=== PATIENT | male | born 1955 | race Caucasian/White ===

== ENCOUNTER 2017-10-16 11:30 | Inpatient (IN) | payer OTHER ==
[2017-10-16] VITALS (8 sets, daily range): BP systolic 118–137; BP diastolic 74–86; PULSE 94–118; TEMP 36.7–37.5; O2SAT 91–96; Ht 182.9 cm; Wt 108.0 kg
[~2017-10-16] VITALS: Ht 182.9 cm; Wt 108.0 kg
[~2017-10-16 11:30] MED LIST: ACET-1256 PO; IMDSR30 PO; LPR25 PO; LPT40 PO; LSN5 PO; NTRSLP4 SL; OMEP20TA PO; PLV75 PO; PPTBS PO
[2017-10-16] MEDS ORDERED: SODIUM CHLORIDE 0.9% 1000ML 1,000 ML IV STA ×3 (11:45→12:34)
[2017-10-16 12:14] LABS: BASO % 0.1 %; BASO ABS # 0.01 K/uL (0-0.2); HEMATOCRIT 44.8 % (42-52); HEMOGLOBIN 15.6 g/dL (14.0-18.0); IG# 0.07 K/uL (0.00-0.02); LYMPH % 5.8 %; LYMPH ABS # 0.87 K/uL (1.2-3.4); MEAN CELL VOLUME 95.3 fL (80-100); MEAN CORPUSCULAR HEMOGLOBIN 33.2 pg (25-34); MEAN CORPUSCULAR HGB CONC 34.8 g/dl (32-36); MEAN PLATELET VOLUME 10.3 fL (7.4-10.4); MONO % 1.8 %; MONO ABS # 0.27 K/uL (0.11-0.59); NEUT % 91.8 %; NEUT ABS # 13.83 K/uL (1.4-6.5); PLATELET COUNT 187 K/uL (130-400); RED CELL DISTRIBUTION WIDTH CV 14.2 % (11.5-14.5); RED CELL DISTRIBUTION WIDTH SD 49.7 fL (36.4-46.3); WHITE BLOOD COUNT 15.05 K/uL (4.8-10.8)
--- NOTE | 2017-10-16 12:21 | DIAGNOSTIC IMAGING REPORT ---
SINGLE VIEW CHEST CLINICAL HISTORY: Atypical chest pain. Dyspnea. FINDINGS: An AP, portable, upright chest radiograph is compared to chest x-ray and chest CT dated 12/15/2014. The examination is degraded by portable technique and patient rotation. The heart is enlarged and there is atherosclerotic calcification of the thoracic aorta. The pulmonary vasculature is noncongested. Emphysema and chronic interstitial thickening are similar to previous. There is dense airspace consolidation the right midlung with patchy airspace consolidation present at both lung bases, right larger than left. A trace right pleural effusion is suspected. No pneumothorax is seen. The skeletal structures are osteopenic. The bony thorax is grossly intact. IMPRESSION: 1. Cardiomegaly and emphysema. 2. There is multifocal airspace consolidation as above, most confluent in the right midlung. The appearance is typical for pneumonia. Clinical correlation will be required and radiographic follow-up to resolution is recommended. Electronically signed by: uGy Seaman M.D. 10/16/2017 12:20 PM Dictated Date/Time: 10/16/2017 12:19 PM
[2017-10-16] MEDS ORDERED: LEVAQUIN 750MG / 150ML D5W IV STA (12:23)
[2017-10-16] MEDS ORDERED: PIPERACILLIN/TAZOBACTAM 4.5 GM/100ML D5W IV STA (12:23)
[2017-10-16 12:32] LABS: ALBUMIN 2.9 gm/dl (3.4-5.0); ALT/SGPT 19 U/L (12-78); AST/SGOT 13 U/L (15-37); BLOOD UREA NITROGEN 30 mg/dl (7-18); CALCIUM 8.5 mg/dl (8.5-10.1); CARBON DIOXIDE 25 mmol/L (21-32); CREATININE 1.97 mg/dl (0.60-1.40); GLUCOSE 176 mg/dl (70-99); LIPASE 98 U/L (73-393); POTASSIUM 3.8 mmol/L (3.5-5.1); SODIUM 127 mmol/L (136-145)
[2017-10-16 12:37] LABS: ALKALINE PHOSPHATASE 60 U/L (45-117); CKMB 2.8 ng/ml (0.5-3.6); TOTAL PROTEIN 7.7 gm/dl (6.4-8.2)
[2017-10-16] MEDS ORDERED: LPR100 PO (12:39)
[2017-10-16] MEDS ORDERED: ADVIN10050 INH (12:39)
[2017-10-16] MEDS ORDERED: PRVIN5 INH (12:39)
[2017-10-16 12:40] LABS: INFLUENZA B ANTIGEN Neg for Influ B (NEG)
[2017-10-16 12:55] LABS: ISTAT CREATININE 1.9 mg/dl (0.6-1.3); ISTAT IONIZED CALCIUM 0.98 mmol/l (1.12-1.32); ISTAT POTASSIUM 3.8 mEq/L (3.3-5.0)
[2017-10-16] MEDS ORDERED: PIPERACILL/TAZOBAC CONSULT ACTIVE PRN (13:00)
[2017-10-16] MEDS ORDERED: PIPERACILL/TAZOBAC IV 4.5 GM in DEXTROSE 5% 100ML 100 ML IV SCH (13:00)
[2017-10-16] MEDS ORDERED: METHYLPREDNISOLONE 125 MG VIAL ONE (13:15)
[2017-10-16] MEDS ORDERED: DiphenhydrAMINE HCL 50 MG/ML VIAL ONE (13:15)
[2017-10-16] MEDS ORDERED: METHYLPREDNISOLONE 125 MG VIAL IV STA (13:16)
[2017-10-16] MEDS ORDERED: DiphenhydrAMINE HCL 50 MG/ML VIAL IV STA (13:16)
[2017-10-16] MEDS ORDERED: METO100T44 PO (14:43)
[2017-10-16] MEDS ORDERED: ALBUTEROL HFA 8 GM INHALER INH PRN (14:45)
[2017-10-16] MEDS ORDERED: DEXTROSE 50% 50 ML SYR IV PRN (15:15)
[2017-10-16] MEDS ORDERED: GLUCAGON FOR INJ 1 MG VIAL SQ PRN (15:15)
[2017-10-16] MEDS ORDERED: GLUCOSE 10 TABS/TUBE PO PRN (15:15)
[2017-10-16] MEDS ORDERED: GLUCOSE 40% GEL 15 GM TUBE PO PRN (15:15)
[2017-10-16] MEDS: NSS + 20MEQ KCL 1000ML 1,000 ML IV SCH (15:22)
[2017-10-16 15:32] LABS: INR 1.1 (0.9-1.1); PTT PATIENT 32.7 SECONDS (21.0-31.0)
[2017-10-16] MEDS ORDERED: CEFEPIME CONSULT ACTIVE PRN (15:45)
[2017-10-16] MEDS ORDERED: LEVOFLOXACIN CONSULT ACTIVE PRN (15:45)
[2017-10-16] MEDS: ALBUTEROL 0.083% NEBU SOLN 3 ML VIAL INH SCH ×2 (16:00→19:20)
--- NOTE | 2017-10-16 17:03 | EMERGENCY ROOM VISIT NOTE ---
History Report prepared by [place]: Quincy Sandhu Under the Supervision of: Dr. Calin Mojica D.O. First contact with patient: 11:38 Chief Complaint: ILLNESS Stated Complaint: BLOOD IN URINE, COUGHING UP BLOOD, SOB History of Present Illness The patient is a 62 year old male who presents to the Emergency Room with complaints of coughing up blood persistently and hematuria that began two days ago. The patient states that his symptoms started two days ago when he started to develop chills. He then felt like he had to vomit, but was unable to bring anything up. The patient felt a "pop" in his chest while he was trying to make himself vomit. He has felt a constant pain in the right side of the chest since this occurred two days ago. The patient continued to mention that he then started to notice blood in his urine and in what he was coughing up. He is wearing a nasal cannula on exam, but does not commonly wear oxygen. He was 88% on room air upon arrival in triage. The patient is not on any blood thinners. The patient does have a history of a myocardial infarction in 1989. Source of History: patient Onset: 2 days ago Position: chest, other Quality: other (coughing blood, hematuria) Timing: other (persistent) Associated Symptoms: + chills, + nausea, + urinary symptoms, No vomiting Review of Systems See HPI for pertinent positives & negatives. A total of 10 systems reviewed and were otherwise negative. Past Medical & Surgical Medical Problems: (1) [place] (acute kidney injury) (2) Coronary artery disease (3) Hypertension (4) Pneumonia Surgical Problems: (1) H/O cardiac catheterization Family History Omitted secondary to age. Social History Smoking Status: Current Some Day Smoker Marital Status: Housing Status: lives with significant other Occupation Status: unemployed Current/Historical Medications Scheduled Albuterol Sulf (Albuterol Sulfate), 1-2 PUFFS INH UD Fluticasone Prop/Salmeterol (Advair Diskus 100-50 Mcg/Dose), 1-2 PUFFS INH UD Metoprolol Succ (Toprol Xl) (Toprol-Xl ), 100 MG PO DAILY Allergies Coded Allergies: Piperacillin (Unverified Allergy, Intermediate, rash, itching, burning through upper body, 10/16/17) Tazobactam (Unverified Allergy, Intermediate, rash, itching, burning through upper body, 10/16/17) Aspirin (Verified Allergy, Mild, hives, 12/15/14) Morphine (Verified Adverse Reaction, Unknown, NAUSEA/VOMITING, 10/16/17) Physical Exam Vital Signs Date Time Temp Pulse Resp B/P (MAP) Pulse Ox O2 Delivery O2 Flow Rate FiO2 10/16/17 12:56 92 Nasal Cannula 4.0 10/16/17 12:38 118 29 113/72 92 Nasal Cannula 4.0 10/16/17 12:08 92 Nasal Cannula 4.0 10/16/17 11:50 121 10/16/17 11:33 36.6 121 22 116/72 90 Room Air Physical Exam GENERAL: Sitting up in bed, alert, well nourished, ill-appearing, dry cough, non -toxic EYE EXAM: normal conjunctiva. OROPHARYNX: no exudate, no erythema, lips, buccal mucosa, and tongue normal and mucous membranes are moist NECK: supple, no nuchal rigidity, no adenopathy, non-tender LUNGS: Wheezing bilaterally. Normal chest wall mechanics HEART: no murmurs, S1 normal and S2 normal ABDOMEN: abdomen soft, non-tender, normo-active bowel sounds, no masses, no rebound or guarding. BACK: Back is symmetrical on inspection and there is no deformity, no midline tenderness, no CVA tenderness. SKIN: no rashes and no bruising UPPER EXTREMITIES: upper extremities are grossly normal. LOWER EXTREMITIES: No pitting edema. Calves equal bilaterally. NEURO EXAM: Normal sensorium, cranial nerves II-XII grossly intact, normal speech, no gross weakness of arms, no gross weakness of legs. Medical Decision & Procedures ER Provider Diagnostic Interpretation: Radiology results as stated below per my review and the radiologist's interpretation: SINGLE VIEW CHEST CLINICAL HISTORY: Atypical chest pain. Dyspnea. FINDINGS: An AP, portable, upright chest radiograph is compared to chest x-ray and chest CT dated 12/15/2014. The examination is degraded by portable technique and patient rotation. The heart is enlarged and there is atherosclerotic calcification of the thoracic aorta. The pulmonary vasculature is noncongested. Emphysema and chronic interstitial thickening are similar to previous. There is dense airspace consolidation the right midlung with patchy airspace consolidation present at both lung bases, right larger than left. A trace right pleural effusion is suspected. No pneumothorax is seen. The skeletal structures are osteopenic. The bony thorax is grossly intact. IMPRESSION: 1. Cardiomegaly and emphysema. 2. There is multifocal airspace consolidation as above, most confluent in the right midlung. The appearance is typical for pneumonia. Clinical correlation will be required and radiographic follow-up to resolution is recommended. Electronically signed by: Guy Seaman M.D. 10/16/2017 12:20 PM Dictated Date/Time: 10/16/2017 12:19 PM Laboratory Results 10/16/17 12:00 Red Blood Count 4.70, Mean Corpuscular Volume 95.3, Mean Corpuscular Hemoglobin 33.2, Mean Corpuscular Hemoglobin Concent 34.8, Mean Platelet Volume 10.3, Neutrophils (%) (Auto) 91.8, Lymphocytes (%) (Auto) 5.8, Monocytes (%) (Auto) 1.8, Eosinophils (%) (Auto) 0.0, Basophils (%) (Auto) 0.1, Neutrophils # (Auto) 13.83, Lymphocytes # (Auto) 0.87, Monocytes # (Auto) 0.27, Eosinophils # (Auto) 0.00, Basophils # (Auto) 0.01 10/16/17 12:00 Test 10/16/17 12:00 10/16/17 12:09 White Blood Count 15.05 K/uL (4.8-10.8) Red Blood Count 4.70 M/uL (4.7-6.1) Hemoglobin 15.6 g/dL (14.0-18.0) Hematocrit 44.8 % (42-52) Mean Corpuscular Volume 95.3 fL (80-100) Mean Corpuscular Hemoglobin 33.2 pg (25-34) Mean Corpuscular Hemoglobin Concent 34.8 g/dl (32-36) Platelet Count 187 K/uL (130-400) Mean Platelet Volume 10.3 fL (7.4-10.4) Neutrophils (%) (Auto) 91.8 % Lymphocytes (%) (Auto) 5.8 % Monocytes (%) (Auto) 1.8 % Eosinophils (%) (Auto) 0.0 % Basophils (%) (Auto) 0.1 % Neutrophils # (Auto) 13.83 K/uL (1.4-6.5) Lymphocytes # (Auto) 0.87 K/uL (1.2-3.4) Monocytes # (Auto) 0.27 K/uL (0.11-0.59) Eosinophils # (Auto) 0.00 K/uL (0-0.5) Basophils # (Auto) 0.01 K/uL (0-0.2) RDW Standard Deviation 49.7 fL (36.4-46.3) RDW Coefficient of Variation 14.2 % (11.5-14.5) Immature Granulocyte % (Auto) 0.5 % Immature Granulocyte # (Auto) 0.07 K/uL (0.00-0.02) Prothrombin Time 11.5 SECONDS (9.0-12.0) Prothromb Time International Ratio 1.1 (0.9-1.1) Activated Partial Thromboplast Time 32.7 SECONDS (21.0-31.0) Partial Thromboplastin Ratio 1.3 Est Creatinine Clear Calc Drug Dose 47.2 ml/min Estimated GFR () 40.4 Estimated GFR (Non- 34.9 BUN/Creatinine Ratio 15.2 (10-20) Calcium Level 8.5 mg/dl (8.5-10.1) Total Bilirubin 1.0 mg/dl (0.2-1) Direct Bilirubin 0.3 mg/dl (0-0.2) Aspartate Amino Transf (AST/SGOT) 13 U/L (15-37) Alanine Aminotransferase (ALT/SGPT) 19 U/L (12-78) Alkaline Phosphatase 60 U/L (45-117) Total Creatine Kinase 222 U/L (39-308) Creatine Kinase MB 2.8 ng/ml (0.5-3.6) Creatine Kinase MB Ratio 1.3 (0-3.0) Troponin I < 0.015 ng/ml (0-0.045) Total Protein 7.7 gm/dl (6.4-8.2) Albumin 2.9 gm/dl (3.4-5.0) Lipase 98 U/L (73-393) Influenza Type A Antigen Neg for Influ A (NEG) Influenza Type B Antigen Neg for Influ B (NEG) Bedside Hemoglobin 16.3 g/dl (14.0-18.0) Bedside Hematocrit 48 % (42-52) Bedside Sodium 132 mEq/L (135-144) Bedside Potassium 3.8 mEq/L (3.3-5.0) Bedside Chloride 91 mEq/L (101-112) Bedside Total CO2 25 mEq/l (24-31) Anion Gap 21.0 mmol/L (16-25) Bedside Blood Urea Nitrogen 31 mg/dl (7-18) Bedside Creatinine 1.9 mg/dl (0.6-1.3) Bedside Glucose (other) 181 mg/dl (70-99) Bedside Ionized Calcium ([place]) 0.98 mmol/l (1.12-1.32) Laboratory results per my review. Medications Administered Medications (Trade) Dose Ordered Sig/Tony Route Start Time Stop Time Status Last Admin Dose Admin Sodium Chloride 1,000 ml @ 999 mls/hr Q1H1M STAT IV 10/16/17 11:45 10/16/17 12:45 DC 10/16/17 12:11 999 MLS/HR Levofloxacin (Levaquin / D5W) 750 mg NOW STAT IV 10/16/17 12:23 10/16/17 12:25 DC 10/16/17 13:28 750 MG Piperacillin Sod/ Tazobactam Sod (Zosyn Iv) 4.5 gm NOW STAT IV 10/16/17 12:23 10/16/17 12:25 DC 10/16/17 13:12 4.5 GM Sodium Chloride 1,000 ml @ 999 mls/hr Q1H1M STAT IV 10/16/17 12:33 10/16/17 13:33 DC 10/16/17 12:41 999 MLS/HR ECG Per My Interpretation Indication: other (Coughing up blood) Rate (beats per minute): 116 Rhythm: sinus tachycardia Findings: nonspecific-ST abn (Inferior and lateral), Q waves (Inferior), other (early r-wave progression) ED Course ED COURSE: Vital signs were reviewed and showed hypertensive tachycardic vitals. The patients medical record was reviewed The above diagnostic studies were performed and reviewed. ED treatments and interventions as stated above. 1141: The patient was evaluated in room A3. A complete history and physical examination was performed. 1145: Ordered Sodium Chloride 1000 mL @ 999 mL/hr IV. 1223: Ordered Zosyn 4.5 gm IV, Levofloxacin 750 gm IV. 1233: Ordered Sodium Chloride 1000 mL @ 999 mL/hr IV. 1227: I discussed the case with Dr. Luanarosaura Reynosoist. He will evaluate the patient for further treatment. 1234: Ordered Sodium Chloride 1000 mL @ 999 mL/hr IV. 1238: Upon reevaluation, the patient is resting in bed.I discussed my findings with the patient and he understands and agrees with the treatment plan. Based on the patients age, coexisting illnesses, exam and lab findings the decision to treat as an inpatient was made. The patient remained stable while under my care. The patient will be evaluated for further management. Medical Decision Differential diagnoses includes but is not limited to pneumonia, bronchitis, COPD/Asthma exacerbation, pneumothorax, pulmonary embolism, congestive heart failure, acute coronary syndrome. Patient is a 62-year-old male that presents to ER for chills for the past 2 days associated with some nausea and coughing up blood. Upon presentation he is hypoxic at 88%. Heart rate was in the 130s. Labs show a leukocytosis of 15, 000. Mild hyponatremia at 127. Creatinine is elevated at 2. Lactic acid was elevated 3.5. She was given 3 L normal saline. He remained on nasal cannula as he was hypoxic. He was given broad-spectrum antibiotics. With Zosyn he broke out in a redness on his chest and back. He was given IV steroids and Benadryl. Influence was negative. Chest x-ray showed the pneumonia. Patient family were updated at bedside. He was admitted to internal medicine with sepsis secondary to pneumonia and hypoxia. Medication Reconcilliation Current Medication List: was personally reviewed by me Blood Pressure Screening Patient's blood pressure: Elevated blood pressure Consults Time Called: 1221 Consulting Physician: Dr. Luana Clark Returned Call: 1227 I discussed the case with Dr. Luana Clark. He will evaluate the patient for further treatment. Impression Primary Impression: Sepsis Additional Impressions: Hypoxia Pneumonia Critical Care I have personally spent 35 minutes of critical care time in the direct management of this patient. This includes bedside care, interpretation of diagnostic studies, and testing, discussion with consultants, patient, and family members, and other required patient management activities. This 35 minutes is in excess of all separately billable procedures. Scribe Attestation The scribe's documentation has been prepared under my direction and personally reviewed by me in its entirety. I confirm that the note above accurately reflects all work, treatment, procedures, and medical decision making performed by me. Departure Information Dispostion Being Evaluated By Hospitalist Referrals Andressa Benjamin DO (PCP) Patient Instructions My [facility] Problem Qualifiers Primary Impression: Sepsis Sepsis type: sepsis due to unspecified organism Qualified Codes: A41.9 - Sepsis, unspecified organism Additional Impressions: Pneumonia Pneumonia type: due to unspecified organism Laterality: unspecified laterality Lung location: unspecified part of lung Qualified Codes: J18.9 - Pneumonia, unspecified organism
[2017-10-16] MEDS: CEFEPIME IV 2,000 MG in SYRINGE 7.5 ML IV SCH (17:35)
[2017-10-16] MEDS: INSULIN ASPART 100 UNITS/ML 3 ML PEN SC SCH ×2 (17:37→20:36)
[2017-10-16] MEDS ORDERED: ADVIN50/60 INH (19:56)
[2017-10-16] MEDS: FLUTICASONE/SALMETEROL (ADVAIR) 500/50 INH 14 PUFF INH SCH (20:33)
[2017-10-16] MEDS: METHYLPREDNISOLONE IV 40 MG in SYRINGE 0 ML IV SCH (22:09)
[2017-10-16] MEDS: HEPARIN SOD 5000 UNIT/0.5 ML CARP SQ SCH (22:11)
[2017-10-17] VITALS (7 sets, daily range): BP systolic 106–153; BP diastolic 63–83; PULSE 71–75; TEMP 36.6–36.9; O2SAT 95–97
[2017-10-17] MEDS: NSS + 20MEQ KCL 1000ML 1,000 ML IV SCH (01:06)
[2017-10-17] MEDS: CEFEPIME IV 2,000 MG in SYRINGE 7.5 ML IV SCH (04:20)
[2017-10-17] MEDS: HEPARIN SOD 5000 UNIT/0.5 ML CARP SQ SCH ×3 (05:54→21:10)
[2017-10-17] MEDS: METHYLPREDNISOLONE IV 40 MG in SYRINGE 0 ML IV SCH ×3 (05:54→21:05)
[2017-10-17 06:17] LABS: HEMATOCRIT 40.4 % (42-52); HEMOGLOBIN 13.6 g/dL (14.0-18.0); MEAN CELL VOLUME 96.7 fL (80-100); MEAN CORPUSCULAR HEMOGLOBIN 32.5 pg (25-34); MEAN CORPUSCULAR HGB CONC 33.7 g/dl (32-36); MEAN PLATELET VOLUME 10.3 fL (7.4-10.4); PLATELET COUNT 170 K/uL (130-400); RED CELL DISTRIBUTION WIDTH CV 14.8 % (11.5-14.5); RED CELL DISTRIBUTION WIDTH SD 52.7 fL (36.4-46.3); WHITE BLOOD COUNT 12.94 K/uL (4.8-10.8)
[2017-10-17 06:49] LABS: CALCIUM 7.8 mg/dl (8.5-10.1); CREATININE 1.46 mg/dl (0.60-1.40); PHOSPHORUS 2.5 mg/dl (2.5-4.9); POTASSIUM 5.1 mmol/L (3.5-5.1)
[2017-10-17] MEDS ORDERED: VANCOMYCIN CONSULT ACTIVE PRN (07:30)
[2017-10-17] MEDS ORDERED: VANCOMYCIN IV 2,750 MG in SODIUM CHLORIDE 0.9% 500ML 500 ML IV ONE (07:45)
[2017-10-17 07:53] LABS: HEMOGLOBIN A1C 7.6 % (4.5-5.6)
[2017-10-17] MEDS: INSULIN ASPART 100 UNITS/ML 3 ML PEN SC SCH ×4 (08:32→21:09)
[2017-10-17] MEDS: FLUTICASONE/SALMETEROL (ADVAIR) 500/50 INH 14 PUFF INH SCH ×2 (08:36→21:05)
[2017-10-17] MEDS: METOPROLOL SUCC 50MG EXT REL TAB PO SCH (08:37)
[2017-10-17] MEDS ORDERED: METOPROLOL TARTRATE 50 MG TAB PO SCH (09:00)
--- NOTE | 2017-10-17 10:24 | Pharmacy Progress Note ---
Pharmacy Abx Initial Consult Date of Service Oct 17, 2017. Pharmacy Dosing Scope Date of Consult: 10/17/17 Consultation requested by: Dr. Mas Pharmacy is consulted to initiate Vancomycin IV dosing therapy, order appropriate labs and adjust drug dose/frequency. Subjective The patient is a 62 year old male admitted on Oct 16, 2017 at 12:58. Objective Height (Feet): 6 Height (Inches): 0.00 Weight (Kilograms): 105.400 Vital Signs (Past 12Hrs) Vital Signs Past 12 Hours Date Time Temp Pulse Resp B/P (MAP) Pulse Ox O2 Delivery O2 Flow Rate FiO2 10/17/17 09:32 Nasal Cannula 3.0 10/17/17 07:22 36.6 75 18 106/63 (77) 97 10/17/17 04:00 Nasal Cannula 4.0 10/17/17 03:54 36.7 74 20 121/81 (94) 97 Nasal Cannula 4.0 10/17/17 00:00 Nasal Cannula 4.0 10/16/17 23:08 36.7 100 20 128/75 (92) 96 Nasal Cannula 4.0 Lab Results (24Hrs) Laboratory Tests (24 Hours) Test 10/16/17 12:00 10/17/17 06:02 White Blood Count 15.05 K/uL (4.8-10.8) H 12.94 K/uL (4.8-10.8) H Red Blood Count 4.70 M/uL (4.7-6.1) Hemoglobin 15.6 g/dL (14.0-18.0) Hematocrit 44.8 % (42-52) Mean Corpuscular Volume 95.3 fL (80-100) Mean Corpuscular Hemoglobin 33.2 pg (25-34) Mean Corpuscular Hemoglobin Concent 34.8 g/dl (32-36) Platelet Count 187 K/uL (130-400) Mean Platelet Volume 10.3 fL (7.4-10.4) Neutrophils (%) (Auto) 91.8 % Lymphocytes (%) (Auto) 5.8 % Monocytes (%) (Auto) 1.8 % Eosinophils (%) (Auto) 0.0 % Basophils (%) (Auto) 0.1 % Neutrophils # (Auto) 13.83 K/uL (1.4-6.5) H Lymphocytes # (Auto) 0.87 K/uL (1.2-3.4) L Monocytes # (Auto) 0.27 K/uL (0.11-0.59) Eosinophils # (Auto) 0.00 K/uL (0-0.5) Basophils # (Auto) 0.01 K/uL (0-0.2) Total Creatine Kinase 222 U/L (39-308) Lactic Acid Level 1.4 mmol/L (0.4-2.0) Micro Results Date/Time Source Procedure Growth Status 10/16/17 13:06 Blood Blood Culture - Preliminary Gram Positive Cocci Resulted 10/16/17 13:05 Blood Blood Culture - Preliminary Gram Positive Cocci Resulted 10/16/17 23:20 Sputum Expectorated Sputum Gram Stain - Final Resulted 10/16/17 23:20 Sputum Expectorated Sputum Sputum Culture Pending Resulted Assessment & Plan Assessment 62 year old male with Sepsis secondary to Pneumonia. Plan Vancomycin for treatment of Pneumonia + Bacteremia Vancomycin IV * Estimated PK parameters: Ke = 0.057/hr, Vd = 0.7 L/kg, t1/2 = 12.2 hrs * Loading dose: 2750 mg (25 mg/kg) x1 given at 0833 today. * Maintenance dose: Vancomycin 1750 mg IV (16.8 mg/kg) every 18 hours starting tonight at 2000. * Goal trough level for Sepsis/ Pneumonia: 15 to 20 mcg/mL * Trough level ordered for 10/19/17 before dose at 0800. Pharmacy will continue to follow and will adjust dose/frequency as necessary. Thank you.
--- NOTE | 2017-10-17 10:51 | Progress Note ---
Progress Note Date of Service Oct 17, 2017. Progress Note ID Consult Dictated #[id number] A/P: 1. GPC Septicemia 2. CAP 3. Leukocytosis -Continue abx, follow cultures -Repeat blood cultures x 2 -Thank you
[2017-10-17] MEDS: LEVOFLOXACIN / D5W 750 MG in PREMIXED IN D5W 150 ML IV SCH (11:36)
--- NOTE | 2017-10-17 13:22 | INFECT. DISEASE CONSULTATION ---
DATE OF CONSULTATION: 10/17/2017 HISTORY OF PRESENT ILLNESS: This is a 62-year-old gentleman who was brought to the ER after he had episodes of hemoptysis and a productive cough which began 2 days prior to admission. He also did admit to subjective fevers and chills at home. He did have some pleuritic chest pain associated with this. A chest x-ray was done in the Emergency Room and did show right middle lobe infiltration. A flu swab was negative. He has been afebrile since admission. His initial white blood cell count was 15 and has improved today to 12.9. Blood and sputum cultures were obtained in the ER. His blood cultures are growing gram positive cocci in 2/2 sets, and his sputum culture is pending. He was started empirically on Levaquin, vancomycin, and Solu-Medrol and appears to be tolerating these well. He was also hypoxic on arrival to the hospital but now is feeling much better on nasal cannula oxygen, which he does not require at home. He denies any recent travel. His family is at the bedside. There are no recent sick contacts. He does state that he was sick with the flu at the end of July and early August but otherwise has been feeling well. He currently denies any cough. He states this is much improved. He currently denies any pleuritic chest pain. He denies any nausea, vomiting, diarrhea, or abdominal pain. His remaining review of systems is unremarkable. PAST MEDICAL HISTORY: Significant for history of coronary artery disease with NE in the past, hypertension. PAST SURGICAL HISTORY: Significant for cardiac catheterization. FAMILY HISTORY: Noncontributory. SOCIAL HISTORY: Significant for daily tobacco use. He denies any drug or alcohol use. ALLERGIES: INCLUDE PENICILLIN, ASPIRIN, AND MORPHINE. MEDICATIONS: Vancomycin, Levaquin, Toprol-XL, subcu heparin, Solu-Medrol, Advair, insulin, Ventolin. PHYSICAL EXAMINATION: VITAL SIGNS: He is currently afebrile, pulse 75, respiratory rate 18, blood pressure 106/63, oxygen saturation is 97% on 3 L nasal cannula. GENERAL: He is awake, alert, and oriented x3. He is in no acute distress. HEENT: Mucous membranes are moist. Extraocular muscles are intact. CARDIOVASCULAR: Heart is regular. RESPIRATORY: Lungs have rhonchi bilaterally, with decreased breath sounds. GASTROINTESTINAL: Abdomen is soft, nontender, nondistended. EXTREMITIES: There is no lower extremity edema bilaterally. SKIN: Without rash. LABORATORY STUDIES: CBC today reveals a white blood cell count of 12.9, hemoglobin 13.6, platelets 170. Chemistry panel reveals a sodium of 136, potassium of 5.1, chloride 105, bicarbonate 27, BUN 25, creatinine 1.4, glucose 203. LFTs are within normal limits. Lactic acid was initially 3.5, this has improved to 1.4 this morning. Urinalysis is negative. Flu swab is negative. Blood cultures are growing gram positive cocci, which are yet to be identified. Sputum culture is pending. Chest x-ray again shows right middle lobe infiltration. ASSESSMENT: 1. Gram-positive sepsis. 2. Community acquired pneumonia. 3. Leukocytosis. PLAN: At this time, he will remain on broad spectrum antibiotics. Repeat blood cultures will be obtained. An echocardiogram should also be obtained to rule out any valvular abnormality. We will follow along with you.
--- NOTE | 2017-10-17 15:14 | Progress Note ---
Internal Med Progress Note Date of Service: Oct 17, 2017. Provider Documentation: SUBJECTIVE: says feeling better today still has some hemoptysis afebrile sob is better denies chest pain hemodynamically stable OBJECTIVE: Vital Signs-as noted below Exam: General-alert and oriented. Not in distress ENT-normal hearing. Neck-No neck masses Lungs-CTA b/l no wheezing or crackles Heart-S1 and S2 heard regular rhythm no murmurs Abdomen-soft Bowels sounds present no tenderness present no distension Extremities-no edema no erythema Neuro-alert and oriented moves extremities Lab data as noted below. ASSESSMENT & PLAN: Sepsis bacteremia community acquired pneumonia presented with hemoptysis, sob, tachycardia and leukocytosis and lactic acid of 3.5 CXR-multifocal pneumonia blood cx gm positive-await final cx lactic acid normalized currently on iv vancomycin and levaquin ID on board stopping fluids continue to monitor Bacteremia with gm positive cocci await final cx abx as above ID on board will f/u echo Copd ex hx of tobacco abuse from above on abx as above, iv steroids and nebs Hx of CAd on b clarita and aspirin will f/u lipid profile Hx of DM seems currently not on any meds hba1c 7.6 on iss close monitor while on steroids DVT PROPHYLAXIS hep sub q DISPOSITION monitor in tele to be determined Vital Signs: Date Time Temp Pulse Resp B/P (MAP) Pulse Ox O2 Delivery O2 Flow Rate FiO2 10/17/17 12:00 Nasal Cannula 2.0 10/17/17 12:00 36.6 74 20 128/83 (98) 96 Nasal Cannula 2.0 10/17/17 09:32 Nasal Cannula 3.0 10/17/17 07:22 36.6 75 18 106/63 (77) 97 10/17/17 04:00 Nasal Cannula 4.0 10/17/17 03:54 36.7 74 20 121/81 (94) 97 Nasal Cannula 4.0 10/17/17 00:00 Nasal Cannula 4.0 10/16/17 23:08 36.7 100 20 128/75 (92) 96 Nasal Cannula 4.0 10/16/17 20:00 95 Nasal Cannula 4.0 10/16/17 19:23 37.5 94 24 120/80 (93) 95 Nasal Cannula 4.0 10/16/17 19:20 96 18 94 Nasal Cannula 4.0 10/16/17 16:00 91 Nasal Cannula 4.0 10/16/17 15:37 37.2 110 20 118/74 (89) 91 Nasal Cannula 4.0 Lab Results: Results Past 24 Hours Test 10/16/17 16:25 10/16/17 17:04 10/16/17 20:18 10/16/17 21:00 Range/Units Bedside Glucose 284 249 70-99 mg/dl Lactic Acid Level 2.7 0.4-2.0 mmol/L Urine Color YELLOW Urine Appearance CLEAR CLEAR Urine pH 5.5 4.5-7.5 Urine Specific [place] 1.021 1.000-1.030 Urine Protein TRACE NEG Urine Glucose (UA) 3+ NEG Urine Ketones TRACE NEG Urine Occult Blood TRACE NEG Urine Nitrite NEG NEG Urine Bilirubin NEG NEG Urine Urobilinogen NEG NEG Urine Leukocyte Esterase NEG NEG Urine WBC (Auto) 1-5 0-5 /hpf Urine RBC (Auto) 5-10 0-4 /hpf Urine Hyaline Casts (Auto) 0 0-5 /lpf Urine Epithelial Cells (Auto) 10-20 0-5 /lpf Urine Bacteria (Auto) NEG NEG Test 10/17/17 06:02 10/17/17 07:04 Range/Units White Blood Count 12.94 4.8-10.8 K/uL Red Blood Count 4.18 4.7-6.1 M/uL Hemoglobin 13.6 14.0-18.0 g/dL Hematocrit 40.4 42-52 % Mean Corpuscular Volume 96.7 80-100 fL Mean Corpuscular Hemoglobin 32.5 25-34 pg Mean Corpuscular Hemoglobin Concent 33.7 32-36 g/dl RDW Standard Deviation 52.7 36.4-46.3 fL RDW Coefficient of Variation 14.8 11.5-14.5 % Platelet Count 170 130-400 K/uL Mean Platelet Volume 10.3 7.4-10.4 fL Sodium Level 136 136-145 mmol/L Potassium Level 5.1 3.5-5.1 mmol/L Chloride Level 105 98-107 mmol/L Carbon Dioxide Level 27 21-32 mmol/L Anion Gap 4.0 3-11 mmol/L Blood Urea Nitrogen 25 7-18 mg/dl Creatinine 1.46 0.60-1.40 mg/dl Est Creatinine Clear Calc Drug Dose 64.2 ml/min Estimated GFR () 58.1 Estimated GFR (Non- 50.1 BUN/Creatinine Ratio 17.2 10-20 Random Glucose 223 70-99 mg/dl Estimated Average Glucose 171 mg/dl Hemoglobin A1c 7.6 4.5-5.6 % Lactic Acid Level 1.4 0.4-2.0 mmol/L Calcium Level 7.8 8.5-10.1 mg/dl Phosphorus Level 2.5 2.5-4.9 mg/dl Magnesium Level 2.4 1.8-2.4 mg/dl Bedside Glucose 203 70-99 mg/dl Microbiology Results 10/17/17 Blood Culture, Received Pending 10/17/17 Blood Culture, Received Pending 10/17/17 MRSA DNA Surveillance Screen - Final, Complete Specimen Negative for MRSA by DNA Probe 10/16/17 Gram Stain - Final, Resulted 10/16/17 Sputum Culture, Resulted Pending
[2017-10-17] MEDS ORDERED: VANCOMYCIN IV 1,750 MG in SODIUM CHLORIDE 0.9% 500ML 500 ML IV SCH (20:00)
[2017-10-18] VITALS (9 sets, daily range): BP systolic 124–155; BP diastolic 63–95; PULSE 67–86; TEMP 36.3–36.8; O2SAT 93–97
[2017-10-18] MEDS: HEPARIN SOD 5000 UNIT/0.5 ML CARP SQ SCH ×3 (05:55→20:34)
[2017-10-18] MEDS: METHYLPREDNISOLONE IV 40 MG in SYRINGE 0 ML IV SCH (06:10)
[2017-10-18 06:49] LABS: HEMOGLOBIN 12.9 g/dL (14.0-18.0); MEAN CELL VOLUME 96.2 fL (80-100); MEAN CORPUSCULAR HEMOGLOBIN 32.7 pg (25-34); MEAN CORPUSCULAR HGB CONC 33.9 g/dl (32-36); MEAN PLATELET VOLUME 10.2 fL (7.4-10.4); PLATELET COUNT 204 K/uL (130-400); RED CELL DISTRIBUTION WIDTH CV 14.8 % (11.5-14.5); RED CELL DISTRIBUTION WIDTH SD 52.3 fL (36.4-46.3); WHITE BLOOD COUNT 12.68 K/uL (4.8-10.8)
[2017-10-18] MEDS ORDERED: PERFLUTREN LIPID MICROSPHERE (DEFINITY) IV ONE (07:48)
[2017-10-18 07:56] LABS: CALCIUM 8.2 mg/dl (8.5-10.1); CREATININE 1.11 mg/dl (0.60-1.40); POTASSIUM 4.7 mmol/L (3.5-5.1)
[2017-10-18] MEDS: INSULIN ASPART 100 UNITS/ML 3 ML PEN SC SCH ×4 (08:09→20:33)
[2017-10-18] MEDS: FLUTICASONE/SALMETEROL (ADVAIR) 500/50 INH 14 PUFF INH SCH (08:10)
[2017-10-18] MEDS: METOPROLOL SUCC 50MG EXT REL TAB PO SCH (08:52)
[2017-10-18] MEDS ORDERED: LEVALBUTEROL/IPRATROPIUM NEB INH PRN (11:00)
[2017-10-18] MEDS: LEVOFLOXACIN / D5W 750 MG in PREMIXED IN D5W 150 ML IV SCH (11:29)
--- NOTE | 2017-10-18 11:32 | ECHOCARDIOGRAM REPORT ---
*NOTICE TO RECEIVING DEMOCRAT AGENCY This information is strictly Confidential and protected under [place] law. [place] law prohibits you from making any further disclosure of this information unless further disclosure is expressly permitted by the written consent of the person to whom it pertains or is authorized by law. A general authorization for the release of medical or other information is not sufficient for this purpose. Hospital accepts no responsibility if the information is made available to any other person, INCLUDING THE PATIENT. Interpretation Summary * Name: GULSHAN PAYNE Study Date: 10/18/2017 07:19 AM BP: 128/79 mmHg * Patient Location: C.2T\S\S239\S\1 HR: 75 * : 1955 (M/d/yyyy) Gender: Male Height: 72 in * Age: 62 yrs Ethnicity: CA Weight: 232 lb * Ordering Physician: Jesús Mas * Referring Physician: Self, Referred * Performed By: Morgan Llanos RCS * * Reason For Study: GM Positive Bacteremia, Eval for Endocarditis * BSA: 2.3 m2 * The study was technically adequate. * -- Conclusions -- * There is mild concentric left ventricular hypertrophy. * There is a moderate sized apical, inferior, and posterior wall motion abnormality with hypokinesis of the segments. * Left ventricular systolic function is mildly reduced. * Ejection Fraction = 40-45%. * There is mild mitral regurgitation. * Diastolic dysfunction, Grade II (pseudonormalization pattern). * Tricuspid regurgitation is absent, and therefore the pulmonary artery systolic pressure cannot be calculated. * There is no evidence of pulmonary hypertension on 2D images. * There is no evidence of valvular vegetation within the limitations of this imaging modality. If the clinical suspicion for endocarditis remains high, consider HALEIGH. * Compared to the images of the prior study dated 12/16/14, the wall motion abnormalities and LVEF are unchanged. Procedure Details * A complete two-dimensional transthoracic echocardiogram was performed (2D, M-mode, Doppler and color flow Doppler). Left Ventricle * The left ventricle is normal in size. * There is mild concentric left ventricular hypertrophy. * Left ventricular systolic function is mildly reduced. * Ejection Fraction = 40-45%. * There is a moderate sized apical, inferior, and posterior wall motion abnormality with hypokinesis of the segments. Right Ventricle * The right ventricle is normal size. * The right ventricular systolic function is normal as assessed by tricuspid annular plane systolic excursion (TAPSE) (normal >1.5 cm). Atria * The left atrium is mildly dilated. * Right atrial size is normal. * There is no evidence of atrial septal defect, but resolution does not allow assessment for a patent foramen ovale. Mitral Valve * The mitral valve is normal. * There is no mitral valve stenosis. * There is mild mitral regurgitation. Tricuspid Valve * The tricuspid valve is normal. * There is no tricuspid stenosis. * Significant tricuspid regurgitation is absent. * Tricuspid regurgitation is absent, and therefore the pulmonary artery systolic pressure cannot be calculated. There is no evidence of pulmonary hypertension on 2D images. Aortic Valve * The aortic valve is trileaflet. * Aortic stenosis is absent. * There is no significant aortic regurgitation. Pulmonic Valve * The pulmonary valve is not well seen, but the Doppler examination is normal without significant regurgitation or stenosis. Great Vessels * The aortic root and proximal ascending aorta are normal sized. Pericardium/Pleural * There is no pericardial effusion. Great Vessels * Normal inferior vena cava diameter and respiratory variation suggests normal central venous pressure. * Normal inferior vena cava size and collapsability with sniff indicates a normal right atrial pressure of 3 mmHg Left Ventricular Diastolic Function * Diastolic dysfunction, Grade II (pseudonormalization pattern). MMode 2D Measurements and Calculations IVSd 1.2 cm IVSs 1.6 cm LVIDd 5.2 cm LVIDs 3.8 cm LVPWd 1.1 cm LVPWs 1.3 cm IVS/LVPW 1.1 FS 26.4 % EDV(Teich) 128.0 ml ESV(Teich) 62.2 ml EF(Teich) 51.4 % EDV(cubed) 138.5 ml ESV(cubed) 55.2 ml EF(cubed) 60.1 % % IVS thick 27.3 % % LVPW thick 19.8 % LV mass(C)d 239.1 grams LV mass(C)dI 105.4 grams/m\S\2 LV mass(C)s 206.0 grams LV mass(C)sI 90.8 grams/m\S\2 SV(Teich) 65.8 ml SI(Teich) 29.0 ml/m\S\2 SV(cubed) 83.3 ml SI(cubed) 36.7 ml/m\S\2 Ao root diam 4.0 cm Ao root area 12.3 cm\S\2 ACS 1.9 cm LA dimension 4.2 cm asc Aorta Diam 3.7 cm LA/Ao 1.1 EDV(MOD-sp4) 124.0 ml ESV(MOD-sp4) 76.0 ml EF(MOD-sp4) 38.7 % EDV(MOD-sp2) 179.0 ml ESV(MOD-sp2) 110.0 ml EF(MOD-sp2) 38.5 % SV(MOD-sp4) 48.0 ml SI(MOD-sp4) 21.2 ml/m\S\2 SV(MOD-sp2) 69.0 ml SI(MOD-sp2) 30.4 ml/m\S\2 Doppler Measurements and Calculations MV E max katelyn 96.8 cm/sec MV A max katelyn 58.6 cm/sec MV E/A 1.7 MV P1/2t max katelyn 105.7 cm/sec MV P1/2t 102.7 msec MVA(P1/2t) 2.1 cm\S\2 MV dec slope 301.6 cm/sec\S\2 MV dec time 0.25 sec Ao V2 max 125.1 cm/sec Ao max PG 6.3 mmHg Ao max PG (full) 2.0 mmHg LV V1 max PG 4.3 mmHg LV V1 max 103.4 cm/sec PA V2 max 71.9 cm/sec PA max PG 2.1 mmHg
--- NOTE | 2017-10-18 15:54 | Progress Note ---
Internal Med Progress Note Date of Service: Oct 18, 2017. Provider Documentation: SUBJECTIVE: denies sob has occasional hemoptysis no chest pain could not sleep last night appetite ok afebrile OBJECTIVE: Vital Signs-as noted below Exam: General-alert and oriented. Not in distress ENT-normal hearing. Neck-No neck masses Lungs-CTA b/l no wheezing or crackles Heart-S1 and S2 heard regular rhythm no murmurs Abdomen-soft Bowels sounds present no tenderness present no distension Extremities-no edema no erythema Neuro-alert and oriented moves extremities Lab data as noted below. ASSESSMENT & PLAN: Sepsis bacteremia community acquired pneumonia presented with hemoptysis, sob, tachycardia and leukocytosis and lactic acid of 3.5 CXR-multifocal pneumonia blood cx gm positive for strep pneumonia lactic acid normalized was on iv vancomycin and Levaquin ID on board stopped fluids stopped vancomycin continue to monitor Bacteremia strep pneumonia await sensitivities abx as above ID on board echo no new findings Copd ex hx of tobacco abuse from above on abx as above, iv steroids and nebs change steroids to po Hx of CAd on b clarita and aspirin will f/u lipid profile-ldl 84, hdl 12 Hx of chronic systolic and diastolic chf f 40-45% on toprol xl not on diuretics will monitor Hx of DM seems currently not on any meds hba1c 7.6 on iss close monitor while on steroids DVT PROPHYLAXIS hep sub q DISPOSITION transfer to medical floor ambulate in hallways Vital Signs: Date Time Temp Pulse Resp B/P (MAP) Pulse Ox O2 Delivery O2 Flow Rate FiO2 10/19/17 07:29 36.6 65 20 154/99 (117) 94 Room Air 10/19/17 00:00 Room Air 10/18/17 23:22 36.3 78 20 155/95 (115) 93 Room Air 10/18/17 22:49 72 18 95 Room Air 10/18/17 20:00 Room Air 10/18/17 14:48 Nasal Cannula 2.0 10/18/17 13:09 36.4 81 24 145/90 (108) 93 Room Air 10/18/17 12:48 36.8 86 16 95 2.0 10/18/17 12:00 Nasal Cannula 2.0 10/18/17 11:48 36.8 86 16 124/63 (83) 95 10/18/17 08:07 36.8 86 18 131/69 (89) 96 10/18/17 08:00 Nasal Cannula 2.0 Lab Results: Results Past 24 Hours Test 10/18/17 11:20 10/18/17 17:27 10/18/17 20:24 10/19/17 05:19 Range/Units Bedside Glucose 241 202 219 70-99 mg/dl White Blood Count 9.12 4.8-10.8 K/uL Red Blood Count 3.92 4.7-6.1 M/uL Hemoglobin 12.9 14.0-18.0 g/dL Hematocrit 37.6 42-52 % Mean Corpuscular Volume 95.9 80-100 fL Mean Corpuscular Hemoglobin 32.9 25-34 pg Mean Corpuscular Hemoglobin Concent 34.3 32-36 g/dl RDW Standard Deviation 51.4 36.4-46.3 fL RDW Coefficient of Variation 14.7 11.5-14.5 % Platelet Count 215 130-400 K/uL Mean Platelet Volume 10.7 7.4-10.4 fL
[2017-10-18] MEDS: IPRATROPIUM BROMIDE NEB SOLN 0.02% 2.5 ML VIAL INH PRN (22:49)
[2017-10-18] MEDS: LEVALBUTEROL 1.25MG/0.5ML NEB INH PRN (22:49)
[2017-10-19 06:09] LABS: HEMATOCRIT 37.6 % (42-52); HEMOGLOBIN 12.9 g/dL (14.0-18.0); MEAN CELL VOLUME 95.9 fL (80-100); MEAN CORPUSCULAR HEMOGLOBIN 32.9 pg (25-34); MEAN CORPUSCULAR HGB CONC 34.3 g/dl (32-36); MEAN PLATELET VOLUME 10.7 fL (7.4-10.4); PLATELET COUNT 215 K/uL (130-400); RED CELL DISTRIBUTION WIDTH CV 14.7 % (11.5-14.5); RED CELL DISTRIBUTION WIDTH SD 51.4 fL (36.4-46.3); WHITE BLOOD COUNT 9.12 K/uL (4.8-10.8)
[2017-10-19] MEDS: HEPARIN SOD 5000 UNIT/0.5 ML CARP SQ SCH ×3 (06:41→20:52)
[2017-10-19 07:29] VITALS: BP 154/99; PULSE 65; TEMP 36.6; O2SAT 94
[2017-10-19] MEDS ORDERED: VANCOMYCIN TROUGH ONE (07:30)
[2017-10-19] MEDS: METOPROLOL SUCC 50MG EXT REL TAB PO SCH (08:03)
[2017-10-19] MEDS: INSULIN ASPART 100 UNITS/ML 3 ML PEN SC SCH ×4 (08:07→20:51)
[2017-10-19] MEDS: LEVALBUTEROL 1.25MG/0.5ML NEB INH PRN (11:44)
[2017-10-19] MEDS: IPRATROPIUM BROMIDE NEB SOLN 0.02% 2.5 ML VIAL INH PRN (11:44)
[2017-10-19 11:46] VITALS: PULSE 73; O2SAT 92
[2017-10-19] MEDS: LEVOFLOXACIN / D5W 750 MG in PREMIXED IN D5W 150 ML IV SCH (12:29)
--- NOTE | 2017-10-19 14:59 | Progress Note ---
Internal Med Progress Note Date of Service: Oct 19, 2017. Provider Documentation: SUBJECTIVE: still has hemoptysis requiring neb afebrile eating ok' no chest pain no nausea OBJECTIVE: Vital Signs-as noted below Exam: General-alert and oriented. Not in distress ENT-normal hearing. Neck-No neck masses Lungs-CTA b/l no wheezing or crackles Heart-S1 and S2 heard regular rhythm no murmurs Abdomen-soft Bowels sounds present no tenderness present no distension Extremities-no edema no erythema Neuro-alert and oriented moves extremities Lab data as noted below. ASSESSMENT & PLAN: Sepsis bacteremia community acquired pneumonia presented with hemoptysis, sob, tachycardia and leukocytosis and lactic acid of 3.5 CXR-multifocal pneumonia blood cx gm positive for strep pneumonia lactic acid normalized was on iv vancomycin and Levaquin ID on board stopped fluids stopped vancomycin sputum cx strep pneumonia and gm negative bacilli still has hemoptysis continue to monitor Bacteremia strep pneumonia await sensitivities abx as above ID on board echo no new findings Copd ex hx of tobacco abuse from above on abx as above, steroids and nebs will monitor Hx of CAd on b clarita and aspirin will f/u lipid profile-ldl 84, hdl 12 Hx of chronic systolic and diastolic chf f 40-45% on toprol xl not on diuretics will monitor Hx of DM seems currently not on any meds hba1c 7.6 on iss close monitor while on steroids DVT PROPHYLAXIS hep sub q DISPOSITION transfer to medical floor ambulate in hallways possible d/c in am if stable Vital Signs: Date Time Temp Pulse Resp B/P (MAP) Pulse Ox O2 Delivery O2 Flow Rate FiO2 10/19/17 11:46 73 18 92 Room Air 10/19/17 08:10 Room Air 10/19/17 07:29 36.6 65 20 154/99 (117) 94 Room Air 10/19/17 00:00 Room Air 10/18/17 23:22 36.3 78 20 155/95 (115) 93 Room Air 10/18/17 22:49 72 18 95 Room Air 10/18/17 20:00 Room Air Lab Results: Results Past 24 Hours Test 10/18/17 17:27 10/18/17 20:24 10/19/17 05:19 10/19/17 07:34 Range/Units Bedside Glucose 202 219 143 70-99 mg/dl White Blood Count 9.12 4.8-10.8 K/uL Red Blood Count 3.92 4.7-6.1 M/uL Hemoglobin 12.9 14.0-18.0 g/dL Hematocrit 37.6 42-52 % Mean Corpuscular Volume 95.9 80-100 fL Mean Corpuscular Hemoglobin 32.9 25-34 pg Mean Corpuscular Hemoglobin Concent 34.3 32-36 g/dl RDW Standard Deviation 51.4 36.4-46.3 fL RDW Coefficient of Variation 14.7 11.5-14.5 % Platelet Count 215 130-400 K/uL Mean Platelet Volume 10.7 7.4-10.4 fL Test 10/19/17 11:42 Range/Units Bedside Glucose 202 70-99 mg/dl
[2017-10-19 15:09] VITALS: BP 138/89; PULSE 84; TEMP 36.4; O2SAT 93
[2017-10-19] MEDS ORDERED: CEFTRIAXONE SOD INJ 2,000 MG in DEXTROSE 5% 50ML 50 ML IV SCH (18:30)
[2017-10-19] MEDS: IPRATROPIUM BROMIDE NEB SOLN 0.02% 2.5 ML VIAL INH SCH (19:15)
[2017-10-19] MEDS: LEVALBUTEROL 1.25MG/0.5ML NEB INH SCH (19:16)
[2017-10-19 19:18] VITALS: PULSE 80; O2SAT 93
[2017-10-19] MEDS ORDERED: LEVALBUTEROL/IPRATROPIUM NEB INH SCH (20:00)
[2017-10-19 23:27] VITALS: BP 148/92; PULSE 69; TEMP 36.7; O2SAT 93
[2017-10-20 06:40] LABS: CREATININE 1.12 mg/dl (0.60-1.40)
[2017-10-20] MEDS: HEPARIN SOD 5000 UNIT/0.5 ML CARP SQ SCH (06:45)
[2017-10-20 07:11] VITALS: BP 131/92; PULSE 88; TEMP 36.4; O2SAT 92
[2017-10-20] MEDS: IPRATROPIUM BROMIDE NEB SOLN 0.02% 2.5 ML VIAL INH SCH (07:23)
[2017-10-20] MEDS: LEVALBUTEROL 1.25MG/0.5ML NEB INH SCH (07:24)
[2017-10-20] MEDS: METOPROLOL SUCC 50MG EXT REL TAB PO SCH (07:53)
[2017-10-20] MEDS: INSULIN ASPART 100 UNITS/ML 3 ML PEN SC SCH ×2 (07:56→11:46)
--- NOTE | 2017-10-20 10:44 | Progress Note ---
Subjective Date of Service: Oct 20, 2017. Subjective Pt evaluation today including: physical exam, chart review, lab review pt feeling much better, asking to go home. repeat blood cultures negative. sputum and initial blood culture with S. pneumo. sputum also with talisha and gnr (rare). no hemoptysis this am, cough much better. denies f/c. no sob, no wheeze, no cp. had itching with rocephin last night. asking to go home. all remaining ros reviewed and are negative. Problem List Medical Problems: (1) Hypoxia Status: Acute (2) Sepsis Status: Acute Objective Vital Signs Date Time Temp Pulse Resp B/P (MAP) Pulse Ox O2 Delivery O2 Flow Rate FiO2 10/20/17 08:00 Room Air 10/20/17 07:11 36.4 88 16 131/92 (105) 92 10/20/17 00:00 Room Air 10/19/17 23:27 36.7 69 20 148/92 (110) 93 Room Air 10/19/17 20:00 Room Air 10/19/17 19:18 80 16 93 Room Air 10/19/17 16:33 Room Air 10/19/17 15:09 36.4 84 18 138/89 (105) 93 Room Air 10/19/17 11:46 73 18 92 Room Air Physical Exam General Appearance: WD/WN, no apparent distress Eyes: normal inspection, EOMI Neck: supple Respiratory/Chest: lungs clear, normal breath sounds, no respiratory distress Cardiovascular: regular rate, rhythm, no edema Abdomen: soft Extremities: non-tender, no pedal edema Neurologic/Psychiatric: alert, oriented x 3 Skin: normal color Laboratory Results Item Value Date Time Gram Stain - Final Resulted 10/16/17 2320 Sputum Expectorated Sputum Blood Culture - Final Complete 10/16/17 1306 Blood Strep. Pneumo - Penic Suscept Blood Culture - Preliminary Resulted 10/17/17 1123 Blood NO GROWTH TO DATE. Blood Culture - Preliminary Resulted 10/17/17 1124 Blood NO GROWTH TO DATE. Last 24 Hours Test 10/19/17 11:42 10/19/17 16:19 10/19/17 20:12 10/20/17 05:20 Bedside Glucose 202 mg/dl 198 mg/dl 161 mg/dl Creatinine 1.12 mg/dl Est Creatinine Clear Calc Drug Dose 84.6 ml/min Estimated GFR () 80.0 Estimated GFR (Non- 69.0 Test 10/20/17 07:37 Bedside Glucose 127 mg/dl Assessment and Plan (1) Sepsis due to Streptococcus pneumoniae Assessment & Plan: repeat blood cultures negative, can change to po levaquin 500mg po daily to complete 14 day course. ok for d/c from ID standpoint when otherwise stable, discussed with primary (2) Pneumonia Problem Qualifiers (1) Pneumonia: Pneumonia type: due to unspecified organism Laterality: unspecified laterality Lung location: unspecified part of lung Qualified Codes: J18.9 - Pneumonia, unspecified organism
[2017-10-20] MEDS ORDERED: IPRA1AER2 INH (10:46)
[2017-10-20] MEDS ORDERED: PRED10TA PO (10:46)
[2017-10-20] MEDS ORDERED: LEVO750T23 PO (10:46)
[2017-10-20] MEDS ORDERED: LCTX PO (10:46)
--- NOTE | 2017-10-20 10:49 | Discharge Instructions ---
Discharge Instructions Date of Service Oct 20, 2017. Admission Reason for Admission: Neeraj (Acute Kidney Injury) Discharge Discharge Diagnosis / Problem: sepsis, pneumionia, bacteremia, neeraj Discharge Goals Goal(s): Decrease discomfort, Improve function Activity Recommendations Activity Limitations: resume your previous activity . Instructions / Follow-Up Instructions / Follow-Up FOLLOWUP WITH FAMILY DOCTOR Andressa Grover ON October AT 11:05AM FOLLOWUP WITH FAMILY DOCTOR REGARDING DIABETES. HBA1C 7.6 Current Hospital Diet Patient's current hospital diet: Diabetes Type 2 Diet, AHA Diet (Heart Healthy) Discharge Diet Recommended Diet: AHA Diet (Heart Healthy), Diabetes Type 2 Diet Pending Studies Studies pending at discharge: no Laboratory Results Hemoglobin A1c Test 10/17/17 06:02 Range/Units Estimated Average Glucose 171 mg/dl Hemoglobin A1c 7.6 H 4.5-5.6 % Lipid Panel Test 10/18/17 06:25 Range/Units Triglycerides Level 229 H 0-150 mg/dl Cholesterol Level 142 0-200 mg/dl HDL Cholesterol 12 mg/dl Cholesterol/HDL Ratio 11.8 LDL Cholesterol, Calculated 84 mg/dl Medical Emergencies . Who to Call and When: Medical Emergencies: If at any time you feel your situation is an emergency, please call 911 immediately. . Non-Emergent Contact Non-Emergency issues call your: Primary Care Provider . . "Provider Documentation" section prepared by Jesús Mas. .
[2017-10-20 11:24] VITALS: BP 131/92; PULSE 88; TEMP 36.4; O2SAT 92
[2017-10-20] MEDS: LEVOFLOXACIN / D5W 750 MG in PREMIXED IN D5W 150 ML IV SCH (11:45)
[2017-10-20] MEDS ORDERED: IPRATROPIUM BROMIDE/ALBUTEROL respimat INH INH SCH (14:00)
--- NOTE | 2017-10-20 19:25 | Progress Note ---
Internal Med Progress Note Date of Service: Oct 20, 2017. Provider Documentation: SUBJECTIVE: hemoptysis improved but still has some sob improved no chest pain' afebrile want to go home OBJECTIVE: Vital Signs-as noted below Exam: General-alert and oriented. Not in distress ENT-normal hearing. Neck-No neck masses Lungs-CTA b/l no wheezing or crackles Heart-S1 and S2 heard regular rhythm no murmurs Abdomen-soft Bowels sounds present no tenderness present no distension Extremities-no edema no erythema Neuro-alert and oriented moves extremities Lab data as noted below. ASSESSMENT & PLAN: Sepsis bacteremia community acquired pneumonia presented with hemoptysis, sob, tachycardia and leukocytosis and lactic acid of 3.5 CXR-multifocal pneumonia blood cx gm positive for strep pneumonia sensitive to pcn and Levaquin lactic acid normalized was on iv vancomycin and Levaquin ID on board stopped fluids stopped vancomycin sputum cx strep pneumonia and gm negative bacilli stable discharged on po Levaquin Bacteremia strep pneumonia await sensitivities abx as above ID on board echo no new findings Copd ex hx of tobacco abuse from above on abx as above, steroids and nebs d/c on steroid taper, Combivent, Advair and albuterol prn Hx of CAd on b clarita and aspirin will f/u lipid profile-ldl 84, hdl 12 Hx of chronic systolic and diastolic chf f 40-45% on toprol xl not on diuretics will monitor Hx of DM seems currently not on any meds hba1c 7.6 on iss patient says his hba1c always high and doesn't want any meds now on discharge advised to followup with pcp and patient agrees discharged home Vital Signs: Date Time Temp Pulse Resp B/P (MAP) Pulse Ox O2 Delivery O2 Flow Rate FiO2 10/20/17 11:24 36.4 88 16 92 Room Air 10/20/17 08:00 Room Air 10/20/17 07:11 36.4 88 16 131/92 (105) 92 10/20/17 00:00 Room Air 10/19/17 23:27 36.7 69 20 148/92 (110) 93 Room Air 10/19/17 20:00 Room Air Lab Results: Results Past 24 Hours Test 10/19/17 20:12 10/20/17 05:20 10/20/17 07:37 Range/Units Bedside Glucose 161 127 70-99 mg/dl Creatinine 1.12 0.60-1.40 mg/dl Est Creatinine Clear Calc Drug Dose 84.6 ml/min Estimated GFR () 80.0 Estimated GFR (Non- 69.0
--- NOTE | 2017-10-20 19:32 | Discharge Summary ---
Discharge Summary Date of Service Oct 20, 2017. Discharge Summary Admission Date: Oct 16, 2017 at 12:58 Discharge Date: Oct 20, 2017 Discharge Disposition: Home Principal Diagnosis: SEPSIS PNEUMONIA BACTEREMIA Secondary Diagnoses/Problems: COPD,CAD,CHF DM Procedures: CXR: 1. Cardiomegaly and emphysema. 2. There is multifocal airspace consolidation as above, most confluent in the right midlung. The appearance is typical for pneumonia. Clinical correlation will be required and radiographic follow-up to resolution is recommended. ECHO: There is mild concentric left ventricular hypertrophy. * There is a moderate sized apical, inferior, and posterior wall motion abnormality with hypokinesis of the segments. * Left ventricular systolic function is mildly reduced. * Ejection Fraction = 40-45%. * There is mild mitral regurgitation. * Diastolic dysfunction, Grade II (pseudonormalization pattern). * Tricuspid regurgitation is absent, and therefore the pulmonary artery systolic pressure cannot be calculated. * There is no evidence of pulmonary hypertension on 2D images. * There is no evidence of valvular vegetation within the limitations of this imaging modality. If the clinical suspicion for endocarditis remains high, consider HALEIGH. * Compared to the images of the prior study dated 12/16/14, the wall motion abnormalities and LVEF are unchanged. Consultations: ID Medication Reconciliation New Medications: Ipratropium-Albuterol (Combivent Respimat) 1 Aer Aer 1 PUFFS INH QID, #1 INH 1 Refill Lactobacillus Acidophilus (Lactinex) Tab 2 TAB PO BID for 15 Days, TAB Levofloxacin (Levaquin) 750 Mg Tab 1 TAB PO DAILY for 10 Days, #10 TAB Prednisone (Prednisone) 10 Mg Tab 30 MG PO UD, #12 TAB PREDNISONE 30MG PO DAILY X 2 DAYS THEN PREDNISONE 20MG PO DAILY X 2 DAYS THEN PREDNISONE 10MG PO DAILY X 2 DAYS THEN STOP. Continued Medications: Albuterol Sulf (Albuterol Sulfate) Unknown Strength Nebu 1-2 PUFFS INH UD Fluticasone Prop/Salmeterol (Advair Diskus 500/50 60 Dose) 1 Ea Aerp 1 PUFF INH BID Metoprolol Succ (Toprol Xl) (Toprol-Xl ) 100 Mg Tabcr 100 MG PO DAILY, TAB Hospital Course Sepsis bacteremia community acquired pneumonia presented with hemoptysis, sob, tachycardia and leukocytosis and lactic acid of 3.5 CXR-multifocal pneumonia blood cx gm positive for strep pneumonia sensitive to pcn and Levaquin lactic acid normalized was on iv vancomycin and Levaquin ID on board stopped fluids stopped vancomycin sputum cx strep pneumonia and gm negative bacilli stable discharged on po Levaquin Bacteremia strep pneumonia await sensitivities abx as above ID on board echo no new findings Copd ex hx of tobacco abuse from above on abx as above, steroids and nebs d/c on steroid taper, Combivent, Advair and albuterol prn Hx of CAd on b clarita and aspirin will f/u lipid profile-ldl 84, hdl 12 Hx of chronic systolic and diastolic chf f 40-45% on toprol xl not on diuretics will monitor Hx of DM seems currently not on any meds hba1c 7.6 on iss patient says his hba1c always high and doesn't want any meds now on discharge advised to followup with pcp and patient agrees discharged home Total time spent on discharge = 35MINUTES This includes examination of the patient, discharge planning, medication reconciliation, and communication with other providers. Discharge Instructions Discharge Instructions Date of Service Oct 20, 2017. Admission Reason for Admission: Neeraj (Acute Kidney Injury) Discharge Discharge Diagnosis / Problem: sepsis, pneumionia, bacteremia, neeraj Discharge Goals Goal(s): Decrease discomfort, Improve function Activity Recommendations Activity Limitations: resume your previous activity . Instructions / Follow-Up Instructions / Follow-Up FOLLOWUP WITH FAMILY DOCTOR Andressa Grover ON October AT 11:05AM FOLLOWUP WITH FAMILY DOCTOR REGARDING DIABETES. HBA1C 7.6 Current Hospital Diet Patient's current hospital diet: Diabetes Type 2 Diet, AHA Diet (Heart Healthy) Discharge Diet Recommended Diet: AHA Diet (Heart Healthy), Diabetes Type 2 Diet Pending Studies Studies pending at discharge: no Laboratory Results Hemoglobin A1c Test 10/17/17 06:02 Range/Units Estimated Average Glucose 171 mg/dl Hemoglobin A1c 7.6 H 4.5-5.6 % Lipid Panel Test 10/18/17 06:25 Range/Units Triglycerides Level 229 H 0-150 mg/dl Cholesterol Level 142 0-200 mg/dl HDL Cholesterol 12 mg/dl Cholesterol/HDL Ratio 11.8 LDL Cholesterol, Calculated 84 mg/dl Medical Emergencies . Who to Call and When: Medical Emergencies: If at any time you feel your situation is an emergency, please call 911 immediately. . Non-Emergent Contact Non-Emergency issues call your: Primary Care Provider . . "Provider Documentation" section prepared by Jesús Mas. .
[2017-10-20] MEDS ORDERED: FLUTICASONE/SALMETEROL (ADVAIR) 500/50 INH 14 PUFF INH SCH (20:00)
--- NOTE | 2017-10-22 17:41 | History and Physical ---
History & Physical Date & Time of Service: Oct 16, 2017 at 13:44 Chief Complaint: Blood In Urine, Coughing Up Blood, Sob Primary Care Physician: Andressa Benjamin DO History of Present Illness Source: patient, spouse He is 62-year-old male, obese with significant past medical history of severe COPD type 2 diabetes and CAD apparently has been complaining of cold symptoms since Friday last. He was having cold with cough and shakes at times on Friday , on Friday he was feeling lot worse and nauseous but no vomiting. Today the condition got worse with more shortness of breath and chills that he came to the emergency room for further evaluation. He complains to have cough with a productive of whitish yellow phlegm and also he noticed blood on 2 occasions. He did not have any documented fever but he was feeling chills and shakes. He also complained to have blood in the urine seems to be unrelated. In the emergency room he was afebrile but tachycardic with low saturation and a white count of 15,000. The chest x-ray did show multilobar pneumonia. He received IV antibiotics and also IV fluid was advised for admission. Past Medical/Surgical History Medical Problems: (1) Acute coronary syndrome (2) [place] (acute kidney injury) (3) Coronary artery disease (4) Elevated troponin (5) Hypertension (6) Pneumonia Surgical Problems: (1) H/O cardiac catheterization Social History Smoking Status: Current Some Day Smoker Smokeless Tobacco Use: No Alcohol Use: none Drug Use: none Marital Status: Occupational Status: unemployed Immunizations History of Influenza Vaccine: Yes History of Pneumococcal: Yes History of Hepatitis B Vaccine: Yes Allergies Coded Allergies: Piperacillin (Unverified Allergy, Intermediate, rash, itching, burning through upper body, 10/16/17) Tazobactam (Unverified Allergy, Intermediate, rash, itching, burning through upper body, 10/16/17) Aspirin (Verified Allergy, Mild, hives, 12/15/14) Ceftriaxone (Verified Allergy, Unknown, HIVES, 10/20/17) Morphine (Verified Adverse Reaction, Unknown, NAUSEA/VOMITING, 10/16/17) Home Medications Scheduled Albuterol Sulf (Albuterol Sulfate), 1-2 PUFFS INH UD Fluticasone Prop/Salmeterol (Advair Diskus 500/50 60 Dose), 1 PUFF INH BID Ipratropium-Albuterol (Combivent Respimat), 1 PUFFS INH QID Lactobacillus Acidophilus (Lactinex), 2 TAB PO BID Levofloxacin (Levaquin), 1 TAB PO DAILY Metoprolol Succ (Toprol Xl) (Toprol-Xl ), 100 MG PO DAILY Prednisone (Prednisone), 30 MG PO UD Review of Systems Constitutional: + chills Respiratory: + cough, + sputum, + shortness of breath, + hemoptysis Cardiovascular: + chest pain Abdomen: + pain Genitourinary - Male: + hematuria Endocrine: + fatigue Physical Exam Vital Signs Date Time Temp Pulse Resp B/P (MAP) Pulse Ox O2 Delivery O2 Flow Rate FiO2 10/16/17 12:56 92 Nasal Cannula 4.0 10/16/17 12:38 118 29 113/72 92 Nasal Cannula 4.0 10/16/17 12:08 92 Nasal Cannula 4.0 10/16/17 11:50 121 10/16/17 11:33 36.6 121 22 116/72 90 Room Air General Appearance: + moderate distress Head: normocephalic Eyes: normal inspection ENT: normal ENT inspection Neck: supple, no adenopathy, thyroid normal Respiratory/Chest: + respiratory distress, + decreased breath sounds, + accessory muscle use, + crackles, + wheezing Cardiovascular: regular rate, rhythm Abdomen/GI: normal bowel sounds, + distended Genitourinary - Male: normal male genitalia Back: normal inspection Extremities/Musculoskelatal: + pedal edema Neurologic/Psych: no motor/sensory deficits, alert, normal reflexes Skin: normal color Lymphatic: no adenopathy Diagnostics Laboratory Results Results Past 24 Hours Test 10/16/17 12:00 10/16/17 12:09 10/16/17 13:01 Range/Units White Blood Count 15.05 4.8-10.8 K/uL Red Blood Count 4.70 4.7-6.1 M/uL Hemoglobin 15.6 14.0-18.0 g/dL Hematocrit 44.8 42-52 % Mean Corpuscular Volume 95.3 80-100 fL Mean Corpuscular Hemoglobin 33.2 25-34 pg Mean Corpuscular Hemoglobin Concent 34.8 32-36 g/dl Platelet Count 187 130-400 K/uL Mean Platelet Volume 10.3 7.4-10.4 fL Neutrophils (%) (Auto) 91.8 % Lymphocytes (%) (Auto) 5.8 % Monocytes (%) (Auto) 1.8 % Eosinophils (%) (Auto) 0.0 % Basophils (%) (Auto) 0.1 % Neutrophils # (Auto) 13.83 1.4-6.5 K/uL Lymphocytes # (Auto) 0.87 1.2-3.4 K/uL Monocytes # (Auto) 0.27 0.11-0.59 K/uL Eosinophils # (Auto) 0.00 0-0.5 K/uL Basophils # (Auto) 0.01 0-0.2 K/uL RDW Standard Deviation 49.7 36.4-46.3 fL RDW Coefficient of Variation 14.2 11.5-14.5 % Immature Granulocyte % (Auto) 0.5 % Immature Granulocyte # (Auto) 0.07 0.00-0.02 K/uL Sodium Level 127 136-145 mmol/L Potassium Level 3.8 3.5-5.1 mmol/L Chloride Level 94 98-107 mmol/L Carbon Dioxide Level 25 21-32 mmol/L Anion Gap 8.0 21.0 16-25 mmol/L Blood Urea Nitrogen 30 7-18 mg/dl Creatinine 1.97 0.60-1.40 mg/dl Est Creatinine Clear Calc Drug Dose 47.2 ml/min Estimated GFR () 40.4 Estimated GFR (Non- 34.9 BUN/Creatinine Ratio 15.2 10-20 Random Glucose 176 70-99 mg/dl Calcium Level 8.5 8.5-10.1 mg/dl Total Bilirubin 1.0 0.2-1 mg/dl Direct Bilirubin 0.3 0-0.2 mg/dl Aspartate Amino Transf (AST/SGOT) 13 15-37 U/L Alanine Aminotransferase (ALT/SGPT) 19 12-78 U/L Alkaline Phosphatase 60 45-117 U/L Total Creatine Kinase 222 39-308 U/L Creatine Kinase MB 2.8 0.5-3.6 ng/ml Creatine Kinase MB Ratio 1.3 0-3.0 Troponin I < 0.015 0-0.045 ng/ml Total Protein 7.7 6.4-8.2 gm/dl Albumin 2.9 3.4-5.0 gm/dl Lipase 98 73-393 U/L Influenza Type A Antigen Neg for Influ A NEG Influenza Type B Antigen Neg for Influ B NEG Bedside Hemoglobin 16.3 14.0-18.0 g/dl Bedside Hematocrit 48 42-52 % Bedside Sodium 132 135-144 mEq/L Bedside Potassium 3.8 3.3-5.0 mEq/L Bedside Chloride 91 101-112 mEq/L Bedside Total CO2 25 24-31 mEq/l Bedside Blood Urea Nitrogen 31 7-18 mg/dl Bedside Creatinine 1.9 0.6-1.3 mg/dl Bedside Glucose (other) 181 70-99 mg/dl Bedside Ionized Calcium ([place]vina) 0.98 1.12-1.32 mmol/l Lactic Acid Level 3.5 0.4-2.0 mmol/L Microbiology Results 10/16/17 Blood Culture, Received Pending 10/16/17 Blood Culture, Received Pending Diagnostic Radiology CXR;1. Cardiomegaly and emphysema. 2. There is multifocal airspace consolidation as above, most confluent in the right midlung. The appearance is typical for pneumonia. Clinical correlation will be required and radiographic follow-up to resolution is recommended. EKG EKR-SR ,old Inferior PR Impression Assessment and Plan Sepsis secondary to multilobar pneumonia on the right side. Lactic acid is elevated more than 4, he received boluses of IV fluid in the ER and will be continued as advised. Blood and urine culture have been sent. Received intravenous Levaquin and Zosyn in the ER and will continue. Sputum culture and doubt any TB. Patient will be admitted to telemetry unit and lactic acid will be repeated. Acute kidney injury. Likely secondary to dehydration. Received IV fluid as above and will continue as directed Monitor PRP while in the hospital. Hematuria Have been reviewed for the first time without any dysuria We will send UA and urine culture If persist we will have to get urology evaluation. Severe COPD with exacerbation Continue nebulized bronchodilator We will add Solu-Medrol Type 2 diabetes Not on any medication Sliding scale insulin coverage and check hemoglobin A1c tomorrow CAD with history of PR in the past No acute symptoms Continue current medication DVT prophylaxis with subcu heparin CODE STATUS discussed with the patient will be a full code In my clinical assessment the beneficially reschedule as per CMS for 2 midnights in the hospital Advanced Directives Existing Living Will: No Existing Power of Gun Club Manager: No Resuscitation Status VTE Prophylaxis Will order VTE Prophylaxis: Yes
== END 2017-10-20 11:45 | disposition home or self-care (01) | DRG 871 ==
LOC: C.EDB 11:31 → C.2T 12:58 → ENRESERV 13:13 → C.2T 14:41 → ENRESERV 10-18 11:13 → C.4E 10-18 12:55
PROVIDERS: ADMIT Internal Medicine; ATTEND Internal Medicine
DX: A40.3 Sepsis due to Streptococcus pneumoniae (principal); J13 Pneumonia due to Streptococcus pneumoniae; N17.9 Acute kidney failure, unspecified; R04.2 Hemoptysis; J44.1 Chronic obstructive pulmonary disease with (acute) exacerbation; I50.42 Chronic combined systolic (congestive) and diastolic (congestive) heart failure; R31.0 Gross hematuria; E11.9 Type 2 diabetes mellitus without complications; I25.10 Atherosclerotic heart disease of native coronary artery without angina pectoris; F17.200 Nicotine dependence, unspecified, uncomplicated; I25.2 Old myocardial infarction; Z86.39 Personal history of other endocrine, nutritional and metabolic disease; Z79.899 Other long term (current) drug therapy; Z88.0 Allergy status to penicillin; Z88.5 Allergy status to narcotic agent; Z88.6 Allergy status to analgesic agent

== ENCOUNTER 2019-03-04 18:33 | Inpatient (IN) ==
[2019-03-04] MEDS ORDERED: KETOROLAC TROMETHAMINE 60 MG/2 ML VIAL IM STA (18:57)
[2019-03-04] MEDS ORDERED: CYCLOBENZAPRINE HCL 10 MG TAB PO STA (18:57)
--- NOTE | 2019-03-04 19:45 | XRay Report ---
XR lumbar spine 2-3V CLINICAL HISTORY: 63 years-old Male presenting with back pain eval for fx. TECHNIQUE: Frontal, lateral, and coned-down lateral views of the lumbar spine were obtained. COMPARISON: Correlation made to CT of abdomen and pelvis from 12/03/2017. FINDINGS: Aortobiiliac endograft stent in place. No scoliosis. Normal lumbar lordosis. Vertebral bodies maintain normal height and alignment. Interver tebral disc heights preserved. Anterior osteophytosis noted. Facet arthropathy results in multilevel osseous neural foraminal narrowing. No compression deformity or subluxation. Sacroiliac joints and pe lvis grossly normal. IMPRESSION: 1. Multilevel degenerative changes with multilevel osseous neural foraminal narrowing suspected. 2. No radiographic evidence of acute osseous injury. Electronically signed by: Devon English M.D. 03/04/2019 7:43 PM
[2019-03-04] MEDS ORDERED: OXYCODONE HCL IR 5 MG TAB (IMMEDIATE RELEASE) PO STA (19:56)
[2019-03-04] MEDS ORDERED: ONDANSETRON INJ 2 MG/ML 2 ML VIAL IV STA (20:52)
[2019-03-04] MEDS ORDERED: fentaNYL citrate 100 MCG/2 ML VIAL IV STA (20:52)
[2019-03-04] MEDS ORDERED: LIDOCAINE 5% 1 PATCH TD SCH (21:10)
[2019-03-04 21:20] LABS: Basophils # (auto) 0.03 K/uL (0-0.2); Basophils % (auto) 0.3 %; Eosinophils # (auto) 0.06 K/uL (0-0.5); Eosinophils % (auto) 0.6 %; Hematocrit (blood only) 49.2 % (42-52); Hemoglobin 17.4 g/dL (14.0-18.0); Immature Granulocytes # (auto) 0.02 K/uL (0.00-0.02); Immature Granulocytes % (auto) 0.2 %; Lymphocytes # (auto) 2.78 K/uL (1.2-3.4); Lymphocytes % (auto) 26.6 %; Mean Corpuscular Hemoglobin 33.3 pg (25-34); Mean Corpuscular Hgb Conc 35.4 g/dL (32-36); Mean Corpuscular Volume 94.1 fL (80-100); Mean Platelet Volume 10.6 fL (7.4-10.4); Monocytes # (auto) 0.73 K/uL (0.11-0.59); Neutrophils # (auto) 6.82 K/uL (1.4-6.5); Neutrophils % (auto) 65.3 %; Platelet Count 205 K/uL (130-400); RDW Coefficient of Variation 13.9 % (11.5-14.5); RDW Standard Deviation 47.6 fL (36.4-46.3); Red Blood Count 5.23 M/uL (4.7-6.1); White Blood Count 10.44 K/uL (4.8-10.8)
[2019-03-04 21:37] LABS: BUN Creatinine Ratio 15.7 (10-20); Calcium 9.3 mg/dl (8.5-10.1); Creatinine Clr Calc Pharmacy 74.2 ml/min; Est GFR (African American) 64.6; Est GFR (Non-African American) 55.7; Magnesium 2.3 mg/dl (1.8-2.4); Potassium 3.8 mmol/L (3.5-5.1)
--- NOTE | 2019-03-04 21:37 | History & Physical Report ---
Date of Service March 04, 2019 Assessment & Plan (1) Intractable low back pain: History sciatica chronic systolic/diastolic heart failure secondary to ischemic cardiomyopathy (EF 45-50%, TTE 2018), patient euvolemic CAD status post stenting HTN, elevated secondary to discomfort COPD, past tobacco abuse, no acute lung issues at time of exam DM 2 insulin requiring, suboptimal control as of recent outpatient hemoglobin A1c of 8.6 last February 2019 OBS GMF Lidoderm patch trial PT eval Pain management consultation in a.m. if pain still uncontrolled. Basal insulin, ISS BG goal 1 40-1 80, carb count coverage DVT prophylaxis. Lovenox subcu Full code History of Present Illness Primary Care Provider: Andressa Benjamin, History obtained from patient and records. Medical history significant for chronic systolic/diastolic heart failure secondary to ischemic cardiomyopathy (EF 45-50%, TTE 2018), CAD status post stenting, PVD, COPD, past tobacco abuse, DM 2 insulin requiring, chronic back pain Recent confinement last March 2018 for sepsis secondary to pneumonia. This afternoon patient had some worsening of his "sciatica" - chronic low back pain with radiation to the right leg with some radiation to the left. Unrelieved by home Flexeril. No fever, no chills, no incontinence, no leg weakness, no unusual weight loss, no hematuria. Intractable pain at the emergency room. 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 Allergies Allergy/AdvReac Type Severity Reaction Status Date / Time piperacillin Allergy Intermediate rash, Verified 03/04/19 19:20 itching, burning through upper body [id number]-[id number] Reductase Allergy Intermediate rash/ Verified 03/04/19 19:20 Inhibitor heartburn tazobactam Allergy Intermediate rash, Verified 03/04/19 19:20 itching, burning through upper body ceftriaxone Allergy Unknown HIVES Verified 03/04/19 19:20 morphine AdvReac Unknown NAUSEA/VOMI Verified 03/04/19 19:20 TING Home Medications Home Medications Medication Instructions Recorded Confirmed Type metoprolol succinate 100 mg PO QAM 04/01/18 03/04/19 History aspirin [Aspirin Low Dose] 81 mg PO QAM 10/26/18 03/04/19 History [id number]-[id number]-kreimwnh 1 inh INHALATION QAM 10/26/18 03/04/19 History [Trelegy Ellipta] albuterol sulfate 2 puff INHALATION Q4H PRN 03/04/19 03/04/19 History cyclobenzaprine 10 mg PO HS PRN 03/04/19 03/04/19 History insulin NPH and regular human 33 unit SUBCUT BID 03/04/19 03/04/19 History [Novolin 70/30 U-100 Insulin] metformin 1,000 mg PO QAM 03/04/19 03/04/19 History Past Med/Surg History Medical History Hx of hemorrhoids COPD (chronic obstructive pulmonary disease) CAD (coronary artery disease) Sepsis Pneumonia (Acute) Hematuria (Acute) Hypertension (Chronic) Coronary artery disease (Chronic) [place] (acute kidney injury) Acute coronary syndrome (Acute) Elevated troponin (Acute) Pneumonia Sepsis due to Streptococcus pneumoniae No pertinent family history Surgical History No pertinent past surgical history H/O cardiac catheterization (Resolved) Family History Other No pertinent family history Social History Preferred Language: Greenlandic Communication Ability: Effective Visual Impairment: No Limitations Hearing Ability: Normal Entertainment Usher Required: No Beliefs That Will Affect Care: None Current Living Situation: Spouse Other Information That Helps Us Care for You: No Feels Safe at Home: Yes Safety Concerns: Feels Safe At This Time Smoking Status: Former smoker Tobacco Type: cigarettes ; Smoking End Date: 2017 ; Second Hand Exposure: No ; Tobacco Cessation Education Requested by Patient: No Hx Alcohol Use: No Hx Substance Use: No Review of Systems Review of Systems: As per HPI, all 10 systems reviewed, all other ROS negative Physical Exam Physical Exam: GENERAL: Comfortable, pleasant, no respiratory distress, obese, sitting by the edge of the stretcher SKIN: Normal color , warm HEENT: Partial alopecia, pale palpebral conjunctivae, no ptosis, moist buccal mucosa NECK : Short, supple, no tenderness CHEST : Decreased breath sounds, no tenderness HEART : RRR, no obvious murmurs ABDOMEN: Some distention, nontender BACK : Low back tenderness, negative straight leg raise test EXTREMITIES : Minimal LE swelling, no LE tenderness, no other conspicuous deformities noted NEUROLOGIC : Coherent, no facial asymmetry, no other gross focality Results & Data Vital Signs (Past 12 Hours) Vital Signs Temp Pulse Pulse Resp BP BP Pulse Ox 03/04/19 21:36 73 17 169/85 H 91 03/04/19 18:45 36.7 C 91 H 22 162/103 H 94 Laboratory Results Laboratory Results WBC 10.44 K/uL (4.8-10.8) 03/04/19 21:04 RBC 5.23 M/uL (4.7-6.1) 03/04/19 21:04 Hgb 17.4 g/dL (14.0-18.0) 03/04/19 21:04 Hct 49.2 % (42-52) 03/04/19 21:04 MCV 94.1 fL (80-100) 03/04/19 21:04 MCH 33.3 pg (25-34) 03/04/19 21:04 MCHC 35.4 g/dL (32-36) 03/04/19 21:04 RDW Std Deviation 47.6 fL (36.4-46.3) H 03/04/19 21:04 RDW Coeff of Vonda 13.9 % (11.5-14.5) 03/04/19 21:04 Plt Count 205 K/uL (130-400) 03/04/19 21:04 MPV 10.6 fL (7.4-10.4) H 03/04/19 21:04 Immature Gran % (Auto) 0.2 % 03/04/19 21:04 Neut % (Auto) 65.3 % 03/04/19 21:04 Lymph % (Auto) 26.6 % 03/04/19 21:04 [place] % (Auto) 7.0 % 03/04/19 21:04 Eos % (Auto) 0.6 % 03/04/19 21:04 Baso % (Auto) 0.3 % 03/04/19 21:04 Immature Gran # (Auto) 0.02 K/uL (0.00-0.02) 03/04/19 21:04 Neut # (Auto) 6.82 K/uL (1.4-6.5) H 03/04/19 21:04 Lymph # (Auto) 2.78 K/uL (1.2-3.4) 03/04/19 21:04 [place] # (Auto) 0.73 K/uL (0.11-0.59) H 03/04/19 21:04 Eos # (Auto) 0.06 K/uL (0-0.5) 03/04/19 21:04 Baso # (Auto) 0.03 K/uL (0-0.2) 03/04/19 21:04 Diagnostic Findings Lumbar spine x-ray: 1. Multilevel degenerative changes with multilevel osseous neural foraminal narrowing suspected. 2. No radiographic evidence of acute osseous injury.
[2019-03-04 22:01] LABS: Albumin Level 3.9 gm/dl (3.4-5.0); Bilirubin Direct 0.1 mg/dl (0-0.2); Bilirubin,Total 0.9 mg/dl (0.2-1); Total Protein 7.6 gm/dl (6.4-8.2)
--- NOTE | 2019-03-04 22:14 | Emergency Department Note ---
Entered by Tracie Dyer acting as a scribe for History of Present Illness General Chief complaint: Back Injury/Pain Stated complaint: BACK PAIN Source: patient Mode of arrival: wheelchair Limitations: no limitations History of Present Illness Onset (ago): day(s) 3 Location: back Radiation: extremity (left leg) Pain Consistency: + constant Relieved By: + medication Exacerbated By: + movement Associated symptoms: no chest pain and no weakness (-numbness or weakness in the arms or legs) Treatments prior to arrival: other (Advil, prescription pain medication) The patient is a 63 year old male who presents to the ED with complaints of back pain. He states he has had back pain for close to 50 years and it is usually sciatica pain. A few days ago, he woke up with back pain that radiated down his left leg. Movement worsens his discomfort. His PCP gave him a prescription pain medication, but he states it provided no relief. Aleve has also provided no relief. He denies any numbness or weakness in the arms or legs. He has not experienced any saddle anesthesia or loss of control of his bowels or bladder. Chandra broussard denies any unexplained weight loss, abdominal pain, urinary symptoms or chest pain. He states in the past Flexeril helped him. He states he has chronic swelling to his legs and he is on diuretics for this. Home Medications Home Medications Medication Instructions Recorded Confirmed Type metoprolol succinate 100 mg PO QAM 04/01/18 03/04/19 History aspirin [Aspirin Low Dose] 81 mg PO QAM 10/26/18 03/04/19 History ilxyovchati-ajhopgcay-uvqbsjpm 1 inh INHALATION QAM 10/26/18 03/04/19 History [Trelegy Ellipta] albuterol sulfate 2 puff INHALATION Q4H PRN 03/04/19 03/04/19 History cyclobenzaprine 10 mg PO HS PRN 03/04/19 03/04/19 History insulin NPH and regular human 33 unit SUBCUT BID 03/04/19 03/04/19 History [Novolin 70/30 U-100 Insulin] metformin 1,000 mg PO QAM 03/04/19 03/04/19 History Allergies Allergy/AdvReac Type Severity Reaction Status Date / Time piperacillin Allergy Intermediate rash, Verified 03/04/19 19:20 itching, burning through upper body Ehtgquq-Bsj-Dnz Reductase Allergy Intermediate rash/ Verified 03/04/19 19:20 Inhibitor heartburn tazobactam Allergy Intermediate rash, Verified 03/04/19 19:20 itching, burning through upper body ceftriaxone Allergy Unknown HIVES Verified 03/04/19 19:20 morphine AdvReac Unknown NAUSEA/VOMI Verified 03/04/19 19:20 TING Past Med/Surg History Medical History Hx of hemorrhoids COPD (chronic obstructive pulmonary disease) CAD (coronary artery disease) Sepsis Pneumonia (Acute) Hematuria (Acute) Hypertension (Chronic) Coronary artery disease (Chronic) [place] (acute kidney injury) Acute coronary syndrome (Acute) Elevated troponin (Acute) Pneumonia Sepsis due to Streptococcus pneumoniae No pertinent family history Surgical History No pertinent past surgical history H/O cardiac catheterization (Resolved) Family History Other No pertinent family history Social History Preferred Language: Kyrgyz Communication Ability: Effective Visual Impairment: No Limitations Hearing Ability: Normal Sliver Former Required: No Beliefs That Will Affect Care: None Current Living Situation: Spouse Feels Safe at Home: Yes Smoking Status: Former smoker Tobacco Type: cigarettes ; Hx Alcohol Use: No Hx Substance Use: No Review of Systems See HPI for pertinent positives & negatives. and A total of 10 systems reviewed and were otherwise negative Physical Exam Vital Signs Vital Signs - 24 hr 03/04/19 18:45 03/04/19 21:36 Temperature 36.7 C Temperature Source Oral Sepsis Recent Fever Within 48 Hours No Sepsis Action Taken by Nursing No Action Required Pulse Rate 91 H Pulse Rate [Right Finger] 73 Pulse Rhythm Regular Pulse Strength Normal Respiratory Rate 22 17 Respiratory Effort / Characteristics Non-Labored Respiratory Depth Normal Respiratory Pattern Regular Blood Pressure 162/103 H Blood Pressure [Right Arm] 169/85 H Blood Pressure Mean 122 Blood Pressure Mean [Right Arm] 113 Blood Pressure Position Sitting Pulse Oximetry 94 91 Oxygen Delivery Method Room Air Room Air Constitutional: Vital signs reviewed. Eyes: Pupils are equal round reactive to light. Conjunctiva are noninjected. ENT: Pharynx is clear without erythema or exudate. Mucous membranes are moist. Neck supple without meningeal signs. Respiratory: Clear to auscultation bilaterally. Breath sounds are equal bilaterally. Cardiovascular: Regular rate and rhythm. No rubs or gallops. GI: Soft, nondistended and nontender. Bowel sounds are present. Musculoskeletal: Mild bilateral pitting edema, normal distal capillary refill, no excessive warmth or coldness of the feet. No lower extremity tenderness. Integumentary: No cyanosis. Neurological: The patient is awake and alert. No focal deficits. Motor and se nsation intact in lower extremities. Psychiatric: Normal affect. Course 1845: The patient was evaluated in room B11 and a complete history and physical were performed. 1854: I reevaluated the patient. He states Flexanol is what he is prescribed now that does not work. Flexeril is what he was prescribed in the that worked for him. 1949: I reevaluated the patient. He feels better. He made a mistake earlier, and it was Flexeril he was given by his doctor. He is concerned with being able to walk. We will try some stronger pain medicine and see how he does. 2049: I reevaluated the patient. He is unable to walk with a walker. I spoke with case management and the patient will be evaluated by the hospital medicine team for observation. 2054: [facility] The patient will be further evaluated. Consultations Consultation #1: I discussed the [facility] The patient will be further evaluated. Time: 20:55 Administered Medications Lidocaine (Lidoderm 5%) 1 patch TD HS [facility] Stop: 04/03/19 21:09 Last Admin: 03/04/19 21:26 Dose: 1 patch Documented by: [id number] Discontinued Medications Cyclobenzaprine HCl (Flexeril) 10 mg PO NOW STA Stop: 03/04/19 18:58 Last Admin: 03/04/19 19:08 Dose: 10 mg Documented by: [id number] Fentanyl Citrate (Fentanyl Citrate) 50 mcg IV NOW STA Stop: 03/04/19 20:53 Last Admin: 03/04/19 21:26 Dose: 50 mcg Documented by: [id number] Ketorolac Tromethamine (Toradol) 10 mg IM NOW STA Stop: 03/04/19 18:58 Last Admin: 03/04/19 19:08 Dose: 10 mg Documented by: [id number] Ondansetron HCl (Zofran) 4 mg IV NOW STA Stop: 03/04/19 20:53 Last Admin: 03/04/19 21:26 Dose: 4 mg Documented by: [id number] Oxycodone HCl (Roxicodone Immediate Rel) 5 mg PO NOW STA Stop: 03/04/19 19:57 Last Admin: 03/04/19 20:10 Dose: 5 mg Documented by: [id number] Medical Decision Making Differential Diagnosis The differential diagnoses considered include lumbar disc disease, spinal stenosis, compression fracture, strain, lumbar radiculopathy. Medical Records Attestation: I reviewed the patient's medical records. I did perform a limited focused review of portions of the patient's old chart on the electronic medical record. The patient has had no recent pertinent visits to this hospital. Home Medications Current Medication List: was personally reviewed by me Laboratory Data Attestation: I reviewed the patient's lab results. Result diagrams: 03/04/19 21:04 03/04/19 21:04 Lab Results 03/04/19 03/04/19 03/04/19 Range/Units 21:04 21:04 21:04 WBC 10.44 (4.8-10.8) K/uL RBC 5.23 (4.7-6.1) M/uL Hgb 17.4 (14.0-18.0) g/dL Hct 49.2 (42-52) % MCV 94.1 (80-100) fL MCH 33.3 (25-34) pg MCHC 35.4 (32-36) g/dL RDW Std Deviation 47.6 H (36.4-46.3) fL RDW Coeff of Vonda 13.9 (11.5-14.5) % Plt Count 205 (130-400) K/uL MPV 10.6 H (7.4-10.4) fL Immature Gran % (Auto) 0.2 % Neut % (Auto) 65.3 % Lymph % (Auto) 26.6 % [place] % (Auto) 7.0 % Eos % (Auto) 0.6 % Baso % (Auto) 0.3 % Immature Gran # (Auto) 0.02 (0.00-0.02) K/uL Neut # (Auto) 6.82 H (1.4-6.5) K/uL Lymph # (Auto) 2.78 (1.2-3.4) K/uL [place] # (Auto) 0.73 H (0.11-0.59) K/uL Eos # (Auto) 0.06 (0-0.5) K/uL Baso # (Auto) 0.03 (0-0.2) K/uL Sodium 139 (136-145) mmol/L Potassium 3.8 (3.5-5.1) mmol/L Chloride 106 (98-107) mmol/L Carbon Dioxide 26 (21-32) mmol/L Anion Gap 7.0 (3-11) BUN 21 H (7-18) mg/dl Creatinine 1.33 (0.6-1.4) mg/dl Est Cr Clr Drug Dosing 74.2 ml/min Est GFR ( Amer) 64.6 Est GFR (Non-Af Amer) 55.7 BUN/Creatinine Ratio 15.7 (10-20) Glucose 97 (70-99) mg/dl Calcium 9.3 (8.5-10.1) mg/dl Magnesium 2.3 (1.8-2.4) mg/dl Total Bilirubin 0.9 (0.2-1) mg/dl Direct Bilirubin 0.1 (0-0.2) mg/dl AST 19 (15-37) U/L ALT 43 (12-78) U/L Alkaline Phosphatase 60 (45-117) U/L Total Protein 7.6 (6.4-8.2) gm/dl Albumin 3.9 (3.4-5.0) gm/dl Lipase 124 (73-393) U/L Imaging Data Radiologist's Impression: Radiology results as stated below per my review and the radiologist's interpretation: XR lumbar spine 2-3V CLINICAL HISTORY: 63 years-old Male presenting with back pain eval for fx. TECHNIQUE: Frontal, lateral, and coned-down lateral views of the lumbar spine were obtained. COMPARISON: Correlation made to CT of abdomen and pelvis from 12/03/2017. FINDINGS: Aortobiiliac endograft stent in place. No scoliosis. Normal lumbar lordosis. Vertebral bodies maintain normal height and alignment. Intervertebral disc heights preserved. Anterior osteophytosis noted. Facet arthropathy results in multilevel osseous neural foraminal narrowing. No compression deformity or subluxation. Sacroiliac joints and pelvis grossly normal. IMPRESSION: 1. Multilevel degenerative changes with multilevel osseous neural foraminal narrowing suspected. 2. No radiographic evidence of acute osseous injury. Electronically signed by: Devon English M.D. 03/04/2019 7:43 PM Blood Pressure Blood Pressure Findings: Elevated blood pressure Blood Pressure Disposition: further management by hospitalist MDM Narrative I did evaluate the patient as noted above. Patient has a history of back pain and developed some back pain recently. He is neurologically intact and shows no signs of cauda equina syndrome. He did state that Flexeril works for him and so I did treat him with Flexeril 10 mg p.o. and Toradol 10 mg IM. I did order and personally reviewed the images of the patient's lumbar x-ray as described above. He does have degenerative disease with neuroforaminal narrowing. I did discuss the test results with the patient. He stated he felt better but was concerned about try to get up. I did treat him with oxycodone 1 tablet p.o. We waited some time and try to ambulate him. He was unable to ambulate even with a walker. IV access was established. I did treat him with fentanyl and Zofran IV. I did order and review the patient's blood work as noted in the electronic medical record. His labs are unremarkable. I did discuss the case with the therapeutic case manager. He will be hospitalized for further care as he is unable to ambulate. I did discuss case with the hospitalist. Impression & Plan Intractable low back pain, Ambulatory dysfunction Discharge Plan Visit Data Chief Complaint: Back Injury/Pain Stated Complaint: BACK PAIN ED Provider: Omer Thomason Discharge Problem: Intractable low back pain, Ambulatory dysfunction Patient Disposition: Being Evaluated by Hospitalist Forms Stand Alone Forms: My [facility] Prescriptions Prescriptions: No Action metoprolol succinate 100 mg Tablet Extended Release 24 Hr 100 mg PO QAM RF: 0 aspirin [Aspirin Low Dose] 81 mg Tablet,Delayed Release (Dr/Ec) 81 mg PO QAM RF: 0 Trelegy Ellipta 100-62.5-25 mcg Blister With Device 1 inh INHALATION QAM RF: 0 cyclobenzaprine 10 mg tablet 10 mg PO HS PRN (Reason: Muscle Spasm) RF: 0 Novolin 70/30 U-100 Insulin 100 unit/mL (70-30) suspension 33 unit subcut BID RF: 0 albuterol sulfate 90 mcg/actuation HFA aerosol inhaler 2 puff inhalation Q4H PRN (Reason: Wheezing) RF: 0 metformin 500 mg tablet extended release 24 hr 1,000 mg PO QAM RF: 0 Referrals Referrals: Andressa Benjamin, DO [Primary Care Provider] - The scribe's documentation has been prepared under my direction and personally reviewed by me in its entirety. I confirm that the note above accurately reflect s all work, treatment, procedures, and medical decision making performed by me.
[2019-03-04] MEDS ORDERED: GLUCAGON FOR INJ 1 MG VIAL SQ PRN (22:34)
[2019-03-04] MEDS ORDERED: DEXTROSE 50% 50 ML SYRINGE IV PRN (22:34)
[2019-03-04] MEDS ORDERED: CYCLOBENZAPRINE HCL 5 MG TAB PO PRN (22:34)
[2019-03-04] MEDS ORDERED: PROMETHAZINE HCL 12.5 MG in SODIUM CHLORIDE 0.9% 50 ML IV PRN (22:34)
[2019-03-04] MEDS ORDERED: GLUCOSE 40% GEL 15 GM TUBE PO PRN (22:34)
[2019-03-04] MEDS ORDERED: CARBOHYDRATES FOR HYPOGLYCEMIA PO PRN (22:34)
[2019-03-04] MEDS ORDERED: GLUCOSE 10 TABS/TUBE PO PRN (22:34)
[2019-03-04] MEDS ORDERED: METOPROLOL SUCC 50MG EXT REL TAB PO SCH (23:30)
[2019-03-05] MEDS: INSULIN ASPART 100 UNITS/ML 3 ML PEN SC SCH ×5 (00:24→21:11)
[2019-03-05] MEDS: TRAMADOL HCL 50 MG TABLET PO PRN (00:58)
[2019-03-05] MEDS ORDERED: COUGH DROP (SUGAR FREE) LOZ 24 LOZ/1 BOX BUCCAL PRN (03:38)
[2019-03-05] MEDS ORDERED: COUGH DROP (SUGAR FREE) LOZ 24 LOZ/1 BOX BUCCAL ONE (03:51)
[2019-03-05] MEDS: HYDROmorphone INJ 0.5 MG/0.5 ML SYR IV PRN ×2 (05:41→11:47)
[2019-03-05] MEDS: INSULIN HUMAN 70% NPH/30% REGULAR SQ SCH ×2 (08:44→18:00)
[2019-03-05] MEDS: ENOXAPARIN INJ 40 MG/0.4 ML SYR SQ SCH (08:47)
[2019-03-05] MEDS: ASPIRIN 81 MG ECTAB PO SCH (08:47)
[2019-03-05] MEDS ORDERED: METOPROLOL SUCC 50MG EXT REL TAB PO SCH (09:00)
[2019-03-05] MEDS ORDERED: diazePAM 2 MG TABLET PO ONE (13:38)
[2019-03-05] MEDS ORDERED: NAPROXEN 250 MG TAB PO STA (13:38)
--- NOTE | 2019-03-05 13:44 | Hospitalist Progress Note ---
Date of Service March 05, 2019 Assessment & Plan (1) Lower back pain: Acute lower back pain, nontraumatic. Differential includes but not limited to acute somatic dysfunction 2/2 spinal stenosis vs herniated disc vs degenerative disease. Will try to ease the spasms and pain with Naproxen/Valium and heat. If not improved in 24 hours, will consider additional imaging with an MRI. PT/OT (2) CAD (coronary artery disease): chronic, stable. Cont ASA, Toprol, allergic to statins and ACEI (3) T2DM (type 2 diabetes mellitus): Cont insulin, hold metformin. Glucose at goal. cont ISS (4) Chronic systolic heart failure: 2/2 ischemic heart disease, chronic, compensated. Cont home Lasix. Cont medical management (5) Peripheral arterial disease: stable, cont medical management (6) COPD (chronic obstructive pulmonary disease): chronic, stable. Lungs are clear to auscultation on exam without respiratory symptoms. On Trelogy inhaler at home. Albuterol PRN SOB or wheezing. (7) DVT prophylaxis: Lovenox, Full Dispo-cont hospitalization pending improved ability to ambulate. Laury Faust DO [facility] Hospitalist Subjective 63 yo M presents with acute nontraumatic lower back pain. He reports radiculopathy down his legs bilaterally, but SLR test on the L is positive only. Has chronic sensation deficits in some toes and lateral feet, but no new sensation deficits. Denies any chest pain, trouble breathing or other issues. Has been tolerating PO. Overnight tried Dilaudid-made him too drowsy, Lidoderm-not effective, Flexeril- not effective. Denies a history of chronic back pain but periodically has flares/spasms. Currently unable to stand without pain, cannot walk. He states it feels better when he leans forward. Reports some calf tenderness but thinks it is related to walking funny recently to protect his back from the pain. Review of Systems Review of Systems: All systems reviewed & are unremarkable except as noted in HPI & below Physical Exam Physical Exam: CONSTITUTIONAL: WNWD, vitals as above, generally well- appearing EYES: normal conjunctivae, no scleral icterus ENT: MMM RESPIRATORY: clear to auscultation bilaterally, no crackles, rales or wheezes, normal respiratory effort CARDIOVASCULAR: regular rate and rhythm, S1 and 2 heard without murmurs, gallops or rubs, no JVD, no peripheral edema GASTROINTESTINAL: soft, nontender, nondistended MUSCULOSKELETAL: strength 5/5 throughout lower extremities, head is normocephalic and atraumatic. Left paraspinal lumbar somatic dysfunction present with TTP of paraspinal musculature. Point tenderness to PSIS bilaterally SKIN: warm and dry NEUROLOGIC: patellar DTR-could not elicit on the left, 2/4 on the right. CN 2- 12 grossly intact, normal cognition, normal speech PSYCHIATRIC: alert cooperative and oriented to person, place and time. Results & Data Vital Signs (Past 12 Hours) Vital Signs Temp Pulse Resp BP Pulse Ox 03/05/19 07:22 36.6 C 55 L 14 159/84 H 92 Laboratory Results Short CBC 03/04/19 Range/Units 21:04 WBC 10.44 (4.8-10.8) K/uL Hgb 17.4 (14.0-18.0) g/dL Hct 49.2 (42-52) % Plt Count 205 (130-400) K/uL BMP 03/04/19 21:04 Sodium 139 Potassium 3.8 Chloride 106 Carbon Dioxide 26 BUN 21 H Creatinine 1.33 Glucose 97 Calcium 9.3 Liver Function 03/04/19 Range/Units 21:04 Total Bilirubin 0.9 (0.2-1) mg/dl Direct Bilirubin 0.1 (0-0.2) mg/dl AST 19 (15-37) U/L ALT 43 (12-78) U/L Alkaline Phosphatase 60 (45-117) U/L Albumin 3.9 (3.4-5.0) gm/dl Diagnostic Findings XR lumbar spine 2-3V CLINICAL HISTORY: 63 years-old Male presenting with back pain eval for fx. TECHNIQUE: Frontal, lateral, and coned-down lateral views of the lumbar spine were obtained. COMPARISON: Correlation made to CT of abdomen and pelvis from 12/03/2017. FINDINGS: Aortobiiliac endograft stent in place. No scoliosis. Normal lumbar lordosis. Vertebral bodies maintain normal height and alignment. Intervertebral disc heights preserved. Anterior osteophytosis noted. Facet arthropathy results in multilevel osseous neural foraminal narrowing. No compression deformity or subluxation. Sacroiliac joints and pelvis grossly normal. IMPRESSION: 1. Multilevel degenerative changes with multilevel osseous neural foraminal narrowing suspected. 2. No radiographic evidence of acute osseous injury Medications Administered Current Inpatient Medications Aspirin (Ecotrin Ectab) 81 mg PO QAM [facility] Stop: 04/04/19 08:59 Last Admin: 03/05/19 08:47 Dose: 81 mg Documented by: Cyclobenzaprine HCl (Flexeril) 5 mg PO TID PRN PRN Reason: Muscle Spasm Stop: 04/03/19 22:33 Dextrose (Dextrose 50%) 25 - 50 ml IV UD PRN; Protocol PRN Reason: Hypoglycemia Protocol Stop: 04/03/19 22:33 Enoxaparin Sodium (Lovenox) 40 mg SQ QAM [facility] Stop: 04/04/19 08:59 Last Admin: 03/05/19 08:47 Dose: 40 mg Documented by: Glucagon (Glucagen) 1 mg SQ UD PRN; Protocol PRN Reason: Hypoglycemia Protocol Stop: 04/03/19 22:33 Glucose (Glucose 40%) 15 - 30 gm PO UD PRN; Protocol PRN Reason: Hypoglycemia Protocol Stop: 04/03/19 22:33 Glucose (Dex4 Glucose) 4 - 8 tabs PO UD PRN; Protocol PRN Reason: Hypoglycemia Protocol Stop: 04/03/19 22:33 Promethazine HCl 12.5 mg/ (Sodium Chloride) 50.5 mls @ 202 mls/hr IV Q6H PRN PRN Reason: Nausea And Vomiting Stop: 04/03/19 22:33 Insulin Aspart (Novolog Flexpen) 0 units SC ACHS [facility] Stop: 04/03/19 22:33 Last Admin: 03/05/19 12:43 Dose: 1 units Documented by: Insulin Human Isoph/Insulin Regular (Novolin 70/30 Regular) 33 units SQ BIDM [facility] Stop: 04/04/19 07:59 Last Admin: 03/05/19 08:44 Dose: 33 units Documented by: Lidocaine (Lidoderm 5%) 1 patch TD HS [facility] Stop: 04/03/19 21:09 Last Admin: 03/04/19 21:26 Dose: 1 patch Documented by: Menthol (Nice) 1 gelacio BUCCAL PRN PRN PRN Reason: Sore Throat Stop: 04/04/19 03:37 Metoprolol Succinate ([facility]rol Xl) [facility] Stop: 04/03/19 23:29 Last Admin: 03/05/19 00:04 Dose: 100 mg Documented by: Susana (Remove Lidoderm Patch) 1 ea N/A QAM [facility] Stop: 04/04/19 08:59 Last Admin: 03/05/19 08:48 Dose: 1 ea Documented by: Susana (Order Awaiting Action) 1 ea N/A QS [facility] Stop: 04/04/19 00:00 Last Admin: 03/05/19 08:47 Dose: Not Given Documented by: Susana (Carbohydrates For Hypoglycemia) 15 - 30 gm PO UD PRN PRN Reason: Hypoglycemia Treatment Stop: 04/03/19 22:33 Tramadol HCl (Ultram) 25 - 50 mg PO Q4H PRN PRN Reason: Pain Stop: 04/03/19 22:33 Last Admin: 03/05/19 00:58 Dose: 50 mg Documented by:
[2019-03-05] MEDS ORDERED: ALBUTEROL HFA 8 GM INHALER INH PRN (13:49)
[2019-03-05] MEDS ORDERED: MENTHOL-ZINC OXIDE 360 APPLN/120 GM TUBE EXT PRN (18:47)
[2019-03-05] MEDS ORDERED: diazePAM 5 MG TABLET PO ONE (19:00)
[2019-03-05] MEDS ORDERED: NAPROXEN 250 MG TAB PO ONE (21:00)
[2019-03-05] MEDS: TROLAMINE SALICYLATE 10% CRM 255 APPLN/85 GM TUBE EXT PRN (21:43)
[2019-03-06] MEDS: METOPROLOL SUCC 50MG EXT REL TAB PO SCH (01:10)
[2019-03-06] MEDS: TRAMADOL HCL 50 MG TABLET PO PRN (01:45)
[2019-03-06] MEDS: TROLAMINE SALICYLATE 10% CRM 255 APPLN/85 GM TUBE EXT PRN ×2 (03:57→21:13)
[2019-03-06 06:18] LABS: Hematocrit (blood only) 44.6 % (42-52); Hemoglobin 15.2 g/dL (14.0-18.0); Mean Corpuscular Hemoglobin 32.5 pg (25-34); Mean Corpuscular Hgb Conc 34.1 g/dL (32-36); Mean Corpuscular Volume 95.3 fL (80-100); Mean Platelet Volume 10.3 fL (7.4-10.4); Platelet Count 194 K/uL (130-400); Red Blood Count 4.68 M/uL (4.7-6.1); White Blood Count 6.81 K/uL (4.8-10.8)
[2019-03-06 06:44] LABS: BUN Creatinine Ratio 16.4 (10-20); Calcium 8.8 mg/dl (8.5-10.1); Creatinine Clr Calc Pharmacy 80.2 ml/min; Est GFR (Non-African American) 61.2; Potassium 4.1 mmol/L (3.5-5.1)
[2019-03-06] MEDS ORDERED: OXYCODONE/ACETAMINOPHEN 5mg/325mg TAB PO STA (06:45)
[2019-03-06] MEDS ORDERED: OXYCODONE/ACETAMINOPHEN 5mg/325mg TAB PO PRN (06:58)
[2019-03-06] MEDS ORDERED: AMLODIPINE BESYLATE 5 MG TAB PO SCH ×2 (07:00→21:00)
--- NOTE | 2019-03-06 07:21 | Hospitalist Progress Note ---
Date of Service March 06, 2019 Subjective Made aware by RN of uncontrolled blood pressure. SBP 168/110s Cardiac rate 50s. Patient back pain not fully controlled on Tramadol as per RN. AP Uncontrolled BP secondary to uncontrolled back pain Percocet trial Add Norvasc to current beta-clarita Rx given limiting bradycardia for lateral Rx (ARB refused by patient in the past as per outpatient records.) Will relay to AM provider. Results & Data Vital Signs (Past 12 Hours) Vital Signs Temp Pulse Pulse Resp BP Pulse Ox 03/06/19 06:27 36.4 C L 55 L 19 168/111 H 94 03/06/19 06:17 52 L 168/102 H 03/06/19 01:10 70 160/98 H 03/05/19 23:34 37.2 C 68 19 156/100 H 95
[2019-03-06] MEDS: INSULIN ASPART 100 UNITS/ML 3 ML PEN SC SCH ×4 (08:56→20:51)
[2019-03-06] MEDS: ASPIRIN 81 MG ECTAB PO SCH (09:05)
[2019-03-06] MEDS: NAPROXEN 250 MG TAB PO SCH ×2 (09:07→21:10)
[2019-03-06] MEDS: ENOXAPARIN INJ 40 MG/0.4 ML SYR SQ SCH (09:08)
--- NOTE | 2019-03-06 09:59 | Hospitalist Progress Note ---
Date of Service March 06, 2019 Assessment & Plan (1) Lower back pain: Acute lower back pain, nontraumatic. Differential includes but not limited to acute somatic dysfunction 2/2 spinal stenosis vs herniated disc vs degenerative disease. Pain and spasms have improved with Naproxen/Valium and heat. MRI L spine today, PT/OT (2) HTN (hypertension): Elevated blood pressure likely 2/2 uncontrolled pain. Overnight provider started Norvasc. Will follow BP q4hrs and cont good pain control efforts. (3) CAD (coronary artery disease): chronic, stable. Cont ASA, Toprol, allergic to statins and ACEI (4) T2DM (type 2 diabetes mellitus): Cont insulin, hold metformin. Glucose at goal. cont ISS (5) Chronic systolic heart failure: 2/2 ischemic heart disease, chronic, compensated. Cont home Lasix. Cont medical management (6) Peripheral arterial disease: stable, cont medical management (7) COPD (chronic obstructive pulmonary disease): chronic, stable. Lungs are clear to auscultation on exam without respiratory symptoms. On Trelogy inhaler at home. Albuterol PRN SOB or wheezing. (8) DVT prophylaxis: Lovenox Full Dispo-cont hospitalization pending improved ability to ambulate. Laury Faust DO [facility] Hospitalist Subjective pain has improved, still with radiculopathy, unable to walk and pain with movement. Review of Systems Review of Systems: All systems reviewed & are unremarkable except as noted in HPI & below Physical Exam Physical Exam: CONSTITUTIONAL: WNWD, vitals as above, generally well- appearing but in distress with min movement. EYES: normal conjunctivae, no scleral icterus ENT: MMM RESPIRATORY: clear to auscultation bilaterally, no crackles, rales or wheezes, normal respiratory effort CARDIOVASCULAR: regular rate and rhythm, S1 and 2 heard without murmurs, gallops or rubs, no JVD, no peripheral edema GASTROINTESTINAL: soft, nontender, nondistended MUSCULOSKELETAL: strength 5/5 throughout lower extremities, head is normocepha lic and atraumatic. Left paraspinal TTP has improved. SKIN: warm and dry NEUROLOGIC: patellar DTR-could not elicit bilaterally. CN 2-12 grossly intact, normal cognition, normal speech. PSYCHIATRIC: alert cooperative and oriented to person, place and time. Results & Data Vital Signs (Past 12 Hours) Vital Signs Temp Pulse Pulse Resp BP Pulse Ox 03/06/19 06:27 36.4 C L 55 L 19 168/111 H 94 03/06/19 06:17 52 L 168/102 H 03/06/19 01:10 70 160/98 H 03/05/19 23:34 37.2 C 68 19 156/100 H 95 Laboratory Results Short CBC 03/06/19 Range/Units 06:01 WBC 6.81 (4.8-10.8) K/uL Hgb 15.2 (14.0-18.0) g/dL Hct 44.6 (42-52) % Plt Count 194 (130-400) K/uL BMP 03/06/19 06:01 Sodium 139 Potassium 4.1 Chloride 107 Carbon Dioxide 28 BUN 20 H Creatinine 1.23 Glucose 80 Calcium 8.8 Medications Administered Current Inpatient Medications Albuterol (Ventolin Hfa) 2 puffs INH QID PRN PRN Reason: SOB or wheezing Stop: 04/04/19 16:59 Amlodipine Besylate (Norvasc) 2.5 mg PO QAM [facility] Stop: 04/05/19 06:59 Last Admin: 03/06/19 08:17 Dose: 2.5 mg Documented by: Aspirin (Ecotrin Ectab) 81 mg PO QAM [facility] Stop: 04/04/19 08:59 Last Admin: 03/06/19 09:05 Dose: Not Given Documented by: Cyclobenzaprine HCl (Flexeril) 5 mg PO TID PRN PRN Reason: Muscle Spasm Stop: 04/03/19 22:33 Dextrose (Dextrose 50%) 25 - 50 ml IV UD PRN; Protocol PRN Reason: Hypoglycemia Protocol Stop: 04/03/19 22:33 Diazepam (Valium) 5 mg PO BID [facility] Stop: 04/05/19 08:59 Enoxaparin Sodium (Lovenox) 40 mg SQ QAM [facility] Stop: 04/04/19 08:59 Last Admin: 03/06/19 09:08 Dose: 40 mg Documented by: Glucagon (Glucagen) 1 mg SQ UD PRN; Protocol PRN Reason: Hypoglycemia Protocol Stop: 04/03/19 22:33 Glucose (Glucose 40%) 15 - 30 gm PO UD PRN; Protocol PRN Reason: Hypoglycemia Protocol Stop: 04/03/19 22:33 Glucose (Dex4 Glucose) 4 - 8 tabs PO UD PRN; Protocol PRN Reason: Hypoglycemia Protocol Stop: 04/03/19 22:33 Promethazine HCl 12.5 mg/ (Sodium Chloride) 50.5 mls @ 202 mls/hr IV Q6H PRN PRN Reason: Nausea And Vomiting Stop: 04/03/19 22:33 Insulin Aspart (Novolog Flexpen) 0 units SC ACHS [facility] Stop: 04/03/19 22:33 Last Admin: 03/06/19 08:56 Dose: Not Given Documented by: Insulin Human Isoph/Insulin Regular (Novolin 70/30 Regular) 33 units SQ BIDM [facility] Stop: 04/04/19 07:59 Last Admin: 03/05/19 18:00 Dose: 33 units Documented by: Menthol (Nice) 1 gelacio BUCCAL PRN PRN PRN Reason: Sore Throat Stop: 04/04/19 03:37 Metoprolol Succinate ([facility] Xl) [facility] [place] Stop: 04/05/19 00:59 Last Admin: 03/06/19 01:10 Dose: 100 mg Documented by: Miscellaneous (Remove Lidoderm Patch) 1 ea N/A [facility] Stop: 04/04/19 08:59 Last Admin: 03/06/19 09:05 Dose: 1 ea Documented by: Miscellaneous (Carbohydrates For Hypoglycemia) 15 - 30 gm PO UD PRN PRN Reason: Hypoglycemia Treatment Stop: 04/03/19 22:33 Naproxen (Naprosyn) 500 mg PO BID [facility] Stop: 04/05/19 08:59 Last Admin: 03/06/19 09:07 Dose: 500 mg Documented by: Oxycodone/Acetaminophen (Percocet 5mg/325mg) 1 tab PO Q4H PRN PRN Reason: Pain Stop: 03/20/19 06:57 Trolamine Salicylate (Myoflex) 1 appln EXT BID PRN PRN Reason: MUSCLE PAIN Stop: 04/04/19 21:32 Last Admin: 03/06/19 03:57 Dose: 1 appln Documented by:
[2019-03-06] MEDS: diazePAM 5 MG TABLET PO SCH ×2 (10:19→21:09)
[2019-03-06] MEDS: INSULIN HUMAN 70% NPH/30% REGULAR SQ SCH (12:44)
[2019-03-06] MEDS ORDERED: PHARMACY GLYCEMIC MGMT CONSULT PRN (16:18)
[2019-03-06] MEDS: INSULIN HUMAN NPH SC SCH (18:00)
[2019-03-06] MEDS ORDERED: OXYCODONE/APAP 7.5/325MG TAB PO ONE (18:24)
[2019-03-06] MEDS ORDERED: AMLODIPINE BESYLATE 5 MG TAB PO ONE (21:00)
[2019-03-07 05:51] LABS: Hematocrit (blood only) 46.5 % (42-52); Mean Corpuscular Hemoglobin 32.9 pg (25-34); Mean Corpuscular Hgb Conc 34.4 g/dL (32-36); Mean Corpuscular Volume 95.5 fL (80-100); Mean Platelet Volume 10.6 fL (7.4-10.4); Platelet Count 185 K/uL (130-400); RDW Coefficient of Variation 13.8 % (11.5-14.5); RDW Standard Deviation 48.1 fL (36.4-46.3); Red Blood Count 4.87 M/uL (4.7-6.1); White Blood Count 7.19 K/uL (4.8-10.8)
[2019-03-07 06:18] LABS: BUN Creatinine Ratio 15.6 (10-20); Calcium 8.8 mg/dl (8.5-10.1); Creatinine Clr Calc Pharmacy 77.1 ml/min; Est GFR (African American) 67.6; Est GFR (Non-African American) 58.3; Potassium 4.3 mmol/L (3.5-5.1)
[2019-03-07] MEDS ORDERED: AMLODIPINE BESYLATE 5 MG TAB PO SCH (09:00)
[2019-03-07] MEDS: ASPIRIN 81 MG ECTAB PO SCH (09:22)
[2019-03-07] MEDS: ENOXAPARIN INJ 40 MG/0.4 ML SYR SQ SCH (09:23)
[2019-03-07] MEDS: METOPROLOL SUCC 50MG EXT REL TAB PO SCH (09:24)
[2019-03-07] MEDS: NAPROXEN 250 MG TAB PO SCH ×2 (09:35→20:57)
[2019-03-07] MEDS: INSULIN HUMAN NPH SC SCH ×2 (09:46→17:59)
[2019-03-07] MEDS: AMLODIPINE BESYLATE 5 MG TAB PO SCH (09:46)
[2019-03-07] MEDS: INSULIN ASPART 100 UNITS/ML 3 ML PEN SC SCH ×4 (09:47→20:57)
[2019-03-07] MEDS: diazePAM 5 MG TABLET PO SCH ×2 (09:51→21:00)
[2019-03-07] MEDS: OXYCODONE/ACETAMINOPHEN 5mg/325mg TAB PO PRN (12:45)
--- NOTE | 2019-03-07 13:38 | Pharmacy Report ---
Pharmacy Glycemic Short Note 2 - Date of Service March 07, 2019 - Glycemic Short BSG Results (Last 24 hours): 03/06/19 03/06/19 03/07/19 17:15 20:27 05:26 Glucose 131 H POC Glucose 116 H 121 H 03/07/19 03/07/19 08:11 12:12 Glucose POC Glucose 121 H 134 H OUTPATIENT ANTIDIABETIC REGIMEN: * Novolin 70/30 33 units SQ BIDM * Metformin 1000 mg PO daily * A1c 7.8% (04/01/18) ASSESSMENT: * 63 yo T2DM male admitted for lower back pain due to spinal stenosis vs herniated disc vs degenerative disease. * John is managed on a combination of metformin and pre-mixed Novolin 70/30 insulin. A1c has been ordered for 03/08. * Pre-mixed insulin is difficult to titrate since it is already in a fixed distribution of basal:prandial insulin. Continuing pre-mixed insulin for admission typically lead to hypoglycemia d/t changing PO status but rapid acting insulin is unable to be held. * Home regimen will be held for admission per pharmacy consult. NPH will be used for basal needs. This will allow for easy titration back to Novolin 70/30 at time of discharge. Doses are based on use of 66 units per day at home. PLAN FOR INPATIENT GLYCEMIC CONTROL: * Hold outpatient oral diabetes medications * Basal insulin * NPH 17 units SQ BID * Bolus insulin * NovoLog per scale ACHS or Q6hrs while NPO * Goal Range: Low 110 mg/dL - High 140 mg/dL * Correction Factor: 30 mg/dL/unit * Nutritional / Prandial insulin per carb ratio of 1 unit per 10 grams CHO consumed PLAN FOR DISCHARGE: * pending A1c result
--- NOTE | 2019-03-07 13:47 | Hospitalist Progress Note ---
Date of Service March 07, 2019 Assessment & Plan (1) Lower back pain: Acute lower back pain, nontraumatic. Differential includes but not limited to acute somatic dysfunction 2/2 spinal stenosis vs herniated disc vs degenerative disease. Pain and spasms have improved with Naproxen/Valium and heat. MRI L spine today coulndnt be tolerated. Still with some sciatica and difficulty ambulating. Cont PT/OT, Ortho Spine consulted. (2) HTN (hypertension): Improved on Norvasc.. (3) CAD (coronary artery disease): chronic, stable. Cont ASA, Toprol, allergic to statins and ACEI (4) T2DM (type 2 diabetes mellitus): Cont insulin, hold metformin. Glucose at goal. cont ISS (5) Chronic systolic heart failure: 2/2 ischemic heart disease, chronic, compensated. Cont home Lasix. Cont medical management (6) Peripheral arterial disease: stable, cont medical management (7) COPD (chronic obstructive pulmonary disease): chronic, stable. Lungs are clear to auscultation on exam without respiratory symptoms. On Trelogy inhaler at home. Albuterol PRN SOB or wheezing. (8) DVT prophylaxis: Lovenox Full Dispo-cont hospitalization pending improved ability to ambulate. [facility] still present cannot tolerate MRI 2/2 pain leaning forward improves the pain back pain has improved, but legs are worse including calves he feels the current medication is helping but wants something for breakthrough pain Review of Systems Review of Systems: All systems reviewed & are unremarkable except as noted in HPI & below Physical Exam Physical Exam: CONSTITUTIONAL: WNWD, vitals as above, guarded with movements. EYES: normal conjunctivae, no scleral icterus ENT: MMM RESPIRATORY: clear to auscultation bilaterally, no crackles, rales or wheezes, normal respiratory effort CARDIOVASCULAR: regular rate and rhythm, S1 and 2 heard without murmurs, gallops or rubs, no JVD, no peripheral edema GASTROINTESTINAL: soft, nontender, nondistended MUSCULOSKELETAL: strength 5/5 throughout lower extremities, head is normocephalic and atraumatic. Left paraspinal TTP has improved. SKIN: warm and dry NEUROLOGIC: patellar DTR-could not elicit bilaterally. CN 2-12 grossly intact, normal cognition, normal speech. PSYCHIATRIC: alert cooperative and oriented to person, place and time. Results & Data Vital Signs (Past 12 Hours) Vital Signs Temp Pulse Resp BP Pulse Ox 03/07/19 13:38 135/90 03/07/19 07:35 36.4 C L 72 18 154/99 H 96 Laboratory Results Short CBC 03/07/19 Range/Units 05:26 WBC 7.19 (4.8-10.8) K/uL Hgb 16.0 (14.0-18.0) g/dL Hct 46.5 (42-52) % Plt Count 185 (130-400) K/uL BMP 03/07/19 05:26 Sodium 140 Potassium 4.3 Chloride 105 Carbon Dioxide 28 BUN 20 H Creatinine 1.28 Glucose 131 H Calcium 8.8 Medications Administered Current Inpatient Medications Albuterol (Ventolin Hfa) 2 puffs INH QID PRN PRN Reason: SOB or wheezing Stop: 04/04/19 16:59 Amlodipine Besylate (Norvasc) 5 mg PO QAM [facility] Stop: 04/06/19 08:59 Last Admin: 03/07/19 09:46 Dose: 5 mg Documented by: Aspirin (Ecotrin Ectab) 81 mg PO QAM [facility] Stop: 04/04/19 08:59 Last Admin: 03/07/19 09:22 Dose: 81 mg Documented by: Cyclobenzaprine HCl (Flexeril) 5 mg PO TID PRN PRN Reason: Muscle Spasm Stop: 04/03/19 22:33 Dextrose (Dextrose 50%) 25 - 50 ml IV UD PRN; Protocol PRN Reason: Hypoglycemia Protocol Stop: 04/03/19 22:33 Diazepam (Valium) 5 mg PO BID [facility] Stop: 04/05/19 08:59 Last Admin: 03/07/19 09:51 Dose: 5 mg Documented by: Enoxaparin Sodium (Lovenox) 40 mg SQ QAM [facility] Stop: 04/04/19 08:59 Last Admin: 03/07/19 09:23 Dose: 40 mg Documented by: Glucagon (Glucagen) 1 mg SQ UD PRN; Protocol PRN Reason: Hypoglycemia Protocol Stop: 04/03/19 22:33 Glucose (Glucose 40%) 15 - 30 gm PO UD PRN; Protocol PRN Reason: Hypoglycemia Protocol Stop: 04/03/19 22:33 Glucose (Dex4 Glucose) 4 - 8 tabs PO UD PRN; Protocol PRN Reason: Hypoglycemia Protocol Stop: 04/03/19 22:33 Promethazine HCl 12.5 mg/ (Sodium Chloride) 50.5 mls @ 202 mls/hr IV Q6H PRN PRN Reason: Nausea And Vomiting Stop: 04/03/19 22:33 Insulin Aspart (Novolog Flexpen) 0 units SC ACHS [facility] Stop: 04/03/19 22:33 Last Admin: 03/07/19 13:13 Dose: 7 units Documented by: Insulin Human NPH (Novolin N Nph) 17 units SC BIDM [facility] Stop: 04/05/19 16:59 Last Admin: 03/07/19 09:46 Dose: 17 units Documented by: Menthol (Nice) 1 gelacio BUCCAL PRN PRN PRN Reason: Sore Throat Stop: 04/04/19 03:37 Metoprolol Su[facility]inate ([facility]l) [facility] [place] Stop: 04/05/19 00:59 Last Admin: 03/07/19 09:24 Dose: 100 mg Documented by: Miscellaneous (Remove Lidoderm Patch) [facility]a [facility] [place] Stop: 04/04/19 08:59 Last Admin: 03/07/19 09:24 Dose: 1 ea Documented by: Miscellaneous (Carbohydrates For Hypoglycemia) 15 - 30 gm PO UD PRN PRN Reason: Hypoglycemia Treatment Stop: 04/03/19 22:33 Miscellaneous Information (Consult Glycemic Management Pharmacy) 1 ea N/A UD PRN PRN Reason: Consult Stop: 04/05/19 16:17 Naproxen (Naprosyn) 500 mg PO BID [facility] Stop: 04/05/19 08:59 Last Admin: 03/07/19 09:35 Dose: 500 mg Documented by: Oxycodone/Acetaminophen (Percocet 5mg/325mg) 1 tab PO Q4H PRN PRN Reason: Pain Stop: 03/21/19 11:43 Last Admin: 03/07/19 12:45 Dose: 1 tab Documented by: Pantoprazole Sodium (Protonix) 40 mg PO QAM [facility] Stop: 03/12/19 13:59 Prednisone (Prednisone) 40 mg PO DAILY [facility] Stop: 03/12/19 13:59 Trolamine Salicylate (Myoflex) 1 appln EXT BID PRN PRN Reason: MUSCLE PAIN Stop: 04/04/19 21:32 Last Admin: 03/06/19 21:13 Dose: 1 appln Documented by:
[2019-03-07] MEDS: PANTOprazole 40 MG TAB PO SCH (14:02)
[2019-03-07] MEDS: predniSONE 20 MG TAB PO SCH (14:02)
--- NOTE | 2019-03-08 05:55 | Ultrasound Report ---
US venous doppler LE CLINICAL HISTORY: 63 years-old Male presenting with swelling, pain in calves. TECHNIQUE: Real-time grayscale and color and spectral Doppler ultrasound imaging of the veins of the bilateral lower extremities was performed. Compression and augmentation were also utilized. COMPARISON: None. FINDINGS: RIGHT: Common femoral vein: Patent. Greater saphenous vein (superficial): Patent. Deep femoral vein: Patent. Femoral vein: Patent. Popliteal vein: Patent. Calf veins: Patent. LEFT: Common femoral vein: Patent. Greater saphenous vein (superficial): Patent. Deep femoral vein: Patent. Femoral vein: Patent. Popliteal vein: Patent. Calf veins: Patent. Other: None. IMPRESSION: No evidence of deep venous thrombosis. Electronically signed by: Devon English M.D. 03/08/2019 5:54 AM
[2019-03-08 06:14] LABS: Hematocrit (blood only) 46.1 % (42-52); Hemoglobin 15.6 g/dL (14.0-18.0); Mean Corpuscular Hemoglobin 31.9 pg (25-34); Mean Corpuscular Hgb Conc 33.8 g/dL (32-36); Mean Corpuscular Volume 94.3 fL (80-100); Mean Platelet Volume 10.4 fL (7.4-10.4); Platelet Count 201 K/uL (130-400); RDW Coefficient of Variation 13.7 % (11.5-14.5); RDW Standard Deviation 47.2 fL (36.4-46.3); Red Blood Count 4.89 M/uL (4.7-6.1); White Blood Count 8.55 K/uL (4.8-10.8)
[2019-03-08 06:51] LABS: BUN Creatinine Ratio 16.2 (10-20); Creatinine Clr Calc Pharmacy 88.1 ml/min; Est GFR (African American) 79.5; Est GFR (Non-African American) 68.6; Potassium 4.5 mmol/L (3.5-5.1)
[2019-03-08 07:20] LABS: Estimated Average Glucose 189 mg/dl; Hemoglobin A1C 8.2 % (4.5-5.6)
--- NOTE | 2019-03-08 08:51 | Consultation Report ---
DATE OF ADMISSION: 03/05/2019 CHIEF COMPLAINT: Back pain and sciatica. HISTORY OF PRESENT ILLNESS: Axel is delightful, I am meeting him for the first time, he is 63. He had an episode of intractable back pain, sciatica and nerve root irritation that gained admission to the hospital. He has a long history around back in 1980s of chronic back pain, sometimes debilitating for him. He seems to be improving with the medication. He is comfortable here today. Moves all extremities, and I think he is stable to go home. PAST MEDICAL HISTORY: Coronary artery disease, hypertension, COPD, diabetes mellitus. PAST SURGICAL HISTORY: Vascular surgeries. FAMILY HISTORY: Heart disease. SOCIAL HISTORY: ETOH and tobacco. ALLERGIES: Listed. MEDICATIONS: Include aspirin, metoprolol, albuterol, insulin and metformin. REVIEW OF SYSTEMS: He is alert, oriented. Denies any chest pain, shortness of breath. Denies any blurred vision, double vision, tinnitus or vertigo. Denies any abdominal discomfort. No tenderness. Admits to occasional lower extremity difficulties in the past, but seems to have improved. OBJECTIVE: VITAL SIGNS: Stable. Pulse regular. Temperature 36.7, blood pressure 162/103. GENERAL: He is alert, oriented. Mentation normal. No depression. CARDIAC: Normal S1, S2. ABDOMEN: Soft, nontender, no referred pain. EXTREMITIES: Intact x4. Mild edema, some varicosities but adequate motor strength and sensation reflex ability. There is no deficit. X-rays demonstrate some degenerative changes to lumbar spine with no gross instability. IMPRESSION: Degenerative arthritis and spondylosis lumbar spine. He more likely has a component of spinal stenosis. PLAN: He should be medically stabilized and discharged home hopefully sometime today. He needs no MRI CT scan at this point in time. We can do all that as an outpatient and he can be on some outpatient medication and physical therapies oftentimes beneficial in this scenario. OSMIN
[2019-03-08] MEDS: INSULIN HUMAN NPH SC SCH ×2 (09:40→17:55)
[2019-03-08] MEDS: INSULIN ASPART 100 UNITS/ML 3 ML PEN SC SCH ×4 (09:41→20:56)
[2019-03-08] MEDS: ENOXAPARIN INJ 40 MG/0.4 ML SYR SQ SCH (09:41)
[2019-03-08] MEDS: NAPROXEN 250 MG TAB PO SCH ×2 (09:42→20:51)
[2019-03-08] MEDS: ASPIRIN 81 MG ECTAB PO SCH (09:42)
[2019-03-08] MEDS: predniSONE 20 MG TAB PO SCH (09:43)
[2019-03-08] MEDS: PANTOprazole 40 MG TAB PO SCH (09:43)
[2019-03-08] MEDS: METOPROLOL SUCC 50MG EXT REL TAB PO SCH (09:43)
[2019-03-08] MEDS: AMLODIPINE BESYLATE 5 MG TAB PO SCH (09:43)
[2019-03-08] MEDS: diazePAM 5 MG TABLET PO SCH ×2 (09:55→20:51)
--- NOTE | 2019-03-08 15:41 | Hospitalist Progress Note ---
Date of Service March 08, 2019 Assessment & Plan (1) Lower back pain: Acute lower back pain, nontraumatic. Differential includes but not limited to acute somatic dysfunction 2/2 spinal stenosis vs herniated disc vs degenerative disease. Pain and spasms continue to improve with Naproxen/Valium and heat. Steroids started yesterday were notably helpful to the patient. Couldn't tolerate MRI. Per orthopedic spine consultation, MRI can be done as outpatient. Symptoms appear secondary to severe spinal stenosis. Awaiting PT reevaluation and patient to have improved ability to ambulate in order to be safe to go home. (2) HTN (hypertension): Improved on Norvasc.. Continue current pain regimen. Watch for blood pressure increase on recently started steroids. (3) CAD (coronary artery disease): chronic, stable. Cont ASA, Toprol, allergic to statins and ACEI (4) T2DM (type 2 diabetes mellitus): Cont insulin, hold metformin. Glucose at goal. cont ISS (5) Chronic systolic heart failure: 2/2 ischemic heart disease, chronic, compensated. Cont home Lasix. Cont medical management (6) Peripheral arterial disease: stable, cont medical management (7) COPD (chronic obstructive pulmonary disease): chronic, stable. Lungs are clear to auscultation on exam without respiratory symptoms. On Trelogy inhaler at home. Albuterol PRN SOB or wheezing. (8) DVT prophylaxis: Lovenox Full Dispo-cont hospitalization pending improved ability to ambulate and improvement in pain. Needs PT re-evaluation to see if he can meet original goals for safe return home. Limited availability over the holiday weekend. Laury Faust DO [facility] Hospitalist Subjective Persistent back and leg pain with some improvement overnight. Reports bilateral right radiculopathy. Reports persistent calf pain. Ultrasound lower extremity Dopplers was negative for clot. He reports steroids have helped him, which were started yesterday. Review of Systems Review of Systems: All systems reviewed & are unremarkable except as noted in HPI & below Physical Exam Physical Exam: CONSTITUTIONAL: WNWD, vitals as above,NAD EYES: normal conjunctivae, no scleral icterus ENT: MMM RESPIRATORY: clear to auscultation bilaterally, no crackles, rales or wheezes, normal respiratory effort CARDIOVASCULAR: regular rate and rhythm, S1 and 2 heard without murmurs, gallops or rubs, no JVD, no peripheral edema GASTROINTESTINAL: soft, nontender, nondistended MUSCULOSKELETAL: strength 5/5 throughout lower extremities, head is normocephalic and atraumatic. No paraspinal TTP. Limited ROM in general, cannot move from sit to stand position without assistance. SKIN: warm and dry NEUROLOGIC: CN 2-12 grossly intact, normal cognition, normal speech. No gross focal deficits. PSYCHIATRIC: alert cooperative and oriented to person, place and time. Results & Data Vital Signs (Past 12 Hours) Vital Signs Temp Pulse Resp BP Pulse Ox 03/08/19 07:08 36.4 C L 67 18 148/83 H 98 Laboratory Results Short CBC 03/08/19 Range/Units 05:53 WBC 8.55 (4.8-10.8) K/uL Hgb 15.6 (14.0-18.0) g/dL Hct 46.1 (42-52) % Plt Count 201 (130-400) K/uL BMP 03/08/19 05:53 Sodium 138 Potassium 4.5 Chloride 105 Carbon Dioxide 27 BUN 18 Creatinine 1.12 Glucose 153 H Calcium 9.0 Medications Administered Current Inpatient Medications Albuterol (Ventolin Hfa) 2 puffs INH QID PRN PRN Reason: SOB or wheezing Stop: 04/04/19 16:59 Last Admin: 03/07/19 18:44 Dose: 2 puffs Documented by: Amlodipine Besylate (Norvasc) 5 mg PO QAM [facility] Stop: 04/06/19 08:59 Last Admin: 03/08/19 09:43 Dose: 5 mg Documented by: Aspirin (Ecotrin Ectab) 81 mg PO QAM [facility] Stop: 04/04/19 08:59 Last Admin: 03/08/19 09:42 Dose: 81 mg Documented by: Cyclobenzaprine HCl (Flexeril) 5 mg PO TID PRN PRN Reason: Muscle Spasm Stop: 04/03/19 22:33 Dextrose (Dextrose 50%) 25 - 50 ml IV UD PRN; Protocol PRN Reason: Hypoglycemia Protocol Stop: 04/03/19 22:33 Diazepam (Valium) 5 mg PO BID [facility] Stop: 04/05/19 08:59 Last Admin: 03/08/19 09:55 Dose: 5 mg Documented by: Enoxaparin Sodium (Lovenox) 40 mg SQ QAM [facility] Stop: 04/04/19 08:59 Last Admin: 03/08/19 09:41 Dose: 40 mg Documented by: Glucagon (Glucagen) 1 mg SQ UD PRN; Protocol PRN Reason: Hypoglycemia Protocol Stop: 04/03/19 22:33 Glucose (Glucose 40%) 15 - 30 gm PO UD PRN; Protocol PRN Reason: Hypoglycemia Protocol Stop: 04/03/19 22:33 Glucose (Dex4 Glucose) 4 - 8 tabs PO UD PRN; Protocol PRN Reason: Hypoglycemia Protocol Stop: 04/03/19 22:33 Promethazine HCl 12.5 mg/ (Sodium Chloride) 50.5 mls @ 202 mls/hr IV Q6H PRN PRN Reason: Nausea And Vomiting Stop: 04/03/19 22:33 Insulin Aspart (Novolog Flexpen) 0 units SC ACHS [facility] Stop: 04/03/19 22:33 Last Admin: 03/08/19 13:05 Dose: 6 units Documented by: Insulin Human NPH (Novolin N Nph) 17 units SC BIDM [facility] Stop: 04/05/19 16:59 Last Admin: 03/08/19 09:40 Dose: 17 units Documented by: Menthol (Nice) 1 gelacio BUCCAL PRN PRN PRN Reason: Sore Throat Stop: 04/04/19 03:37 Metoprolol Succinate (Toprol Xl) 100 mg PO QAM [facility] Stop: 04/05/19 00:59 Last Admin: 03/08/19 09:43 Dose: 100 mg Documented by: Miscellaneous (Remove Lidoderm Patch) 1 ea N/A QAM [facility] Stop: 04/04/19 08:59 Last Admin: 03/08/19 09:44 Dose: Not Given Documented by: Miscellaneous (Carbohydrates For Hypoglycemia) 15 - 30 gm PO UD PRN PRN Reason: Hypoglycemia Treatment Stop: 04/03/19 22:33 Miscellaneous Information (Consult Glycemic Management Pharmacy) 1 ea N/A UD PRN PRN Reason: Consult Stop: 04/05/19 16:17 Naproxen (Naprosyn) 500 mg PO BID [facility] Stop: 04/05/19 08:59 Last Admin: 03/08/19 09:42 Dose: 500 mg Documented by: Oxycodone/Acetaminophen (Percocet 5mg/325mg) 1 tab PO Q4H PRN PRN Reason: Pain Stop: 03/21/19 11:43 Last Admin: 03/07/19 12:45 Dose: 1 tab Documented by: Pantoprazole Sodium (Protonix) 40 mg PO QAM [facility] Stop: 03/12/19 13:59 Last Admin: 03/08/19 09:43 Dose: 40 mg Documented by: Prednisone (Prednisone) 40 mg PO DAILY [facility] Stop: 03/12/19 13:59 Last Admin: 03/08/19 09:43 Dose: 40 mg Documented by: Trolamine Salicylate (Myoflex) 1 appln EXT BID PRN PRN Reason: MUSCLE PAIN Stop: 04/04/19 21:32 Last Admin: 03/06/19 21:13 Dose: 1 appln Documented by:
[2019-03-08] MEDS: OXYCODONE/ACETAMINOPHEN 5mg/325mg TAB PO PRN (23:13)
[2019-03-09] MEDS: diazePAM 5 MG TABLET PO SCH (08:20)
[2019-03-09] MEDS: NAPROXEN 250 MG TAB PO SCH (08:20)
[2019-03-09] MEDS: predniSONE 20 MG TAB PO SCH (08:21)
[2019-03-09] MEDS: AMLODIPINE BESYLATE 5 MG TAB PO SCH (08:21)
[2019-03-09] MEDS: METOPROLOL SUCC 50MG EXT REL TAB PO SCH (08:21)
[2019-03-09] MEDS: ASPIRIN 81 MG ECTAB PO SCH (08:21)
[2019-03-09] MEDS: PANTOprazole 40 MG TAB PO SCH (08:21)
[2019-03-09] MEDS: ENOXAPARIN INJ 40 MG/0.4 ML SYR SQ SCH (08:22)
[2019-03-09] MEDS: INSULIN HUMAN NPH SC SCH (08:24)
[2019-03-09] MEDS: INSULIN ASPART 100 UNITS/ML 3 ML PEN SC SCH ×2 (08:25→12:51)
--- NOTE | 2019-03-09 12:38 | Pharmacy Report ---
Pharmacy Glycemic Short Note 2 - Date of Service March 09, 2019 - Glycemic Short BSG Results (Last 24 hours): 03/06/19 03/08/19 03/08/19 12:14 12:29 17:00 POC Glucose 103 H 126 H 176 H 03/08/19 03/09/19 03/09/19 20:54 08:14 12:09 POC Glucose 187 H 120 H 140 H OUTPATIENT ANTIDIABETIC REGIMEN: * Novolin 70/30 33 units SQ BIDM * Metformin 1000 mg PO daily * A1c 7.8% (04/01/18) ASSESSMENT: * Pt required 54 units of insulin yesterday, 03/08/19. She is basal heavy. Prednisone 40mg QAM continues. BSGs continue to look reasonable. Will continue with standing insulin orders. PLAN FOR INPATIENT GLYCEMIC CONTROL: * Hold outpatient oral diabetes medications * Basal insulin * NPH 17 units SQ BID * Bolus insulin * NovoLog per scale ACHS or Q6hrs while NPO * Goal Range: Low 110 mg/dL - High 140 mg/dL * Correction Factor: 25 mg/dL/unit * Nutritional / Prandial insulin per carb ratio of 1 unit per 8 grams CHO consumed
[2019-03-09 15:40] VITALS: BP 146/84; PULSE 72; TEMP 97.3; O2SAT 93
--- NOTE | 2019-03-09 15:49 | Discharge Summary ---
Date of Service March 09, 2019 Admission HPI Per Admitting Provider History obtained from patient and records. Medical history significant for chronic systolic/diastolic heart failure secondary to ischemic cardiomyopathy (EF 45-50%, TTE 2018), CAD status post stenting, PVD, COPD, past tobacco abuse, DM 2 insulin requiring, chronic back pain Recent confinement last March 2018 for sepsis secondary to pneumonia. This afternoon patient had some worsening of his "sciatica" - chronic low back pain with radiation to the right leg with some radiation to the left. Unrelieved by home Flexeril. No fever, no chills, no incontinence, no leg weakness, no unusual weight loss, no hematuria. Intractable pain at the emergency room. 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 Admission Exam Per Admitting Provider GENERAL: Comfortable, pleasant, no respiratory distress, obese, sitting by the edge of the stretcher SKIN: Normal color , warm HEENT: Partial alopecia, pale palpebral conjunctivae, no ptosis, moist buccal mucosa NECK : Short, supple, no tenderness CHEST : Decreased breath sounds, no tenderness HEART : RRR, no obvious murmurs ABDOMEN: Some distention, nontender BACK : Low back tenderness, negative straight leg raise test EXTREMITIES : Minimal LE swelling, no LE tenderness, no other conspicuous deformities noted NEUROLOGIC : Coherent, no facial asymmetry, no other gross focality Principal Diagnosis Back pain/leg pain-resolved Discharge Data Allergies Allergy/AdvReac Type Severity Reaction Status Date / Time piperacillin Allergy Intermediate rash, Verified 03/04/19 19:20 itching, burning through upper body Kvoppjr-Gxw-Xdx Reductase Allergy Intermediate rash/ Verified 03/04/19 19:20 Inhibitor heartburn tazobactam Allergy Intermediate rash, Verified 03/04/19 19:20 itching, burning through upper body ceftriaxone Allergy Unknown HIVES Verified 03/04/19 19:20 Iodinated Contrast- Oral and AdvReac Intermediate rash, Verified 03/07/19 12:00 IV Dye itching morphine AdvReac Unknown NAUSEA/VOMI Verified 03/04/19 19:20 TING Consultations 03/04/19 20:52 ED Decision to Admit Stat 03/07/19 11:44 Consult Orthopedic Surgery Routine Ordered Studies 03/07/19 11:55 US venous doppler LE Urgent Hospital Course (1) Lower back pain: (2) HTN (hypertension): (3) CAD (coronary artery disease): (4) T2DM (type 2 diabetes mellitus): (5) Chronic systolic heart failure: (6) Peripheral arterial disease: 63-year-old man presented with acute lower back pain without trauma. He was admitted to the Hospitalist service and placed on scheduled naproxen and Valium in addition to heat. After two days his pain was slightly improved but he still had sciatica and was unable to tolerate an MRI secondary to pain, so orthopedic spine was consulted. The surgeon recommended his pain was from degenerative arthritis and spondylosis of the lumbar spine with a likely component of spinal stenosis. Outpatient physical therapy would be the best option in addition to symptomatic therapy for pain control at this time. His MRI was canceled and prednisone was started for additional support, to be continued for 5 days. He had significant improvement on prednisone and this was continued on discharge. He also found relief with Percocet. He was evaluated by physical therapy for safety to return home and they recommended this was fine as he was motivated and progressing well. At time of discharge a pzrd-up-jzfh examination was performed revealing hemodynamically stable and afebrile patient who was mentating at baseline and tolerating p.o. He was ambulating with a walker, which he has at home. Physical exam was unremarkable with resolution of leg and back discomfort with knee extension bilaterally and resolution of tenderness to palpation in the lumbar spine and PSIS areas. He overall appeared more comfortable moving around in general. Physical exam was otherwise unremarkable including a normal heart and lung exam. Close primary care follow- up was recommended with strong consideration for enrollment in an outpatient physical therapy program. Of note, his blood pressure remains significantly elevated during the entire hospitalization despite aggressive efforts of pain control and starting amlodipine 5 mg daily. Blood pressure ranged from 160-180 systolic on average over 80-110 diastolic. At time of discharge hydrochlorothiazide 12.5 mg p.o. daily was started with recommendations for close follow-up with primary care provider for BP check and BMP in two weeks time. Total Time Total Time Spent Total Time Spent (In Minutes): 60 Total Time Includes: Examination of the Patient, Discharge Planning, Medication Reconciliation, Communication With Other Providers and Other (arranged follow- up) Discharge Plan Discharge Items Patient Disposition: Home - Self-Care Reason For Visit: BACK PAIN Discharge Diagnosis: Back pain/leg pain-resolved Discharge Goals: Decrease discomfort Activity: Resume your previous activity Non-emergency contact: Primary Care Provider Call non-emergency contact if: you have any medication questions, your symptoms worsen, your pain is not controlled, your pain is worsening, your pain is unusual for you, your pain is concerning for you and you have a fever Follow-up/Referrals: Andressa Benjamin, [Primary Care Provider] - Diet: Carb Consistent or DM2 and Heart Healthy Addtl Provider Instructions: Patient is as instructed on discharge list below. You are being placed on a blood pressure medicine called hydrochlorothiazide 12.5 mg p.o. daily. In 2 weeks time he will need nonfasting blood work which will be ordered by your primary care doctor. This medication will cause you to have an increased frequency of urination but this should only last a few days. Please discuss this new medication with your primary care physician at time of follow-up. You are being continued on prednisone therapy for 2 more days for improvement of back pain. While on this medication in conjunction with naproxen, you will need to take pantoprazole to protect your belly against toxicity. You have also been given Percocet to use as needed for severe pain. Please stop Flexeril as that may interact with these medications. It is recommended that you follow-up with your primary care provider within 1 week of discharge. The following appointment has been made for you: 03/15/2019 1:00 PM Andressa Benjamin DO [facility] It was a pleasure taking care of you! Please call if you have any questions or problems. You can reach a [facility] hospitalist on duty at [facility] 24 hours a day by calling [phone]. Take care of yourself. Laury Faust DO [facility] Hospitalist Prescriptions: New hydrochlorothiazide 12.5 mg tablet 12.5 mg PO DAILY Qty: 30 RF: 0 naproxen 250 mg Tablet 500 mg PO BID PRN (Reason: pain) 7 Days Qty: 28 RF: 0 oxycodone-acetaminophen [Percocet] 5-325 mg Tablet 1 tab PO Q4H PRN (Reason: severe pain) Qty: 10 RF: 0 pantoprazole 40 mg Tablet,Delayed Release (Dr/Ec) 40 mg PO QAM 30 Days Qty: 30 RF: 0 prednisone 20 mg Tablet 40 mg PO DAILY 2 Days Qty: 4 RF: 0 Continued metoprolol succinate 100 mg Tablet Extended Release 24 Hr 100 mg PO QAM RF: 0 aspirin [Aspirin Low Dose] 81 mg Tablet,Delayed Release (Dr/Ec) 81 mg PO QAM RF: 0 Trelegy Ellipta 100-62.5-25 mcg Blister With Device 1 inh INHALATION QAM RF: 0 Novolin 70/30 U-100 Insulin 100 unit/mL (70-30) suspension 33 unit subcut BID RF: 0 albuterol sulfate 90 mcg/actuation HFA aerosol inhaler 2 puff inhalation Q4H PRN (Reason: Wheezing) RF: 0 metformin 500 mg tablet extended release 24 hr 1,000 mg PO QAM RF: 0 Discontinued cyclobenzaprine 10 mg tablet 10 mg PO HS PRN (Reason: Muscle Spasm) RF: 0 Stand-Alone Forms: [facility] Discharge Orders: Discharge Order (Routine); Ordered 03/09/19 Ordered By: Laury Faust Admission Data Admit Date/Time: 03/05/19 13:59 Attending Provider: Laury Faust Admit Provider: Jd Potter Primary Care Provider: Andressa Benjamin Other Providers: Jd Potter ; Kit Vaughan Service: Medical Other Pending Studies at Discharge: No
== END 2019-03-09 17:25 | disposition home or self-care (01) | DRG 552 ==
LOC: 3N 18:33 → ED 18:33 → 3N 22:23

== ENCOUNTER 2019-04-08 15:41 | Inpatient (IN) ==
--- NOTE | 2019-04-08 16:21 | Emergency Department Note ---
History of Present Illness General Chief complaint: Respiratory Problems Stated complaint: LOW O2 LEVELS, TROUBLE BREATHING Time Seen by Provider: 04/08/19 16:07 Home Medications Home Medications Medication Instructions Recorded Confirmed Type metoprolol succinate 100 mg PO QAM 04/01/18 03/14/19 History aspirin [Aspirin Low Dose] 81 mg PO QAM 10/26/18 03/14/19 History Novolin 70/30 U-100 Insulin 33 unit SUBCUT BID 03/04/19 03/14/19 History albuterol sulfate 2 puff INHALATION Q4H PRN 03/04/19 03/14/19 History metformin 1,000 mg PO QAM 03/04/19 03/14/19 History hydrochlorothiazide 12.5 mg PO DAILY #30 tab 03/09/19 03/14/19 Rx oxycodone-acetaminophen [Percocet] 1 tab PO Q4H PRN #10 tab 03/09/19 03/14/19 Rx Allergies Allergy/AdvReac Type Severity Reaction Status Date / Time ceftriaxone Allergy Intermediate HIVES Verified 04/08/19 16:18 piperacillin Allergy Intermediate rash, Verified 04/08/19 16:18 itching, burning through upper body Qnsgpui-Cqe-Mqe Reductase Allergy Intermediate rash/ Verified 04/08/19 16:18 Inhibitor heartburn tazobactam Allergy Intermediate rash, Verified 04/08/19 16:18 itching, burning through upper body Iodinated Contrast Media AdvReac Intermediate rash, Verified 04/08/19 16:18 [Iodinated Contrast- Oral itching and IV Dye] morphine AdvReac Intermediate NAUSEA/VOMI Verified 04/08/19 16:18 TING Past Med/Surg History Social History Preferred Language: Vietnamese Communication Ability: Effective Visual Impairment: No Limitations Hearing Ability: Normal Sql Database Developer Required: No Beliefs That Will Affect Care: None Current Living Situation: Spouse Feels Safe at Home: Yes Smoking Status: Never smoker Tobacco Type: cigarettes ; Second Hand Exposure: No ; Hx Alcohol Use: No Hx Substance Use: No Physical Exam Vital Signs Vital Signs - 24 hr 04/08/19 15:52 Temperature 36.6 C Temperature Source Oral Sepsis Recent Fever Within 48 Hours No Sepsis New/Unexplained Change in Mental Status No Sepsis Action Taken by Nursing No Action Required Pulse Rate 86 Respiratory Rate 24 Respiratory Effort / Characteristics Non-Labored Respiratory Depth Normal Blood Pressure 157/89 H Blood Pressure Mean 111 Pulse Oximetry 87 L Oxygen Delivery Method Room Air GENERAL: Well appearing, well nourished, NAD, non-toxic. EYE EXAM: Normal conjunctiva. PERRL, no anisocoria and EOM's grossly intact w/o pain. OROPHARYNX: Moist mucus membranes. Grossly normal dentition. [No exudate, posterior pharynx is clear, no tonsillar/uvular deviation or swelling. No cervical adenopathy, no submental, submandibular, or sublingual swelling.] NECK: Supple, no nuchal rigidity, no adenopathy, non-tender. No signs of meningismus. [FROM of the neck with good chin to chest and neck extension. No stridor.] LUNGS: Clear to auscultation. Normal chest wall mechanics. HEART: NSR, no MRG. ABDOMEN: Abdomen soft, non-tender, normo-active bowel sounds, no masses, no rebound or guarding. BACK: No CVA TTP. SKIN: No rashes and no bruising. UPPER EXTREMITIES: Upper extremities are grossly normal. NEURO EXAM: A&O x3, cranial nerves II-XII grossly intact, normal speech, moves all 4 extremities on command w/o issue. [Good finger to nose, no drift, no sensory deficits.] Peds GENERAL: Awake, alert, well appearing, nontoxic, NAD. HEAD: NCAT, no obvious deformity.[place] flat, neither sunken nor full. EYES: PERRL. Normal conjunctiva. Sclera non-icteric. NOSE: Unremarkable. No rhinorrhea. OROPHARYNX: Moist mucous membranes. Normal dentition. Posterior pharynx clear, no exudate, no tonsillar/uvular deviation or swelling. NECK: Supple. No nuchal rigidity. FROM. No adenopathy. No stridor. RESPIRATORY: CTA bilaterally. No accessory muscle use noted. CARDIAC: NSR. No MRG. ABDOMEN: Soft, non distended. No tenderness to palpation. No hernias. BACK: Unremarkable. No step-offs. : Unremarkable. SKIN: No jaundice noted. No rash. MUSCULOSKELETAL: No edema or ecchymosis. No obvious joint swelling. NEURO: Awake, alert, moves all 4 extremities. Age appropriate. Discharge Plan Visit Data Chief Complaint: Respiratory Problems Stated Complaint: LOW O2 LEVELS, TROUBLE BREATHING ED Provider: Gage Méndez Prescriptions Prescriptions: No Action metoprolol succinate 100 mg Tablet Extended Release 24 Hr 100 mg PO QAM RF: 0 aspirin [Aspirin Low Dose] 81 mg Tablet,Delayed Release (Dr/Ec) 81 mg PO QAM RF: 0 Novolin 70/30 U-100 Insulin 100 unit/mL (70-30) suspension 33 unit subcut BID RF: 0 albuterol sulfate 90 mcg/actuation HFA aerosol inhaler 2 puff inhalation Q4H PRN (Reason: Wheezing) RF: 0 metformin 500 mg tablet extended release 24 hr 1,000 mg PO QAM RF: 0 hydrochlorothiazide 12.5 mg tablet 12.5 mg PO DAILY Qty: 30 RF: 0 oxycodone-acetaminophen [Percocet] 5-325 mg Tablet 1 tab PO Q4H PRN (Reason: severe pain) Qty: 10 RF: 0
[2019-04-08] MEDS ORDERED: FUROSEMIDE 40 MG/4 ML VIAL IV STA (16:27)
[2019-04-08 17:04] LABS: Basophils # (auto) 0.02 K/uL (0-0.2); Basophils % (auto) 0.2 %; Eosinophils # (auto) 0.06 K/uL (0-0.5); Eosinophils % (auto) 0.7 %; Hematocrit (blood only) 43.8 % (42-52); Hemoglobin 14.6 g/dL (14.0-18.0); Immature Granulocytes # (auto) 0.02 K/uL (0.00-0.02); Immature Granulocytes % (auto) 0.2 %; Lymphocytes % (auto) 29.1 %; Mean Corpuscular Hemoglobin 31.7 pg (25-34); Mean Corpuscular Hgb Conc 33.3 g/dL (32-36); Monocytes # (auto) 0.62 K/uL (0.11-0.59); Monocytes % (auto) 7.2 %; Neutrophils # (auto) 5.38 K/uL (1.4-6.5); Neutrophils % (auto) 62.6 %; Platelet Count 212 K/uL (130-400); RDW Coefficient of Variation 13.9 % (11.5-14.5); RDW Standard Deviation 47.7 fL (36.4-46.3); Red Blood Count 4.61 M/uL (4.7-6.1)
--- NOTE | 2019-04-08 17:04 | XRay Report ---
XR chest 1V portable CLINICAL HISTORY: Dyspnea COMPARISON STUDY: 10/26/2018 FINDINGS: The heart is mildly enlarged. There is mild aortic tortuosity. There is no failure. There i s no focal pulmonary consolidation. There are no pleural effusions.[ IMPRESSION: No active disease in the chest. Electronically signed by: Angel Choudhury M.D. 04/08/2019 5:02 PM
[2019-04-08 17:06] LABS: Base Excess VBG 2.9 mEq/L; HCO3 VBG 28 mmol/L; PCO2 VBG 47 mmHg (38-50); PO2 VBG 23 mmHg
[2019-04-08 17:07] LABS: Oxygen Saturation VBG < 60.0 %
[2019-04-08 17:23] LABS: Alanine Aminotransferase 25 U/L (12-78); Albumin Level 3.6 gm/dl (3.4-5.0); Aspartate Aminotransferase 12 U/L (15-37); BUN Creatinine Ratio 10.3 (10-20); Blood Urea Nitrogen 12 mg/dl (7-18); Calcium 9.1 mg/dl (8.5-10.1); Carbon Dioxide 28 mmol/L (21-32); Chloride 104 mmol/L (98-107); Est GFR (African American) 75.4; Glucose 116 mg/dl (70-99); Potassium 3.6 mmol/L (3.5-5.1); Sodium 139 mmol/L (136-145)
[2019-04-08 17:28] LABS: Alkaline Phosphatase 66 U/L (45-117); Bilirubin,Total 0.7 mg/dl (0.2-1); Globulin 3.8 gm/dl (2.5-4.0); NT Pro B Type Natriuretic Pept 1174 pg/ml (0-900); Total Protein 7.4 gm/dl (6.4-8.2); Troponin I 0.036 ng/ml (0-0.045)
--- NOTE | 2019-04-08 19:24 | History & Physical Report ---
Date of Service April 08, 2019 Assessment & Plan (1) SOB (shortness of breath): (2) Acute on chronic heart failure: (3) Hypoxia: Pt is 63 y/o M with PMH of systolic and diastolic CHF, ischemic cardiomyopathy, EF 45 to 50% in 2018, CAD S/P stent, PVD, COPD, insulin requiring DM 2, chronic back pain presented with complaint of SOB with exertion worse over past week. Reports chronic cough however cough past 3 days productive brown sputum. Denies wheezing. Denies any chest pain, fever/chills. 8 pound weight gain over past 2 weeks. Patient with recent diuretic noncompliance secondary to not wanting to get up to urinate. In ER pt afebrile, P: 86, R: 24, BP: 157/89, 87% on RA up to 95% on 3L NC No leukocytosis, Troponin: 0.036, BNP: 1174 CXR: No active disease in the chest. -In ER given Lasix 40mg IV -Monitor I's and O's, low-sodium diet, daily weight, 1.5 L fluid restriction -Supplemental oxygen as needed -Lasix 40 mg IV twice daily -Hold home Bumex for now -Echo -Duo nebs -Cardiology consult -Monitor CBC, BMP (4) COPD (chronic obstructive pulmonary disease): SOB probable multifactorial with fluid overload, COPD Possible COPD exacerbation. No wheezing on exam. No infiltrate on CXR -DuoNebs -Continue Advair -Doxycycline (5) HTN (hypertension): -Continue metoprolol -Hold HCTZ since on Lasix IV (6) T2DM (type 2 diabetes mellitus): Insulin-dependent diabetes A1c: 8.6 on 02/17/2019 -Hold metformin, hold home 70/30 insulin -Basal bolus insulin per protocol (7) Chronic back pain: -Continue oxycodone, Flexeril as needed DVT Prophylaxis -Lovenox SQ Full Code as per discussion with pt Follows with Dr Benjamin for routine care Pt was seen and care coordinated with Dr Linares. See addendum History of Present Illness Chief Complaint: SOB Primary Care Provider: Andressa Benjamin, DO Pt is 63 y/o M with PMH of systolic and diastolic CHF, ischemic cardiomyopathy, EF 45 to 50% in 2018, CAD S/P stent, PVD, COPD, insulin requiring DM 2, chronic back pain presented to ER with complaint of shortness of breath. Patient reports past week with shortness of breath on exertion with walking throughout house. Increased shortness of breath the past couple days with minimal movement. He reports chronic cough however cough past 3 days productive brown sputum. Patient denies any noted wheezing. Denies any chest pain. Denies fever chills has been taking his Ventolin inhaler up to 10 times a day without relief of shortness of breath. Patient reports chronic bilateral lower extremity edema and was unaware of any increased edema. Followed up with PCP office today for shortness of breath and was found to have gained 8 pounds over the past 2 weeks. Patient admits to eating a lot of frozen dinners. He also reports has not been taking his Bumex secondary to not wanting to get up to urinate. Denies fever/chills, diaphoresis, N/V/D/C, [place]AG[place], dizziness, syncope, vision changes, neck pain, orthopnea, palpitations, sore throat, choking, otalgia, rhinorrhea, abdominal pain, paresthesias, weakness, extremity weakness, rashes, urinary symptoms. Allergies Allergy/AdvReac Type Severity Reaction Status Date / Time ceftriaxone Allergy Intermediate HIVES Verified 04/08/19 16:18 piperacillin Allergy Intermediate rash, Verified 04/08/19 16:18 itching, burning through upper body Jjkiebc-Ktj-Wgq Reductase Allergy Intermediate rash/ Verified 04/08/19 16:18 Inhibitor heartburn tazobactam Allergy Intermediate rash, Verified 04/08/19 16:18 itching, burning through upper body Iodinated Contrast Media AdvReac Intermediate rash, Verified 04/08/19 16:18 [Iodinated Contrast- Oral itching and IV Dye] morphine AdvReac Intermediate NAUSEA/VOMI Verified 04/08/19 16:18 TING Home Medications Home Medications Medication Instructions Recorded Confirmed Type metoprolol succinate 100 mg PO QAM 04/01/18 04/08/19 History aspirin [Aspirin Low Dose] 81 mg PO QAM 10/26/18 04/08/19 History Novolin 70/30 U-100 Insulin 33 unit SUBCUT BID 03/04/19 04/08/19 History albuterol sulfate 2 puff INHALATION Q4H PRN 03/04/19 04/08/19 History metformin 1,000 mg PO QAM 03/04/19 04/08/19 History hydrochlorothiazide 12.5 mg PO DAILY #30 tab 03/09/19 04/08/19 Rx oxycodone-acetaminophen [Percocet] 1 tab PO Q4H PRN #10 tab 03/09/19 04/08/19 Rx bumetanide 1 mg PO DAILY 04/08/19 04/08/19 History cyclobenzaprine 10 mg PO HS PRN 04/08/19 04/08/19 History finasteride 5 mg PO DAILY 04/08/19 04/08/19 History fluticasone propion-salmeterol 1 inh INHALATION BID 04/08/19 04/08/19 History pantoprazole 40 mg PO DAILY 04/08/19 04/08/19 History Past Med/Surg History Medical History Diabetes mellitus, type II (Chronic) COPD (chronic obstructive pulmonary disease) (Chronic) CAD (coronary artery disease) (Chronic) Hematuria (Acute) Hypertension (Chronic) Coronary artery disease (Chronic) [place] (acute kidney injury) (Resolved) Acute coronary syndrome (Resolved) Elevated troponin (Resolved) Pneumonia (Resolved) Sepsis due to Streptococcus pneumoniae (Resolved) Surgical History H/O cardiac catheterization (Resolved) Family History Other Lung disease Social History Preferred Language: Sinhala Communication Ability: Effective Visual Impairment: No Limitations Hearing Ability: Normal 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: No Beliefs That Will Affect Care: None Current Living Situation: Spouse Other Information That Helps Us Care for You: No Feels Safe at Home: Yes Safety Concerns: Feels Safe At This Time Smoking Status: Former smoker Tobacco Type: cigarettes ; Do You Dip or Chew Tobacco: No ; Second Hand Exposure: No ; Hx Alcohol Use: No Hx Substance Use: No Review of Systems Review of Systems: All systems reviewed & are unremarkable except as noted in HPI & below Physical Exam Physical Exam: General: no acute distress, WDWN Head: normocephalic, atraumatic Eyes: PERRL, EOM's intact, conjunctiva non-injected, anicteric ENT: normal inspection external ears, nose, mucous membranes moist Neck: supple, trachea midline, non-tender Lungs: no respiratory distress, on 3L oxygen with O2 sat 95%, Diminished breath sounds, slight rales at bases bilaterally CV: RRR, no murmur, 2-3+ pretibial edema Abd: normal BS, soft, non-tender Ext: no cyanosis, no calf tenderness Neuro: A&O x 3, no focal deficits noted, normal affect Skin: warm, dry Results & Data Vital Signs (Past 12 Hours) Vital Signs Temp Pulse Resp BP Pulse Ox 04/08/19 18:00 80 19 95 04/08/19 17:30 81 19 165/101 H 94 04/08/19 17:00 75 18 155/113 H 95 04/08/19 16:53 75 18 154/86 H 95 04/08/19 16:34 96 04/08/19 16:30 75 20 96 04/08/19 16:28 76 18 96 04/08/19 15:52 36.6 C 86 24 157/89 H 87 L Laboratory Results Short CBC 04/08/19 Range/Units 16:50 WBC 8.60 (4.8-10.8) K/uL Hgb 14.6 (14.0-18.0) g/dL Hct 43.8 (42-52) % Plt Count 212 (130-400) K/uL BMP 04/08/19 16:50 Sodium 139 Potassium 3.6 Chloride 104 Carbon Dioxide 28 BUN 12 Creatinine 1.17 Glucose 116 H Calcium 9.1 Cardiac Enzymes 04/08/19 Range/Units 16:50 Troponin I 0.036 (0-0.045) ng/ml Liver Function 04/08/19 Range/Units 16:50 Total Bilirubin 0.7 (0.2-1) mg/dl AST 12 L (15-37) U/L ALT 25 (12-78) U/L Alkaline Phosphatase 66 (45-117) U/L Albumin 3.6 (3.4-5.0) gm/dl Diagnostic Findings CXR: IMPRESSION: No active disease in the chest. ECG Rate (beats per minute): 74 Rhythm: sinus rhythm Findings: + Q waves (Inferior (seen on prior EKG)) Code Status & VTE Plan VTE Prophylaxis Plan VTE Prophylaxis will be ordered: Yes Supervising Physician Co-Signing Physician Notes Patient is a 63-year-old male with history of systolic and diastolic heart failure, coronary disease, peripheral vascular disease, COPD, diabetes and other problems presents with history of worsening shortness of breath, dyspnea on exertion since 1 week duration. He reports associated cough with brownish expectoration. He admits to using his inhaler more frequently since last few days. He admits to not taking his diuretics regularly. Please review HPI for complete details of presentation. On exam patient is moderately built and nourished, no apparent distress, normocephalic atraumatic, lungs--decreased breath sounds, clear to auscultation, S1-S2, no murmur, bilateral lower extremity 2-3+ edema, abdomen soft nontender, distended, alert awake and oriented, grossly no focal neurological deficits. Patient is admitted for management of acute on chronic systolic and diastolic CHF exacerbation. Also could have mild COPD exacerbation. Volume overload likely secondary to CHF due to noncompliance. Agree with IV diuretics. Monitor I's and O's, daily weight, electrolytes, renal function. Cardiology consulted. Update echo. Agree with fluid restriction, low-salt diet. Will check abdominal ultrasound to rule out ascites. I personally reviewed the record. Patient is interviewed and examined at bedside. Patient's care is coordinated with Grisel Acosta PA-C. Please refer to the documentation above for details of patient's presentation and for discussion of other issues.
--- NOTE | 2019-04-08 20:06 | Emergency Department Note ---
Entered by Dilcia Zee acting as a scribe for Gage Méndez MD History of Present Illness General Chief complaint: Respiratory Problems Stated complaint: LOW O2 LEVELS, TROUBLE BREATHING Time Seen by Provider: 04/08/19 16:07 Source: patient History of Present Illness Onset (ago): hour(s) (earlier today) Location: chest Pain Consistency: + constant Quality: + other (low oxygen) Associated symptoms: + denies other symptoms (shortness of breath while lying flat), + cough (with blood), + shortness of breath (while walking) and + other (leg swelling, weight gain); no fever/chills and no nausea/vomiting The patient is a 63 year old male with a past medical history of chronic systolic/diastolic heart failure secondary to ischemic cardiomyopathy (EF 45-50 %, TTE 2018), CAD status post stenting, PVD, COPD, past tobacco abuse, DM 2 insulin requiring, and chronic back pain, who presents to the Emergency Room with complaints of constant low oxygen beginning earlier today while he was at a doctor's appointment. The patient reports leg swelling and a recent gain of weight. He also notes shortness of breath while walking, coughing with blood. He denies shortness of breath while lying flat, fever, nausea, and vomiting. The patient states he his supposed to take a water pill, but has not taken one since yesterday due to the pill causing constant urination. He denies wearing oxygen at home. The patient denies any alcohol use, and states he quit smoking one year ago. Home Medications Home Medications Medication Instructions Recorded Confirmed Type metoprolol succinate 100 mg PO QAM 04/01/18 04/08/19 History aspirin [Aspirin Low Dose] 81 mg PO QAM 10/26/18 04/08/19 History Novolin 70/30 U-100 Insulin 33 unit SUBCUT BID 03/04/19 04/08/19 History albuterol sulfate 2 puff INHALATION Q4H PRN 03/04/19 04/08/19 History metformin 1,000 mg PO QAM 03/04/19 04/08/19 History hydrochlorothiazide 12.5 mg PO DAILY #30 tab 03/09/19 04/08/19 Rx oxycodone-acetaminophen [Percocet] 1 tab PO Q4H PRN #10 tab 03/09/19 04/08/19 Rx bumetanide 1 mg PO DAILY 04/08/19 04/08/19 History cyclobenzaprine 10 mg PO HS PRN 04/08/19 04/08/19 History finasteride 5 mg PO DAILY 04/08/19 04/08/19 History fluticasone propion-salmeterol 1 inh INHALATION BID 04/08/19 04/08/19 History pantoprazole 40 mg PO DAILY 04/08/19 04/08/19 History Allergies Allergy/AdvReac Type Severity Reaction Status Date / Time ceftriaxone Allergy Intermediate HIVES Verified 04/08/19 16:18 piperacillin Allergy Intermediate rash, Verified 04/08/19 16:18 itching, burning through upper body [id number] Reductase Allergy Intermediate rash/ Verified 04/08/19 16:18 Inhibitor heartburn tazobactam Allergy Intermediate rash, Verified 04/08/19 16:18 itching, burning through upper body Iodinated Contrast Media AdvReac Intermediate rash, Verified 04/08/19 16:18 [Iodinated Contrast- Oral itching and IV Dye] morphine AdvReac Intermediate NAUSEA/VOMI Verified 04/08/19 16:18 TING Past Med/Surg History Medical History Diabetes mellitus, type II (Chronic) COPD (chronic obstructive pulmonary disease) (Chronic) CAD (coronary artery disease) (Chronic) Hematuria (Acute) Hypertension (Chronic) Coronary artery disease (Chronic) [place] (acute kidney injury) (Resolved) Acute coronary syndrome (Resolved) Elevated troponin (Resolved) Pneumonia (Resolved) Sepsis due to Streptococcus pneumoniae (Resolved) Surgical History H/O cardiac catheterization (Resolved) Family History Other Lung disease Social History Preferred Language: Palestinian Communication Ability: Effective Visual Impairment: No Limitations Hearing Ability: Normal Cereal Maker Required: No Beliefs That Will Affect Care: None Current Living Situation: Spouse Feels Safe at Home: Yes Smoking Status: Former smoker Tobacco Type: cigarettes ; Second Hand Exposure: No ; Hx Alcohol Use: No Hx Substance Use: No Review of Systems See HPI for pertinent positives & negatives. and A total of 10 systems reviewed and were otherwise negative Physical Exam Vital Signs Vital Signs - 24 hr 04/08/19 15:52 04/08/19 16:00 04/08/19 16:28 Temperature 36.6 C Temperature Source Oral Sepsis Recent Fever Within 48 Hours No Sepsis New/Unexplained Change in Mental Status No Sepsis Action Taken by Nursing No Action Required Pulse Rate 86 76 Pulse Rate [Apical] Pulse Rate from SpO2 Sensor 76 Respiratory Rate 24 18 Respiratory Effort / Characteristics Non-Labored Non-Labored Spontaneous Respiratory Depth Normal Normal Respiratory Pattern Regular Blood Pressure 157/89 H Blood Pressure [Right Arm] Blood Pressure Mean 111 Blood Pressure Mean [Right Arm] Pulse Oximetry 87 L 96 Oxygen Delivery Method Room Air Nasal Cannula Nasal Cannula Oxygen Flow Rate 3 3 04/08/19 16:30 04/08/19 16:34 04/08/19 16:53 Temperature Temperature Source Sepsis Recent Fever Within 48 Hours Sepsis New/Unexplained Change in Mental Status Sepsis Action Taken by Nursing Pulse Rate 75 75 Pulse Rate [Apical] Pulse Rate from SpO2 Sensor 74 75 Respiratory Rate 20 18 Respiratory Effort / Characteristics Respiratory Depth Respiratory Pattern Blood Pressure 154/86 H Blood Pressure [Right Arm] Blood Pressure Mean 108 Blood Pressure Mean [Right Arm] Pulse Oximetry 96 96 95 Oxygen Delivery Method Nasal Cannula Nasal Cannula Nasal Cannula Oxygen Flow Rate 3 3 3 04/08/19 17:00 04/08/19 17:30 04/08/19 18:00 Temperature Temperature Source Sepsis Recent Fever Within 48 Hours Sepsis New/Unexplained Change in Mental Status Sepsis Action Taken by Nursing Pulse Rate 75 81 80 Pulse Rate [Apical] Pulse Rate from SpO2 Sensor 75 82 82 Respiratory Rate 18 19 19 Respiratory Effort / Characteristics Respiratory Depth Respiratory Pattern Blood Pressure 155/113 H 165/101 H Blood Pressure [Right Arm] Blood Pressure Mean 127 122 Blood Pressure Mean [Right Arm] Pulse Oximetry 95 94 95 Oxygen Delivery Method Nasal Cannula Nasal Cannula Nasal Cannula Oxygen Flow Rate 3 3 3 04/08/19 18:30 04/08/19 19:00 04/08/19 19:30 Temperature Temperature Source Sepsis Recent Fever Within 48 Hours Sepsis New/Unexplained Change in Mental Status Sepsis Action Taken by Nursing Pulse Rate 79 86 84 Pulse Rate [Apical] Pulse Rate from SpO2 Sensor 81 82 83 Respiratory Rate 24 14 14 Respiratory Effort / Characteristics Respiratory Depth Respiratory Pattern Blood Pressure 132/99 Blood Pressure [Right Arm] Blood Pressure Mean 110 Blood Pressure Mean [Right Arm] Pulse Oximetry 95 93 95 Oxygen Delivery Method Oxygen Flow Rate 04/08/19 20:00 04/08/19 20:02 Temperature Temperature Source Sepsis Recent Fever Within 48 Hours Sepsis New/Unexplained Change in Mental Status Sepsis Action Taken by Nursing Pulse Rate 89 Pulse Rate [Apical] 81 Pulse Rate from SpO2 Sensor 90 Respiratory Rate 18 24 Respiratory Effort / Characteristics Non-Labored Respiratory Depth Normal Respiratory Pattern Blood Pressure Blood Pressure [Right Arm] 155/100 H Blood Pressure Mean Blood Pressure Mean [Right Arm] 118 Pulse Oximetry 96 95 Oxygen Delivery Method Nasal Cannula Oxygen Flow Rate 3 GENERAL: Well nourished, non-toxic, nasal cannula in place. EYE EXAM: Normal conjunctiva. PERRL, no anisocoria and EOM's grossly intact w/o pain. OROPHARYNX: Moist mucus membranes. Grossly normal dentition. NECK: Supple, no nuchal rigidity, no adenopathy, non-tender. No signs of meningismus. LUNGS: Bibasilar crackles, no wheezes. Normal chest wall mechanics. HEART: NSR, no MRG. ABDOMEN: Abdomen soft, non-tender, normo-active bowel sounds, no masses, no rebound or guarding. BACK: No CVA TTP. SKIN: No rashes and no bruising. UPPER EXTREMITIES: Upper extremities are grossly normal. LOWER EXTREMITIES: 2-3+ symmetric edema. No calf pain. NEURO EXAM: A&O x3, cranial nerves II-XII grossly intact, normal speech, moves all 4 extremities on command w/o issue. Course 1615: Past medical records reviewed. The patient was evaluated in room C08. A complete history and physical exam was performed. 1737: Upon reevaluation, I discussed findings and results with the patient. He verbalized agreement of the treatment plan. I spoke with Kathy Robles. Dr. Linares of the [facility] agrees to admit the patient. The patient will be evaluated for further management and care. Administered Medications Discontinued Medications Furosemide (Lasix) 40 mg IV NOW STA Stop: 04/08/19 16:28 Last Admin: 04/08/19 16:55 Dose: 40 mg Documented by: [id number] Medical Decision Making Differential Diagnosis Differential diagnoses includes but is not limited to pneumonia, bronchitis, COPD/Asthma exacerbation, pneumothorax, pulmonary embolism, congestive heart failure, acute coronary syndrome Medical Records Attestation: I reviewed the patient's medical records. Home Medications Current Medication List: was personally reviewed by me Laboratory Data Attestation: I reviewed the patient's lab results. Result diagrams: 04/08/19 16:50 04/08/19 16:50 Lab Results 04/08/19 04/08/19 04/08/19 Range/Units 16:50 16:50 16:50 WBC 8.60 (4.8-10.8) K/uL RBC 4.61 L (4.7-6.1) M/uL Hgb 14.6 (14.0-18.0) g/dL Hct 43.8 (42-52) % MCV 95.0 (80-100) fL MCH 31.7 (25-34) pg MCHC 33.3 (32-36) g/dL RDW Std Deviation 47.7 H (36.4-46.3) fL RDW Coeff of Vonda 13.9 (11.5-14.5) % Plt Count 212 (130-400) K/uL MPV 10.0 (7.4-10.4) fL Immature Gran % (Auto) 0.2 % Neut % (Auto) 62.6 % Lymph % (Auto) 29.1 % [place] % (Auto) 7.2 % Eos % (Auto) 0.7 % Baso % (Auto) 0.2 % Immature Gran # (Auto) 0.02 (0.00-0.02) K/uL Neut # (Auto) 5.38 (1.4-6.5) K/uL Lymph # (Auto) 2.50 (1.2-3.4) K/uL [place] # (Auto) 0.62 H (0.11-0.59) K/uL Eos # (Auto) 0.06 (0-0.5) K/uL Baso # (Auto) 0.02 (0-0.2) K/uL PT Cancelled INR Cancelled APTT Cancelled PTT Ratio Cancelled VBG pH (7.36-7.41) VBG pCO2 (38-50) mmHg VBG pO2 mmHg VBG HCO3 mmol/L VBG O2 Saturation % VBG Base Excess mEq/L Barometric Pressure mm/Hg Sodium 139 (136-145) mmol/L Potassium 3.6 (3.5-5.1) mmol/L Chloride 104 (98-107) mmol/L Carbon Dioxide 28 (21-32) mmol/L Anion Gap 7.0 (3-11) BUN 12 (7-18) mg/dl Creatinine 1.17 (0.6-1.4) mg/dl Est Cr Clr Drug Dosing Not Reportable Est GFR ( Amer) 75.4 Est GFR (Non-Af Amer) 65.0 BUN/Creatinine Ratio 10.3 (10-20) Glucose 116 H (70-99) mg/dl Calcium 9.1 (8.5-10.1) mg/dl Magnesium 2.0 (1.8-2.4) mg/dl Total Bilirubin 0.7 (0.2-1) mg/dl AST 12 L (15-37) U/L ALT 25 (12-78) U/L Alkaline Phosphatase 66 (45-117) U/L Troponin I 0.036 (0-0.045) ng/ml NT-Pro-B Natriuret Pep 1174 H (0-900) pg/ml Total Protein 7.4 (6.4-8.2) gm/dl Albumin 3.6 (3.4-5.0) gm/dl Globulin 3.8 (2.5-4.0) gm/dl Albumin/Globulin Ratio 1.0 (0.9-2) 04/08/19 Range/Units 16:50 WBC (4.8-10.8) K/uL RBC (4.7-6.1) M/uL Hgb (14.0-18.0) g/dL Hct (42-52) % MCV (80-100) fL MCH (25-34) pg MCHC (32-36) g/dL RDW Std Deviation (36.4-46.3) fL RDW Coeff of Vonda (11.5-14.5) % Plt Count (130-400) K/uL MPV (7.4-10.4) fL Immature Gran % (Auto) % Neut % (Auto) % Lymph % (Auto) % [place] % (Auto) % Eos % (Auto) % Baso % (Auto) % Immature Gran # (Auto) (0.00-0.02) K/uL Neut # (Auto) (1.4-6.5) K/uL Lymph # (Auto) (1.2-3.4) K/uL [place] # (Auto) (0.11-0.59) K/uL Eos # (Auto) (0-0.5) K/uL Baso # (Auto) (0-0.2) K/uL PT INR APTT PTT Ratio VBG pH 7.40 (7.36-7.41) VBG pCO2 47 (38-50) mmHg VBG pO2 23 mmHg VBG HCO3 28 mmol/L VBG O2 Saturation < 60.0 % VBG Base Excess 2.9 mEq/L Barometric Pressure 730.2 mm/Hg Sodium (136-145) mmol/L Potassium (3.5-5.1) mmol/L Chloride (98-107) mmol/L Carbon Dioxide (21-32) mmol/L Anion Gap (3-11) BUN (7-18) mg/dl Creatinine (0.6-1.4) mg/dl Est Cr Clr Drug Dosing Est GFR ( Amer) Est GFR (Non-Af Amer) BUN/Creatinine Ratio (10-20) Glucose (70-99) mg/dl Calcium (8.5-10.1) mg/dl Magnesium (1.8-2.4) mg/dl Total Bilirubin (0.2-1) mg/dl AST (15-37) U/L ALT (12-78) U/L Alkaline Phosphatase (45-117) U/L Troponin I (0-0.045) ng/ml NT-Pro-B Natriuret Pep (0-900) pg/ml Total Protein (6.4-8.2) gm/dl Albumin (3.4-5.0) gm/dl Globulin (2.5-4.0) gm/dl Albumin/Globulin Ratio (0.9-2) Imaging Data Radiologist's Impression: Radiology results as stated below per my review and the radiologist's interpretation: XR chest 1V portable CLINICAL HISTORY: Dyspnea COMPARISON STUDY: 10/26/2018 FINDINGS: The heart is mildly enlarged. There is mild aortic tortuosity. There is no failure. There is no focal pulmonary consolidation. There are no pleural effusions.[ IMPRESSION: No active disease in the chest. Electronically signed by: Angel Choudhury M.D. 04/08/2019 5:02 PM ECG Data Attestation: I personally reviewed and interpreted this ECG as follows: Indication: SOB/dyspnea Rate (beats per minute): 74 Rhythm: sinus rhythm Findings: + other (normal intervals), + Q waves, + T-wave inversion and + left axis deviation Comparison ECG Date: from (10/26/18) Change: no significant change Blood Pressure Blood Pressure Findings: Elevated blood pressure Blood Pressure Disposition: further management by hospitalist MDM Narrative The patient is a 63 year old male with a past medical history of chronic systolic/diastolic heart failure secondary to ischemic cardiomyopathy (EF 45- 50%, TTE 2018), CAD status post stenting, PVD, COPD, past tobacco abuse, DM 2 insulin requiring, and chronic back pain, who presents to the Emergency Room with complaints of constant low oxygen beginning earlier today while he was at a doctor's appointment. Patient was seen and evaluated at the bedside. The patient did present here due to concern for hypoxia. The patient was seen by the primary care clinic and was noted to have a low oxygen saturation. The patient states that he has not been compliant with his diuretic. The patient states that he has had some shortness of breath primarily with movement and exertion. Patient denies chest pain. Patient has complained of a mildly productive cough which appears similar to when he has had issues with smoking. The patient does have some lower extremity edema and is noticed a 7 to 8 pound weight gain over the last several days. Patient did a blood work completed along with BNP EKG, chest x-ray, troponin and was given Lasix. Patient's blood work did show normal white count normal VBG. The patient does have mildly elevated BNP. Chest x-ray was read as clear but given the bibasilar client crackles weight gain and lower extremity swelling I believe CHF and volume overload to be the most likely as well as the patient's medication noncompliance. I did speak the on-call hospitalist agreed to further evaluate treat the patient. Patient was admitted to the medicine service. Impression & Plan Breath, shortness, Acute exacerbation of CHF (congestive heart failure), Hypoxia Discharge Plan Visit Data Chief Complaint: Respiratory Problems Stated Complaint: LOW O2 LEVELS, TROUBLE BREATHING ED Provider: Gage Méndez Discharge Problem: Breath, shortness, Acute exacerbation of CHF (congestive heart failure), Hypoxia Patient Disposition: Being Evaluated by Hospitalist Discharge Instructions Interventions: ED Discharge Assessment Last Done: 04/08/19 20:00 Forms Stand Alone Forms: My [facility] [employer] Prescriptions Prescriptions: No Action metoprolol succinate 100 mg Tablet Extended Release 24 Hr 100 mg PO QAM RF: 0 aspirin [Aspirin Low Dose] 81 mg Tablet,Delayed Release (Dr/Ec) 81 mg PO QAM RF: 0 Novolin 70/30 U-100 Insulin 100 unit/mL (70-30) suspension 33 unit subcut BID RF: 0 albuterol sulfate 90 mcg/actuation HFA aerosol inhaler 2 puff inhalation Q4H PRN (Reason: Wheezing) RF: 0 metformin 500 mg tablet extended release 24 hr 1,000 mg PO QAM RF: 0 hydrochlorothiazide 12.5 mg tablet 12.5 mg PO DAILY Qty: 30 RF: 0 oxycodone-acetaminophen [Percocet] 5-325 mg Tablet 1 tab PO Q4H PRN (Reason: severe pain) Qty: 10 RF: 0 cyclobenzaprine 10 mg tablet 10 mg PO HS PRN (Reason: Muscle Spasm) RF: 0 pantoprazole 40 mg tablet,delayed release (DR/EC) 40 mg PO DAILY RF: 0 fluticasone propion-salmeterol 500-50 mcg/dose blister with device 1 inh inhalation BID RF: 0 bumetanide 1 mg tablet 1 mg PO DAILY RF: 0 finasteride 5 mg tablet 5 mg PO DAILY RF: 0 Referrals Referrals: Andressa Benjamin DO [Primary Care Provider] - Discharge Problem: Acute exacerbation of CHF (congestive heart failure) Qualifiers: Heart failure type: systolic Qualified Code(s): I50.23 - Acute on chronic systolic (congestive) heart failure The scribe's documentation has been prepared under my direction and personally reviewed by me in its entirety. I confirm that the note above accurately reflects all work, treatment, procedures, and medical decision making performed by me.
[2019-04-08] MEDS ORDERED: GLUCOSE 10 TABS/TUBE PO PRN (20:56)
[2019-04-08] MEDS ORDERED: DEXTROSE 50% 50 ML SYRINGE IV PRN (20:56)
[2019-04-08] MEDS ORDERED: GLUCOSE 40% GEL 15 GM TUBE PO PRN (20:56)
[2019-04-08] MEDS ORDERED: ACETAMINOPHEN 325 MG TAB PO PRN (20:56)
[2019-04-08] MEDS ORDERED: POTASSIUM CHLORIDE 20 MEQ TABCR PO ONE (20:56)
[2019-04-08] MEDS ORDERED: CARBOHYDRATES FOR HYPOGLYCEMIA PO PRN (20:56)
[2019-04-08] MEDS ORDERED: GLUCAGON FOR INJ 1 MG VIAL SQ PRN (20:56)
[2019-04-08] MEDS: INSULIN GLARGINE SOLOSTAR 100 UNITS/ML 3 ML PEN SC SCH (22:08)
[2019-04-08] MEDS: FUROSEMIDE 40 MG in SYRINGE 0 ML IV SCH (22:09)
[2019-04-08] MEDS: ENOXAPARIN INJ 40 MG/0.4 ML SYR SQ SCH (22:10)
[2019-04-08] MEDS: INSULIN ASPART 100 UNITS/ML 3 ML PEN SC SCH (22:11)
[2019-04-08] MEDS: DOXYCYCLINE HYCLATE 100 MG CAP PO SCH (22:11)
[2019-04-08] MEDS: ALBUT/IPRATROP 3MG/0.5MG NEB 3 ML VIAL NEB SCH (23:48)
[2019-04-09] MEDS: CYCLOBENZAPRINE HCL 10 MG TAB PO PRN ×3 (00:09→23:31)
[2019-04-09 05:49] LABS: Hematocrit (blood only) 43.6 % (42-52); Hemoglobin 14.8 g/dL (14.0-18.0); Mean Corpuscular Hemoglobin 32.4 pg (25-34); Mean Corpuscular Hgb Conc 33.9 g/dL (32-36); Mean Corpuscular Volume 95.4 fL (80-100); Platelet Count 202 K/uL (130-400); RDW Coefficient of Variation 13.8 % (11.5-14.5); RDW Standard Deviation 47.6 fL (36.4-46.3); Red Blood Count 4.57 M/uL (4.7-6.1); White Blood Count 7.84 K/uL (4.8-10.8)
[2019-04-09 06:18] LABS: BUN Creatinine Ratio 11.8 (10-20); Calcium 8.6 mg/dl (8.5-10.1); Creatinine Clr Calc Pharmacy 81.3 ml/min; Est GFR (African American) 76.2; Est GFR (Non-African American) 65.7; Potassium 3.2 mmol/L (3.5-5.1)
--- NOTE | 2019-04-09 06:45 | Ultrasound Report ---
LIMITED ULTRASOUND TO ASSESS FOR ASCITES CLINICAL HISTORY: R/O Ascites COMPARISON STUDY: CT of the abdomen and pelvis December 03, 2017. TECHNIQUE: Sonography of the abdomen and pelvis was performed to evaluate for ascites. FINDINGS: No ascites was identified within the abdomen or pelvis. Incidental note is made of probable fatty infiltration of the liver. IMPRESSION: No ascites. Electronically signed by: Michael Hughes M.D. 04/09/2019 6:44 AM
[2019-04-09] MEDS: ALBUT/IPRATROP 3MG/0.5MG NEB 3 ML VIAL NEB SCH ×4 (07:13→19:39)
[2019-04-09] MEDS: FLUTICASONE/SALMETEROL (ADVAIR) 500/50 INH 14 PUFF INH SCH ×3 (08:12→20:46)
[2019-04-09] MEDS: INSULIN ASPART 100 UNITS/ML 3 ML PEN SC SCH ×4 (08:16→20:46)
[2019-04-09] MEDS: ASPIRIN 81 MG ECTAB PO SCH (08:16)
[2019-04-09] MEDS ORDERED: POTASSIUM CHLORIDE 20 MEQ TABCR PO STA (08:16)
[2019-04-09] MEDS: FUROSEMIDE 40 MG in SYRINGE 0 ML IV SCH ×2 (08:16→17:00)
[2019-04-09] MEDS: PANTOprazole 40 MG TAB PO SCH (08:18)
[2019-04-09] MEDS: INSULIN GLARGINE SOLOSTAR 100 UNITS/ML 3 ML PEN SC SCH ×2 (08:18→20:47)
[2019-04-09] MEDS: FINASTERIDE 5 MG TAB PO SCH (08:18)
[2019-04-09] MEDS: METOPROLOL SUCC 50MG EXT REL TAB PO SCH (08:19)
[2019-04-09] MEDS: DOXYCYCLINE HYCLATE 100 MG CAP PO SCH (08:19)
--- NOTE | 2019-04-09 08:19 | Hospitalist Progress Note ---
Date of Service April 09, 2019 Assessment & Plan (1) Acute on chronic heart failure: Dyspnea on exertion, pedal edema, poor med adherence Likely due to heart failure exacerbation EF from Echo 10/2017 was 40-45%, Grade 2 diastolic dysfunction Repeat Echo Currently on iv diuretics Was on metoprolol xl at home. Will continue for now and monitor Continue monitoring I/O Follow up cards c/s Counselled patient on need for med and diet adherence (2) COPD (chronic obstructive pulmonary disease): Shortness of breath, Exertional dyspnea could be due to heart failure exacerbation +/- COPD exacerbation. Currently no wheezing, chest tightness Has chronic cough Continue nebs Manage heart failure exacerbation as above Due to significant smoking history, patient will need CT lung cancer screening as outpatient per protocol Continue advair (3) T2DM (type 2 diabetes mellitus): Continue insulin regimen Carb controlled diet A1c from last month was 8.2 Counselled patient on need for med/diet adherence/importance of proper glycemic control (4) CAD (coronary artery disease): Continue aspirin. Allergy reported to statins (5) HTN (hypertension): Currently controlled HCTz on hold Monitor BP (6) Lower back pain: Chronic. Due to degenerative changes from review of previous xray lumbar 02/2019 Pain control (7) DVT prophylaxis: On lovenox subcut Subjective Patient seen and evaluated. Reports he feels better. Still has dyspnea on mild to moderate exertion. He reports dyspnea on exertion over weeks that worsened in the past week associated with increasing leg swelling. Reports chronic cough with episodes of dark/black sputum a few days ago. Denied any fevers, wheezing, chest pain/tightness. Patient sleeps sitting upright due to chronic back pain. Denied PND. Denied sick contacts Reports poor adherence to his bumex and heart failure meds. 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 Review of Systems Review of Systems: All systems reviewed and unremarkable except for mentioned above. Physical Exam Physical Exam: General: Obese, no acute distress and not ill appearing Eyes: PERRL, conjunctivae normal, not pale, anicteric sclerae, EOM intact bilaterally ENMT: External ear and nose normal, oropharynx normal Neck: Normal visual inspection, no tracheal deviation, no swelling noted Respiratory: Normal respiratory effort, no respiratory distress, Nasal cannula insitu, lungs clear to auscultation, no crackles or wheeze noted on auscultation Cardiovascular: Pulse is RRR. Heart Sounds: normal S1 and normal S2; no murmurs. Extremities: 2+ pedal edema Gastrointestinal (Abdomen): Abdomen is distended, soft, non-tender to palpation, no guarding, no palpable hepatosplenomegaly, normal bowel sounds Musculoskeletal: No cyanosis or clubbing, all extremities motor strength 5/5 Skin: No rash noted on gross inspection, No ulcers noted Neurologic: Alert and oriented x 3, No focal weakness, sensation grossly intact Psychiatric: Alert and oriented x 3, euthymic affect, no depressed affect Results & Data Vital Signs (Past 12 Hours) Vital Signs Temp Pulse Pulse Pulse Resp BP BP 04/09/19 07:13 80 20 04/09/19 06:00 36.4 C L 73 20 135/85 04/09/19 04:00 37 C 78 20 125/78 04/09/19 00:36 87 04/08/19 23:48 90 20 04/08/19 23:00 36.7 C 88 18 142/97 H 04/08/19 20:25 37 C 90 28 H 179/84 H Pulse Ox 04/09/19 07:13 94 04/09/19 06:00 96 04/09/19 04:00 96 04/09/19 00:36 04/08/19 23:48 95 04/08/19 23:00 93 04/08/19 20:25 91 Laboratory Results Laboratory Results - last 24 hr 04/08/19 04/08/19 04/08/19 16:50 16:50 16:50 WBC 8.60 RBC 4.61 L Hgb 14.6 Hct 43.8 MCV 95.0 MCH 31.7 MCHC 33.3 RDW Std Deviation 47.7 H RDW Coeff of Vonda 13.9 Plt Count 212 MPV 10.0 Immature Gran % (Auto) 0.2 Neut % (Auto) 62.6 Lymph % (Auto) 29.1 [place] % (Auto) 7.2 Eos % (Auto) 0.7 Baso % (Auto) 0.2 Immature Gran # (Auto) 0.02 Neut # (Auto) 5.38 Lymph # (Auto) 2.50 [place] # (Auto) 0.62 H Eos # (Auto) 0.06 Baso # (Auto) 0.02 PT Cancelled INR Cancelled APTT Cancelled PTT Ratio Cancelled VBG pH VBG pCO2 VBG pO2 VBG HCO3 VBG O2 Saturation VBG Base Excess Barometric Pressure Sodium 139 Potassium 3.6 Chloride 104 Carbon Dioxide 28 Anion Gap 7.0 BUN 12 Creatinine 1.17 Est Cr Clr Drug Dosing Not Reportable Est GFR ( Amer) 75.4 Est GFR (Non-Af Amer) 65.0 BUN/Creatinine Ratio 10.3 Glucose 116 H POC Glucose Calcium 9.1 Magnesium 2.0 Total Bilirubin 0.7 AST 12 L ALT 25 Alkaline Phosphatase 66 Troponin I 0.036 NT-Pro-B Natriuret Pep 1174 H Total Protein 7.4 Albumin 3.6 Globulin 3.8 Albumin/Globulin Ratio 1.0 04/08/19 04/08/19 04/08/19 16:50 20:42 22:43 WBC RBC Hgb Hct MCV MCH MCHC RDW Std Deviation RDW Coeff of Vonda Plt Count MPV Immature Gran % (Auto) Neut % (Auto) Lymph % (Auto) [place] % (Auto) Eos % (Auto) Baso % (Auto) Immature Gran # (Auto) Neut # (Auto) Lymph # (Auto) [place] # (Auto) Eos # (Auto) Baso # (Auto) PT INR APTT PTT Ratio VBG pH 7.40 VBG pCO2 47 VBG pO2 23 VBG HCO3 28 VBG O2 Saturation < 60.0 VBG Base Excess 2.9 Barometric Pressure 730.2 Sodium Potassium Chloride Carbon Dioxide Anion Gap BUN Creatinine Est Cr Clr Drug Dosing Est GFR ( Amer) Est GFR (Non-Af Amer) BUN/Creatinine Ratio Glucose POC Glucose 130 H Calcium Magnesium Total Bilirubin AST ALT Alkaline Phosphatase Troponin I 0.033 NT-Pro-B Natriuret Pep Total Protein Albumin Globulin Albumin/Globulin Ratio 04/09/19 04/09/19 04/09/19 05:30 05:30 05:30 WBC 7.84 RBC 4.57 L Hgb 14.8 Hct 43.6 MCV 95.4 MCH 32.4 MCHC 33.9 RDW Std Deviation 47.6 H RDW Coeff of Vonda 13.8 Plt Count 202 MPV 10.0 Immature Gran % (Auto) Neut % (Auto) Lymph % (Auto) [place] % (Auto) Eos % (Auto) Baso % (Auto) Immature Gran # (Auto) Neut # (Auto) Lymph # (Auto) [place] # (Auto) Eos # (Auto) Baso # (Auto) PT INR APTT PTT Ratio VBG pH VBG pCO2 VBG pO2 VBG HCO3 VBG O2 Saturation VBG Base Excess Barometric Pressure Sodium 140 Potassium 3.2 L Chloride 103 Carbon Dioxide 28 Anion Gap 9.0 BUN 14 Creatinine 1.16 Est Cr Clr Drug Dosing 81.3 Est GFR ( Amer) 76.2 Est GFR (Non-Af Amer) 65.7 BUN/Creatinine Ratio 11.8 Glucose 117 H POC Glucose Calcium 8.6 Magnesium Total Bilirubin AST ALT Alkaline Phosphatase Troponin I 0.024 NT-Pro-B Natriuret Pep Total Protein Albumin Globulin Albumin/Globulin Ratio 04/09/19 07:57 WBC RBC Hgb Hct MCV MCH MCHC RDW Std Deviation RDW Coeff of Vonda Plt Count MPV Immature Gran % (Auto) Neut % (Auto) Lymph % (Auto) [place] % (Auto) Eos % (Auto) Baso % (Auto) Immature Gran # (Auto) Neut # (Auto) Lymph # (Auto) [place] # (Auto) Eos # (Auto) Baso # (Auto) PT INR APTT PTT Ratio VBG pH VBG pCO2 VBG pO2 VBG HCO3 VBG O2 Saturation VBG Base Excess Barometric Pressure Sodium Potassium Chloride Carbon Dioxide Anion Gap BUN Creatinine Est Cr Clr Drug Dosing Est GFR ( Amer) Est GFR (Non-Af Amer) BUN/Creatinine Ratio Glucose POC Glucose 116 H Calcium Magnesium Total Bilirubin AST ALT Alkaline Phosphatase Troponin I NT-Pro-B Natriuret Pep Total Protein Albumin Globulin Albumin/Globulin Ratio Diagnostic Findings CXR- no active disease noted. EKG - Reviewed, Has Q waves in inferior leads (1) Lower back pain Back pain laterality: right Chronicity: chronic Sciatica laterality: sciati ca of right side Sciatica presence: with sciatica Qualified Code(s): M54.41 - Lumbago with sciatica, right side; G89.29 - Other chronic pain
[2019-04-09] MEDS: OXYCODONE/ACETAMINOPHEN 5mg/325mg TAB PO PRN ×2 (08:27→23:31)
--- NOTE | 2019-04-09 11:59 | Cardiology Consultation ---
Date of Consultation April 09, 2019 Assessment & Plan (1) Acute on chronic heart failure: (2) HTN (hypertension): (3) Coronary artery disease: (4) Old SC (myocardial infarction): (5) Hemoptysis: 63-year-old patient admitted with acute decompensated congestive heart failure. History of preserved systolic function per most recent echocardiogram in 2014. Continue IV Lasix, 40 mg twice daily. Add Aldactone 25 mg daily due to hypokalemia and primarily right-sided signs/symptoms of decompensated heart failure at this time. Follow daily weight, fluid balance, electrolytes, and GFR closely. Repeat 2D transthoracic echocardiogram. Consider rechallenge of low- dose hydrophilic statin during hospitalization. History of Present Illness Reason for Consultation: Congestive heart failure Requesting Physician: Dr. Grijalva Attending Physician: Ketty Grijalva MD History of Present Illness 63-year-old patient with history of myocardial infarction 1989 present to the emergency department from his primary care physician's office due to progressive edema and shortness of breath. Patient reports worsening edema involving his lower extremities for several weeks. Unable to wear shoes. Notes occasional orthopnea. Describes dyspnea on exertion which has been progressive. Denies any chest pain or heaviness. No palpitations, lightheaded, dizziness, syncope, or near syncope. Reports history of inferior myocardial infarction 1989. Repeat cardiac catheterization performed in 2014 demonstrating severe chronic right coronary artery disease. The remaining coronary vessels demonstrated mild atherosclerosis. Patient admits to noncompliance with diuretic therapy. He has difficulty ambulate often cannot reach the bathroom in time. Notes weight gain and excessive sodium intake. Offers no other concerns/complaints this time. Patient reports several episodes of hemoptysis last week including coughing up blood clots. Former tobacco abuse noted. Allergies Allergy/AdvReac Type Severity Reaction Status Date / Time ceftriaxone Allergy Intermediate HIVES Verified 04/08/19 16:18 piperacillin Allergy Intermediate rash, Verified 04/08/19 16:18 itching, burning through upper body [id number] Reductase Allergy Intermediate rash/ Verified 04/08/19 16:18 Inhibitor heartburn tazobactam Allergy Intermediate rash, Verified 04/08/19 16:18 itching, burning through upper body Iodinated Contrast Media AdvReac Intermediate rash, Verified 04/08/19 16:18 [Iodinated Contrast- Oral itching and IV Dye] morphine AdvReac Intermediate NAUSEA/VOMI Verified 04/08/19 16:18 TING Home Medications Home Medications Medication Instructions Recorded Confirmed Type metoprolol succinate 100 mg PO QAM 04/01/18 04/08/19 History aspirin [Aspirin Low Dose] 81 mg PO QAM 10/26/18 04/08/19 History Novolin 70/30 U-100 Insulin 33 unit SUBCUT BID 03/04/19 04/08/19 History albuterol sulfate 2 puff INHALATION Q4H PRN 03/04/19 04/08/19 History metformin 1,000 mg PO QAM 03/04/19 04/08/19 History hydrochlorothiazide 12.5 mg PO DAILY #30 tab 03/09/19 04/08/19 Rx oxycodone-acetaminophen [Percocet] 1 tab PO Q4H PRN #10 tab 03/09/19 04/08/19 Rx bumetanide 1 mg PO DAILY 04/08/19 04/08/19 History cyclobenzaprine 10 mg PO HS PRN 04/08/19 04/08/19 History finasteride 5 mg PO DAILY 04/08/19 04/08/19 History fluticasone propion-salmeterol 1 inh INHALATION BID 04/08/19 04/08/19 History pantoprazole 40 mg PO DAILY 04/08/19 04/08/19 History Patient History Medical History Diabetes mellitus, type II (Chronic) COPD (chronic obstructive pulmonary disease) (Chronic) CAD (coronary artery disease) (Chronic) Hematuria (Acute) Hypertension (Chronic) Coronary artery disease (Chronic) [place] (acute kidney injury) (Resolved) Acute coronary syndrome (Resolved) Elevated troponin (Resolved) Pneumonia (Resolved) Sepsis due to Streptococcus pneumoniae (Resolved) Surgical History H/O cardiac catheterization (Resolved) Family History Other Lung disease Social History Preferred Language: Sinhala Communication Ability: Effective Visual Impairment: No Limitations Hearing Ability: Normal Talent Advisor Required: No Beliefs That Will Affect Care: None Current Living Situation: Spouse Other Information That Helps Us Care for You: No Feels Safe at Home: Yes Safety Concerns: Feels Safe At This Time Smoking Status: Former smoker Tobacco Type: cigarettes ; Do You Dip or Chew Tobacco: No ; Second Hand Exposure: No ; Hx Alcohol Use: No Hx Substance Use: No Review of Systems Review of Systems: All systems reviewed & are unremarkable except as noted in HPI & below Physical Exam Physical Exam: General: NAD, AAO x3, well nourished. Chronically ill. HEENT: Normocephalic. Atraumatic. Conjunctiva pink, no scleral icterus. Neck: No carotid bruits, the carotid upstrokes are brisk. No JVD. No HJR Heart: Regular normal S-1 and S-2 no S-3 or S-4 gallop. No murmurs or rub appreciated. PMI is not displaced. No RV heave. Lungs: Diminished breath sounds at the bases, otherwise, clear bilateral without rales , rhonchi, or wheeze. Abdomen: Normal bowel sounds. Soft. Nontender. No masses or organomegaly. No abdominal bruits. Extremities: 2+ bilateral pedal, ankle, and pretibial edema. No clubbing or cyanosis. Pulses: radial=2/4. Neuro: Cranial nerves grossly intact. No focal motor deficit. Results & Data Vital Signs (Past 12 Hours) Vital Signs Temp Pulse Pulse Resp BP BP Pulse Ox 04/09/19 11:21 84 16 95 04/09/19 11:15 36.5 C 81 18 162/100 H 90 04/09/19 07:13 80 20 94 04/09/19 06:00 36.4 C L 73 20 135/85 96 04/09/19 04:00 37 C 78 20 125/78 96 04/09/19 00:36 87 Laboratory Results Laboratory Results - last 24 hr 04/08/19 04/08/19 04/08/19 16:50 16:50 16:50 WBC 8.60 RBC 4.61 L Hgb 14.6 Hct 43.8 MCV 95.0 MCH 31.7 MCHC 33.3 RDW Std Deviation 47.7 H RDW Coeff of Vonda 13.9 Plt Count 212 MPV 10.0 Immature Gran % (Auto) 0.2 Neut % (Auto) 62.6 Lymph % (Auto) 29.1 [place] % (Auto) 7.2 Eos % (Auto) 0.7 Baso % (Auto) 0.2 Immature Gran # (Auto) 0.02 Neut # (Auto) 5.38 Lymph # (Auto) 2.50 [place] # (Auto) 0.62 H Eos # (Auto) 0.06 Baso # (Auto) 0.02 PT Cancelled INR Cancelled APTT Cancelled PTT Ratio Cancelled VBG pH VBG pCO2 VBG pO2 VBG HCO3 VBG O2 Saturation VBG Base Excess Barometric Pressure Sodium 139 Potassium 3.6 Chloride 104 Carbon Dioxide 28 Anion Gap 7.0 BUN 12 Creatinine 1.17 Est Cr Clr Drug Dosing Not Reportable Est GFR ( Amer) 75.4 Est GFR (Non-Af Amer) 65.0 BUN/Creatinine Ratio 10.3 Glucose 116 H POC Glucose Calcium 9.1 Magnesium 2.0 Total Bilirubin 0.7 AST 12 L ALT 25 Alkaline Phosphatase 66 Troponin I 0.036 NT-Pro-B Natriuret Pep 1174 H Total Protein 7.4 Albumin 3.6 Globulin 3.8 Albumin/Globulin Ratio 1.0 04/08/19 04/08/19 04/08/19 16:50 20:42 22:43 WBC RBC Hgb Hct MCV MCH MCHC RDW Std Deviation RDW Coeff of Vonda Plt Count MPV Immature Gran % (Auto) Neut % (Auto) Lymph % (Auto) [place] % (Auto) Eos % (Auto) Baso % (Auto) Immature Gran # (Auto) Neut # (Auto) Lymph # (Auto) [place] # (Auto) Eos # (Auto) Baso # (Auto) PT INR APTT PTT Ratio VBG pH 7.40 VBG pCO2 47 VBG pO2 23 VBG HCO3 28 VBG O2 Saturation < 60.0 VBG Base Excess 2.9 Barometric Pressure 730.2 Sodium Potassium Chloride Carbon Dioxide Anion Gap BUN Creatinine Est Cr Clr Drug Dosing Est GFR ( Amer) Est GFR (Non-Af Amer) BUN/Creatinine Ratio Glucose POC Glucose 130 H Calcium Magnesium Total Bilirubin AST ALT Alkaline Phosphatase Troponin I 0.033 NT-Pro-B Natriuret Pep Total Protein Albumin Globulin Albumin/Globulin Ratio 04/09/19 04/09/19 04/09/19 05:30 05:30 05:30 WBC 7.84 RBC 4.57 L Hgb 14.8 Hct 43.6 MCV 95.4 MCH 32.4 MCHC 33.9 RDW Std Deviation 47.6 H RDW Coeff of Vonda 13.8 Plt Count 202 MPV 10.0 Immature Gran % (Auto) Neut % (Auto) Lymph % (Auto) [place] % (Auto) Eos % (Auto) Baso % (Auto) Immature Gran # (Auto) Neut # (Auto) Lymph # (Auto) [place] # (Auto) Eos # (Auto) Baso # (Auto) PT INR APTT PTT Ratio VBG pH VBG pCO2 VBG pO2 VBG HCO3 VBG O2 Saturation VBG Base Excess Barometric Pressure Sodium 140 Potassium 3.2 L Chloride 103 Carbon Dioxide 28 Anion Gap 9.0 BUN 14 Creatinine 1.16 Est Cr Clr Drug Dosing 81.3 Est GFR ( Amer) 76.2 Est GFR (Non-Af Amer) 65.7 BUN/Creatinine Ratio 11.8 Glucose 117 H POC Glucose Calcium 8.6 Magnesium Total Bilirubin AST ALT Alkaline Phosphatase Troponin I 0.024 NT-Pro-B Natriuret Pep Total Protein Albumin Globulin Albumin/Globulin Ratio 04/09/19 04/09/19 07:57 11:19 WBC RBC Hgb Hct MCV MCH MCHC RDW Std Deviation RDW Coeff of Vonda Plt Count MPV Immature Gran % (Auto) Neut % (Auto) Lymph % (Auto) [place] % (Auto) Eos % (Auto) Baso % (Auto) Immature Gran # (Auto) Neut # (Auto) Lymph # (Auto) [place] # (Auto) Eos # (Auto) Baso # (Auto) PT INR APTT PTT Ratio VBG pH VBG pCO2 VBG pO2 VBG HCO3 VBG O2 Saturation VBG Base Excess Barometric Pressure Sodium Potassium Chloride Carbon Dioxide Anion Gap BUN Creatinine Est Cr Clr Drug Dosing Est GFR ( Amer) Est GFR (Non-Af Amer) BUN/Creatinine Ratio Glucose POC Glucose 116 H 126 H Calcium Magnesium Total Bilirubin AST ALT Alkaline Phosphatase Troponin I NT-Pro-B Natriuret Pep Total Protein Albumin Globulin Albumin/Globulin Ratio
[2019-04-09] MEDS: SPIRONOLACTONE 25 MG TAB PO SCH (13:01)
[2019-04-09] MEDS ORDERED: GUAIFENESIN/DEXTROM SYRUP 200MG/20MG 10ML UDC PO PRN (16:26)
--- NOTE | 2019-04-09 16:26 | Pulmonary Consultation ---
Date of Consultation April 09, 2019 Assessment & Plan (1) Acute respiratory failure with hypoxia: -- Acute Hypoxic respiratory failure Likely sec to systolic CHF exacerbation Continue with diuresis as tolerated Strict in and out Maintain SPO2 between 88 to 92% BiPAP nightly and as needed shortness of breath Patient requiring oxygen right now to maintain saturation of 89% Patient will need a reevaluation for home oxygen once the patient is diuresed adequately If on room air while ambulation the saturation drops below 88% patient will need home O2 --Hemoptysis Likely secondary tracheobronchitis No active hemoptysis, would just give the patient antitussive medication as needed H&H is stable. If it reoccurs we will hold Lovenox --Severe COPD with emphysema For his COPD, does not seem to be an exacerbation Would continue with inhaled therapy, no need for p.o. steroids Patient needs to be on Advair and Spiriva or Anuro inhaler prior to discharge. Patient needs a baseline PFTs. Recommend Pulmonary follow up post discharge. --Pulmonary nodule Patient has a 7 mm right lower lobe pulmonary nodule which has been stable since the last couple of years. Discussion was made regarding keeping a surveillance of pulmonary nodule and what if it increases in size. Patient states that even if it increases in size and there is risk of cancer he is not planning to go for any treatment or therapy for it. At that case serial CAT scan of the chest would not be needed for surveillance here. 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 Needs outpatient sleep study BiPAP nightly and as needed shortness of breath while in the hospital --Second hypercoagulable state On Lovenox Present on Admission?: Yes (2) Acute on chronic heart failure: (3) Diabetes mellitus, type II: (4) Pulmonary nodule: (5) Chronic back pain: (6) HTN (hypertension): History of Present Illness Reason for Consultation: Hemoptysis Attending Physician: Ketty Grijalva MD History of Present Illness Patient is a 63-year-old pleasant male with past medical history of diabetes mellitus type 2, systolic CHF, severe emphysema with COPD, BPH was admitted to the hospital because of worsening shortness of breath gradually since the last for 5 days. Patient was not taking his diuretic as he was not able to go to the bathroom at night. Patient had this cough couple of days ago with clear phlegm with clots of blood. Which lasted for 3 days and went away on its own. At that time patient denied any sore throat. Patient is not on any blood thinners. The only medication he takes is aspirin. Patient has similar episode of hemoptysis in the past when he was diagnosed with pneumonia. Patient denied any fever, no chills, no dysuria, no hematuria, no diarrhea. Patient denies any weight loss, no night sweats. No history of TB. Social history: Greater than [id number] smoking history quit recently, no illicit drug use, social alcohol. 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 No pets at home. Has never been intubated in the past. Patient states even if time comes where he needs intubation in the matter of life and , he does not want to be intubated Allergies Allergy/AdvReac Type Severity Reaction Status Date / Time ceftriaxone Allergy Intermediate HIVES Verified 04/08/19 16:18 piperacillin Allergy Intermediate rash, Verified 04/08/19 16:18 itching, burning through upper body [id number] Reductase Allergy Intermediate rash/ Verified 04/08/19 16:18 Inhibitor heartburn tazobactam Allergy Intermediate rash, Verified 04/08/19 16:18 itching, burning through upper body Iodinated Contrast Media AdvReac Intermediate rash, Verified 04/08/19 16:18 [Iodinated Contrast- Oral itching and IV Dye] morphine AdvReac Intermediate NAUSEA/VOMI Verified 04/08/19 16:18 TING Home Medications Home Medications Medication Instructions Recorded Confirmed Type metoprolol succinate 100 mg PO QAM 04/01/18 04/08/19 History aspirin [Aspirin Low Dose] 81 mg PO QAM 10/26/18 04/08/19 History Novolin 70/30 U-100 Insulin 33 unit SUBCUT BID 03/04/19 04/08/19 History albuterol sulfate 2 puff INHALATION Q4H PRN 03/04/19 04/08/19 History metformin 1,000 mg PO QAM 03/04/19 04/08/19 History hydrochlorothiazide 12.5 mg PO DAILY #30 tab 03/09/19 04/08/19 Rx oxycodone-acetaminophen [Percocet] 1 tab PO Q4H PRN #10 tab 03/09/19 04/08/19 Rx bumetanide 1 mg PO DAILY 04/08/19 04/08/19 History cyclobenzaprine 10 mg PO HS PRN 04/08/19 04/08/19 History finasteride 5 mg PO DAILY 04/08/19 04/08/19 History fluticasone propion-salmeterol 1 inh INHALATION BID 04/08/19 04/08/19 History pantoprazole 40 mg PO DAILY 04/08/19 04/08/19 History Patient History Medical History Diabetes mellitus, type II (Chronic) COPD (chronic obstructive pulmonary disease) (Chronic) CAD (coronary artery disease) (Chronic) Hematuria (Acute) Hypertension (Chronic) Coronary artery disease (Chronic) [place] (acute kidney injury) (Resolved) Acute coronary syndrome (Resolved) Elevated troponin (Resolved) Pneumonia (Resolved) Sepsis due to Streptococcus pneumoniae (Resolved) Surgical History H/O cardiac catheterization (Resolved) Family History Other Lung disease Social History Preferred Language: Senegalese Communication Ability: Effective Visual Impairment: No Limitations Hearing Ability: Normal Artificial Stone Applicator Required: No Beliefs That Will Affect Care: None Current Living Situation: Spouse Other Information That Helps Us Care for You: No Feels Safe at Home: Yes Safety Concerns: Feels Safe At This Time Smoking Status: Former smoker Tobacco Type: cigarettes ; Do You Dip or Chew Tobacco: No ; Second Hand Exposure: No ; Hx Alcohol Use: No Hx Substance Use: No Review of Systems Review of Systems: All systems reviewed & are unremarkable except as noted in HPI & below Physical Exam Physical Exam: Constitutional: No acute distress HEENT: EOMI, PERRLA Respiratory system: Decreased air entry bilaterally, positive bilateral lower lobe crackles, no wheeze, no rhonchi CVS: S1-S2 positive, no murmurs or gallops Abdomen: Soft, nontender, nondistended, positive bowel sounds x4 Extremities: +2 pulses bilaterally radialis/ dorsalis pedis, +3 pitting edema bilateral lower extremity, no cyanosis Neuro: Awake alert oriented x3 Psych: Normal mood and affect G/U: No Amin Lymphatic: no cervical or axillary lymphadenopathy Results & Data Vital Signs (Past 12 Hours) Vital Signs Temp Pulse Resp BP BP Pulse Ox 04/09/19 11:21 84 16 95 04/09/19 11:15 36.5 C 81 18 162/100 H 90 04/09/19 07:13 80 20 94 04/09/19 06:00 36.4 C L 73 20 135/85 96 04/09/19 04:00 37 C 78 20 125/78 96 Laboratory Results 04/09/19 05:30 04/09/19 05:30 Diagnostic Findings Chest x-ray reviewed personally: Costophrenic cardiophrenic angle is clean. Flattened diaphragm. No clear infiltrates appreciated. Mild pulmonary vascular congestion. PG Care Time/CCT Total # of Minutes Spent Total Time Spent with Patient: Total time spent is greater than 50% in coordination of care (as documented) at patient's floor/unit and/or counseling patient:
[2019-04-09] MEDS ORDERED: DICLOFENAC SOD 1% GEL 100 GM TUBE EXT PRN (20:09)
[2019-04-09] MEDS: ENOXAPARIN INJ 40 MG/0.4 ML SYR SQ SCH (20:46)
[2019-04-10] MEDS: ALBUT/IPRATROP 3MG/0.5MG NEB 3 ML VIAL NEB SCH ×4 (06:24→19:17)
[2019-04-10] MEDS: ASPIRIN 81 MG ECTAB PO SCH (08:10)
[2019-04-10] MEDS: METOPROLOL SUCC 50MG EXT REL TAB PO SCH (08:10)
[2019-04-10] MEDS: PANTOprazole 40 MG TAB PO SCH (08:10)
[2019-04-10] MEDS: FINASTERIDE 5 MG TAB PO SCH (08:10)
[2019-04-10] MEDS: SPIRONOLACTONE 25 MG TAB PO SCH (08:11)
[2019-04-10] MEDS: FUROSEMIDE 40 MG in SYRINGE 0 ML IV SCH (08:11)
[2019-04-10] MEDS: FLUTICASONE/SALMETEROL (ADVAIR) 500/50 INH 14 PUFF INH SCH ×2 (08:11→20:28)
[2019-04-10] MEDS: INSULIN GLARGINE SOLOSTAR 100 UNITS/ML 3 ML PEN SC SCH ×2 (08:12→20:29)
[2019-04-10] MEDS: INSULIN ASPART 100 UNITS/ML 3 ML PEN SC SCH ×4 (08:14→20:32)
--- NOTE | 2019-04-10 09:21 | Hospitalist Progress Note ---
Date of Service April 10, 2019 Assessment & Plan (1) Acute on chronic heart failure: Dyspnea on exertion, pedal edema, poor med adherence Likely due to heart failure exacerbation EF from Echo done yesterday was 40-45% unchanged from 10/2017 was 40-45%, Grade 2 diastolic dysfunction Currently on iv diuretics Continue metoprolol xl. Started on lisinopril Continue monitoring I/O 2 step assessment showed patient will require oxygen at home. spO2 was 85% on Room air, improved to 92% on 2L/min; was 87% on ambulation on 2L/min, improved to 90% on 4l/min. (2) COPD (chronic obstructive pulmonary disease): Stable Continue nebs Will plan to discharge on advair and spiriva Will follow up with Pulmonary for PFT Also will need sleep study (3) T2DM (type 2 diabetes mellitus): Continue insulin regimen Carb controlled diet A1c from last month was 8.2 (4) CAD (coronary artery disease): Continue aspirin. Allergy reported to statins (5) HTN (hypertension): Currently controlled HCTz on hold Monitor BP (6) Lower back pain: Chronic. Due to degenerative changes from review of previous xray lumbar 02/2019 Pain control (7) DVT prophylaxis: On lovenox subcut Subjective Patient seen and evaluated. Still has cough, dyspnea on exertion Reports he feels better. Denied any fevers, chills, chest pain or shortness of breath at rest Leg swelling improving. Review of Systems Review of Systems: All systems reviewed and unremarkable except for mentioned above. Physical Exam Physical Exam: General: No acute distress and not ill appearing Eyes: PERRL, conjunctivae normal, not pale, anicteric sclerae, EOM intact bilaterally ENMT: External ear and nose normal, oropharynx normal Neck: Normal visual inspection, no tracheal deviation, no swelling noted Respiratory: Normal respiratory effort, no respiratory distress, lungs clear to auscultation, no crackles and no wheezes Cardiovascular: Pulse is RRR. S1 S2, + pedal edema Gastrointestinal (Abdomen): Abdomen is not distended, soft, non-tender to palpation, no guarding, no palpable hepatosplenomegaly, normal bowel sounds Neurologic: Alert and oriented x 3, No focal weakness, sensation grossly intact Results & Data Vital Signs (Past 12 Hours) Vital Signs Temp Pulse Pulse Resp BP BP Pulse Ox 04/10/19 08:23 36.6 C 94 H 20 144/88 H 90 04/10/19 06:25 81 18 91 04/10/19 03:39 36.8 C 78 20 150/97 H 145/88 H 92 04/10/19 00:26 91 04/09/19 23:35 138/88 153/90 H 04/09/19 23:27 72 04/09/19 22:41 36.5 C 87 20 90 Laboratory Results Laboratory Results - last 24 hr 04/09/19 04/09/19 04/10/19 16:31 20:16 07:49 Sodium Potassium Chloride Carbon Dioxide Anion Gap BUN Creatinine Est Cr Clr Drug Dosing Est GFR ( Amer) Est GFR (Non-Af Amer) BUN/Creatinine Ratio Glucose POC Glucose 150 H 166 H 126 H Calcium 04/10/19 04/10/19 11:55 12:04 Sodium 138 Potassium 3.6 Chloride 102 Carbon Dioxide 29 Anion Gap 7.0 BUN 23 H D Creatinine 1.33 Est Cr Clr Drug Dosing 70.9 Est GFR ( Amer) 64.6 Est GFR (Non-Af Amer) 55.7 BUN/Creatinine Ratio 17.1 Glucose 155 H POC Glucose 177 H Calcium 9.4 (1) Lower back pain Back pain laterality: right Chronicity: chronic Sciatica laterality: sciatica of right side Sciatica presence: with sciatica Qualified Code(s): M54.41 - Lumbago with sciatica, right side; G89.29 - Other chronic pain
[2019-04-10] MEDS: OXYCODONE/ACETAMINOPHEN 5mg/325mg TAB PO PRN ×2 (09:51→20:46)
--- NOTE | 2019-04-10 10:59 | Pulmonology Progress Note ---
Date of Service April 10, 2019 Assessment & Plan (1) Acute respiratory failure with hypoxia: -- Acute Hypoxic respiratory failure Likely sec to systolic CHF exacerbation Continue with diuresis as tolerated Strict in and out Maintain SPO2 between 88 to 92% BiPAP nightly and as needed shortness of breath Patient requiring oxygen right now to maintain saturation of 88% at rest. Patient will need a reevaluation for home oxygen once the patient is diuresed adequately and about to be discharged. If on room air while ambulation the saturation drops below 88% patient will need home O2 No further recommendation from pulmonary perspective. Will sign off. Recall if needed. --Hemoptysis Likely secondary tracheobronchitis No active hemoptysis, would just give the patient antitussive medication as needed H&H is stable. If it reoccurs we will hold Lovenox --Severe COPD with emphysema For his COPD, does not seem to be an exacerbation Would continue with inhaled therapy, no need for p.o. steroids Patient needs to be on Advair and Spiriva or Anuro inhaler prior to discharge. Patient needs a baseline PFTs. Recommend Pulmonary follow up post discharge. --Pulmonary nodule Patient has a 7 mm right lower lobe pulmonary nodule which has been stable since the last couple of years. Discussion was made regarding keeping a surveillance of pulmonary nodule and what if it increases in size. Patient states that even if it increases in size and there is risk of cancer he is not planning to go for any treatment or therapy for it. At that case serial CAT scan of the chest would not be needed for surveillance here. 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 No acute distress, no adverse events overnight. Urinating well. Still gets short of breath on walking. Denies any chest pain, no headache, no nausea, no vomiting. Saturating 88% on 1.5 L nasal cannula at rest Review of Systems Review of Systems: All systems reviewed & are unremarkable except as noted in HPI & below Physical Exam Physical Exam: Constitutional: No acute distress HEENT: EOMI, PERRLA Respiratory system: Decreased air entry bilaterally, positive bilateral lower lobe crackles, no wheeze, no rhonchi CVS: S1-S2 positive, no murmurs or gallops Abdomen: Soft, nontender, nondistended, positive bowel sounds x4 Extremities: +2 pulses bilaterally radialis/ dorsalis pedis, +3 pitting edema bilateral lower extremity, no cyanosis Neuro: Awake alert oriented x3 Psych: Normal mood and affect G/U: No Amin Lymphatic: no cervical or axillary lymphadenopathy Results & Data Vital Signs (Past 12 Hours) Vital Signs Temp Pulse Pulse Pulse Pulse Pulse Pulse 04/10/19 10:53 97 H 04/10/19 09:44 105 H 126 H 122 H 122 H 04/10/19 08:23 36.6 C 94 H 04/10/19 06:25 81 04/10/19 03:39 36.8 C 78 04/10/19 00:26 04/09/19 23:35 04/09/19 23:27 72 Pulse Pulse Resp Resp Resp Resp Resp 04/10/19 10:53 18 04/10/19 09:44 123 H 102 H 18 28 H 28 H 28 H 04/10/19 08:23 20 04/10/19 06:25 18 04/10/19 03:39 20 04/10/19 00:26 04/09/19 23:35 04/09/19 23:27 Resp Resp BP BP Pulse Ox Pulse Ox Pulse Ox 04/10/19 10:53 94 04/10/19 09:44 22 18 92 86 L 04/10/19 08:23 144/88 H 90 04/10/19 06:25 91 04/10/19 03:39 150/97 H 145/88 H 92 04/10/19 00:26 91 04/09/19 23:35 138/88 153/90 H 04/09/19 23:27 Pulse Ox Pulse Ox Pulse Ox Pulse Ox 04/10/19 10:53 04/10/19 09:44 90 87 L 90 85 L 04/10/19 08:23 04/10/19 06:25 04/10/19 03:39 04/10/19 00:26 04/09/19 23:35 04/09/19 23:27 Laboratory Results 04/09/19 05:30 04/09/19 05:30 PG Care Time/CCT Total # of Minutes Spent Total Time Spent with Patient: Total time spent is greater than 50% in coordination of care (as documented) at patient's floor/unit and/or counseling patient:
[2019-04-10 12:50] LABS: BUN Creatinine Ratio 17.1 (10-20); Calcium 9.4 mg/dl (8.5-10.1); Creatinine Clr Calc Pharmacy 70.9 ml/min; Est GFR (African American) 64.6; Est GFR (Non-African American) 55.7; Potassium 3.6 mmol/L (3.5-5.1)
--- NOTE | 2019-04-10 12:58 | Cardiology Progress Note ---
Date of Service April 10, 2019 Assessment & Plan (1) Acute on chronic heart failure: 63-year-old patient admitted with acute decompensated mixed systolic and diastolic congestive heart failure, right greater than left. Mild LV dysfunction noted on echocardiogram consistent with patient's prior ischemic history, chronic right coronary occlusion. Continue IV Lasix, 40 mg twice daily. Continue spironolactone Add low-dose KYUNG inhibitor regimen for optimization of medical therapy Patient gradually improving clinically by exam and history will require continued diuresis (2) HTN (hypertension): (3) Coronary artery disease: (4) Old AL (myocardial infarction): (5) Hemoptysis: Subjective Patient was seen and examined, chart, medications, telemetry reviewed. Patient feels improved since hospitalization and continues to manifest diuresis. Notes less abdominal distention and decreased lower extremity edema. No fevers chills or productive cough. No chest pains or discomfort. No tachypalpitations. No bleeding difficulties, melena, hematochezia Review of Systems Review of Systems: All systems reviewed & are unremarkable except as noted in HPI & below Physical Exam Constitutional: WD/WN, vitals as above Eyes: PERRL, conjunctivae normal, anicteric sclerae ENMT: external ear and nose normal, oropharynx normal Neck: trachea midline, no thyromegaly Respiratory: no respiratory distress Auscultation: + diminished lung sounds; no rales and no wheezes Cardiovascular: Rate/Rhythm: regular rate and regular rhythm Heart Sounds: normal S1 and normal S2; no gallop and no murmur Palpation: normal PMI Vessels: normal carotid upstroke and radial pulses present; no carotid bruit Extremities: + edema (2-3+) Gastrointestinal (Abdomen): Inspection/Auscultation: + abdomen distended (Mildly) Percussion/Palpation: abdomen soft Musculoskeletal: no cyanosis or clubbing, extremities motor strength 5/5 Skin: no rashes, warm and dry Neurologic: PERRL, EOMI, accommodation nl, no face palsy, no dysarthria Psychiatric: A+Ox3, euthymic affect Results & Data Vital Signs (Past 12 Hours) Vital Signs Temp Pulse Pulse Pulse Pulse Pulse Pulse 04/10/19 11:19 36.6 C 90 04/10/19 10:53 97 H 04/10/19 09:44 105 H 126 H 122 H 122 H 123 H 04/10/19 08:23 36.6 C 94 H 04/10/19 06:25 81 04/10/19 03:39 36.8 C 78 Pulse Resp Resp Resp Resp Resp Resp 04/10/19 11:19 20 04/10/19 10:53 18 04/10/19 09:44 102 H 18 28 H 28 H 28 H 22 04/10/19 08:23 20 04/10/19 06:25 18 04/10/19 03:39 20 Resp BP BP Pulse Ox Pulse Ox Pulse Ox Pulse Ox 04/10/19 11:19 129/86 91 04/10/19 10:53 94 04/10/19 09:44 18 92 86 L 90 04/10/19 08:23 144/88 H 90 04/10/19 06:25 91 04/10/19 03:39 150/97 H 145/88 H 92 Pulse Ox Pulse Ox Pulse Ox 04/10/19 11:19 04/10/19 10:53 04/10/19 09:44 87 L 90 85 L 04/10/19 08:23 04/10/19 06:25 04/10/19 03:39
[2019-04-10] MEDS ORDERED: COUGH DROP (SUGAR FREE) LOZ 24 LOZ/1 BOX BUCCAL PRN (16:50)
[2019-04-10] MEDS ORDERED: COUGH DROP (SUGAR FREE) LOZ 24 LOZ/1 BOX BUCCAL ONE (16:53)
[2019-04-10] MEDS: ENOXAPARIN INJ 40 MG/0.4 ML SYR SQ SCH (20:33)
[2019-04-10] MEDS: CYCLOBENZAPRINE HCL 10 MG TAB PO PRN (21:30)
[2019-04-11 06:30] LABS: BUN Creatinine Ratio 19.9 (10-20); Calcium 9.5 mg/dl (8.5-10.1); Creatinine Clr Calc Pharmacy 67.3 ml/min; Est GFR (African American) 60.7; Est GFR (Non-African American) 52.4; Potassium 3.8 mmol/L (3.5-5.1)
[2019-04-11] MEDS: ALBUT/IPRATROP 3MG/0.5MG NEB 3 ML VIAL NEB SCH ×2 (07:03→11:18)
--- NOTE | 2019-04-11 08:34 | Hospitalist Progress Note ---
Date of Service April 11, 2019 Assessment & Plan (1) Acute on chronic heart failure: Improving EF from Echo was 40-45% unchanged from 10/2017 was 40-45%, Grade 2 diastolic dysfunction Held PM of lasix yesterday due to increased Cr. Cr is 1.4 this AM. Will hold diuretics for now Continue metoprolol xl. and lisinopril Has lost 2.9Kg since admission Discussed with Dr Alexander. Will discharge today. Will hold diuretics tomorrow and resume the day after. Will recheck BMP for Cr and potassium in 3 days. 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 Allergy reported to statins (5) HTN (hypertension): Currently controlled Will not continue HCTZ on discharge. Continue lisinopril, metoprolol xl on discharge Monitor BP (6) Lower back pain: Chronic. Due to degenerative changes from review of previous xray lumbar 02/2019 Pain control (7) DVT prophylaxis: On lovenox subcut Subjective Patient has no new complaints today. Reports improved exercise tolerance, reduced leg swelling. Cough has improved. Review of Systems Review of Systems: All systems reviewed and unremarkable except for mentioned above. Physical Exam Physical Exam: General: No acute distress Eyes: PERRL, conjunctivae normal, not pale, anicteric sclerae, EOM intact bilaterally ENMT: External ear and nose normal, oropharynx normal Neck: Normal visual inspection, no tracheal deviation, no swelling noted Respiratory: Normal respiratory effort, no respiratory distress, lungs clear to auscultation, no crackles and no wheezes Cardiovascular: Pulse is RRR. s1 S2, + pedal edema Gastrointestinal (Abdomen): Abdomen is not distended, soft, non-tender to palpation, no guarding, no palpable hepatosplenomegaly, normal bowel sounds Neurologic: Alert and oriented x 3, No focal weakness, sensation grossly intact Results & Data Vital Signs (Past 12 Hours) Vital Signs Temp Pulse Pulse Resp BP BP Pulse Ox 04/11/19 07:58 36.6 C 75 20 115/78 96 04/11/19 06:54 73 14 91 04/11/19 03:46 36.5 C 76 20 124/84 92 04/11/19 00:20 90 04/10/19 22:19 36.4 C L 89 20 133/86 94 Laboratory Results Laboratory Results - last 24 hr 04/10/19 04/10/19 04/10/19 11:55 12:04 16:42 Sodium 138 Potassium 3.6 Chloride 102 Carbon Dioxide 29 Anion Gap 7.0 BUN 23 H D Creatinine 1.33 Est Cr Clr Drug Dosing 70.9 Est GFR ( Amer) 64.6 Est GFR (Non-Af Amer) 55.7 BUN/Creatinine Ratio 17.1 Glucose 155 H POC Glucose 177 H 147 H Calcium 9.4 04/10/19 04/11/19 04/11/19 19:48 05:20 07:32 Sodium 138 Potassium 3.8 Chloride 104 Carbon Dioxide 25 Anion Gap 9.0 BUN 28 H Creatinine 1.40 Est Cr Clr Drug Dosing 67.3 Est GFR ( Amer) 60.7 Est GFR (Non-Af Amer) 52.4 BUN/Creatinine Ratio 19.9 Glucose 144 H POC Glucose 201 H 143 H Calcium 9.5 (1) Lower back pain Back pain laterality: right Chronicity: chronic Sciatica laterality: sciatica of right side Sciatica presence: with sciatica Qualified Code(s): M54.41 - Lumbago with sciatica, right side; G89.29 - Other chronic pain
[2019-04-11] MEDS: FLUTICASONE/SALMETEROL (ADVAIR) 500/50 INH 14 PUFF INH SCH (08:48)
[2019-04-11] MEDS: ASPIRIN 81 MG ECTAB PO SCH (08:49)
[2019-04-11] MEDS: FINASTERIDE 5 MG TAB PO SCH (08:49)
[2019-04-11] MEDS: METOPROLOL SUCC 50MG EXT REL TAB PO SCH (08:49)
[2019-04-11] MEDS: PANTOprazole 40 MG TAB PO SCH (08:50)
[2019-04-11] MEDS: INSULIN GLARGINE SOLOSTAR 100 UNITS/ML 3 ML PEN SC SCH (08:51)
[2019-04-11] MEDS: INSULIN ASPART 100 UNITS/ML 3 ML PEN SC SCH ×2 (08:52→12:46)
[2019-04-11] MEDS: OXYCODONE/ACETAMINOPHEN 5mg/325mg TAB PO PRN (08:55)
[2019-04-11] MEDS ORDERED: FUROSEMIDE 40 MG in SYRINGE 0 ML IV SCH (09:00)
--- NOTE | 2019-04-11 14:50 | Discharge Summary ---
Date of Service April 11, 2019 Admission HPI Per Admitting Provider 63 y/o M with PMH of systolic and diastolic CHF, ischemic cardiomyopathy, EF 45 to 50% in 2018, CAD S/P stent, PVD, COPD, insulin requiring DM 2, chronic back pain presented to ER with complaint of shortness of breath. Patient reports past week with shortness of breath on exertion with walking throughout house. Increased shortness of breath the past couple days with minimal movement. He reports chronic cough however cough past 3 days productive brown sputum. Patient denies any noted wheezing. Denies any chest pain. Denies fever chills has been taking his Ventolin inhaler up to 10 times a day without relief of shortness of breath. Patient reports chronic bilateral lower extremity edema and was unaware of any increased edema. Followed up with PCP office today for shortness of breath and was found to have gained 8 pounds over the past 2 weeks. Patient admits to eating a lot of frozen dinners. He also reports has not been taking his Bumex secondary to not wanting to get up to urinate. Denies fever /chills, diaphoresis, N/V/D/C, WAGNER, dizziness, syncope, vision changes, neck pain, orthopnea, palpitations, sore throat, choking, otalgia, rhinorrhea, abdominal pain, paresthesias, weakness, extremity weakness, rashes, urinary symptoms. Admission Exam Per Admitting Provider General: no acute distress, WDWN Head: normocephalic, atraumatic Eyes: PERRL, EOM's intact, conjunctiva non-injected, anicteric ENT: normal inspection external ears, nose, mucous membranes moist Neck: supple, trachea midline, non-tender Lungs: no respiratory distress, on 3L oxygen with O2 sat 95%, Diminished breath sounds, slight rales at bases bilaterally CV: RRR, no murmur, 2-3+ pretibial edema Abd: normal BS, soft, non-tender Ext: no cyanosis, no calf tenderness Neuro: A&O x 3, no focal deficits noted, normal affect Skin: warm, dry Principal Diagnosis Acute on chronic systolic Heart Failure COPD Acute hypoxic respiratory failure Discharge Exam General: No acute distress Eyes: PERRL, conjunctivae normal, not pale, anicteric sclerae, EOM intact bilaterally ENMT: External ear and nose normal, oropharynx normal Neck: Normal visual inspection, no tracheal deviation, no swelling noted Respiratory: Normal respiratory effort, no respiratory distress, lungs clear to auscultation, no crackles and no wheezes Cardiovascular: Pulse is RRR. s1 S2, + pedal edema Gastrointestinal (Abdomen): Abdomen is not distended, soft, non-tender to palpation, no guarding, no palpable hepatosplenomegaly, normal bowel sounds Neurologic: Alert and oriented x 3, No focal weakness, sensation grossly intact Discharge Data Allergies Allergy/AdvReac Type Severity Reaction Status Date / Time ceftriaxone Allergy Intermediate HIVES Verified 04/08/19 16:18 piperacillin Allergy Intermediate rash, Verified 04/08/19 16:18 itching, burning through upper body Ajbwosl-Xcp-Cne Reductase Allergy Intermediate rash/ Verified 04/08/19 16:18 Inhibitor heartburn tazobactam Allergy Intermediate rash, Verified 04/08/19 16:18 itching, burning through upper body Iodinated Contrast Media AdvReac Intermediate rash, Verified 04/08/19 16:18 [Iodinated Contrast- Oral itching and IV Dye] morphine AdvReac Intermediate NAUSEA/VOMI Verified 04/08/19 16:18 TING Consultations 04/08/19 17:51 ED Decision to Admit Stat 04/08/19 20:56 Consult Cardiology Routine Consult Case Management - Discharge Planning Routine 04/09/19 11:59 Consult Pulmonology Routine Ordered Studies 04/08/19 21:43 US abdomen ltd ascites Routine - No ascites. Chest Xray - The heart is mildly enlarged. There is mild aortic tortuosity. There is no failure. There is no focal pulmonary consolidation. There are no pleural effusions.[ Hospital Course (1) Acute on chronic heart failure: EF from Echo was 40-45% unchanged from 10/2017 was 40-45%, Grade 2 diastolic dysfunction Patient received iv diuretics This resulted in 2.9kg loss from admission to discharge He was evaluated by Cardiology. Spironolactone was added to his regimen as well as low dose lisinopril 2.5mg At time of discharge, patient had a creatinine bump to 1.4. Diuretics were held on day of discharge and patient advised to hold diuretics till 2 days after discharge. He is to get BMP 3 days after discharge to monitor creatinine and electrolytes Needs follow up with Cardiology and PCP for continued managment of heart failure. Provided basic heart failure management education Patient had 2 step test which showed he was hypoxic at rest on room air and worsened on exertion. He was discharged on intranasal oxygen at 2L/min at rest and can increase upto 4L/min with exertion. (2) COPD (chronic obstructive pulmonary disease): Stable Continue nebs Patient was also evaluated by Agriculture Specialist who recommended adding spiriva to his home advair. Patient will also need to follow up with Pulmonology outpatient Needs PFT for further evaluation of his COPD Also will need sleep study (3) T2DM (type 2 diabetes mellitus): Continue metformin and home dose insulin regimen Carb controlled diet A1c from last month was 8.2 (4) CAD (coronary artery disease): Continue aspirin. Allergy reported to statins (5) HTN (hypertension): Currently controlled Discharged on lisinopril 2.5mg in addition to home meds (metoprolol succinate and diuretics mentioned above) Hydrochlorothiazide discontinued (6) Lower back pain: Chronic. Due to degenerative changes from review of previous xray lumbar 02/2019 Pain control with home meds Total Time Total Time Spent Total Time Spent (In Minutes): 35 mins Total Time Includes: Examination of the Patient, Discharge Planning and Medication Reconciliation Discharge Plan Discharge Items Patient Disposition: Home - Self-Care Reason For Visit: SOB,FLUID OVERLOAD Discharge Diagnosis: Acute on chronic systolic Heart Failure COPD Exertional hypoxia Condition on Discharge: Fair Activity: As commented below Activity Comment: Activity as tolerated.Use oxygen at 2L/min at rest&upto 4L/min with exertio Non-emergency contact: Primary Care Provider Call non-emergency contact if: you have any medication questions Follow-up/Referrals: Brent Martinez MD [Physician] - Abdi Alexander MD [Physician] - Andressa Benjamin DO [Primary Care Provider] - (Call for follow up within 1 week) Diet: Carb Consistent or DM2, Heart Healthy and Low Sodium (2gm) Fluids: 1800ml (7 cups) Ambulatory Orders: Basic Metabolic Panel (Routine) Timeframe: 20190414 Location: Determined by Patient Ordered By: Ketty Grijalva Basic Metabolic Panel (Routine) Timeframe: 20190414 Location: Determined by Patient Ordered By: Ketty Grijalva Addtl Attending Provider Instructions: Mr Lopez. You came to the hospital complaining of shortness of breath, leg swelling and chronic cough. On evaluation, you were found to have heart failure exacerbation with fluid overload. You also reported not taking your Bumex as prescribed. You were started on injection diuretics. This improved your heart failure symptoms. You also had an Echocardiogram (ultrasound of your heart) which showed your ejection fraction of 40-45% (similar to what it was in the past). You were evaluated by the road freight conductor and cleaning specialist. You were diuresed with the injection diuretics. A new diuretic called spironolactone was added to your medications. Your Hydrochlorothiazide was discontinued. Please stop taking this at home. Lisinopril 2.5mg was added to your blood pressure and heart failure medications. Spiriva was also added to your inhalers as recommended by the Agriculture Specialist (Lung doctor) for your COPD Continue taking your other medications as prescribed including the metoprolol xl, metformin, insulin. Your creatinine level increased showing much of the fluid in your body has been removed. Resume taking the Bumex and the spironolactone from Friday04/13/2019 and take them as prescribed. You also need to get a blood test called [facility] to monitor your creatinine and potassium levels. Please do this on friday04/14/2019. Further evaluation showed that you require oxygen. Ensure you use oxygen at 2L/min at rest and can increase up to 4L/min with exertion. You will need a sleep study done. Please discuss this with your Primary Doctor and make arrangements. You will need a pulmonary function test to assess the severity of your COPD. Please ensure you follow up with the Agriculture Specialist Ensure you follow up with the Sound Assistant and your Primary Doctor within one week. It was a pleasure taking care of you. Pending Studies at Discharge: No Stand-Alone Forms: My [facility] Medications and DC Order Prescriptions: New lisinopril 2.5 mg Tablet 2.5 mg PO QAM 30 Days Qty: 30 RF: 1 spironolactone 25 mg Tablet 25 mg PO DAILY 30 Days Qty: 30 RF: 0 Spiriva Respimat 2.5 mcg/actuation mist 2 puffs INH DAILY Qty: 4 RF: 1 Continued metoprolol succinate 100 mg Tablet Extended Release 24 Hr 100 mg PO QAM RF: 0 aspirin [Aspirin Low Dose] 81 mg Tablet,Delayed Release (Dr/Ec) 81 mg PO QAM RF: 0 Novolin 70/30 U-100 Insulin 100 unit/mL (70-30) suspension 33 unit subcut BID RF: 0 albuterol sulfate 90 mcg/actuation HFA aerosol inhaler 2 puff inhalation Q4H PRN (Reason: Wheezing) RF: 0 metformin 500 mg tablet extended release 24 hr 1,000 mg PO QAM RF: 0 oxycodone-acetaminophen [Percocet] 5-325 mg Tablet 1 tab PO Q4H PRN (Reason: severe pain) Qty: 10 RF: 0 cyclobenzaprine 10 mg tablet 10 mg PO HS PRN (Reason: Muscle Spasm) RF: 0 pantoprazole 40 mg tablet,delayed release (DR/EC) 40 mg PO DAILY RF: 0 fluticasone propion-salmeterol 500-50 mcg/dose blister with device 1 inh inhalation BID RF: 0 finasteride 5 mg tablet 5 mg PO DAILY RF: 0 bumetanide 1 mg tablet 1 mg PO DAILY 30 Days Qty: 30 RF: 1 Discontinued hydrochlorothiazide 12.5 mg tablet 12.5 mg PO DAILY Qty: 30 RF: 0 Discharge Orders: Discharge Order (Routine); Ordered 04/11/19 Ordered By: Ketty Grijalva Admission Data Admit Date/Time: 04/08/19 19:20 Attending Provider: Ketty Grijalva I. Admit Provider: Josh Linares Primary Care Provider: Andressa Benjamin Other Providers: Josh Linares ; Omer Sood ; Mendoza Lewis Other Interventions: Discharge Summary Assessment (RN) Last Done: 04/11/19 14:02 DC Date/Time DO NOT enter until pt leaves facility: 04/11/19 14:47
== END 2019-04-11 14:47 | disposition home or self-care (01) | DRG 291 ==
LOC: ED 15:41 → 2N 19:20 → SUATTDRO 19:20 → 2N 20:00

== ENCOUNTER 2019-04-13 00:45 | Inpatient (IN) ==
[2019-04-13 01:36] LABS: Albumin Level 3.4 gm/dl (3.4-5.0); BUN Creatinine Ratio 16.5 (10-20); Calcium 8.7 mg/dl (8.5-10.1); Creatinine Clr Calc Pharmacy 71.5 ml/min; Est GFR (African American) 65.2; Est GFR (Non-African American) 56.2; Magnesium 2.2 mg/dl (1.8-2.4); Potassium 4.3 mmol/L (3.5-5.1)
[2019-04-13 01:37] LABS: Basophils # (auto) 0.02 K/uL (0-0.2); Basophils % (auto) 0.1 %; Eosinophils # (auto) 0.01 K/uL (0-0.5); Eosinophils % (auto) 0.1 %; Hematocrit (blood only) 44.2 % (42-52); Hemoglobin 14.8 g/dL (14.0-18.0); Immature Granulocytes # (auto) 0.03 K/uL (0.00-0.02); Immature Granulocytes % (auto) 0.2 %; Lymphocytes # (auto) 2.16 K/uL (1.2-3.4); Lymphocytes % (auto) 15.1 %; Mean Corpuscular Hgb Conc 33.5 g/dL (32-36); Mean Corpuscular Volume 95.5 fL (80-100); Mean Platelet Volume 10.3 fL (7.4-10.4); Monocytes # (auto) 1.35 K/uL (0.11-0.59); Monocytes % (auto) 9.4 %; Neutrophils # (auto) 10.72 K/uL (1.4-6.5); Neutrophils % (auto) 75.1 %; Platelet Count 233 K/uL (130-400); RDW Coefficient of Variation 13.7 % (11.5-14.5); RDW Standard Deviation 47.8 fL (36.4-46.3); Red Blood Count 4.63 M/uL (4.7-6.1); White Blood Count 14.29 K/uL (4.8-10.8)
[2019-04-13 01:41] LABS: Albumin Globulin Ratio 0.8 (0.9-2); Bilirubin,Total 0.8 mg/dl (0.2-1); Globulin 4.3 gm/dl (2.5-4.0); Total Protein 7.7 gm/dl (6.4-8.2); Troponin I 0.026 ng/ml (0-0.045)
[2019-04-13 01:42] LABS: INR 1.1 (0.9-1.1); Prothrombin Time 11.2 Seconds (9.0-12.0)
[2019-04-13] MEDS ORDERED: OXYCODONE/ACETAMINOPHEN 5mg/325mg TAB PO STA (01:48)
[2019-04-13] MEDS ORDERED: ALBUT/IPRATROP 3MG/0.5MG NEB 3 ML VIAL NEB STA (01:48)
[2019-04-13 02:18] LABS: D Dimer 5390 ug/L FEU (0-500)
[2019-04-13] MEDS ORDERED: methylPREDNISolone 125 MG/2 ML VIAL IV STA (02:21)
[2019-04-13] MEDS ORDERED: DiphenhydrAMINE HCL 50 MG/ML VIAL IV STA (02:21)
[2019-04-13] MEDS ORDERED: fentaNYL citrate 100 MCG/2 ML VIAL IV PRN (02:21)
[2019-04-13 02:43] LABS: Appearance Urine Clear (Clear); Bacteria Urine Automated Negative (Negative); Bilirubin Urine Negative (Negative); Blood Urine Negative (Negative); Color Urine Yellow; Glucose Urine UA Trace (Negative); Ketones Urine Trace (Negative); Leukocyte Esterase Urine Trace (Negative); Nitrite Urine Negative (Negative); Protein Urine Trace (Negative); RBC Urine Automated 0-4 /hpf (0-4); Specific Gravity Urine 1.028 (1.000-1.030); Urobilinogen Urine Negative (Negative)
[2019-04-13] MEDS ORDERED: OPTIRAY 320 125ml IV PRN (03:14)
[2019-04-13] MEDS ORDERED: FUROSEMIDE 40 MG/4 ML VIAL IV STA (03:33)
[2019-04-13] MEDS ORDERED: HEPARIN SOD (PORCINE) 1000 UNIT/ML 10 ML VIAL ONE (04:53)
--- NOTE | 2019-04-13 05:01 | Emergency Department Note ---
Entered by Yariel Yin acting as a scribe for Alysha Colorado DO History of Present Illness General Chief complaint: Shortness of Breath/Dyspnea Stated complaint: ABDOMINAL/BACK PAIN, SHORT OF BREATH Time Seen by Provider: 04/13/19 00:50 Source: patient and EMS History of Present Illness Onset (ago): day(s) (a few days ago) Location: chest Pain Consistency: + constant Quality: + other (SOB) Relieved By: + medication (rescue inhaler) Exacerbated By: + other (exertion) Associated symptoms: + other (Positive for a dark brown productive cough, leg selling, back pain, abdominal pain, and voiding urine slowly. ) The patient is a 63 year old male who presents to the emergency department with complaints of constant SOB beginning a few days ago. The patient states that he was recently in the emergency department for SOB. He notes that he was discharged at that time, and he reports that he is currently having similar symptoms. The patient states that he has been coughing for the last few days. He notes that his sputum has been dark brown in color. He notes that his SOB is wor se with exertion but he reports that it improves when he uses his rescue inhaler. He also complains of leg swelling, back pain, and voiding urine slowly. The patient states that his leg swelling is currently better than it usually is. He notes that his back pain worsens when he breathes. He reports that he is also having abdominal pain. The patient states that he has a history of COPD, but he notes that he does not have a history of asthma. He reports that he wears 4L of oxygen at all times. Per EMS, the patient was 97% with an additional 3L. The patient states that he recently had a catheter in place. EMR does reveal recent admission for acute on chronic congestive heart failure. Patient also with known history of COPD. Recent echo without any significant changes. Patient was diuresed 2.9 kg while hospitalized. Home Medications Home Medications Medication Instructions Recorded Confirmed Type metoprolol succinate 100 mg PO QAM 04/01/18 04/13/19 History aspirin [Aspirin Low Dose] 81 mg PO QAM 10/26/18 04/13/19 History Novolin 70/30 U-100 Insulin 33 unit SUBCUT BID 03/04/19 04/13/19 History albuterol sulfate 2 puff INHALATION Q4H PRN 03/04/19 04/13/19 History metformin 1,000 mg PO QAM 03/04/19 04/13/19 History oxycodone-acetaminophen [Percocet] 1 tab PO Q4H PRN #10 tab 03/09/19 04/13/19 Rx cyclobenzaprine 10 mg PO HS PRN 04/08/19 04/13/19 History finasteride 5 mg PO DAILY 04/08/19 04/13/19 History fluticasone propion-salmeterol 1 inh INHALATION BID 04/08/19 04/13/19 History pantoprazole 40 mg PO DAILY 04/08/19 04/13/19 History bumetanide 1 mg PO DAILY 30 Days #30 tab 04/11/19 04/13/19 Rx lisinopril 2.5 mg PO QAM 30 Days #30 tab 04/11/19 04/13/19 Rx spironolactone 25 mg PO DAILY 30 Days #30 tab 04/11/19 04/13/19 Rx tiotropium bromide [Spiriva 2 puffs INH DAILY #4 gm 04/11/19 04/13/19 Rx Respimat] Allergies Allergy/AdvReac Type Severity Reaction Status Date / Time ceftriaxone Allergy Intermediate HIVES Verified 04/13/19 01:42 piperacillin Allergy Intermediate rash, Verified 04/13/19 01:42 itching, burning through upper body [id number] Reductase Allergy Intermediate rash/ Verified 04/13/19 01:42 Inhibitor heartburn tazobactam Allergy Intermediate rash, Verified 04/13/19 01:42 itching, burning through upper body clopidogrel [From Plavix] Allergy Unknown Verified 04/13/19 08:28 losartan Allergy Unknown Verified 04/13/19 08:28 Iodinated Contrast Media AdvReac Intermediate rash, Verified 04/13/19 01:42 [Iodinated Contrast- Oral itching and IV Dye] morphine AdvReac Intermediate NAUSEA/VOMI Verified 04/13/19 01:42 TING Past Med/Surg History Medical History Acute respiratory failure with hypoxia [place] (myocardial infarction) Acute on chronic heart failure Diabetes mellitus, type II (Chronic) HTN (hypertension) DVT prophylaxis COPD (chronic obstructive pulmonary disease) (Acute) T2DM (type 2 diabetes mellitus) COPD (chronic obstructive pulmonary disease) (Chronic) CAD (coronary artery disease) (Chronic) Hematuria (Acute) Hypertension (Chronic) Coronary artery disease (Chronic) [place] (acute kidney injury) (Resolved) Acute coronary syndrome (Resolved) Elevated troponin (Resolved) Pneumonia (Resolved) Sepsis due to Streptococcus pneumoniae (Resolved) Surgical History H/O cardiac catheterization (Resolved) Social History Preferred Language: [place] Citizen Communication Ability: Effective Visual Impairment: No Limitations Hearing Ability: Normal Fashion Stylist Required: No Beliefs That Will Affect Care: None marital status: Current Living Situation: Spouse Other Information That Helps Us Care for You: No Feels Safe at Home: Yes Safety Concerns: Feels Safe At This Time Smoking Status: Former smoker Second Hand Exposure: No ; Hx Alcohol Use: No Hx Substance Use: No Review of Systems See HPI for pertinent positives & negatives. and A total of 10 systems reviewed and were otherwise negative Physical Exam Vital Signs Vital Signs - 24 hr 04/13/19 00:45 04/13/19 01:31 04/13/19 01:52 Temperature 37.2 C Temperature Source Oral Sepsis Recent Fever Within 48 Hours No Sepsis New/Unexplained Change in Mental Status No Sepsis Action Taken by Nursing No Action Required Oxygen Flow Rate - Titration 4 Fraction of Inspired Oxygen - Titration 94 Pulse Rate 117 H 114 H Pulse Rate [Apical] 110 H Pulse Rate from SpO2 Sensor 117 H Respiratory Rate 29 H 23 24 Respiratory Effort / Characteristics Blood Pressure 149/55 H 118/88 Blood Pressure [Right Arm] Blood Pressure Mean 86 98 Blood Pressure Mean [Right Arm] Pulse Oximetry 87 L 90 92 Oxygen Delivery Method Nasal Cannula Nasal Cannula Nasal Cannula Oxygen Flow Rate 3 4 4 04/13/19 01:59 04/13/19 02:32 04/13/19 03:01 Temperature Temperature Source Sepsis Recent Fever Within 48 Hours Sepsis New/Unexplained Change in Mental Status Sepsis Action Taken by Nursing Oxygen Flow Rate - Titration Fraction of Inspired Oxygen - Titration Pulse Rate 116 H Pulse Rate [Apical] 106 H 110 H Pulse Rate from SpO2 Sensor 114 H Respiratory Rate 26 H 21 16 Respiratory Effort / Characteristics Spontaneous SOB on Exertion Splinting (from pain) Blood Pressure Blood Pressure [Right Arm] 127/86 Blood Pressure Mean Blood Pressure Mean [Right Arm] 99 Pulse Oximetry 89 L 91 Oxygen Delivery Method Nasal Cannula Nasal Cannula Oxygen Flow Rate 4 4 04/13/19 04:05 04/13/19 05:15 04/13/19 06:28 Temperature 36.8 C Temperature Source Oral Sepsis Recent Fever Within 48 Hours Sepsis New/Unexplained Change in Mental Status Sepsis Action Taken by Nursing Oxygen Flow Rate - Titration Fraction of Inspired Oxygen - Titration Pulse Rate Pulse Rate [Apical] 102 H 90 83 Pulse Rate from SpO2 Sensor Respiratory Rate 20 16 16 Respiratory Effort / Characteristics Blood Pressure Blood Pressure [Right Arm] 118/67 126/94 128/84 Blood Pressure Mean Blood Pressure Mean [Right Arm] 84 104 98 Pulse Oximetry 92 94 94 Oxygen Delivery Method Nasal Cannula Nasal Cannula Nasal Cannula Oxygen Flow Rate 4 4 4 GENERAL: alert, well appearing, well nourished, no distress, non-toxic EYE EXAM: normal conjunctiva, PERRL and EOM's grossly intact OROPHARYNX: no exudate, no erythema, lips, buccal mucosa, and tongue normal and mucous membranes are dry NECK: supple, no nuchal rigidity, no adenopathy, non-tender LUNGS: Normal chest wall mechanics. Increased work of breathing with persistent talking, on 4L nasal cannula the patient's oxygen saturation is 93%, no retractions, bibasilar rales noted. HEART: no murmurs, S1 normal and S2 normal, tachycardic heart rate at 107 ABDOMEN: abdomen soft, non-tender, normo-active bowel sounds, no masses, no rebound or guarding, dull to percussion. BACK: Back is symmetrical on inspection and there is no deformity, no midline tenderness, no CVA tenderness. SKIN: no rashes and no bruising, no petechiae UPPER EXTREMITIES: upper extremities are grossly normal. FROM, nml pulses b/l. LOWER EXTREMITIES: 2+ lower extremity edema, equal pulses bilaterally. FROM, nml pulses b/l. NEURO EXAM: Normal sensorium, cranial nerves II-XII grossly intact, normal speech, no gross weakness of arms, no gross weakness of legs. Course 0053: The patient was evaluated in room B12. A complete history and physical exam was performed. 0218: I reevaluated and updated the patient. He is still SOB and has no improvement after nebulizer treatment. His heart rate is 107 and his pulse ox is 91% on 4L. 0448: I rechecked the patient. He verbalized understanding of the treatment plan. No recent surgery or GI bleed. No contraindication to anticoagulation at this time. Patient continues to be hemodynamically stable. 0504: Upon reevaluation, the patient is stable. I discussed the findings and the treatment plan with the patient. He expresses agreement and understanding. I spoke with Dr. Mas of the [facility]. The patient will be evaluated for further management. Consultations Consultation #1: I reviewed the patient's case with Dr. Mas - Hospitalist, [facility]. He will evaluate the patient for further management. Time: 05:04 Administered Medications Aspir[facility]ab) [facility] Stop: 05/13/19 08:59 Last Admin: 04/13/19 09:07 Dose: 81 mg Documented by: [id number] Bumetanide (Bumex) 1 mg PO DAILY [facility] Stop: 05/13/19 08:59 Last Admin: 04/13/19 09:08 Dose: 1 mg Documented by: [id number] Finasteride (Proscar) 5 mg PO DAILY [facility] Stop: 05/13/19 08:59 Last Admin: 04/13/19 09:08 Dose: 5 mg Documented by: [id number] Heparin Sodium/Dextrose (Heparin Sodium/Dextrose) 25,000 units in 500 mls @ 33 mls/hr IV .[id number] [facility]; Protocol Stop: 05/13/19 04:44 Last Titration: 04/14/19 03:19 Dose: 1,650 units/hr, 33 mls/hr Documented by: [id number] Cosigned by: [id number] Admin: 04/13/19 19:52 Dose: 1,650 units/hr, 33 mls/hr Documented by: [id number] Cosigned by: [id number] Titration: 04/13/19 19:52 Dose: 1,450 units/hr, 29 mls/hr Documented by: [id number] Cosigned by: [id number] Titration: 04/13/19 19:24 Dose: 1,450 units/hr, 29 mls/hr Documented by: [id number] Cosigned by: [id number] Titration: 04/13/19 15:08 Dose: 1,450 units/hr, 29 mls/hr Documented by: [id number] Cosigned by: [id number] Titration: 04/13/19 12:58 Dose: 1,450 units/hr, 29 mls/hr Documented by: [id number] Cosigned by: [id number] Titration: 04/13/19 12:21 Dose: 0 units/hr, 0 mls/hr Documented by: [id number] Cosigned by: [id number] Titration: 04/13/19 07:00 Dose: 1,650 units/hr, 33 mls/hr Documented by: [id number] Cosigned by: [id number] Admin: 04/13/19 05:13 Dose: 1,650 units/hr, 33 mls/hr Documented by: [id number] Cosigned by: [id number] Insulin Aspart (Novolog Flexpen) 0 units SC ACHS [facility] Stop: 05/13/19 08:59 Last Admin: 04/13/19 20:16 Dose: Not Given Documented by: [id number] Cosigned by: [id number] Admin: 04/13/19 17:27 Dose: 3 units Documented by: [id number] Cosigned by: [id number] Admin: 04/13/19 11:35 Dose: 8 units Documented by: [id number] Cosigned by: [id number] Admin: 04/13/19 10:14 Dose: Not Given Documented by: [id number] Insulin Human Isoph/Insulin Regular (Novolin 70/30 Regular) 33 units SQ BIDM [facility] Stop: 05/13/19 08:59 Last Admin: 04/13/19 17:27 Dose: 33 units Documented by: [id number] Cosigned by: [id number] Admin: 04/13/19 09:15 Dose: 33 units Documented by: [id number] Cosigned by: [id number] Lisinopril (Zestril) 2.5 mg PO [facility] Stop: 05/13/19 08:59 Last Admin: 04/13/19 09:08 Dose: 2.5 mg Documented by: [id number] Metoprolol Succinate (Toprol Xl) 100 mg PO [facility] Stop: 05/13/19 08:59 Last Admin: 04/13/19 09:07 Dose: 100 mg Documented by: [id number] Oxycodone/Acetaminophen (Percocet 5mg/325mg) 1 tab PO Q4H PRN PRN Reason: severe pain Stop: 04/27/19 07:01 Last Admin: 04/14/19 05:23 Dose: 1 tab Documented by: [id number] Admin: 04/14/19 01:29 Dose: 1 tab Documented by: [id number] Admin: 04/13/19 21:27 Dose: 1 tab Documented by: [id number] Admin: 04/13/19 17:25 Dose: 1 tab Documented by: [id number] Admin: 04/13/19 14:00 Dose: 1 tab Documented by: [id number] Admin: 04/13/19 09:01 Dose: 1 tab Documented by: [id number] Pantoprazole Sodium (Protonix) 40 mg PO DAILY [facility] Stop: 05/13/19 08:59 Last Admin: 04/13/19 09:08 Dose: 40 mg Documented by: [id number] Fluticasone/Salmeterol (Advair Diskus 500/50) 1 puffs INH BID [facility] Stop: 05/13/19 08:59 Last Admin: 04/13/19 19:44 Dose: 1 puffs Documented by: [id number] Admin: 04/13/19 09:09 Dose: 1 puffs Documented by: [id number] Spironolactone (Aldactone) 25 mg PO DAILY [facility] Stop: 05/13/19 08:59 Last Admin: 04/13/19 09:09 Dose: 25 mg Documented by: [id number] Tiotropium [place] (Spiriva) 1 puffs INH DAILY [facility] Stop: 05/13/19 08:59 Last Admin: 04/13/19 09:10 Dose: 1 puffs Documented by: [id number] Discontinued Medications Albuterol (Duoneb) 3 ml NEB NOW STA Stop: 04/13/19 01:49 Last Admin: 04/13/19 01:59 Dose: 3 ml Documented by: [id number] Diphenhydramine HCl (Benadryl) 25 mg IV NOW STA Stop: 04/13/19 02:22 Last Admin: 04/13/19 02:34 Dose: 25 mg Documented by: [id number] Fentanyl Citrate (Fentanyl Citrate) 50 mcg IV Q15M PRN PRN Reason: Pain Stop: 04/27/19 02:20 Last Admin: 04/13/19 02:33 Dose: 50 mcg Documented by: [id number] Furosemide (Lasix) 40 mg IV NOW STA Stop: 04/13/19 03:34 Last Admin: 04/13/19 04:06 Dose: 40 mg Documented by: [id number] Heparin Sodium (Porcine) (Heparin Iv Bolus) Confirm Administered Dose 10,000 units .ROUTE .STK-MED ONE Stop: 04/13/19 04:54 Last Admin: 04/13/19 05:14 Dose: Not Given Documented by: [id number] Heparin Sodium (Porcine) (Heparin Iv Bolus) 7,000 units IV ONE ONE Stop: 04/13/19 05:06 Last Admin: 04/13/19 05:13 Dose: 7,000 units Documented by: [id number] Cosigned by: [id number] Hydromorphone HCl (Dilaudid) 0.25 mg IV NOW STA Stop: 04/13/19 18:40 Last Admin: 04/13/19 19:19 Dose: 0.25 mg Documented by: [id number] Hydromorphone HCl (Dilaudid) 0.5 mg IV NOW STA Stop: 04/13/19 23:22 Last Admin: 04/13/19 23:39 Dose: 0.5 mg Documented by: [id number] Heparin Sodium (Porcine) 4,000 (units/ Syringe) 4 mls @ 10 mls/min IV ONE ONE Stop: 04/13/19 19:38 Last Admin: 04/13/19 19:50 Dose: 10 mls/min Documented by: [id number] Cosigned by: [id number] Ioversol (Optiray 320 125ml) 118 ml IV ONCE PRN PRN Reason: Interaction Checking Stop: 04/17/19 03:13 Last Admin: 04/13/19 03:15 Dose: 118 ml Documented by: [id number] Ketorolac Tromethamine (Toradol) 30 mg IV ONE ONE Stop: 04/14/19 05:01 Last Admin: 04/14/19 05:48 Dose: Not Given Documented by: [id number] Ketorolac Tromethamine (Toradol) Confirm Administered Dose 30 mg .ROUTE .STK-MED ONE Stop: 04/14/19 04:47 Last Admin: 04/14/19 04:47 Dose: 30 mg Documented by: [id number] Menthol (Nice) Confirm Administered Dose 24 gelacio [place] .STK-MED ONE Stop: 04/13/19 22:01 Last Admin: 04/13/19 22:55 Dose: 24 gelacio Documented by: [id number] Methylprednisolone (Solumedrol) 60 mg IV NOW STA Stop: 04/13/19 02:22 Last Admin: 04/13/19 02:33 Dose: 65 mg Documented by: [id number] Morphine Sulfate (Morphine Sulfate) 2 mg IV NOW STA Stop: 04/13/19 18:37 Last Admin: 04/13/19 19:20 Dose: Not Given Documented by: [id number] Oxycodone/Acetaminophen (Percocet 5mg/325mg) 1 tab PO NOW STA Stop: 04/13/19 01:49 Last Admin: 04/13/19 01:53 Dose: 1 tab Documented by: [id number] Medical Decision Making Differential Diagnosis Differential diagnosis: Etiologies such as infections, reactive airway disease, COPD, pneumonia, pleural effusion, pulmonary edema, ARDS, pneumothorax, CHF, cardiac ischemia, cardiac tamponade, dysrhythmia, anemia, pulmonary embolism, musculoskeletal, gastrointestinal process, as well as others were entertained. Medical Records Attestation: I reviewed the patient's medical records. Home Medications Current Medication List: was personally reviewed by me Laboratory Data Attestation: I reviewed the patient's lab results. Result diagrams: 04/14/19 01:41 04/14/19 01:41 Lab Results 04/13/19 04/13/19 04/13/19 Range/Units 01:07 01:07 01:07 WBC 14.29 H (4.8-10.8) K/uL RBC 4.63 L (4.7-6.1) M/uL Hgb 14.8 (14.0-18.0) g/dL Hct 44.2 (42-52) % MCV 95.5 (80-100) fL MCH 32.0 (25-34) pg MCHC 33.5 (32-36) g/dL RDW Std Deviation 47.8 H (36.4-46.3) fL RDW Coeff of Vonda 13.7 (11.5-14.5) % Plt Count 233 (130-400) K/uL MPV 10.3 (7.4-10.4) fL Immature Gran % (Auto) 0.2 % Neut % (Auto) 75.1 % Lymph % (Auto) 15.1 % [place] % (Auto) 9.4 % Eos % (Auto) 0.1 % Baso % (Auto) 0.1 % Immature Gran # (Auto) 0.03 H (0.00-0.02) K/uL Neut # (Auto) 10.72 H (1.4-6.5) K/uL Lymph # (Auto) 2.16 (1.2-3.4) K/uL [place] # (Auto) 1.35 H (0.11-0.59) K/uL Eos # (Auto) 0.01 (0-0.5) K/uL Baso # (Auto) 0.02 (0-0.2) K/uL PT 11.2 (9.0-12.0) Seconds INR 1.1 (0.9-1.1) APTT (21.0-31.0) Seconds PTT Ratio D-Dimer (0-500) ug/L FEU Sodium (136-145) mmol/L Potassium (3.5-5.1) mmol/L Chloride (98-107) mmol/L Carbon Dioxide (21-32) mmol/L Anion Gap (3-11) BUN (7-18) mg/dl Creatinine (0.6-1.4) mg/dl Est Cr Clr Drug Dosing ml/min Est GFR ( Amer) Est GFR (Non-Af Amer) BUN/Creatinine Ratio (10-20) Glucose (70-99) mg/dl POC Lactic Acid [place] (0.90-1.70) mmol/L Calcium (8.5-10.1) mg/dl Magnesium (1.8-2.4) mg/dl Total Bilirubin (0.2-1) mg/dl AST (15-37) U/L ALT (12-78) U/L Alkaline Phosphatase (45-117) U/L Troponin I (0-0.045) ng/ml NT-Pro-B Natriuret Pep (0-900) pg/ml Total Protein (6.4-8.2) gm/dl Albumin (3.4-5.0) gm/dl Globulin (2.5-4.0) gm/dl Albumin/Globulin Ratio (0.9-2) Procalcitonin < 0.05 (0-0.5) ng/ml Urine Color Urine Appearance (Clear) Urine pH (4.5-7.5) Ur Specific [place] (1.000-1.030) Urine Protein (Negative) Urine Glucose (UA) (Negative) Urine Ketones (Negative) Urine Blood (Negative) Urine Nitrite (Negative) Urine Bilirubin (Negative) Urine Urobilinogen (Negative) Ur Leukocyte Esterase (Negative) Urine WBC (Auto) (0-5) /hpf Urine RBC (Auto) (0-4) /hpf U Hyaline Cast (Auto) (0-5) /lpf U Epithel Cells (Auto) (0-5) /lpf Urine Bacteria (Auto) (Negative) Influenza Type A Ag (Neg) Influenza Type B Ag (Neg) 04/13/19 04/13/19 04/13/19 Range/Units 01:07 01:07 01:07 WBC (4.8-10.8) K/uL RBC (4.7-6.1) M/uL Hgb (14.0-18.0) g/dL Hct (42-52) % MCV (80-100) fL MCH (25-34) pg MCHC (32-36) g/dL RDW Std Deviation (36.4-46.3) fL RDW Coeff of Vonda (11.5-14.5) % Plt Count (130-400) K/uL MPV (7.4-10.4) fL Immature Gran % (Auto) % Neut % (Auto) % Lymph % (Auto) % [place] % (Auto) % Eos % (Auto) % Baso % (Auto) % Immature Gran # (Auto) (0.00-0.02) K/uL Neut # (Auto) (1.4-6.5) K/uL Lymph # (Auto) (1.2-3.4) K/uL [place] # (Auto) (0.11-0.59) K/uL Eos # (Auto) (0-0.5) K/uL Baso # (Auto) (0-0.2) K/uL PT (9.0-12.0) Seconds INR (0.9-1.1) APTT 29.7 (21.0-31.0) Seconds PTT Ratio 1.1 D-Dimer 5390 H* (0-500) ug/L FEU Sodium 138 (136-145) mmol/L Potassium 4.3 (3.5-5.1) mmol/L Chloride 104 (98-107) mmol/L Carbon Dioxide 24 (21-32) mmol/L Anion Gap 10.0 (3-11) BUN 22 H (7-18) mg/dl Creatinine 1.32 (0.6-1.4) mg/dl Est Cr Clr Drug Dosing 71.5 ml/min Est GFR ( Amer) 65.2 Est GFR (Non-Af Amer) 56.2 BUN/Creatinine Ratio 16.5 (10-20) Glucose 151 H (70-99) mg/dl POC Lactic Acid [place] (0.90-1.70) mmol/L Calcium 8.7 (8.5-10.1) mg/dl Magnesium 2.2 (1.8-2.4) mg/dl Total Bilirubin 0.8 (0.2-1) mg/dl AST 11 L (15-37) U/L ALT 26 (12-78) U/L Alkaline Phosphatase 63 (45-117) U/L Troponin I 0.026 (0-0.045) ng/ml NT-Pro-B Natriuret Pep 395 (0-900) pg/ml Total Protein 7.7 (6.4-8.2) gm/dl Albumin 3.4 (3.4-5.0) gm/dl Globulin 4.3 H (2.5-4.0) gm/dl Albumin/Globulin Ratio 0.8 L (0.9-2) Procalcitonin (0-0.5) ng/ml Urine Color Urine Appearance (Clear) Urine pH (4.5-7.5) Ur Specific [place] (1.000-1.030) Urine Protein (Negative) Urine Glucose (UA) (Negative) Urine Ketones (Negative) Urine Blood (Negative) Urine Nitrite (Negative) Urine Bilirubin (Negative) Urine Urobilinogen (Negative) Ur Leukocyte Esterase (Negative) Urine WBC (Auto) (0-5) /hpf Urine RBC (Auto) (0-4) /hpf U Hyaline Cast (Auto) (0-5) /lpf U Epithel Cells (Auto) (0-5) /lpf Urine Bacteria (Auto) (Negative) Influenza Type A Ag (Neg) Influenza Type B Ag (Neg) 04/13/19 04/13/19 04/13/19 Range/Units 01:17 02:35 02:35 WBC (4.8-10.8) K/uL RBC (4.7-6.1) M/uL Hgb (14.0-18.0) g/dL Hct (42-52) % MCV (80-100) fL MCH (25-34) pg MCHC (32-36) g/dL RDW Std Deviation (36.4-46.3) fL RDW Coeff of Vonda (11.5-14.5) % Plt Count (130-400) K/uL MPV (7.4-10.4) fL Immature Gran % (Auto) % Neut % (Auto) % Lymph % (Auto) % [place] % (Auto) % Eos % (Auto) % Baso % (Auto) % Immature Gran # (Auto) (0.00-0.02) K/uL Neut # (Auto) (1.4-6.5) K/uL Lymph # (Auto) (1.2-3.4) K/uL [place] # (Auto) (0.11-0.59) K/uL Eos # (Auto) (0-0.5) K/uL Baso # (Auto) (0-0.2) K/uL PT (9.0-12.0) Seconds INR (0.9-1.1) APTT (21.0-31.0) Seconds PTT Ratio D-Dimer (0-500) ug/L FEU Sodium (136-145) mmol/L Potassium (3.5-5.1) mmol/L Chloride (98-107) mmol/L Carbon Dioxide (21-32) mmol/L Anion Gap (3-11) BUN (7-18) mg/dl Creatinine (0.6-1.4) mg/dl Est Cr Clr Drug Dosing ml/min Est GFR ( Amer) Est GFR (Non-Af Amer) BUN/Creatinine Ratio (10-20) Glucose (70-99) mg/dl POC Lactic Acid [place] 1.43 (0.90-1.70) mmol/L Calcium (8.5-10.1) mg/dl Magnesium (1.8-2.4) mg/dl Total Bilirubin (0.2-1) mg/dl AST (15-37) U/L ALT (12-78) U/L Alkaline Phosphatase (45-117) U/L Troponin I (0-0.045) ng/ml NT-Pro-B Natriuret Pep (0-900) pg/ml Total Protein (6.4-8.2) gm/dl Albumin (3.4-5.0) gm/dl Globulin (2.5-4.0) gm/dl Albumin/Globulin Ratio (0.9-2) Procalcitonin (0-0.5) ng/ml Urine Color Yellow Urine Appearance Clear (Clear) Urine pH 5.0 (4.5-7.5) Ur Specific [place] 1.028 (1.000-1.030) Urine Protein Trace H (Negative) Urine Glucose (UA) Trace H (Negative) Urine Ketones Trace H (Negative) Urine Blood Negative (Negative) Urine Nitrite Negative (Negative) Urine Bilirubin Negative (Negative) Urine Urobilinogen Negative (Negative) Ur Leukocyte Esterase Trace H (Negative) Urine WBC (Auto) 5-10 H (0-5) /hpf Urine RBC (Auto) 0-4 (0-4) /hpf U Hyaline Cast (Auto) 1-5 (0-5) /lpf U Epithel Cells (Auto) 10-20 H (0-5) /lpf Urine Bacteria (Auto) Negative (Negative) Influenza Type A Ag Neg for Influ A (Neg) Influenza Type B Ag Neg for Influ B (Neg) Imaging Data Attestation: I personally reviewed and interpreted this imaging study as follows: My Impression: SINGLE VIEW CHEST X-RAY: No cardiomegaly. No effusions. No wide mediastinum. No focal consolidation. No acute pulmonary edema. Radiologist's Impression: Radiology results as stated below per my review and the radiologist's interpretation: CTA CHEST: Comparison: CTA chest 04/02/2018. Impression: Relatively large burden of acute central segmental/subsegmental emboli bilaterally. Mildly enlarged main pulmonary artery (2.8cm) without flattening of the interventricular septum to clearly suggest CT evidence of right heart strain. Small right lower lobe and possible lingular infarcts. No pleural effusion or pneumothorax. INCIDENTAL FINDINGS: Emphysema, bronchial wall thickening, and 6.3mm right lower lobe subpleural pulmonary nodule which is mildly increased in size when compared to prior Ct: 04/02/18 (4.9mm). Followup recommended for exclusion of neoplasm. 6mm angulated left upper lobe pulmonary nodule is new or increased in size compared to prior and may represent scarring. Neoplasm not excluded. Followup recommended. Mild cardiomegaly. Stable low-density left hepatic lobe lesion: Radiologist: Jamie Huizar MD. ECG Data Attestation: I personally reviewed and interpreted this ECG as follows: Indication: SOB/dyspnea Rate (beats per minute): 107 Rhythm: sinus tachycardia Findings: + Q waves (in 2, 3, and AVF); no acute ischemic change Additional Comments: Normal axis, normal intervals. Blood Pressure Blood Pressure Findings: Normal blood pressure Blood Pressure Disposition: did not require urgent referral MDM Narrative Pt here with persistent SOB despite recent admission for acute on chronic heart failure and diuresis. Pt was discharged earlier today and felt worse throughout the evening. Patient states his lower extremity edema was improved, however his breathing got worse despite increasing his home oxygen from 3 to 4 L/min. No improvement with patient's home nebulizer treatments. Patient stated that he noticed on his home oximeter that with any exertion his oxygen saturations were dropping to the 70s. EMS noted in route that his oxygen was in the mid 80s on 4 L/min, and appeared worse with talking. Patient's chest x-ray did not reveal acute pulmonary edema, pleural effusion, or focal infiltrate. No improvement with nebulizer treatment here. Patient's BNP and troponin were reassuring, no acute EKG changes were noted. After other work-up proved unremarkable, discussed with patient pursuing CT angiography of the chest due to elevated d- dimer. CT scan revealed PE, no evidence of right heart strain. Patient had no other clinical evidence of right heart strain remained hemodynamically stable. Patient's heart rate improved with nebulizer treatment and Lasix. Patient was made aware of all results and was in agreement with plan. No contraindications based on my bedside discussion with him to IV heparin. Impression & Plan Pulmonary embolism, COPD (chronic obstructive pulmonary disease), Lower back pain, Hypoxia, Dyspnea, Chronic respiratory failure with hypoxia, on home oxygen therapy Critical Care Time Critical Care Time: Yes Total Critical Care Time: 40 I have personally spent 40 minutes of critical care time in the direct management of this patient. This includes bedside care, interpretation of diagnostic studies, and testing, discussion with consultants, patient, and family members, and other required patient management activities. This 40 minutes is in excess of all separately billable procedures. Discharge Plan Visit Data *Final* Discharge Date/Time: 04/13/19 06:32 Chief Complaint: Shortness of Breath/Dyspnea Stated Complaint: ABDOMINAL/BACK PAIN, SHORT OF BREATH ED Provider: Alysha [place] Discharge Problem: Pulmonary embolism, COPD (chronic obstructive pulmonary disease), Lower back pain, Hypoxia, Dyspnea, Chronic respiratory failure with hypoxia, on home oxygen therapy Patient Disposition: Admitted As Inpatient Condition: Fair Discharge Instructions Interventions: ED Discharge Assessment Last Done: 04/13/19 06:32 Discharge Problem: Pulmonary embolism Qualifiers: Pulmonary embolism type: unspecified Chronicity: acute Acute cor pulmonale presence: without acute cor pulmonale Qualified Code(s): I26.99 - Other pulm onary embolism without acute cor pulmonale COPD (chronic obstructive pulmonary disease) Qualifiers: COPD type: unspecified COPD Qualified Code(s): J44.9 - Chronic obstructive pulmonary disease, unspecified Lower back pain Qualifiers: Chronicity: chronic Back pain laterality: right Sciatica presence: without sciatica Qualified Code(s): M54.5 - Low back pain Dyspnea Qualifiers: Dyspnea type: shortness of breath Qualified Code(s): R06.02 - Shortness of breath The scribe's documentation has been prepared under my direction and personally reviewed by me in its entirety. I confirm that the note above accurately reflects all work, treatment, procedures, and medical decision making performed by me.
[2019-04-13] MEDS ORDERED: Heparin BOLUS **ED Use Only IV ONE (05:05)
[2019-04-13] MEDS: HEPARIN SODIUM/DEXTROSE 25,000 UNITS/500 ML BAG IV SCH ×2 (05:13→19:52)
[2019-04-13 05:28] LABS: Partial Thromboplastin Ratio 1.1; Partial Thromboplastin Time 29.7 Seconds (21.0-31.0)
--- NOTE | 2019-04-13 06:51 | XRay Report ---
XR chest 1V portable CLINICAL HISTORY: Shortness of breath COMPARISON STUDY: 04/08/2019 FINDINGS: The heart is the upper limits of normal in size. The chest is emphysematous configuration. There is no acute parenchymal consolidation. There is no failure. There are no significant pleural ef fusions. There is minor basilar atelectasis.[ IMPRESSION: No active disease in the chest. Electronically signed by: Angel Choudhury M.D. 04/13/2019 6:49 AM
[2019-04-13] MEDS ORDERED: NITROGLYCERIN SL 0.4 MG/TAB TAB SL PRN (07:02)
[2019-04-13] MEDS ORDERED: ACETAMINOPHEN 325 MG TAB PO PRN (07:02)
[2019-04-13] MEDS ORDERED: ONDANSETRON INJ 2 MG/ML 2 ML VIAL IV PRN (07:02)
--- NOTE | 2019-04-13 07:17 | CT Scan Report ---
CHEST CTA for PULMONARY ARTERIES CT DOSE: 657.73 mGy.cm HISTORY: Shortness of breath. Pulmonary embolus. TECHNIQUE: Multiaxial CT images of the chest were performed following the intravenous administration of contrast to evaluate the pulmonary arteries. Maximal intensity projection images were also obtaine d. A dose lowering technique was utilized adhering to the principles of ALARA. COMPARISON STUDY: Chest CTA 04/02/2018. FINDINGS: Normal caliber thoracic aorta with no evidence for dissection. The heart is normal in size. No evidence for right-sided heart strain. No pleural or pericardial effusion. Multiple bilateral pul monary emboli seen throughout the majority of the left upper lobe, bilateral lower lobes, right middl e lobe, and right upper lobe. This involves the lobar and segmental arteries. A 1.5 cm hypodense lesi on within the liver favors a cyst. No mediastinal or hilar lymphadenopathy. Normal esophagus. No frac tures within the visualized osseous structures. Moderate emphysema. No pneumothorax. There is a new 6 mm nodule within the left lung apex on image 269. Wedge-shaped peripheral opacities within the right lower lobe and lingula likely represent pulmonary infarcts. Slight increase in size in a 6.7 mm righ t lower lobe pulmonary nodule on image 111. This previously measured 5.2 mm. IMPRESSION: 1. Extensive bilateral pulmonary emboli involving the majority of the lobar and segmental pulmonary a rteries. No evidence for right-sided heart strain. 2. Emphysema. 3. There are 2 subcentimeter indeterminate pulmonary nodules as described above with the largest bernice uring 6.7 mm. Please refer to the chart below for recommended follow-up. 4. Emphysema. 5. Wedge-shaped peripheral opacities within the right lower lobe and lingula likely represent pulmona ry infarcts. Please refer to below summary of Fleischner criteria recommendations for follow-up of incidental CT n odules (Chandra Billy, Guidelines for management of small pulmonary nodules detected on CT scans: A sta tement from the Fleischner Society, Radiology 237: [phone].) SOLID NODULES Solitary nodule size: <6 mm * Low risk patients: no follow-up needed * high risk patients: optional CT at 12 months Solitary nodule size: 6-8 mm * Low risk patients: follow-up at 6-12 months, then consider further follow-up at 18-24 months * high risk patients: initial follow-up CT at 6-12 months and then at 18-24 months if no change Solitary nodule size: >8 mm * either low or high risk patients - consider follow-up CT at 3 months, and/or CT-PET, and/or biopsy Multiple nodules size: <6 mm * Low risk patients: no routine follow-up * high risk patients: optional CT at 12 months Multiple nodules size: 6-8 mm * Low risk patients: follow-up at 3-6 months, then consider further follow-up at 18-24 months * high risk patients: follow-up at 3-6 months, then at 18-24 months if no change Multiple nodules size: >8 mm * Low risk patients: follow-up at 3-6 months, then consider further follow-up at 18-24 months * high risk patients: follow-up at 3-6 months, then at 18-24 months if no change Note: newly detected indeterminate nodule in persons 35 years of age or older. * Low risk patients: minimal or absent history of smoking and/or other known risk factors * high risk patients: history of smoking or of other known risk factors (e.g. first degree relative with lung cancer, or exposure to asbestos, radon, uranium) * if a nodule up to 8 mm is partly solid or is ground glass further follow-up is required after 24 m onths to exclude possible slow growing adenocarcinoma (CHADD) SUBSOLID NODULES Solitary pure ground-glass nodule * nodule size <6 mm - no CT follow-up required * nodule size >=6 mm - follow-up CT at 6-12 months, then every 2 years until 5 years Solitary part-solid nodule * nodule size <6 mm - no CT follow-up required * nodule size >=6 mm - follow-up CT at 3-6 months. If unchanged, and solid component remains <6 mm, then annual follow-up for 5 years Multiple subsolid nodules * nodule size <6 mm - follow-up CT at 3-6 months, consider further follow-up at 2 and 4 years if sta ble * nodule size >=6 mm - follow-up CT at 3-6 months, subsequent management based on the most suspiciou s nodule(s) Electronically signed by: Ronnie Kam M.D. 04/13/2019 7:16 AM
[2019-04-13] MEDS ORDERED: GLUCAGON FOR INJ 1 MG VIAL IM PRN (09:00)
[2019-04-13] MEDS ORDERED: DEXTROSE 50% 50 ML SYRINGE IV PRN (09:00)
[2019-04-13] MEDS ORDERED: TIOTROPIUM BROMIDE 5 PUFF/90 MCG INH INH SCH (09:00)
[2019-04-13] MEDS ORDERED: GLUCOSE 10 TABS/TUBE PO PRN (09:00)
[2019-04-13] MEDS ORDERED: GLUCOSE 40% GEL 15 GM TUBE PO PRN (09:00)
[2019-04-13] MEDS ORDERED: CARBOHYDRATES FOR HYPOGLYCEMIA PO PRN (09:00)
[2019-04-13] MEDS: OXYCODONE/ACETAMINOPHEN 5mg/325mg TAB PO PRN ×4 (09:01→21:27)
[2019-04-13] MEDS: METOPROLOL SUCC 50MG EXT REL TAB PO SCH (09:07)
[2019-04-13] MEDS: ASPIRIN 81 MG ECTAB PO SCH (09:07)
[2019-04-13] MEDS: BUMETANIDE 1 MG TAB PO SCH (09:08)
[2019-04-13] MEDS: FINASTERIDE 5 MG TAB PO SCH (09:08)
[2019-04-13] MEDS: PANTOprazole 40 MG TAB PO SCH (09:08)
[2019-04-13] MEDS: FLUTICASONE/SALMETEROL (ADVAIR) 500/50 INH 14 PUFF INH SCH ×2 (09:09→19:44)
[2019-04-13] MEDS: SPIRONOLACTONE 25 MG TAB PO SCH (09:09)
[2019-04-13] MEDS: TIOTROPIUM BROMIDE 5 PUFF/90 MCG INH INH SCH (09:10)
[2019-04-13] MEDS: INSULIN HUMAN 70% NPH/30% REGULAR SQ SCH ×2 (09:15→17:27)
[2019-04-13] MEDS: INSULIN ASPART 100 UNITS/ML 3 ML PEN SC SCH ×4 (10:14→20:16)
--- NOTE | 2019-04-13 10:47 | History and Physical Report ---
DATE OF ADMISSION: 04/13/2019 CHIEF COMPLAINT: Shortness of breath, hypoxia. HISTORY OF PRESENT ILLNESS: This is a 63-year-old male with past medical history significant for chronic systolic and diastolic CHF, EF of 40-45%, COPD, CAD status post stent, chronic respiratory failure requiring 2 liters oxygen at rest and 4 liters at activities, history of peripheral vascular disease, history of type 2 diabetes, chronic back pain, presents with shortness of breath. The patient was recently in the hospital for CHF, treated with IV diuretics, Aldactone wad added.Also seen by pulmonary. Pulmonary added Juan Antonio, , supposed to follow up with pulmonary for PFTs and also sleep study,.Discharged on 04/11/2019, to home. At home the patient is getting short of breath on exertion, even walking a few steps making short of breath, even at 4 liters of oxygen, his oxygen saturation was only 70%, so he came back to the ER. In the ER, his chest x-ray was okay, but CT chest showed pulmonary embolism. We will wait for the official report, but there seemed to be no heart strain on the CAT scan. Troponin is negative. Currently, he also given IV Lasix in ER. He is micturating okay now. Says at home his urine out put was slowing down. He has had some chest discomfort at left lower rib cage radiating to right flank region. But the pain is improved now. Has chronic back pain. Has cough with brownish phlegm, but was also had during last admission. Denies any headache, no dizziness, no blurred vision, no earache, no runny nose. Appetite is okay. Has edema in lower extremities. ALLERGIES: CEFTRIAXONE, ZOSYN, STATINS, IODINATED CONTRAST AGENT MEDIA, MORPHINE. PAST MEDICAL HISTORY: As above. PAST SURGICAL HISTORY: History of cardiac catheterization. FAMILY HISTORY: Significant for lung disease. SOCIAL HISTORY: Lives with his . Former smoker. No alcohol use, no drug use. MEDICATIONS: The patient was discharged on lisinopril 2.5 mg p.o. daily, spironolactone 25 mg p.o. daily, Spiriva Respimat 2 puffs inhalation daily, Topamax 100 mg p.o. a.m., aspirin 81 mg p.o. a.m., NovoLog 70/30, 33 units b.i.d., albuterol 2 puffs inhalation q.4 hours p.r.n., metformin 1000 mg p.o. a.m., Percocet 5/325 mg one tablet p.o. q.4 hours p.r.n., cyclobenzaprine 10 mg p.o. at bedtime p.r.n., Protonix 40 mg p.o. daily, fluticasone salmeterol 500/50 mcg one inhalation daily, finasteride 5 mg p.o. daily, Bumex 1 mg p.o. daily. REVIEW OF SYMPTOMS: As per HPI. Rest of review of systems negative. PHYSICAL EXAMINATION: GENERAL: The patient is alert and oriented, not in acute distress. VITAL SIGNS: Temperature 37.2, pulse 90, respiratory rate 16, blood pressure 126/94, oxygen 94% on 4 liters. Oxygen 87% when he came in. HEENT: No pallor, no icterus. Pupils equal, round, reactive to light. NECK: No JVD, no neck masses, no carotid bruits. CARDIOVASCULAR: S1, S2 heard, regular rate and rhythm, no murmur, no gallop. RESPIRATORY SYSTEM: Normal AP diameter. No accessory muscle use. Bibasilar diminished breath sounds. No wheezing, no crackles. ABDOMEN: Soft, bowel sounds present, nontender. No distention. CENTRAL NERVOUS SYSTEM: Cranial nerves II-XII grossly nonfocal. EXTREMITIES: Bilateral lower extremity edema present. No erythema seen. LABORATORIES DATA: WBC 14.2, hemoglobin 14.8, hematocrit 44.2, platelets 233. PT 11.2, INR 1.1, APTT 29.70. D-dimer 5390. Sodium 138, potassium 4.3, chloride 105, bicarbonate 24, BUN 22, creatinine 1.3, serum glucose 151. Point of lactic acid 1.4, calcium 8.7, magnesium 2.2, total bilirubin 0.8, AST 11, ALT 26, alkaline phosphatase 60, troponin I 0.026. BNP 395. Procalcitonin less than 0.005. Urinalysis, trace leukocyte esterase. Influenza A and B negative. Chest x-ray, no acute findings. EKG: Sinus tachycardia, rate of 107, no significant change from previous EKG. IMAGING: CT of the chest, PE, official read pending. ASSESSMENT AND PLAN: This is a 63-year-old male who presents with shortness of breath, hypoxia at home. 1. Shortness of breath and hypoxia, saturating only 70% on ambulation at home even on oxygen supplementation. 2. Acute on chronic respiratory failure, acute pulmonary embolism. We will follow the official report. We will continue IV heparin, may need to follow the hemo/onco on discharge for duration of anticoagulation If any concerns for right heart strain will do echocardiogram, Hasd it few days back during last admission. 3. Chronic systolic congestive heart failure, ejection fraction of 40-45%. Received a dose of IV Lasix in the ER. Will continue home Bumex and spironolactone. Follow I's and O's, daily weights. 4. History of chronic obstructive pulmonary disease. Continue home inhalers. Follow up with pulmonology. 5. Obesity, needs sleep study as outpatient. 6. Hypertension. Continue lisinopril 2.5 mg, Toprol-XL and diuretics. We will monitor the blood pressure. 7. CAD .On aspirin and B clarita. Allergic statins . Will monitor 7. Diabetes. Hold metformin. Continue his home NovoLog 70/30. ISS. will Monitor 8. Chronic low back pain. Continuous home pain medications. 9. Deep venous thrombosis prophylaxis, started on IV heparin. DISPOSITION: Admit to tele floor. Expect to discharge home and follow with family doctor. PT and OT prior to discharge. Social Service to help with discharge planning. Level 1 full code. MTDD
[2019-04-13] MEDS ORDERED: Nursing to Pharmacy Communication ONE (11:33)
[2019-04-13 12:17] LABS: Partial Thromboplastin Ratio 3.1
[2019-04-13 12:20] LABS: Partial Thromboplastin Time 83.6 Seconds (21.0-31.0)
--- NOTE | 2019-04-13 14:59 | Hospitalist Progress Note ---
Date of Service April 13, 2019 Assessment & Plan (1) Pulmonary embolism: Bilateral PE Hemodynamically stable No evidence of right heart strain on CT PE Troponin is 0.02 BNP is 395 from 1174 five days ago Currently on heparin drip (2) Thrombosis of left popliteal vein: Doppler of LE done showed acute Left popliteal thrombus Already on heparin drip for PE (3) Chronic systolic heart failure: Continue home diuretics Continue metoprolol xl, lisinopril and spironolactone (4) HTN (hypertension): Hemodynamically stable Monitor BP on antihypertensives (5) COPD (chronic obstructive pulmonary disease): Continue oxygen at 4l/min Continue nebs (6) T2DM (type 2 diabetes mellitus): Optimize glycemic control Continue insulin regimen and carb controlled diet (7) CAD (coronary artery disease): Cont aspirin Reported allergy to statin Subjective Had worsening shortness of breath after being discharged home 2 days ago even on 4L/min, He also reports brownish sputum. Denied any fevers, chills, nausea or vomiting Reports mild pleuritic chest pain Denied any leg pains or worsening of chronic leg swelling. Reports adherence to meds since discharge Review of Systems Review of Systems: All systems reviewed and unremarkable except for mentioned above. Physical Exam Constitutional: + well hydrated and + obese; no acute distress Eyes: PERRL, conjunctivae normal, anicteric sclerae ENMT: external ear and nose normal, oropharynx normal Respiratory: normal respiratory effort, lungs clear to auscultation normal respiratory effort; no respiratory distress Auscultation: no crackles Reduced breath sounds inferior lung zone posteriorly Cardiovascular: Rate/Rhythm: regular rate and regular rhythm Extremities: + pedal edema S1 and S2 Gastrointestinal (Abdomen): normal bowel sounds, soft, nontender, no hepatosplenomegaly Neurologic: PERRL, EOMI, accommodation nl, no face palsy, no dysarthria Psychiatric: A+Ox3, euthymic affect Results & Data Vital Signs (Past 12 Hours) Vital Signs Temp Pulse Pulse Resp BP Pulse Ox 04/13/19 11:59 36.7 C 91 H 18 126/76 94 04/13/19 08:00 92 H 04/13/19 06:43 36.7 C 99 H 24 143/88 H 90 04/13/19 06:28 36.8 C 83 16 128/84 94 04/13/19 05:15 90 16 126/94 94 04/13/19 04:05 102 H 20 118/67 92 04/13/19 03:01 116 H 16 Laboratory Results Laboratory Results - last 24 hr 04/13/19 04/13/19 04/13/19 01:07 01:07 01:07 WBC 14.29 H RBC 4.63 L Hgb 14.8 Hct 44.2 MCV 95.5 MCH 32.0 MCHC 33.5 RDW Std Deviation 47.8 H RDW Coeff of Vonda 13.7 Plt Count 233 MPV 10.3 Immature Gran % (Auto) 0.2 Neut % (Auto) 75.1 Lymph % (Auto) 15.1 [place] % (Auto) 9.4 Eos % (Auto) 0.1 Baso % (Auto) 0.1 Immature Gran # (Auto) 0.03 H Neut # (Auto) 10.72 H Lymph # (Auto) 2.16 [place] # (Auto) 1.35 H Eos # (Auto) 0.01 Baso # (Auto) 0.02 PT 11.2 INR 1.1 APTT PTT Ratio D-Dimer Sodium Potassium Chloride Carbon Dioxide Anion Gap BUN Creatinine Est Cr Clr Drug Dosing Est GFR ( Amer) Est GFR (Non-Af Amer) BUN/Creatinine Ratio Glucose POC Glucose POC Lactic Acid [place] Calcium Magnesium Total Bilirubin AST ALT Alkaline Phosphatase Troponin I NT-Pro-B Natriuret Pep Total Protein Albumin Globulin Albumin/Globulin Ratio Procalcitonin < 0.05 Urine Color Urine Appearance Urine pH Ur Specific Steele Urine Protein Urine Glucose (UA) Urine Ketones Urine Blood Urine Nitrite Urine Bilirubin Urine Urobilinogen Ur Leukocyte Esterase Urine WBC (Auto) Urine RBC (Auto) U Hyaline Cast (Auto) U Epithel Cells (Auto) Urine Bacteria (Auto) Influenza Type A Ag Influenza Type B Ag 04/13/19 04/13/19 04/13/19 01:07 01:07 01:07 WBC RBC Hgb Hct MCV MCH MCHC RDW Std Deviation RDW Coeff of Vonda Plt Count MPV Immature Gran % (Auto) Neut % (Auto) Lymph % (Auto) [place] % (Auto) Eos % (Auto) Baso % (Auto) Immature Gran # (Auto) Neut # (Auto) Lymph # (Auto) [place] # (Auto) Eos # (Auto) Baso # (Auto) PT INR APTT 29.7 PTT Ratio 1.1 D-Dimer 5390 H* Sodium 138 Potassium 4.3 Chloride 104 Carbon Dioxide 24 Anion Gap 10.0 BUN 22 H Creatinine 1.32 Est Cr Clr Drug Dosing 71.5 Est GFR ( Amer) 65.2 Est GFR (Non-Af Amer) 56.2 BUN/Creatinine Ratio 16.5 Glucose 151 H POC Glucose POC Lactic Acid [place] Calcium 8.7 Magnesium 2.2 Total Bilirubin 0.8 AST 11 L ALT 26 Alkaline Phosphatase 63 Troponin I 0.026 NT-Pro-B Natriuret Pep 395 Total Protein 7.7 Albumin 3.4 Globulin 4.3 H Albumin/Globulin Ratio 0.8 L Procalcitonin Urine Color Urine Appearance Urine pH Ur Specific [place] Urine Protein Urine Glucose (UA) Urine Ketones Urine Blood Urine Nitrite Urine Bilirubin Urine Urobilinogen Ur Leukocyte Esterase Urine WBC (Auto) Urine RBC (Auto) U Hyaline Cast (Auto) U Epithel Cells (Auto) Urine Bacteria (Auto) Influenza Type A Ag Influenza Type B Ag 04/13/19 04/13/19 04/13/19 01:17 02:35 02:35 WBC RBC Hgb Hct MCV MCH MCHC RDW Std Deviation RDW Coeff of Vonda Plt Count MPV Immature Gran % (Auto) Neut % (Auto) Lymph % (Auto) [place] % (Auto) Eos % (Auto) Baso % (Auto) Immature Gran # (Auto) Neut # (Auto) Lymph # (Auto) [place] # (Auto) Eos # (Auto) Baso # (Auto) PT INR APTT PTT Ratio D-Dimer Sodium Potassium Chloride Carbon Dioxide Anion Gap BUN Creatinine Est Cr Clr Drug Dosing Est GFR ( Amer) Est GFR (Non-Af Amer) BUN/Creatinine Ratio Glucose POC Glucose POC Lactic Acid [place] 1.43 Calcium Magnesium Total Bilirubin AST ALT Alkaline Phosphatase Troponin I NT-Pro-B Natriuret Pep Total Protein Albumin Globulin Albumin/Globulin Ratio Procalcitonin Urine Color Yellow Urine Appearance Clear Urine pH 5.0 Ur Specific [place] 1.028 Urine Protein Trace H Urine Glucose (UA) Trace H Urine Ketones Trace H Urine Blood Negative Urine Nitrite Negative Urine Bilirubin Negative Urine Urobilinogen Negative Ur Leukocyte Esterase Trace H Urine WBC (Auto) 5-10 H Urine RBC (Auto) 0-4 U Hyaline Cast (Auto) 1-5 U Epithel Cells (Auto) 10-20 H Urine Bacteria (Auto) Negative Influenza Type A Ag Neg for Influ A Influenza Type B Ag Neg for Influ B 04/13/19 04/13/19 04/13/19 08:08 11:11 11:28 WBC RBC Hgb Hct MCV MCH MCHC RDW Std Deviation RDW Coeff of Vonda Plt Count MPV Immature Gran % (Auto) Neut % (Auto) Lymph % (Auto) [place] % (Auto) Eos % (Auto) Baso % (Auto) Immature Gran # (Auto) Neut # (Auto) Lymph # (Auto) [place] # (Auto) Eos # (Auto) Baso # (Auto) PT INR APTT 83.6 H* PTT Ratio 3.1 D-Dimer Sodium Potassium Chloride Carbon Dioxide Anion Gap BUN Creatinine Est Cr Clr Drug Dosing Est GFR ( Amer) Est GFR (Non-Af Amer) BUN/Creatinine Ratio Glucose POC Glucose 243 H 305 H* POC Lactic Acid [place] Calcium Magnesium Total Bilirubin AST ALT Alkaline Phosphatase Troponin I NT-Pro-B Natriuret Pep Total Protein Albumin Globulin Albumin/Globulin Ratio Procalcitonin Urine Color Urine Appearance Urine pH Ur Specific [place] Urine Protein Urine Glucose (UA) Urine Ketones Urine Blood Urine Nitrite Urine Bilirubin Urine Urobilinogen Ur Leukocyte Esterase Urine WBC (Auto) Urine RBC (Auto) U Hyaline Cast (Auto) U Epithel Cells (Auto) Urine Bacteria (Auto) Influenza Type A Ag Influenza Type B Ag 04/13/19 04/13/19 12:27 13:44 WBC RBC Hgb Hct MCV MCH MCHC RDW Std Deviation RDW Coeff of Vonda Plt Count MPV Immature Gran % (Auto) Neut % (Auto) Lymph % (Auto) [place] % (Auto) Eos % (Auto) Baso % (Auto) Immature Gran # (Auto) Neut # (Auto) Lymph # (Auto) [place] # (Auto) Eos # (Auto) Baso # (Auto) PT INR APTT PTT Ratio D-Dimer Sodium Potassium Chloride Carbon Dioxide Anion Gap BUN Creatinine Est Cr Clr Drug Dosing Est GFR ( Amer) Est GFR (Non-Af Amer) BUN/Creatinine Ratio Glucose POC Glucose 318 H* 288 H POC Lactic Acid [place] Calcium Magnesium Total Bilirubin AST ALT Alkaline Phosphatase Troponin I NT-Pro-B Natriuret Pep Total Protein Albumin Globulin Albumin/Globulin Ratio Procalcitonin Urine Color Urine Appearance Urine pH Ur Specific [place] Urine Protein Urine Glucose (UA) Urine Ketones Urine Blood Urine Nitrite Urine Bilirubin Urine Urobilinogen Ur Leukocyte Esterase Urine WBC (Auto) Urine RBC (Auto) U Hyaline Cast (Auto) U Epithel Cells (Auto) Urine Bacteria (Auto) Influenza Type A Ag Influenza Type B Ag Diagnostic Findings CT PE 1. Extensive bilateral pulmonary emboli involving the majority of the lobar and segmental pulmonary arteries. No evidence for right-sided heart strain. 2. Emphysema. 3. There are 2 subcentimeter indeterminate pulmonary nodules as described above with the largest measuring 6.7 mm. Please refer to the chart below for recommended follow-up. 4. Emphysema. 5. Wedge-shaped peripheral opacities within the right lower lobe and lingula likely represent pulmonary infarcts. Doppler b/l LE 1. Small focal partially occlusive thrombus of the left popliteal vein is age- indeterminate however appears to be new from 03/08/2019. 2. No sonographic evidence of right-sided deep venous thrombosis. (1) Pulmonary embolism Acute cor pulmonale presence: without acute cor pulmonale Chronicity: acute Pulmonary embolism type: unspecified Qualified Code(s): I26.99 - Other pulmonary embolism without acute cor pulmonale (2) COPD (chronic obstructive pulmonary disease) COPD type: unspecified COPD Qualified Code(s): J44.9 - Chronic obstructive pulmonary disease, unspecified
--- NOTE | 2019-04-13 15:05 | Ultrasound Report ---
BILATERAL LOWER EXTREMITY VENOUS DOPPLER HISTORY: Acute pulmonary emboli. Screening study for possible source. Acute PE COMPARISON STUDY: CTA of the chest of same day, duplex venous Doppler study 03/08/2019. FINDINGS: There is slow flow noted within the lower extremity. Peroneal veins are suboptimal the visu alized on the right. No evidence of right-sided deep venous thrombosis. Partially occlusive focal sma ll thrombus involves the left popliteal vein. No additional deep venous thrombi identified about the left lower extremity. IMPRESSION: 1. Small focal partially occlusive thrombus of the left popliteal vein is age-indeterminate however a ppears to be new from 03/08/2019. 2. No sonographic evidence of right-sided deep venous thrombosis. Electronically signed by: Anderson Miguel M.D. 04/13/2019 3:04 PM
[2019-04-13] MEDS ORDERED: MoRPHine SULFATE 2 MG/ML CARP IV STA (18:36)
[2019-04-13] MEDS ORDERED: HYDROmorphone INJ 0.5 MG/0.5 ML SYR IV STA ×2 (18:39→23:21)
[2019-04-13 19:31] LABS: Partial Thromboplastin Ratio 1.6; Partial Thromboplastin Time 44.4 Seconds (21.0-31.0)
[2019-04-13] MEDS ORDERED: HEPARIN IV BOLUS 4,000 UNITS in SYRINGE 0 ML IV ONE (19:37)
[2019-04-13] MEDS ORDERED: COUGH DROP (SUGAR FREE) LOZ 24 LOZ/1 BOX BUCCAL ONE (22:00)
[2019-04-14] MEDS: OXYCODONE/ACETAMINOPHEN 5mg/325mg TAB PO PRN ×6 (01:29→21:27)
[2019-04-14 01:55] LABS: Basophils # (auto) 0.02 K/uL (0-0.2); Basophils % (auto) 0.1 %; Hematocrit (blood only) 43.6 % (42-52); Hemoglobin 15.1 g/dL (14.0-18.0); Immature Granulocytes # (auto) 0.07 K/uL (0.00-0.02); Immature Granulocytes % (auto) 0.4 %; Lymphocytes # (auto) 3.44 K/uL (1.2-3.4); Mean Corpuscular Hemoglobin 33.3 pg (25-34); Mean Corpuscular Hgb Conc 34.6 g/dL (32-36); Mean Platelet Volume 9.6 fL (7.4-10.4); Monocytes # (auto) 1.92 K/uL (0.11-0.59); Monocytes % (auto) 10.1 %; Neutrophils # (auto) 13.64 K/uL (1.4-6.5); Neutrophils % (auto) 71.4 %; Platelet Count 233 K/uL (130-400); RDW Coefficient of Variation 13.8 % (11.5-14.5); RDW Standard Deviation 48.4 fL (36.4-46.3); Red Blood Count 4.54 M/uL (4.7-6.1); White Blood Count 19.09 K/uL (4.8-10.8)
[2019-04-14 02:17] LABS: BUN Creatinine Ratio 16.5 (10-20); Calcium 8.8 mg/dl (8.5-10.1); Creatinine Clr Calc Pharmacy 52.9 ml/min; Est GFR (African American) 45.4; Est GFR (Non-African American) 39.2; Magnesium 2.3 mg/dl (1.8-2.4)
[2019-04-14 02:18] LABS: Partial Thromboplastin Ratio 2.1
[2019-04-14 02:23] LABS: Partial Thromboplastin Time 57.5 Seconds (21.0-31.0)
[2019-04-14] MEDS ORDERED: KETOROLAC 30 MG/ML VIAL ONE (04:46)
[2019-04-14] MEDS ORDERED: KETOROLAC 30 MG/ML VIAL IV ONE (05:00)
[2019-04-14] MEDS: INSULIN HUMAN 70% NPH/30% REGULAR SQ SCH ×2 (07:43→17:18)
[2019-04-14] MEDS: INSULIN ASPART 100 UNITS/ML 3 ML PEN SC SCH ×4 (07:43→22:04)
[2019-04-14] MEDS: FLUTICASONE/SALMETEROL (ADVAIR) 500/50 INH 14 PUFF INH SCH ×2 (07:44→21:20)
[2019-04-14] MEDS: FINASTERIDE 5 MG TAB PO SCH (07:44)
[2019-04-14] MEDS: SPIRONOLACTONE 25 MG TAB PO SCH (07:44)
[2019-04-14] MEDS: PANTOprazole 40 MG TAB PO SCH (07:44)
[2019-04-14] MEDS: ASPIRIN 81 MG ECTAB PO SCH (07:44)
[2019-04-14] MEDS: METOPROLOL SUCC 50MG EXT REL TAB PO SCH (07:44)
[2019-04-14] MEDS: BUMETANIDE 1 MG TAB PO SCH (07:44)
[2019-04-14] MEDS: TIOTROPIUM BROMIDE 5 PUFF/90 MCG INH INH SCH (07:45)
--- NOTE | 2019-04-14 10:17 | Ultrasound Report ---
ULTRASOUND KIDNEYS AND BLADDER CLINICAL HISTORY: Acute renal insufficiency. COMPARISON STUDY: No priors. TECHNIQUE: Real-time, grayscale, and color flow sonography of the kidneys and bladder is performed. I mages are reviewed in the transverse and longitudinal planes. FINDINGS: Kidneys: The kidneys are normal in size and echotexture. The right kidney measures 11.0 x 4.6 x 4.8 c m and the left kidney measures 12.2 x 5.4 x 4.4 cm. There is no hydronephrosis. No shadowing renal c alculi are identified. A 1.7 cm cyst is noted in the left upper pole. There is no sonographic evidenc e of contour deforming renal mass lesion. No perinephric fluid is identified. Bladder: The bladder is normal in appearance. Bilateral ureteral jets were seen. Upper abdomen: Survey images of the liver show evidence of steatosis. IMPRESSION: 1. The kidneys are normal in size and without hydronephrosis. 2. The bladder is normal as imaged. 3. Hepatic steatosis. Electronically signed by: Guy Seaman M.D. 04/14/2019 10:15 AM
[2019-04-14] MEDS: HEPARIN SODIUM/DEXTROSE 25,000 UNITS/500 ML BAG IV SCH ×2 (11:15→23:55)
[2019-04-14] MEDS: DOXYCYCLINE HYCLATE 100 MG CAP PO SCH ×2 (11:38→21:20)
[2019-04-14] MEDS: ALBUTEROL HFA 8 GM INHALER INH PRN ×3 (13:44→20:59)
--- NOTE | 2019-04-14 15:58 | Hospitalist Progress Note ---
Date of Service April 14, 2019 Assessment & Plan (1) Pulmonary embolism: Bilateral PE Acute on Chronic respiratory failure Acute Left LE DVT Possible Pulmonary Infarcts --CTA:Extensive bilateral pulmonary emboli involving the majority of the lobar and segmental pulmonary arteries. No evidence for right-sided heart strain. Emphysema. There are 2 subcentimeter indeterminate pulmonary nodules as described above with the largest measuring 6.7 mm. Please refer to the chart below for recommended follow-up. Emphysema. Wedge-shaped peripheral opacities within the right lower lobe and lingula likely represent pulmonary infarcts. --Continue IV Heparin --Started on Coumadin today --Monitor INR --Check ECHO as recommended by Pulmnology as respiratory failure worsening --Continue Supplemental oxygen as needed Possible Bronchitis Ongoing cough with expectoration since 2 weeks No consolidation in imaging studies Started on Doxycycline (2) Thrombosis of left popliteal vein: on Heparin and coumadin (3) Chronic systolic heart failure: Home diuretics held due to CL[place] Continue metoprolol Hold lisinopril due to [place] H/O intolerance to lisinopril Monitor volume status (4) HTN (hypertension): BP stable Continue current meds Monitor (5) COPD (chronic obstructive pulmonary disease): Continue supplemental oxygen--4 liters at baseline Continue home inhalers Nebs PRN (6) T2DM (type 2 diabetes mellitus): Continue ISS Monitor BGs (7) CAD (coronary artery disease): Continue aspirin, metoprolol Reported allergy to statin DVT Px: On IV Heparin, coumadin Code Status Full Code Subjective Patient is seen and examined at bedside Complains of cough with yellowish expectoration since 2 weeks duration States pleuritic chest pain has improved Still has SOB On IV Heparin ggt Denies any bleeding issues Review of Systems Review of Systems: All systems reviewed & are unremarkable except as noted in HPI & below Physical Exam Physical Exam: Physical Exam: Vitals signs as noted above General Appearance:Moderately built and nourished, no apparent distress Head: normocephalic, Atraumatic Eyes: normal inspection, EOMI Neck: supple, Trachea midline Respiratory/Chest: Decreased breath sounds, CTA Cardiovascular: S1, S2, No murmur Abdomen/GI:Soft, Non tender, Bowel sounds present Extremities/Musculoskelatal:normal inspection, B/L LE edema Neurologic/Psych:AAOX3, grossly no focal neurological deficits Skin: normal color, warm Results & Data Vital Signs (Past 12 Hours) Vital Signs Temp Pulse Pulse Resp BP Pulse Ox 04/14/19 15:53 84 L 04/14/19 15:37 36.8 C 93 H 18 114/76 93 04/14/19 12:12 36.8 C 91 H 27 H 124/80 93 04/14/19 07:35 36.6 C 80 20 117/79 93 04/14/19 04:20 36.9 C 105 H 22 124/74 91 Laboratory Results Short CBC 04/14/19 Range/Units 01:41 WBC 19.09 H (4.8-10.8) K/uL Hgb 15.1 (14.0-18.0) g/dL Hct 43.6 (42-52) % Plt Count 233 (130-400) K/uL BMP 04/14/19 01:41 Sodium 136 Potassium 4.0 Chloride 99 Carbon Dioxide 28 BUN 29 H Creatinine 1.78 H D Glucose 110 H Calcium 8.8 (1) COPD (chronic obstructive pulmonary disease) COPD type: unspecified COPD Qualified Code(s): J44.9 - Chronic obstructive pulmonary disease, unspecified (2) Pulmonary embolism Acute cor pulmonale presence: without acute cor pulmonale Chronicity: acute Pulmonary embolism type: unspecified Qualified Code(s): I26.99 - Other pulmon johana embolism without acute cor pulmonale
[2019-04-14] MEDS: ALBUT/IPRATROP 3MG/0.5MG NEB 3 ML VIAL NEB PRN (16:36)
--- NOTE | 2019-04-14 17:01 | XRay Report ---
XR chest 1V portable CLINICAL HISTORY: 63 years-old Male presenting with SOB. TECHNIQUE: Portable upright AP view of the chest was obtained. COMPARISON: 04/13/2019. FINDINGS: Atherosclerosis of the aortic arch. Cardiac silhouette enlarged. Minimal opacity in the lingula. The presence of peripheral opacities in the right lower lobe not well demonstrated on this study. No larg e effusion or pneumothorax. Osseous structures normal. External leads project over the right lower veronica ng. IMPRESSION: 1. Minimal lingular opacity likely course correlates with the infiltrate on CT suspected to be a pul monary infarct. Right lower lobe infarcts not as well demonstrated. 2. Cardiomegaly. Electronically signed by: Devon English M.D. 04/14/2019 5:00 PM
[2019-04-14] MEDS: WARFARIN SOD 7.5 MG TAB PO SCH (17:16)
[2019-04-14] MEDS ORDERED: LORazepam 0.5 MG/1 ML VIAL IV STA (20:18)
[2019-04-14] MEDS ORDERED: XOPENEX/ATROVENT 1.25mg/0.5MG NEB COMBO NEB STA (20:46)
[2019-04-14] MEDS ORDERED: IPRATROPIUM BROMIDE NEB SOLN 0.02% 2.5 ML VIAL INH STA (20:49)
[2019-04-14] MEDS ORDERED: LEVALBUTEROL 1.25MG/0.5ML NEB INH STA (20:50)
[2019-04-14] MEDS ORDERED: methylPREDNISolone 40 MG in SYRINGE 0 ML IV ONE (21:00)
--- NOTE | 2019-04-14 21:03 | XRay Report ---
XR chest 1V portable HISTORY: Short is of breath. COMPARISON: Chest 04/14/2019. FINDINGS: No pneumothorax. Bibasilar densities persist. No pleural effusions. The heart remains mildl y enlarged. No evidence for pulmonary edema. Linear scarlike density within the right upper lobe is a lso unchanged. IMPRESSION: 1. Bibasilar densities remain unchanged and likely represent the patient's pulmonary infarcts which a re better appreciated on the recent chest CT. 2. No new focal lung consolidations. Electronically signed by: Ronnie Kam M.D. 04/14/2019 9:02 PM
[2019-04-14] MEDS ORDERED: DOXYCYCLINE HYCLATE 100 MG in DEXTROSE 5% 100 ML IV STA (21:12)
--- NOTE | 2019-04-14 21:13 | Hospitalist Progress Note ---
Date of Service April 14, 2019 Subjective Made aware and of worsening respiratory distress. Cough productive of junky sputum. Denies aspiration. Pleuritic/stabbing chest discomfort. Chest x-ray: Bibasilar densities remain unchanged and likely represent the patient's pulmonary infarcts which are better appreciated on the recent chest CT. 2. No new focal lung consolidations. AP Acute on chronic hypoxemic respiratory failure secondary to COPD exacerbation History pulmonary embolism ongoing anticoagulation Supplemental O2 Baseline ABG Steroid course, [id number] inhaler (patient refusing nebs) Continue doxycycline Will relay to AM provider. Results & Data Vital Signs (Past 12 Hours) Vital Signs Temp Pulse Pulse Resp BP Pulse Ox 04/14/19 20:41 36.6 C 103 H 24 117/75 96 04/14/19 18:56 36.7 C 100 H 22 120/76 95 04/14/19 16:36 103 H 20 94 04/14/19 16:00 90 04/14/19 15:56 89 24 129/85 91 04/14/19 15:53 84 L 04/14/19 15:37 36.8 C 93 H 18 114/76 93 04/14/19 12:12 36.8 C 91 H 27 H 124/80 93
[2019-04-14] MEDS ORDERED: TRAMADOL HCL 50 MG TABLET PO PRN (21:22)
[2019-04-14 21:26] LABS: Basophils # (auto) 0.03 K/uL (0-0.2); Basophils % (auto) 0.2 %; Hematocrit (blood only) 41.3 % (42-52); Immature Granulocytes # (auto) 0.02 K/uL (0.00-0.02); Immature Granulocytes % (auto) 0.1 %; Lymphocytes # (auto) 2.11 K/uL (1.2-3.4); Lymphocytes % (auto) 15.7 %; Mean Corpuscular Hemoglobin 32.2 pg (25-34); Mean Corpuscular Hgb Conc 33.9 g/dL (32-36); Mean Corpuscular Volume 94.9 fL (80-100); Monocytes # (auto) 1.33 K/uL (0.11-0.59); Monocytes % (auto) 9.9 %; Neutrophils # (auto) 9.94 K/uL (1.4-6.5); Neutrophils % (auto) 74.1 %; Platelet Count 227 K/uL (130-400); RDW Coefficient of Variation 13.7 % (11.5-14.5); RDW Standard Deviation 47.5 fL (36.4-46.3); Red Blood Count 4.35 M/uL (4.7-6.1); White Blood Count 13.43 K/uL (4.8-10.8)
[2019-04-14 21:29] LABS: Base Excess ABG 1.6 mEq/L (-9-1.8); HCO3 ABG 26 mmol/L (19-24); Oxygen Saturation ABG 95.7 % (90-95); PCO2 ABG 39 mmHg (35-46); PO2 ABG 75 mm/Hg (80-95); pH ABG 7.44 (7.35-7.45)
[2019-04-14 21:30] LABS: Allen Test POS (Pos)
[2019-04-14 21:42] LABS: Alanine Aminotransferase 22 U/L (12-78); Albumin Level 3.1 gm/dl (3.4-5.0); Aspartate Aminotransferase 8 U/L (15-37); BUN Creatinine Ratio 21.9 (10-20); Bilirubin Direct 0.3 mg/dl (0-0.2); Blood Urea Nitrogen 32 mg/dl (7-18); Calcium 8.7 mg/dl (8.5-10.1); Carbon Dioxide 25 mmol/L (21-32); Chloride 101 mmol/L (98-107); Creatinine Clr Calc Pharmacy 64.4 ml/min; Est GFR (African American) 57.7; Est GFR (Non-African American) 49.8; Glucose 91 mg/dl (70-99); Lipase 81 U/L (73-393); Magnesium 2.2 mg/dl (1.8-2.4); Potassium 3.7 mmol/L (3.5-5.1); Sodium 134 mmol/L (136-145)
[2019-04-14 21:45] LABS: Alkaline Phosphatase 58 U/L (45-117); Bilirubin,Total 1.1 mg/dl (0.2-1); Total Protein 7.6 gm/dl (6.4-8.2)
[2019-04-14 22:10] LABS: Partial Thromboplastin Ratio 1.5; Partial Thromboplastin Time 40.2 Seconds (21.0-31.0)
[2019-04-14 22:17] LABS: Troponin I < 0.015 ng/ml (0-0.045)
[2019-04-14] MEDS ORDERED: HEPARIN SOD (PORCINE) 1000 UNIT/ML 10 ML VIAL IV ONE (22:50)
[2019-04-14] MEDS ORDERED: SODIUM CHLORIDE 0.9% 500 ML IV ONE (23:08)
[2019-04-14] MEDS ORDERED: POTASSIUM CHLORIDE 20 MEQ TABCR PO STA (23:08)
[2019-04-14] MEDS ORDERED: HEPARIN IV BOLUS 7,000 UNITS in SYRINGE 0 ML IV ONE (23:15)
[2019-04-14] MEDS ORDERED: LORazepam 0.25 MG/0.5 ML VIAL IV PRN (23:32)
[2019-04-15] MEDS: HYDROmorphone INJ 0.5 MG/0.5 ML SYR IV PRN (00:23)
[2019-04-15] MEDS: LEVALBUTEROL TARTRATE 15 GM HFA.AER.AD INH SCH ×4 (04:52→20:52)
[2019-04-15] MEDS: IPRATROPIUM BROMIDE HFA INHALER INH SCH ×4 (04:52→17:25)
[2019-04-15 05:59] LABS: Basophils # (auto) 0.01 K/uL (0-0.2); Basophils % (auto) 0.1 %; Hematocrit (blood only) 40.2 % (42-52); Hemoglobin 13.3 g/dL (14.0-18.0); Immature Granulocytes # (auto) 0.04 K/uL (0.00-0.02); Immature Granulocytes % (auto) 0.4 %; Lymphocytes # (auto) 1.11 K/uL (1.2-3.4); Lymphocytes % (auto) 9.8 %; Mean Corpuscular Hemoglobin 31.9 pg (25-34); Mean Corpuscular Hgb Conc 33.1 g/dL (32-36); Mean Corpuscular Volume 96.4 fL (80-100); Mean Platelet Volume 9.9 fL (7.4-10.4); Monocytes # (auto) 0.58 K/uL (0.11-0.59); Monocytes % (auto) 5.1 %; Neutrophils # (auto) 9.61 K/uL (1.4-6.5); Neutrophils % (auto) 84.6 %; Platelet Count 209 K/uL (130-400); RDW Coefficient of Variation 13.7 % (11.5-14.5); RDW Standard Deviation 48.6 fL (36.4-46.3); Red Blood Count 4.17 M/uL (4.7-6.1); White Blood Count 11.35 K/uL (4.8-10.8)
[2019-04-15 06:30] LABS: INR 1.2 (0.9-1.1); Partial Thromboplastin Ratio 4.2; Prothrombin Time 11.9 Seconds (9.0-12.0)
[2019-04-15 06:32] LABS: Partial Thromboplastin Time 113.3 Seconds (21.0-31.0)
[2019-04-15 06:43] LABS: BUN Creatinine Ratio 19.6 (10-20); Calcium 8.2 mg/dl (8.5-10.1); Creatinine Clr Calc Pharmacy 65.8 ml/min; Est GFR (African American) 58.6; Est GFR (Non-African American) 50.6; Potassium 4.9 mmol/L (3.5-5.1)
[2019-04-15] MEDS: FLUTICASONE/SALMETEROL (ADVAIR) 500/50 INH 14 PUFF INH SCH ×2 (08:25→20:52)
[2019-04-15] MEDS: INSULIN ASPART 100 UNITS/ML 3 ML PEN SC SCH ×4 (08:27→20:53)
[2019-04-15] MEDS: DOXYCYCLINE HYCLATE 100 MG CAP PO SCH ×2 (08:28→20:52)
[2019-04-15] MEDS: ASPIRIN 81 MG ECTAB PO SCH (08:28)
[2019-04-15] MEDS: predniSONE 20 MG TAB PO SCH (08:28)
[2019-04-15] MEDS: INSULIN HUMAN 70% NPH/30% REGULAR SQ SCH ×2 (08:28→17:21)
[2019-04-15] MEDS: FINASTERIDE 5 MG TAB PO SCH (08:28)
[2019-04-15] MEDS: METOPROLOL SUCC 50MG EXT REL TAB PO SCH (08:29)
[2019-04-15] MEDS: PANTOprazole 40 MG TAB PO SCH (08:29)
[2019-04-15] MEDS ORDERED: DOXYCYCLINE HYCLATE 100 MG CAP PO SCH (09:00)
--- NOTE | 2019-04-15 09:21 | Pulmonary Consultation ---
Date of Consultation April 15, 2019 Assessment & Plan (1) Pulmonary embolism: Patient's pulmonary embolism is likely provoked from his frequent hospitalizations and immobility related to his severe chronic dyspnea on exertion. Recently, he does have a history of a PET avid nodule in his left upper lobe that seems to have gotten significantly smaller or resolved on his latest CTA. This would raise the suspicion of a possible underlying malignancy, but as previously mentioned the nodule seems to have resolved and perhaps the PET avid nodule at that time was simply an inflammatory/infectious finding. Regardless, I would suggest switching him to a DOAC at this time for ease of anticoagulation. He does have small bilateral infarcts which are likely a consequence of his pulmonary embolism. His hemoptysis seems to be resolving. The infarcts are an expected finding and will resolve with time. No intervention required at this time. It appears that he received an echocardiogram on 04/09/2019. I would recommend obtaining another echo of his heart given that he just had a pulmonary embolism. He will likely need home oxygen when he is ready for discharge. Home oxygen via medical necessity for him. He has severe underlying emphysema and I would not be supervised if he had severe airflow obstruction as well. Again we need formal PFTs completed. He will need continued follow-up with pulmonary as an outpatient. He will need pulmonary function tests as well. He will likely benefit from a sleep study. He did mention to me that he would not wear a mask however. He will likely need to be on anticoagulation for at least 6 months. Acute cor pulmonale presence: without acute cor pulmonale Chronicity: acute Pulmonary embolism type: unspecified Qualified Code(s): I26.99 - Other pulmonary embolism without acute cor pulmonale (2) Thrombosis of left popliteal vein: (3) Dyspnea: Dyspnea type: shortness of breath Qualified Code(s): R06.02 - Shortness of breath; R06.00 - Dyspnea, unspecified; R06.01 - Orthopnea (4) Acute respiratory failure with hypoxia: (5) Hemoptysis: (6) Acute exacerbation of CHF (congestive heart failure): Heart failure type: systolic Qualified Code(s): I50.23 - Acute on chronic systolic (congestive) heart failure History of Present Illness Attending Physician: Josh Linares MD History of Present Illness This is a 63-year-old male with past medical history of obesity, emphysema, systolic heart failure, coronary artery disease who presented to the hospital with hemoptysis and shortness of breath. He was recently discharged from the hospital due to increasing shortness of breath and also hemoptysis at that time and was seen by pulmonary medicine. He was discharged with oxygen and underwent diuresis during that admission. Patient states he was home for about 1 day and felt profoundly short of breath when going to the bathroom. He subsequently went to the emergency department and was admitted again this admission. He was found to have bilateral pulmonary emboli with no significant right heart strain. Troponin and BMP have been unremarkable. Patient notes that he has never been on oxygen prior to his last admission. He is now on 5 L of oxygen. He did have some mild hemoptysis on admission but says this is mostly resolved. He does have some brown-colored sputum occasionally. He has not had any fevers or chills. He denies any weight loss, night sweats or chills. In terestingly, he had a PET/CT performed last year which demonstrated a 9 mm slightly PET avid nodule.. On this most recent CTA of his chest I am not able to visualize that 9 mm nodule. He does have small wedge-shaped infarcts in the right side and in the lingula which are likely related to his pulmonary embolism. He denies any B symptoms. He does have roughly [id number] smoking history and quit last year. Allergies Allergy/AdvReac Type Severity Reaction Status Date / Time ceftriaxone Allergy Intermediate HIVES Verified 04/13/19 01:42 piperacillin Allergy Intermediate rash, Verified 04/13/19 01:42 itching, burning through upper body [id number]-[id number] Reductase Allergy Intermediate rash/ Verified 04/13/19 01:42 Inhibitor heartburn tazobactam Allergy Intermediate rash, Verified 04/13/19 01:42 itching, burning through upper body clopidogrel [From Plavix] Allergy Unknown Verified 04/13/19 08:28 losartan Allergy Unknown Verified 04/13/19 08:28 Iodinated Contrast Media AdvReac Intermediate rash, Verified 04/13/19 01:42 [Iodinated Contrast- Oral itching and IV Dye] morphine AdvReac Intermediate NAUSEA/VOMI Verified 04/13/19 01:42 TING Home Medications Home Medications Medication Instructions Recorded Confirmed Type metoprolol succinate 100 mg PO QAM 04/01/18 04/13/19 History aspirin [Aspirin Low Dose] 81 mg PO QAM 10/26/18 04/13/19 History Novolin 70/30 U-100 Insulin 33 unit SUBCUT BID 03/04/19 04/13/19 History albuterol sulfate 2 puff INHALATION Q4H PRN 03/04/19 04/13/19 History metformin 1,000 mg PO QAM 03/04/19 04/13/19 History oxycodone-acetaminophen [Percocet] 1 tab PO Q4H PRN #10 tab 03/09/19 04/13/19 Rx cyclobenzaprine 10 mg PO HS PRN 04/08/19 04/13/19 History finasteride 5 mg PO DAILY 04/08/19 04/13/19 History fluticasone propion-salmeterol 1 inh INHALATION BID 04/08/19 04/13/19 History pantoprazole 40 mg PO DAILY 04/08/19 04/13/19 History bumetanide 1 mg PO DAILY 30 Days #30 tab 04/11/19 04/13/19 Rx lisinopril 2.5 mg PO QAM 30 Days #30 tab 04/11/19 04/13/19 Rx spironolactone 25 mg PO DAILY 30 Days #30 tab 04/11/19 04/13/19 Rx tiotropium bromide [Spiriva 2 puffs INH DAILY #4 gm 04/11/19 04/13/19 Rx Respimat] Patient History Medical History Acute respiratory failure with hypoxia [place] (myocardial infarction) Acute on chronic heart failure Diabetes mellitus, type II (Chronic) HTN (hypertension) DVT prophylaxis COPD (chronic obstructive pulmonary disease) (Acute) T2DM (type 2 diabetes mellitus) COPD (chronic obstructive pulmonary disease) (Chronic) CAD (coronary artery disease) (Chronic) Hematuria (Acute) Hypertension (Chronic) Coronary artery disease (Chronic) CLINT[place] (acute kidney injury) (Resolved) Acute coronary syndrome (Resolved) Elevated troponin (Resolved) Pneumonia (Resolved) Sepsis due to Streptococcus pneumoniae (Resolved) Surgical History H/O cardiac catheterization (Resolved) Family History Other Lung disease Social History Preferred Language: Barbadian Communication Ability: Effective Visual Impairment: No Limitations Hearing Ability: Normal Cigar Tobacco Processing Supervisor Required: No Beliefs That Will Affect Care: None marital status: Current Living Situation: Spouse Other Information That Helps Us Care for You: No Feels Safe at Home: Yes Safety Concerns: Feels Safe At This Time Smoking Status: Former smoker Second Hand Exposure: No ; Hx Alcohol Use: No Hx Substance Use: No Review of Systems Review of Systems: All systems reviewed & are unremarkable except as noted in HPI & below Physical Exam Constitutional: WD/WN, vitals as above Eyes: PERRL, conjunctivae normal, anicteric sclerae ENMT: external ear and nose normal, oropharynx normal Respiratory: Diminished breath sounds bilaterally. No wheezing. Mild crackles in the bases. Cardiovascular: Rate/Rhythm: regular rhythm Heart Sounds: normal S1 and normal S2 2+ pitting edema lower extremities. Gastrointestinal (Abdomen): normal bowel sounds, soft, nontender, no hepatosplenomegaly Neurologic: CN's II-XI intact bilaterally Psychiatric: A+Ox3, euthymic affect Lymphatic: no cervical or axillary lymphadenopathy Results & Data Vital Signs (Past 12 Hours) Vital Signs Temp Pulse Resp BP Pulse Ox 04/15/19 07:20 98.4 F 75 18 136/76 91 04/15/19 03:00 98.1 F 104 H 20 138/78 94 04/15/19 00:00 98.1 F 98 H 20 109/69 95 I personally reviewed patient's CBC, BMP and CT chest. PG Care Time/CCT Total # of Minutes Spent Total Time Spent with Patient: Total time spent is greater than 50% in coordination of care (as documented) at patient's floor/unit and/or counseling patient:
[2019-04-15] MEDS: BENZONATATE 100 MG CAPSULE PO SCH ×3 (09:48→20:53)
[2019-04-15] MEDS: OXYCODONE/ACETAMINOPHEN 5mg/325mg TAB PO PRN ×2 (13:02→21:00)
[2019-04-15] MEDS ORDERED: PERFLUTREN LIPID MICROSPHERE (DEFINITY) IV ONE (13:49)
[2019-04-15 14:02] LABS: Partial Thromboplastin Time 54.3 Seconds (21.0-31.0)
[2019-04-15] MEDS: WARFARIN SOD 7.5 MG TAB PO SCH (15:23)
[2019-04-15] MEDS: HEPARIN SODIUM/DEXTROSE 25,000 UNITS/500 ML BAG IV SCH (15:48)
--- NOTE | 2019-04-15 17:49 | Hospitalist Progress Note ---
Date of Service April 15, 2019 Assessment & Plan (1) Pulmonary embolism: Bilateral PE Acute on Chronic respiratory failure Acute Left LE DVT Possible Pulmonary Infarcts --CTA:Extensive bilateral pulmonary emboli involving the majority of the lobar and segmental pulmonary arteries. No evidence for right-sided heart strain. Emphysema. There are 2 subcentimeter indeterminate pulmonary nodules as described above with the largest measuring 6.7 mm. Please refer to the chart below for recommended follow-up. Emphysema. Wedge-shaped peripheral opacities within the right lower lobe and lingula likely represent pulmonary infarcts. --Continue IV Heparin --Continue Coumadin --Patient's preference --Monitor INR:1.2 today --ECHO: unchanged --Continue Supplemental oxygen as needed --Pulm status slowly improving Possible Bronchitis Ongoing cough with expectoration since 2 weeks No consolidation in imaging studies Continue Doxycycline Day #2 Antitussives PRN (2) Thrombosis of left popliteal vein: on Heparin and coumadin Acute Kidney Injury: Cr slowly improving Diuretics held Monitor renal function (3) Chronic systolic heart failure: Home diuretics held due to [place] Continue metoprolol Hold lisinopril due to [place] H/O intolerance to losartan Monitor volume status (4) HTN (hypertension): BP stable Continue current meds Monitor (5) COPD (chronic obstructive pulmonary disease): Continue supplemental oxygen--4 liters at baseline Continue home inhalers Patient prefers inhalers over Nebs (6) T2DM (type 2 diabetes mellitus): Continue ISS Monitor BGs (7) CAD (coronary artery disease): Continue aspirin, metoprolol Reported allergy to statin DVT Px: On IV Heparin, coumadin Code Status Full Code Disposition: Plan to discharge home with Home Health when stable Subjective Patient is seen and examined at bedside Feels better today No new complaints Less cough, Pleuritic chest pain SOB is better ECHO--unchanged from prior On IV Heparin ggt Denies any bleeding issues Review of Systems Review of Systems: All systems reviewed & are unremarkable except as noted in HPI & below Physical Exam Physical Exam: Physical Exam: Vitals signs as noted above General Appearance:Moderately built and nourished, no apparent distress Head: normocephalic, Atraumatic Eyes: normal inspection, EOMI Neck: supple, Trachea midline Respiratory/Chest: Decreased breath sounds, CTA Cardiovascular: S1, S2, No murmur Abdomen/GI:Soft, Non tender, Bowel sounds present Extremities/Musculoskelatal:normal inspection, B/L LE edema Neurologic/Psych:AAOX3, grossly no focal neurological deficits Skin: normal color, warm Results & Data Vital Signs (Past 12 Hours) Vital Signs Temp Pulse Pulse Resp BP Pulse Ox 04/15/19 16:23 81 04/15/19 15:38 36.7 C 85 17 123/76 93 04/15/19 11:40 36.6 C 84 16 147/84 H 94 04/15/19 07:20 36.9 C 75 18 136/76 91 Laboratory Results Short CBC 04/14/19 04/15/19 Range/Units 21:16 05:42 WBC 13.43 H 11.35 H (4.8-10.8) K/uL Hgb 14.0 13.3 L (14.0-18.0) g/dL Hct 41.3 L 40.2 L (42-52) % Plt Count 227 209 (130-400) K/uL BMP 04/14/19 04/15/19 21:16 05:42 Sodium 134 L 132 L Potassium 3.7 4.9 D Chloride 101 99 Carbon Dioxide 25 27 BUN 32 H 28 H Creatinine 1.46 H D 1.44 H Glucose 91 183 H Calcium 8.7 8.2 L Cardiac Enzymes 04/14/19 04/14/19 Range/Units 21:16 21:16 Troponin I < 0.015 Cancelled (0-0.045) ng/ml Liver Function 04/14/19 Range/Units 21:16 Total Bilirubin 1.1 H (0.2-1) mg/dl Direct Bilirubin 0.3 H (0-0.2) mg/dl AST 8 L (15-37) U/L ALT 22 (12-78) U/L Alkaline Phosphatase 58 (45-117) U/L Albumin 3.1 L (3.4-5.0) gm/dl (1) Pulmonary embolism Acute cor pulmonale presence: without acute cor pulmonale Chronicity: acute Pulmonary embolism type: unspecified Qualified Code(s): I26.99 - Other pulmonary embolism without acute cor pulmonale (2) COPD (chronic obstructive pulmonary disease) COPD type: unspecified COPD Qualified Code(s): J44.9 - Chronic obstructive pulmonary disease, unspecified
[2019-04-15] MEDS: CYCLOBENZAPRINE HCL 10 MG TAB PO PRN (21:00)
[2019-04-16] MEDS: IPRATROPIUM BROMIDE HFA INHALER INH SCH ×4 (00:01→17:00)
[2019-04-16] MEDS: LEVALBUTEROL TARTRATE 15 GM HFA.AER.AD INH SCH ×4 (02:11→20:13)
[2019-04-16 05:37] LABS: Hematocrit (blood only) 39.1 % (42-52); Hemoglobin 13.3 g/dL (14.0-18.0); Mean Corpuscular Hemoglobin 32.1 pg (25-34); Mean Corpuscular Volume 94.4 fL (80-100); Platelet Count 229 K/uL (130-400); RDW Coefficient of Variation 13.6 % (11.5-14.5); Red Blood Count 4.14 M/uL (4.7-6.1); White Blood Count 10.65 K/uL (4.8-10.8)
[2019-04-16 06:07] LABS: INR 3.4 (0.9-1.1); Partial Thromboplastin Ratio 3.2; Prothrombin Time 31.6 Seconds (9.0-12.0)
[2019-04-16 06:12] LABS: BUN Creatinine Ratio 20.4 (10-20); Calcium 8.4 mg/dl (8.5-10.1); Creatinine Clr Calc Pharmacy 83.1 ml/min; Est GFR (African American) 77.8; Est GFR (Non-African American) 67.1; Partial Thromboplastin Time 86.6 Seconds (21.0-31.0); Potassium 4.1 mmol/L (3.5-5.1)
[2019-04-16] MEDS: HEPARIN SODIUM/DEXTROSE 25,000 UNITS/500 ML BAG IV SCH (06:17)
[2019-04-16] MEDS: INSULIN ASPART 100 UNITS/ML 3 ML PEN SC SCH ×4 (07:48→21:01)
[2019-04-16] MEDS: INSULIN HUMAN 70% NPH/30% REGULAR SQ SCH ×2 (07:49→17:00)
[2019-04-16] MEDS: FLUTICASONE/SALMETEROL (ADVAIR) 500/50 INH 14 PUFF INH SCH ×2 (07:49→20:14)
[2019-04-16] MEDS: OXYCODONE/ACETAMINOPHEN 5mg/325mg TAB PO PRN ×4 (07:55→21:04)
[2019-04-16] MEDS: predniSONE 20 MG TAB PO SCH (07:56)
[2019-04-16] MEDS: METOPROLOL SUCC 50MG EXT REL TAB PO SCH (07:56)
[2019-04-16] MEDS: FINASTERIDE 5 MG TAB PO SCH (07:56)
[2019-04-16] MEDS: DOXYCYCLINE HYCLATE 100 MG CAP PO SCH ×2 (07:56→20:14)
[2019-04-16] MEDS: PANTOprazole 40 MG TAB PO SCH (07:56)
[2019-04-16] MEDS: ASPIRIN 81 MG ECTAB PO SCH (07:57)
[2019-04-16] MEDS: BENZONATATE 100 MG CAPSULE PO SCH ×3 (07:57→20:14)
[2019-04-16] MEDS: HYDROmorphone INJ 0.5 MG/0.5 ML SYR IV PRN (08:31)
--- NOTE | 2019-04-16 11:23 | Pulmonology Progress Note ---
Date of Service April 16, 2019 Assessment & Plan (1) Pulmonary embolism: INR therapeutic today. Can discontinue the heparin drip. Patient will need home O2. Recommend titrating O2 down to keep sats around 92%. He was started on prednisone by the hospitalist. Would only recommend a 5 day course total for COPD exacerbation that may have been triggered by his acute PE. 5 days of doxycycline is reasonable as well. The pulmonary infarcts are likely the cause of his pleuritic pain. These will take weeks to months to resolve. He will need continued follow-up with pulmonary as an outpatient. He will need pulmonary function tests as well. He will likely benefit from a sleep study. He did mention to me that he would not wear a mask however. He will likely need to be on anticoagulation for at least [address] chest in 3 months to follow up on pulm nodules. Pulmonary will sign off. Please call with questions. Acute cor pulmonale presence: without acute cor pulmonale Chronicity: acute Pulmonary embolism type: unspecified Qualified Code(s): I26.99 - Other pulmonary embolism without acute cor pulmonale (2) Thrombosis of left popliteal vein: (3) Dyspnea: Dyspnea type: shortness of breath Qualified Code(s): R06.02 - Shortness of breath; R06.00 - Dyspnea, unspecified; R06.01 - Orthopnea (4) Acute respiratory failure with hypoxia: (5) Hemoptysis: (6) Acute exacerbation of CHF (congestive heart failure): Heart failure type: systolic Qualified Code(s): I50.23 - Acute on chronic systolic (congestive) heart failure (7) COPD exacerbation: (8) Multiple pulmonary nodules determined by computed tomography of lung: Subjective Patient having pleuritic chest pain on right side. Shortness of breath with exer tion. No hemoptysis. No fevers or chills. Physical Exam Constitutional: WD/WN, vitals as above Eyes: PERRL, conjunctivae normal, anicteric sclerae ENMT: external ear and nose normal, oropharynx normal Cardiovascular: Rate/Rhythm: regular rhythm Heart Sounds: normal S1 and normal S2 2+ pitting edema b/l Gastrointestinal (Abdomen): normal bowel sounds, soft, nontender, no hepatosplenomegaly Neurologic: CN's II-XI intact bilaterally Psychiatric: A+Ox3, euthymic affect Lymphatic: no cervical or axillary lymphadenopathy Results & Data Vital Signs (Past 12 Hours) Vital Signs Temp Pulse Resp BP Pulse Ox 04/16/19 07:20 97.7 F 78 16 138/85 95 04/16/19 04:59 98.1 F 74 20 127/74 95 04/15/19 23:37 97.7 F 79 22 126/78 94 PG Care Time/CCT Total # of Minutes Spent Total Time Spent with Patient: Total time spent is greater than 50% in jewelry sales coordinator rdination of care (as documented) at patient's floor/unit and/or counseling patient:
[2019-04-16 13:32] LABS: Partial Thromboplastin Time 55.4 Seconds (21.0-31.0)
[2019-04-16] MEDS ORDERED: WARFARIN SOD 1 MG TAB PO STA (18:12)
--- NOTE | 2019-04-16 18:23 | Hospitalist Progress Note ---
Date of Service April 16, 2019 Assessment & Plan (1) Pulmonary embolism: Bilateral PE Acute on Chronic respiratory failure Acute Left LE DVT Possible Pulmonary Infarcts --CTA:Extensive bilateral pulmonary emboli involving the majority of the lobar and segmental pulmonary arteries. No evidence for right-sided heart strain. Emphysema. There are 2 subcentimeter indeterminate pulmonary nodules as described above with the largest measuring 6.7 mm. Please refer to the chart below for recommended follow-up. Emphysema. Wedge-shaped peripheral opacities within the right lower lobe and lingula likely represent pulmonary infarcts. --Discontinue IV Heparin drip --Continue Coumadin --Patient's preference. Will consider NOACs if patient's insurance covers --Monitor INR:3.4 today --ECHO: unchanged --Continue Supplemental oxygen as needed --Pulm status slowly improving --Appreciate pulmonology input Possible Bronchitis Mild COPD Exacerbation Ongoing cough with expectoration since 2 weeks No consolidation in imaging studies Continue Doxycycline Day #3/5 Antitussives PRN Continue Prednisone to complete 5 day course (2) Thrombosis of left popliteal vein: IV heparin drip discontinued Monitor INR Continue Coumadin Acute Kidney Injury: Cr back to baseline Resume spironolactone today Continue to hold torsemide, lisinopril Diuretics held (3) Chronic systolic heart failure: Plan to resume Bumex as able Continue metoprolol Hold lisinopril--May not resume due to H/O intolerance to losartan Monitor volume status (4) HTN (hypertension): BP stable Continue current meds Monitor (5) COPD (chronic obstructive pulmonary disease): Continue supplemental oxygen--4 liters at baseline Continue home inhalers Patient prefers inhalers over Nebs Wean oxygen to maintain saturation above 90 (6) T2DM (type 2 diabetes mellitus): Continue ISS Monitor BGs (7) CAD (coronary artery disease): Continue aspirin, metoprolol Reported allergy to statin DVT Px: On coumadin Code Status Full Code Disposition: Plan to discharge home with Home Health when stable Subjective Patient is seen and examined at bedside Complains of pleuritic chest pain this morning Also reports some shortness of breath on exertion Less cough today Denies any bleeding issues INR supratherapeutic Review of Systems Review of Systems: All systems reviewed & are unremarkable except as noted in HPI & below Physical Exam Physical Exam: Physical Exam: Vitals signs as noted above General Appearance:Moderately built and nourished, no apparent distress Head: normocephalic, Atraumatic Eyes: normal inspection, EOMI Neck: supple, Trachea midline Respiratory/Chest: Decreased breath sounds, CTA Cardiovascular: S1, S2, No murmur Abdomen/GI:Soft, Non tender, Bowel sounds present Extremities/Musculoskelatal:normal inspection, B/L LE edema Neurologic/Psych:AAOX3, grossly no focal neurological deficits Skin: normal color, warm Results & Data Vital Signs (Past 12 Hours) Vital Signs Temp Pulse Resp BP Pulse Ox 04/16/19 15:23 36.4 C L 78 20 123/73 97 04/16/19 11:45 36.9 C 86 18 130/86 92 04/16/19 07:20 36.5 C 78 16 138/85 95 Laboratory Results Short CBC 04/16/19 Range/Units 05:21 WBC 10.65 (4.8-10.8) K/uL Hgb 13.3 L (14.0-18.0) g/dL Hct 39.1 L (42-52) % Plt Count 229 (130-400) K/uL BMP 04/16/19 05:21 Sodium 136 Potassium 4.1 D Chloride 104 Carbon Dioxide 26 BUN 23 H Creatinine 1.14 D Glucose 192 H Calcium 8.4 L (1) Pulmonary embolism Acute cor pulmonale presence: without acute cor pulmonale Chronicity: acute Pulmonary embolism type: unspecified Qualified Code(s): I26.99 - Other pulmonary embolism without acute cor pulmonale (2) COPD (chronic obstructive pulmonary disease) COPD type: unspecified COPD Qualified Code(s): J44.9 - Chronic obstructive pulmonary disease, unspecified
[2019-04-17] MEDS: IPRATROPIUM BROMIDE HFA INHALER INH SCH ×4 (00:52→17:35)
[2019-04-17] MEDS: LEVALBUTEROL TARTRATE 15 GM HFA.AER.AD INH SCH ×4 (02:22→19:46)
[2019-04-17] MEDS: OXYCODONE/ACETAMINOPHEN 5mg/325mg TAB PO PRN ×2 (02:22→08:00)
[2019-04-17 05:57] LABS: Hematocrit (blood only) 39.6 % (42-52); Hemoglobin 13.1 g/dL (14.0-18.0); Mean Corpuscular Hgb Conc 33.1 g/dL (32-36); Mean Corpuscular Volume 96.8 fL (80-100); Platelet Count 253 K/uL (130-400); RDW Coefficient of Variation 13.8 % (11.5-14.5); RDW Standard Deviation 49.1 fL (36.4-46.3); Red Blood Count 4.09 M/uL (4.7-6.1); White Blood Count 10.15 K/uL (4.8-10.8)
[2019-04-17] MEDS: HYDROmorphone INJ 0.5 MG/0.5 ML SYR IV PRN (06:04)
[2019-04-17 06:17] LABS: BUN Creatinine Ratio 19.7 (10-20); Calcium 8.7 mg/dl (8.5-10.1); Creatinine Clr Calc Pharmacy 80.3 ml/min; Est GFR (African American) 74.6; Est GFR (Non-African American) 64.4
[2019-04-17 06:27] LABS: Partial Thromboplastin Ratio 1.3; Partial Thromboplastin Time 36.5 Seconds (21.0-31.0); Prothrombin Time 42.4 Seconds (9.0-12.0)
[2019-04-17 06:28] LABS: INR 4.6 (0.9-1.1)
[2019-04-17] MEDS: INSULIN HUMAN 70% NPH/30% REGULAR SQ SCH ×2 (07:41→17:30)
[2019-04-17] MEDS: FLUTICASONE/SALMETEROL (ADVAIR) 500/50 INH 14 PUFF INH SCH ×2 (07:45→20:39)
[2019-04-17] MEDS: INSULIN ASPART 100 UNITS/ML 3 ML PEN SC SCH ×4 (07:46→20:43)
[2019-04-17] MEDS: METOPROLOL SUCC 50MG EXT REL TAB PO SCH (07:46)
[2019-04-17] MEDS: PANTOprazole 40 MG TAB PO SCH (07:47)
[2019-04-17] MEDS: predniSONE 20 MG TAB PO SCH (07:47)
[2019-04-17] MEDS: ASPIRIN 81 MG ECTAB PO SCH (07:48)
[2019-04-17] MEDS: FINASTERIDE 5 MG TAB PO SCH (07:48)
[2019-04-17] MEDS: DOXYCYCLINE HYCLATE 100 MG CAP PO SCH ×2 (07:49→20:40)
[2019-04-17] MEDS: BENZONATATE 100 MG CAPSULE PO SCH ×3 (07:49→20:40)
[2019-04-17] MEDS: SPIRONOLACTONE 25 MG TAB PO SCH (09:12)
[2019-04-17] MEDS: OXYCODONE HCL 10 MG TABCR (OXYCONTIN) PO SCH ×2 (14:25→20:40)
--- NOTE | 2019-04-17 15:09 | Hospitalist Progress Note ---
Date of Service April 17, 2019 Assessment & Plan (1) Pulmonary embolism: Bilateral PE Acute on Chronic respiratory failure Acute Left LE DVT Possible Pulmonary Infarcts --CTA:Extensive bilateral pulmonary emboli involving the majority of the lobar and segmental pulmonary arteries. No evidence for right-sided heart strain. Emphysema. There are 2 subcentimeter indeterminate pulmonary nodules as described above with the largest measuring 6.7 mm. Please refer to the chart below for recommended follow-up. Emphysema. Wedge-shaped peripheral opacities within the right lower lobe and lingula likely represent pulmonary infarcts. --IV Heparin drip discontinued --Continue Coumadin --Patient's preference. Will consider NOACs if patient's insurance covers --Monitor INR:4.6 today --ECHO: unchanged --Continue Supplemental oxygen as needed --Pulm status slowly improving --Appreciate pulmonology input --Continue to hold coumadin --Pain control Possible Bronchitis Mild COPD Exacerbation Ongoing cough with expectoration since 2 weeks No consolidation in imaging studies Continue Doxycycline Day #4/5 Antitussives PRN Continue Prednisone to complete 5 day course (2) Thrombosis of left popliteal vein: IV heparin drip discontinued Monitor INR Supratherapeutic INR currently Resume Coumadin as able Acute Kidney Injury: Resolved Cr back to baseline Resumed spironolactone yesterday Plan to resume bumex tomorrow Continue to lisinopril for now (3) Chronic systolic heart failure: Plan to resume Bumex tomorrow Continue metoprolol Hold lisinopril--May not resume due to H/O intolerance to losartan Monitor volume status (4) HTN (hypertension): BP stable Continue current meds Monitor (5) COPD (chronic obstructive pulmonary disease): Continue supplemental oxygen--4 liters at baseline Continue home inhalers Patient prefers inhalers over Nebs Wean oxygen to maintain saturation above 90 (6) T2DM (type 2 diabetes mellitus): Continue ISS Monitor BGs (7) CAD (coronary artery disease): Continue aspirin, metoprolol Reported allergy to statin DVT Px: Held coumadin Re: Supratherapeutic INR Code Status Full Code Disposition: Plan to discharge home with Home Health when stable Subjective Patient is seen and examined at bedside Persistent pleuritic chest pain Shortness of breath about the same as yesterday Reports cough with brownish expectoration Saturating well on 4 L of oxygen Offers no other complaints Denies any bleeding issues INR supratherapeutic Review of Systems Review of Systems: All systems reviewed & are unremarkable except as noted in HPI & below Physical Exam Physical Exam: Physical Exam: Vitals signs as noted above General Appearance:Moderately built and nourished, no apparent distress Head: normocephalic, Atraumatic Eyes: normal inspection, EOMI Neck: supple, Trachea midline Respiratory/Chest: Decreased breath sounds, CTA Cardiovascular: S1, S2, No murmur Abdomen/GI:Soft, Non tender, Bowel sounds present Extremities/Musculoskelatal:normal inspection, B/L LE edema Neurologic/Psych:AAOX3, grossly no focal neurological deficits Skin: normal color, warm Results & Data Vital Signs (Past 12 Hours) Vital Signs Temp Pulse Resp BP Pulse Ox 04/17/19 11:23 36.6 C 71 18 127/90 94 04/17/19 07:37 94 04/17/19 07:28 36.6 C 83 18 148/84 H 95 04/17/19 04:09 36.4 C L 73 20 143/82 H 96 Laboratory Results Short CBC 04/17/19 Range/Units 05:49 WBC 10.15 (4.8-10.8) K/uL Hgb 13.1 L (14.0-18.0) g/dL Hct 39.6 L (42-52) % Plt Count 253 (130-400) K/uL BMP 04/17/19 04/17/19 05:49 07:33 Sodium 138 Potassium 4.0 Chloride 105 Carbon Dioxide 29 BUN 23 H Creatinine 1.18 Glucose 117 H Calcium 8.7 (1) Pulmonary embolism Acute cor pulmonale presence: without acute cor pulmonale Chronicity: acute Pulmonary embolism type: unspecified Qualified Code(s): I26.99 - Other pulmonary embolism without acute cor pulmonale (2) COPD (chronic obstructive pulmonary disease) COPD type: unspecified COPD Qualified Code(s): J44.9 - Chronic obstructive pulmonary disease, unspecified
[2019-04-18] MEDS: OXYCODONE/ACETAMINOPHEN 5mg/325mg TAB PO PRN (00:49)
[2019-04-18] MEDS: IPRATROPIUM BROMIDE HFA INHALER INH SCH ×4 (01:17→17:24)
[2019-04-18] MEDS: LEVALBUTEROL TARTRATE 15 GM HFA.AER.AD INH SCH ×4 (01:19→23:21)
[2019-04-18 06:50] LABS: INR 2.8 (0.9-1.1); Prothrombin Time 26.3 Seconds (9.0-12.0)
[2019-04-18] MEDS: OXYCODONE HCL 10 MG TABCR (OXYCONTIN) PO SCH ×2 (07:41→20:32)
[2019-04-18] MEDS: ASPIRIN 81 MG ECTAB PO SCH (07:41)
[2019-04-18] MEDS: SPIRONOLACTONE 25 MG TAB PO SCH (07:41)
[2019-04-18] MEDS: FINASTERIDE 5 MG TAB PO SCH (07:42)
[2019-04-18] MEDS: predniSONE 20 MG TAB PO SCH (07:42)
[2019-04-18] MEDS: BENZONATATE 100 MG CAPSULE PO SCH ×3 (07:42→20:33)
[2019-04-18] MEDS: PANTOprazole 40 MG TAB PO SCH (07:42)
[2019-04-18] MEDS: BUMETANIDE 1 MG TAB PO SCH (07:43)
[2019-04-18] MEDS: DOXYCYCLINE HYCLATE 100 MG CAP PO SCH ×2 (07:44→20:33)
[2019-04-18] MEDS: METOPROLOL SUCC 50MG EXT REL TAB PO SCH (07:45)
[2019-04-18] MEDS: FLUTICASONE/SALMETEROL (ADVAIR) 500/50 INH 14 PUFF INH SCH ×2 (07:46→20:32)
[2019-04-18] MEDS: INSULIN ASPART 100 UNITS/ML 3 ML PEN SC SCH ×4 (07:48→20:34)
[2019-04-18] MEDS: INSULIN HUMAN 70% NPH/30% REGULAR SQ SCH ×2 (07:50→17:23)
[2019-04-18] MEDS: ALBUT/IPRATROP 3MG/0.5MG NEB 3 ML VIAL NEB PRN (13:00)
--- NOTE | 2019-04-18 14:04 | Hospitalist Progress Note ---
Date of Service April 18, 2019 Assessment & Plan (1) Pulmonary embolism: Bilateral PE Acute on Chronic respiratory failure Acute Left LE DVT Possible Pulmonary Infarcts --CTA:Extensive bilateral pulmonary emboli involving the majority of the lobar and segmental pulmonary arteries. No evidence for right-sided heart strain. Emphysema. There are 2 subcentimeter indeterminate pulmonary nodules as described above with the largest measuring 6.7 mm. Please refer to the chart below for recommended follow-up. Emphysema. Wedge-shaped peripheral opacities within the right lower lobe and lingula likely represent pulmonary infarcts. --IV Heparin drip discontinued --Continue Coumadin --Patient's preference. Will consider NOACs if patient's insurance covers --Monitor INR:2.8 today --ECHO: unchanged --Continue Supplemental oxygen as needed --Appreciate pulmonology input --Resume coumadin 1 mg today --Pain control. Avoid IV pain meds as able --Incentive Spirometry --Repeat CXR in AM Possible Bronchitis Mild COPD Exacerbation Ongoing cough with expectoration since 2 weeks No consolidation in imaging studies Continue Doxycycline Antitussives PRN Continue Prednisone to complete 5 day course (2) Thrombosis of left popliteal vein: IV heparin drip discontinued Monitor INR Therapeutic INR currently Resume Coumadin today Acute Kidney Injury: Resolved Cr back to baseline Resumed spironolactone, bumex Continue to lisinopril for now (3) Chronic systolic heart failure: Continue Diuretics, metoprolol Hold lisinopril--May not resume due to H/O intolerance to losartan Monitor volume status (4) HTN (hypertension): BP stable Continue current meds Monitor (5) COPD (chronic obstructive pulmonary disease): Continue supplemental oxygen--4 liters at baseline Continue home inhalers Patient prefers inhalers over Nebs Titrate oxygen to maintain saturation above 90 (6) T2DM (type 2 diabetes mellitus): Continue ISS Monitor BGs (7) CAD (coronary artery disease): Continue aspirin, metoprolol Reported allergy to statin DVT Px: coumadin Code Status Full Code Disposition: Plan to discharge home with Home Health when stable Subjective Patient is seen and examined at bedside Subjectively feels no significant change from yesterday Persistent pleuritic chest pain Reports cough, SOB Saturating well on 2 L of oxygen Offers no other complaints Denies any bleeding issues INR in therapeutic range Review of Systems Review of Systems: All systems reviewed & are unremarkable except as noted in HPI & below Physical Exam Physical Exam: Physical Exam: Vitals signs as noted above General Appearance:Moderately built and nourished, no apparent distress Head: normocephalic, Atraumatic Eyes: normal inspection, EOMI Neck: supple, Trachea midline Respiratory/Chest: Decreased breath sounds, CTA Cardiovascular: S1, S2, No murmur Abdomen/GI:Soft, Non tender, Bowel sounds present Extremities/Musculoskelatal:normal inspection, B/L LE edema Neurologic/Psych:AAOX3, grossly no focal neurological deficits Skin: normal color, warm Results & Data Vital Signs (Past 12 Hours) Vital Signs Temp Pulse Resp BP BP Pulse Ox 04/18/19 13:00 77 20 96 04/18/19 11:40 36.7 C 84 18 145/83 H 93 04/18/19 08:00 36.7 C 90 20 146/88 H 92 04/18/19 06:46 37 C 80 22 132/79 93 04/18/19 03:14 37.1 C 87 20 137/82 94 (1) Pulmonary embolism Acute cor pulmonale presence: without acute cor pulmonale Chronicity: acute Pulmonary embolism type: unspecified Qualified Code(s): I26.99 - Other pulmonary embolism without acute cor pulmonale (2) COPD (chronic obstructive pulmonary disease) COPD type: unspecified COPD Qualified Code(s): J44.9 - Chronic obstructive pulmonary disease, unspecified
[2019-04-18] MEDS ORDERED: WARFARIN SOD 1 MG TAB PO SCH (16:00)
[2019-04-19] MEDS: IPRATROPIUM BROMIDE HFA INHALER INH SCH ×4 (01:07→17:07)
[2019-04-19] MEDS: OXYCODONE/ACETAMINOPHEN 5mg/325mg TAB PO PRN ×2 (01:11→15:40)
[2019-04-19] MEDS: LEVALBUTEROL TARTRATE 15 GM HFA.AER.AD INH SCH ×4 (01:13→21:05)
--- NOTE | 2019-04-19 07:26 | XRay Report ---
XR chest 1V portable CLINICAL HISTORY: SOB dyspnea COMPARISON STUDY: 04/14/2019 FINDINGS: Slight increase in pleural reactive change versus atelectasis in the lung bases. Lungs othe rwise appear clear. No significant cardiac enlargement. IMPRESSION: Slight increase in bibasilar atelectatic and/or pleural reactive change. The above report was generated using voice recognition software. It may contain grammatical, syntax or spelling errors. Electronically signed by: Gabriel Wooten M.D. 04/19/2019 7:25 AM
[2019-04-19 07:39] LABS: INR 2.4 (0.9-1.1); Prothrombin Time 22.8 Seconds (9.0-12.0)
[2019-04-19 08:04] LABS: BUN Creatinine Ratio 20.4 (10-20); Calcium 9.3 mg/dl (8.5-10.1); Creatinine Clr Calc Pharmacy 77.7 ml/min; Est GFR (African American) 73.1; Est GFR (Non-African American) 63.1; Potassium 4.1 mmol/L (3.5-5.1)
[2019-04-19] MEDS: ASPIRIN 81 MG ECTAB PO SCH (08:14)
[2019-04-19] MEDS: BUMETANIDE 1 MG TAB PO SCH (08:14)
[2019-04-19] MEDS: PANTOprazole 40 MG TAB PO SCH (08:14)
[2019-04-19] MEDS: METOPROLOL SUCC 50MG EXT REL TAB PO SCH (08:14)
[2019-04-19] MEDS: FINASTERIDE 5 MG TAB PO SCH (08:14)
[2019-04-19] MEDS: DOXYCYCLINE HYCLATE 100 MG CAP PO SCH ×2 (08:14→21:06)
[2019-04-19] MEDS: SPIRONOLACTONE 25 MG TAB PO SCH (08:15)
[2019-04-19] MEDS: BENZONATATE 100 MG CAPSULE PO SCH ×3 (08:15→21:07)
[2019-04-19] MEDS: INSULIN HUMAN 70% NPH/30% REGULAR SQ SCH ×2 (08:16→17:07)
[2019-04-19] MEDS: FLUTICASONE/SALMETEROL (ADVAIR) 500/50 INH 14 PUFF INH SCH ×2 (08:16→21:06)
[2019-04-19] MEDS: INSULIN ASPART 100 UNITS/ML 3 ML PEN SC SCH ×4 (08:17→21:02)
[2019-04-19] MEDS: OXYCODONE HCL 10 MG TABCR (OXYCONTIN) PO SCH ×2 (08:26→21:05)
[2019-04-19] MEDS: SODIUM CHLORIDE 0.65% NA SOLN 45 ML (OCEAN) SCH ×2 (12:15→21:06)
[2019-04-19] MEDS ORDERED: COUGH DROP (SUGAR FREE) LOZ 24 LOZ/1 BOX BUCCAL PRN (15:31)
[2019-04-19] MEDS ORDERED: WARFARIN SOD 2 MG TAB PO SCH (16:00)
--- NOTE | 2019-04-19 19:33 | Hospitalist Progress Note ---
Date of Service April 19, 2019 Assessment & Plan (1) Pulmonary embolism: Bilateral PE Acute on Chronic respiratory failure Acute Left LE DVT Possible Pulmonary Infarcts --CTA:Extensive bilateral pulmonary emboli involving the majority of the lobar and segmental pulmonary arteries. No evidence for right-sided heart strain. Emphysema. There are 2 subcentimeter indeterminate pulmonary nodules as described above with the largest measuring 6.7 mm. Please refer to the chart below for recommended follow-up. Emphysema. Wedge-shaped peripheral opacities within the right lower lobe and lingula likely represent pulmonary infarcts. --IV Heparin drip discontinued --Continue Coumadin --Patient's preference. Will consider NOACs if patient's insurance covers --Monitor INR:2.4 today --ECHO: unchanged --Continue Supplemental oxygen as needed --Appreciate pulmonology input --Continue coumadin 2 mg today --Pain control. Avoid IV pain meds as able --Incentive Spirometry --Continue current management Possible Bronchitis Mild COPD Exacerbation Ongoing cough with expectoration since 2 weeks No consolidation in imaging studies Continue Doxycycline Antitussives PRN Completed Prednisone course (2) Thrombosis of left popliteal vein: IV heparin drip discontinued Monitor INR Therapeutic INR currently Continue Coumadin Acute Kidney Injury: Resolved Cr back to baseline Resumed spironolactone, bumex lisinopril discontinued Monitor renal function (3) Chronic systolic heart failure: Continue Diuretics, metoprolol Hold lisinopril--May not resume due to H/O intolerance to losartan Monitor volume status (4) HTN (hypertension): BP stable Continue current meds Monitor (5) COPD (chronic obstructive pulmonary disease): Continue supplemental oxygen--2-4 liters at baseline Continue home inhalers Patient prefers inhalers over Nebs Titrate oxygen to maintain saturation above 90 (6) T2DM (type 2 diabetes mellitus): Continue ISS Monitor BGs (7) CAD (coronary artery disease): Continue aspirin, metoprolol Reported allergy to statin DVT Px: coumadin Code Status Full Code Disposition: Plan to discharge home with Home Health when stable Subjective Patient is seen and examined at bedside Complains of minimal epistaxis, nasal dryness today Subjectively feels slightly better today Less cough and shortness of breath Intermittent pleuritic chest pain Offers no other complaints Review of Systems Review of Systems: All systems reviewed & are unremarkable except as noted in HPI & below Physical Exam Physical Exam: Physical Exam: Vitals signs as noted above General Appearance:Moderately built and nourished, no apparent distress Head: normocephalic, Atraumatic Eyes: normal inspection, EOMI Neck: supple, Trachea midline Respiratory/Chest: Decreased breath sounds, CTA Cardiovascular: S1, S2, No murmur Abdomen/GI:Soft, Non tender, Bowel sounds present Extremities/Musculoskelatal:normal inspection, B/L LE edema Neurologic/Psych:AAOX3, grossly no focal neurological deficits Skin: normal color, warm Results & Data Vital Signs (Past 12 Hours) Vital Signs Temp Pulse Resp BP BP Pulse Ox 04/19/19 19:17 36.9 C 85 20 124/76 92 04/19/19 16:06 36.8 C 78 22 107/73 93 04/19/19 10:47 36.9 C 78 19 121/76 95 04/19/19 07:50 36.6 C 80 20 129/83 95 Laboratory Results BMP 04/19/19 06:54 Sodium 135 L Potassium 4.1 Chloride 102 Carbon Dioxide 27 BUN 25 H Creatinine 1.20 Glucose 96 Calcium 9.3 (1) Pulmonary embolism Acute cor pulmonale presence: without acute cor pulmonale Chronicity: acute Pulmonary embolism type: unspecified Qualified Code(s): I26.99 - Other pulmonary embolism without acute cor pulmonale (2) COPD (chronic obstructive pulmonary disease) COPD type: unspecified COPD Qualified Code(s): J44.9 - Chronic obstructive pulmonary disease, unspecified
[2019-04-19] MEDS: CYCLOBENZAPRINE HCL 10 MG TAB PO PRN (21:33)
[2019-04-20] MEDS: IPRATROPIUM BROMIDE HFA INHALER INH SCH ×4 (02:03→17:11)
[2019-04-20] MEDS: LEVALBUTEROL TARTRATE 15 GM HFA.AER.AD INH SCH ×4 (04:33→20:57)
[2019-04-20] MEDS: OXYCODONE/ACETAMINOPHEN 5mg/325mg TAB PO PRN ×2 (05:55→11:15)
[2019-04-20 07:32] LABS: Hematocrit (blood only) 45.9 % (42-52); Hemoglobin 15.5 g/dL (14.0-18.0)
[2019-04-20 07:42] LABS: INR 1.8 (0.9-1.1); Prothrombin Time 17.3 Seconds (9.0-12.0)
[2019-04-20 08:07] LABS: BUN Creatinine Ratio 23.5 (10-20); Calcium 9.2 mg/dl (8.5-10.1); Creatinine Clr Calc Pharmacy 76.8 ml/min; Est GFR (African American) 72.4; Est GFR (Non-African American) 62.4; Potassium 4.2 mmol/L (3.5-5.1)
[2019-04-20] MEDS: INSULIN ASPART 100 UNITS/ML 3 ML PEN SC SCH ×4 (08:35→21:55)
[2019-04-20] MEDS: PANTOprazole 40 MG TAB PO SCH (08:35)
[2019-04-20] MEDS: METOPROLOL SUCC 50MG EXT REL TAB PO SCH (08:35)
[2019-04-20] MEDS: SPIRONOLACTONE 25 MG TAB PO SCH (08:35)
[2019-04-20] MEDS: ASPIRIN 81 MG ECTAB PO SCH (08:36)
[2019-04-20] MEDS: FLUTICASONE/SALMETEROL (ADVAIR) 500/50 INH 14 PUFF INH SCH ×2 (08:36→20:58)
[2019-04-20] MEDS: DOXYCYCLINE HYCLATE 100 MG CAP PO SCH ×2 (08:36→21:01)
[2019-04-20] MEDS: BUMETANIDE 1 MG TAB PO SCH (08:36)
[2019-04-20] MEDS: FINASTERIDE 5 MG TAB PO SCH (08:36)
[2019-04-20] MEDS: BENZONATATE 100 MG CAPSULE PO SCH ×3 (08:36→21:00)
[2019-04-20] MEDS: INSULIN HUMAN 70% NPH/30% REGULAR SQ SCH ×2 (08:37→17:09)
[2019-04-20] MEDS: SODIUM CHLORIDE 0.65% NA SOLN 45 ML (OCEAN) SCH ×2 (08:37→21:01)
[2019-04-20] MEDS: OXYCODONE HCL 10 MG TABCR (OXYCONTIN) PO SCH ×2 (08:43→20:57)
[2019-04-20] MEDS: LIDOCAINE 5% 1 PATCH TD SCH (11:14)
--- NOTE | 2019-04-20 11:18 | CT Scan Report ---
CT chest wo con CT DOSE: 787.65 mGycm HISTORY: Chest pain Persistent R side pleuritic pain TECHNIQUE: Multiaxial CT images of the chest were performed without contrast. A dose lowering techni que was utilized adhering to the principles of ALARA. COMPARISON: 04/13/2019 FINDINGS: Emphysematous change with multiple blebs are noted throughout both hemithoraces. This compo nent of the study is unchanged. Parenchymal densities and/or nodules within the left hemithorax appear similar with an unchanged 1.4 mm nodule immediately anterior to the major fissure image 42. Small focus of atelectasis versus addit ional developing nodule medial aspect left lower lobe image 39 measuring 9 mm. Small additional nodul e immediately anterior to the major fissure image 33 left upper lobe measuring 6 mm. This represents a new finding. Upper aspects of the right hemithorax appear clear. Patient has developed atelectatic change of signi ficant components of the right lower lobe. There is a moderate right pleural effusion. There is a pos sible focus of necrosis involving the right lower lobe image 42 measuring 2.1 cm. A small focal absce ss is not excluded. There may be narrowing of the proximal right lower lobe bronchus image 33. Appear s to be mild increase in prominence of the pulmonary vasculature which may indicate a component of pu lmonary arterial hypertension. IMPRESSION: 1. Slightly progressive nodularity of the left hemithorax as described. Close follow-up is indicated. 2. Baseline emphysematous changes bilaterally are stable. 3. Interval development of right lower lobe atelectatic change with potential narrowing of the proxim al right lower lobe bronchus. 4. Interval development of a moderate right pleural effusion. 5. 2.1 cm air-containing focus posterior aspect of the consolidated right lower lobe suggesting eithe r abscess versus focal area of necrosis. 6. Potential developing pulmonary arterial hypertension. 7. Given the multiplicity of findings described, bronchoscopy may be considered as follow-up in this patient. The above report was generated using voice recognition software. It may contain grammatical, syntax or spelling errors. Electronically signed by: Gabriel Wooten M.D. 04/20/2019 11:17 AM
--- NOTE | 2019-04-20 14:00 | Hospitalist Progress Note ---
Date of Service April 20, 2019 Assessment & Plan (1) Pulmonary embolism: Bilateral PE Acute on Chronic respiratory failure Acute Left LE DVT Possible Pulmonary Infarcts --CTA:Extensive bilateral pulmonary emboli involving the majority of the lobar and segmental pulmonary arteries. No evidence for right-sided heart strain. Emphysema. There are 2 subcentimeter indeterminate pulmonary nodules as described above with the largest measuring 6.7 mm. Please refer to the chart below for recommended follow-up. Emphysema. Wedge-shaped peripheral opacities within the right lower lobe and lingula likely represent pulmonary infarcts. --IV Heparin drip discontinued --Continue Coumadin --Patient's preference. Will consider NOACs if patient's insurance covers --Monitor INR:1.8 today --ECHO: unchanged --Continue Supplemental oxygen as needed --Appreciate pulmonology input --Increase Coumadin to 3 mg today --Pain control. We will try Toradol for 3 doses to minimize inflammation --Incentive Spirometry --Repeat CT chest today:CT chest suggestive of slightly progressive nodularity, moderate right pleural effusion, findings suggestive of possible right lower lobe atelectasis versus focal area of necrosis --Requested pulmonary to reevaluate today Possible Bronchitis Mild COPD Exacerbation Ongoing cough with expectoration since 2 weeks No consolidation in imaging studies Continue Doxycycline Antitussives PRN Completed Prednisone course (2) Thrombosis of left popliteal vein: IV heparin drip discontinued Monitor INR Continue Coumadin Acute Kidney Injury: Resolved Cr back to baseline Resumed spironolactone, Bumex lisinopril discontinued Monitor renal function (3) Chronic systolic heart failure: Continue Diuretics, metoprolol Hold lisinopril--May not resume due to H/O intolerance to losartan Monitor volume status (4) HTN (hypertension): BP stable Continue current meds Monitor (5) COPD (chronic obstructive pulmonary disease): Continue supplemental oxygen--2-4 liters at baseline Continue home inhalers Patient prefers inhalers over Nebs Titrate oxygen to maintain saturation above 90 (6) T2DM (type 2 diabetes mellitus): Continue ISS Monitor BGs (7) CAD (coronary artery disease): Continue aspirin, metoprolol Reported allergy to statin DVT Px: coumadin Code Status Full Code Disposition: Plan to discharge home with Home Health when stable Subjective Patient is seen and examined at bedside Reports persistent pleuritic right-sided chest pain, significantly worsening with movement cough and SOB better CT chest suggestive of slightly progressive nodularity, moderate right pleural effusion, findings suggestive of possible right lower lobe atelectasis versus focal area of necrosis Discussed with pulmonology today Offers no other complaints Review of Systems Review of Systems: All systems reviewed & are unremarkable except as noted in HPI & below Physical Exam Physical Exam: Physical Exam: Vitals signs as noted above General Appearance:Moderately built and nourished, no apparent distress Head: normocephalic, Atraumatic Eyes: normal inspection, EOMI Neck: supple, Trachea midline Respiratory/Chest: Decreased breath sounds R>L, CTA Cardiovascular: S1, S2, No murmur Abdomen/GI:Soft, Non tender, Bowel sounds present Extremities/Musculoskelatal:normal inspection, B/L LE edema Neurologic/Psych:AAOX3, grossly no focal neurological deficits Skin: normal color, warm Results & Data Vital Signs (Past 12 Hours) Vital Signs Temp Pulse Resp BP BP Pulse Ox 04/20/19 11:23 36.5 C 83 18 122/81 93 04/20/19 07:54 36.6 C 96 H 18 129/87 94 04/20/19 04:08 37.0 C 95 H 20 127/81 90 Laboratory Results Short CBC 04/20/19 Range/Units 07:01 Hgb 15.5 (14.0-18.0) g/dL Hct 45.9 (42-52) % BMP 04/20/19 07:01 Sodium 132 L Potassium 4.2 Chloride 99 Carbon Dioxide 23 BUN 28 H Creatinine 1.21 Glucose 140 H Calcium 9.2 (1) Pulmonary embolism Acute cor pulmonale presence: without acute cor pulmonale Chronicity: acute Pulmonary embolism type: unspecified Qualified Code(s): I26.99 - Other pulmonary embolism without acute cor pulmonale (2) COPD (chronic obstructive pulmonary disease) COPD type: unspecified COPD Qualified Code(s): J44.9 - Chronic obstructive pulmonary disease, unspecified
[2019-04-20] MEDS: KETOROLAC TROMETHAMINE 15 MG/ML VIAL IV SCH ×2 (15:38→22:11)
[2019-04-20] MEDS: WARFARIN SOD 3 MG TAB PO SCH (15:39)
--- NOTE | 2019-04-20 15:43 | Pulmonology Progress Note ---
Date of Service April 20, 2019 Assessment & Plan (1) Pulmonary embolism: Impression: 63-year-old male with obstructive lung disease and new diagnosis of pulmonary embolism. His prior CT scan showed early pulmonary infarct. He had continued chest pain and is now demonstrated a pleural effusion on the right with some consolidation. This may be expansion of the pulmonary infarcts and the sympathetic pleural effusion. My suspicion for lung abscess is quite low. Recommendations: 1. Pleural effusion: This may be causing the patient's chest discomfort. Could consider thoracentesis but the patient is anticoagulated and thoracentesis would require holding his anticoagulation to an INR of less than 1.5. Given the potential need for procedures, consideration for transitioning the patient from Coumadin to a novel oral anticoagulant may be appropriate. Will defer to the patient's primary service. For now we will plan on repeating his chest x-ray in the morning. If he continues to demonstrate significant effusion and the patient has minimal relief from his chest pain, consideration for thoracentesis may be appropriate if fluids are withheld. 2. PE: Continue anticoagulation as outlined in Dr. Vegas's last note. The patient's echocardiogram on April 15 was relatively normal with no evidence of pulmonary hypertension and this is somewhat reassuring. 3. COPD: The patient does not appear overtly bronchospastic currently. Continue inhalers as needed. 4. Chest pain: Secondary to pulmonary infarcts and the pleural effusion. We will pursue a trial of Toradol and follow the patient's kidney function. Topical lidocaine also may be beneficial. Narcotics are typically not very helpful for this pleuritic component and therapy is primarily focused on nonsteroidal anti-inflammatories. Given the patient's kidney function, close attention will need to be paid. We will continue to follow. Feel free to contact us with questions or concerns. Acute cor pulmonale presence: without acute cor pulmonale Chronicity: acute Pulmonary embolism type: unspecified Qualified Code(s): I26.99 - Other pulmonary embolism without acute cor pulmonale (2) Acute respiratory failure with hypoxia: (3) Chest pain: (4) Pleural effusion: Subjective Asked by hospitalist to reevaluate patient. The patient had been seen previously by Dr. Vegas for pulmonary thromboembolic disease and probable pulmonary infarcts. Patient had been transitioned to Coumadin and is currently receiving anticoagulation the form of warfarin. He has apparently had persistent chest discomfort which prompted a repeat CT scan today. This demonstrated a right-sided pleural effusion which was new compared to prior CT scan as well as an area of consolidation. This was present in the right lower lobe. The radiologist commented about a possible air-filled cavity/abscess although I do not appreciate that on my independent review of the film. The patient has been coughing up grayish phlegm which is not unusual for him. No hemoptysis. He denies fevers chills or night sweats. He does not report wheezing. He is just been started on Toradol and received lidocaine patch which she is unclear if it is offering him a benefit. Review of Systems Review of Systems: Unchanged from prior Physical Exam Constitutional: WD/WN, vitals as above Neck: trachea midline, no thyromegaly Respiratory: Decreased breath sounds at the right lung base. Few crackles. No wheezing. Cardiovascular: RRR, no murmur, no edema Extremities: + edema Gastrointestinal (Abdomen): normal bowel sounds, soft, nontender, no hepatosplenomegaly Skin: Mild cyanosis of the lower extremities which the patient straits is chronic. This goes along with some pitting edema Results & Data Vital Signs (Past 12 Hours) Vital Signs Temp Pulse Resp BP BP Pulse Ox 04/20/19 15:38 37.0 C 80 19 119/79 94 04/20/19 11:23 36.5 C 83 18 122/81 93 04/20/19 07:54 36.6 C 96 H 18 129/87 94 04/20/19 04:08 37.0 C 95 H 20 127/81 90 Laboratory Results 04/20/19 07:01 04/20/19 07:[address] of the chest independently reviewed. Is a noncontrasted study so no comment can be made on the pulmonary arterial tree. There is new development of right basilar consolidation with a right sided pleural effusion. I did review the patient's prior CT scan from 04/13/2019. This demonstrated fairly extensive thromboembolic disease with clots occluding the left upper lobe pulmonary artery and right lower lobe pulmonary artery. Some mildly associated pulmonary infarcts were also identified. PG Care Time/CCT Total # of Minutes Spent Total Time Spent with Patient: Total time spent is greater than 50% in coordination of care (as documented) at patient's floor/unit and/or counseling patient: 37 min
[2019-04-21] MEDS: IPRATROPIUM BROMIDE HFA INHALER INH SCH ×3 (01:02→12:26)
[2019-04-21] MEDS: LEVALBUTEROL TARTRATE 15 GM HFA.AER.AD INH SCH ×2 (02:25→08:05)
[2019-04-21] MEDS: KETOROLAC TROMETHAMINE 15 MG/ML VIAL IV SCH (05:58)
[2019-04-21 06:56] LABS: Hematocrit (blood only) 45.2 % (42-52); Hemoglobin 15.2 g/dL (14.0-18.0); Mean Corpuscular Hemoglobin 32.1 pg (25-34); Mean Corpuscular Hgb Conc 33.6 g/dL (32-36); Mean Corpuscular Volume 95.6 fL (80-100); Mean Platelet Volume 9.9 fL (7.4-10.4); Platelet Count 306 K/uL (130-400); RDW Coefficient of Variation 13.8 % (11.5-14.5); RDW Standard Deviation 48.6 fL (36.4-46.3); Red Blood Count 4.73 M/uL (4.7-6.1); White Blood Count 12.33 K/uL (4.8-10.8)
[2019-04-21 07:07] LABS: INR 1.9 (0.9-1.1)
[2019-04-21 07:38] LABS: BUN Creatinine Ratio 24.1 (10-20); Calcium 8.7 mg/dl (8.5-10.1); Creatinine Clr Calc Pharmacy 63.6 ml/min; Est GFR (African American) 57.7; Est GFR (Non-African American) 49.8; Potassium 4.4 mmol/L (3.5-5.1)
[2019-04-21] MEDS: INSULIN ASPART 100 UNITS/ML 3 ML PEN SC SCH ×4 (08:03→20:40)
[2019-04-21] MEDS: FLUTICASONE/SALMETEROL (ADVAIR) 500/50 INH 14 PUFF INH SCH ×2 (08:05→19:34)
[2019-04-21] MEDS: INSULIN HUMAN 70% NPH/30% REGULAR SQ SCH ×2 (08:07→17:29)
[2019-04-21] MEDS: BUMETANIDE 1 MG TAB PO SCH (08:08)
[2019-04-21] MEDS: PANTOprazole 40 MG TAB PO SCH (08:08)
[2019-04-21] MEDS: ASPIRIN 81 MG ECTAB PO SCH (08:08)
[2019-04-21] MEDS: METOPROLOL SUCC 50MG EXT REL TAB PO SCH (08:08)
[2019-04-21] MEDS: DOXYCYCLINE HYCLATE 100 MG CAP PO SCH (08:08)
[2019-04-21] MEDS: BENZONATATE 100 MG CAPSULE PO SCH ×3 (08:09→19:34)
[2019-04-21] MEDS: SPIRONOLACTONE 25 MG TAB PO SCH (08:09)
[2019-04-21] MEDS: SODIUM CHLORIDE 0.65% NA SOLN 45 ML (OCEAN) SCH ×2 (08:09→19:35)
[2019-04-21] MEDS: FINASTERIDE 5 MG TAB PO SCH (08:09)
[2019-04-21] MEDS: LIDOCAINE 5% 1 PATCH TD SCH (08:10)
[2019-04-21] MEDS: OXYCODONE HCL 10 MG TABCR (OXYCONTIN) PO SCH ×2 (08:14→19:34)
--- NOTE | 2019-04-21 09:02 | XRay Report ---
XR chest 2V PA/lateral CLINICAL HISTORY: pleural effusion COMPARISON STUDY: No previous studies for comparison. FINDINGS: Emphysema is noted. There is no pneumothorax. A small right pleural effusion with right bas ilar opacity has mildly increased since prior chest CT and chest radiograph. There is no evidence for pulmonary edema. Cardiomediastinal silhouette is stable. IMPRESSION: 1. Slight increase in a small right pleural effusion with right basilar opacity since prior exam. 2. Emphysema. Electronically signed by: Michael Hughes M.D. 04/21/2019 9:01 AM
[2019-04-21] MEDS ORDERED: ENOXAPARIN INJ 120 MG/0.8 ML SYR SQ SCH (13:00)
[2019-04-21] MEDS ORDERED: ACETAMINOPHEN 325 MG TAB PO PRN (13:09)
[2019-04-21] MEDS ORDERED: TRAMADOL HCL 50 MG TABLET PO PRN (13:30)
--- NOTE | 2019-04-21 13:33 | Hospitalist Progress Note ---
Date of Service April 21, 2019 Assessment & Plan (1) Pulmonary embolism: Acute on Chronic respiratory failure Bilateral Pulmonary embolism with early pulmonary infarct and right sided pleural effusion Acute Left Lower Extremity Deep Vein Thrombosis Pleuritic Chest Pain -admission [facility] 04/13/19 :Extensive bilateral pulmonary emboli involving the majority of the lobar and segmental pulmonary arteries. No evidence for right- sided heart strain. Emphysema. There are 2 subcentimeter indeterminate pulmonary nodules as described above with the largest measuring 6.7 mm. Emphysema. Wedge- shaped peripheral opacities within the right lower lobe and lingula likely represent pulmonary infarcts. -repeat CT 04/20/19 reviewed by inpatient pulmonary service and he does not appreciate any air-filled cavity/abscess -during this hospital stay patient was initially on IV heparin and then transitioned to coumadin alone with goal INR of 2 to 3 -recently, patient has subtherapeutic INR. Lovenox 1 mg/kg q 12 hours to be started on 04/21/19 with daily dose of coumadin -pain control is another main reason for hospitalization, patient is encouraged to try to take oral pain medication rather than IV pain medications in consideration for discharge planning -continue supplementary oxygen -2 step test ordered for 04/21/19 -patient will have outpatient [facility] Pulmonary clinic appointment on discharge (2) Thrombosis of left popliteal vein: -04/13/19 ultrasound of lower extremity: Small focal partially occlusive thrombus of the left popliteal vein is age-indeterminate however appears to be new from 03/08/2019; No sonographic evidence of right-sided deep venous thrombosis. -Anticoagulated by anticoagulation therapy (as described above) (3) COPD (chronic obstructive pulmonary disease): -patient does not appear overtly bronchospastic currently. Continue inhalers as needed. -completed doxycycline course for suspected Bronchitis, completed Prednisone course (4) Chronic systolic heart failure: -continue metoprolol -hold lisinopril for now because of acute kidney injury -hold spironolactone, Bumex Acute Kidney Injury -initially the creatinine returned to baseline but creatinine increased on 04/21/19 -hold lisinopril for now because of acute kidney injury -hold spironolactone, Bumex Enlarged prostate -continue home dose finasteride -Zuñiag Use while inpatient -try Trial of void (5) CAD (coronary artery disease): -Continue metoprolol -Reported allergy to statin -hold aspirin tomorrow because of Lovenox bridge to therapeutic INR with coumadin (6) HTN (hypertension): -blood pressure stable -hold lisinopril for now because of acute kidney injury -hold spironolactone, Bumex (7) T2DM (type 2 diabetes mellitus): Type 2 diabetes mellitus with alf current use of insulin -continue sliding scale insulin and long acting insulin DVT Prophylaxis:Lovenox bridge to therapeutic INR with coumadin Code Status Full Code Subjective Patient on nasal cannula oxygen. Has zuñiga. Patient reports pleuritic chest discomforts are better today. Denies dizziness or lightheadedness. no abdominal pain. no vomiting. Patient encourage to allow nurse to have the zuñiga removed for trial of void. Physical Exam Constitutional: WD/WN, vitals as above Eyes: PERRL, conjunctivae normal, anicteric sclerae EOM intact bilaterally ENMT: external ear and nose normal, oropharynx normal Neck: normal visual inspection Cardiovascular: Rate/Rhythm: regular rate and regular rhythm Gastrointestinal (Abdomen): normal bowel sounds, soft, nontender, no hepa tosplenomegaly Musculoskeletal: Head/Neck/Chest: normocephalic and head atraumatic Neurologic: PERRL, EOMI, accommodation nl, no face palsy, no dysarthria Psychiatric: A+Ox3, euthymic affect Genitourinary: zuñiga Results & Data Vital Signs (Past 12 Hours) Vital Signs Temp Pulse Pulse Resp BP BP Pulse Ox 04/21/19 12:11 36.4 C L 85 20 122/82 96 04/21/19 07:29 80 04/21/19 07:13 36.7 C 91 H 22 125/78 92 04/21/19 03:42 37.3 C 78 19 128/79 95 (1) COPD (chronic obstructive pulmonary disease) COPD type: unspecified COPD Qualified Code(s): J44.9 - Chronic obstructive pulmonary disease, unspecified (2) Pulmonary embolism Acute cor pulmonale presence: without acute cor pulmonale Chronicity: acute Pulmonary embolism type: unspecified Qualified Code(s): I26.99 - Other pulmonary embolism without acute cor pulmonale
[2019-04-21] MEDS: OXYCODONE/ACETAMINOPHEN 5mg/325mg TAB PO PRN ×2 (14:02→23:45)
--- NOTE | 2019-04-21 14:39 | Pulmonology Progress Note ---
Date of Service April 21, 2019 Assessment & Plan (1) Pulmonary embolism: DVT in the popliteal vein with duplex Patient with multiple pulmonary emboli in the left and right lungs. Patient appears to have evolving pulmonary infarct secondary to clots Initially started on heparin drip. Currently being converted to warfarin. Suggest changing to a DOAC for ease of administration management. Dr. Mix to talk with case management for approval Follow-up in the pulmonary clinic next , 04/29/[address] Bishop Ambulate as tolerated Acute cor pulmonale presence: without acute cor pulmonale Chronicity: acute Pulmonary embolism type: unspecified Qualified Code(s): I26.99 - Other pulmonary embolism without acute cor pulmonale (2) Pleural effusion: Small effusion on the right per chest x-ray Diuretics have been held for rising creatinine Due to anticoagulation and risks associated with thoracentesis, would hold on thoracentesis for now secondary to limited benefit Follow-up in the office as an outpatient Diuretics being resumed by primary team (3) Hemoptysis: Resolved Continue to treat underlying pulmonary emboli (4) Pain: Patient with complaint of chronic back pain * Home medications include Percocet and cyclobenzaprine Pain also is described on the chest into the right flank * Most likely associated with small pleural effusion and evolving pulmonary infarct Continue incentive spirometry as tolerated Ambulate as tolerated Inpatient pain management per hospitalist team * Current medications inpatient include: * tramadol 25 to 50 mg p.o. every 4 hours as needed * acetaminophen 325 mg p.o. every 6 hours as needed * Percocet every 6 as needed * oxycodone scheduled twice daily (5) COPD (chronic obstructive pulmonary disease): Not in exacerbation Continue bronchodilators and inhaled corticosteroids Continue to monitor oxygenation per protocol Thank you for including us in the care of this patient. Please refer to Dr. Bishop's addendum for further recommendations COPD type: unspecified COPD Qualified Code(s): J44.9 - Chronic obstructive pulmonary disease, unspecified Supervising Physician Co-Signing Physician Notes Patient seen and examined. Films were independently reviewed. I discussed the case with LIVAN avila. Patient continues to complain of chest discomfort on the right side. Chest x- ray does demonstrate a persistent effusion. Ideally I would like to tap this however his INR is still elevated at 1.9. Ideally would like this below 1.5. We have discussed with the hospitalist holding additional Coumadin or transitioning to NOAC. I have held his Coumadin dose tonight and we will recheck INR in the morning. If less than 1.5 level low threshold for repeating thoracic ultrasound and considering thoracentesis. Discussed with patient at bedside. Subjective Attending: Dr. Bishop Is a 63-year-old male with chronic respiratory failure and shortness of breath that presented with chest pain shortness of breath and found to have pulmonary emboli involving both right and left lungs. Chest x-ray shows a probable developing pulmonary infarct as well as a small pleural effusion at the right base. Patient has been on warfarin. Discussed changing to a DOAC with Dr. Mix. Patient is agreeable of is covered by insurance. Discussed follow-up with the patient and indicated that an appointment has been made with Dr. Bishop for next week. Indicated that he will probably just follow-up with [facility] in [place]. Patient states that he has continued right flank pain particularly with cough. Hemoptysis is completely resolved. Patient denies any sputum production at all. He has no fever or chills. He has a chronic nonchanging pleuritic pain in the right lower lobe around to the right flank. He has been hypoxic and has been requiring supplemental oxygen. Incentive spirometry is provided and patient is able to perform inspiration adequately but is unable to give volumes above 1000. He denies any nausea or vomiting. He has no new acute complaints. Review of Systems Review of Systems: All systems reviewed & are unremarkable except as noted in HPI & below Physical Exam Physical Exam: GENERAL : No acute distress. EYES: No icterus, gaze conjugate NOSE: No evidence of epistaxis MOUTH: No lesions or candidiasis. No evidence of blood in the posterior oropharynx NECK: Supple LUNGS: Crackles at the right base. Airflow with deep inspiration to all lung edward. No rhonchi. HEART: Regular, rate controlled ABDOMEN: Soft, NT, ND, BS Present EXTREMITIES: +1 LE edema, pedal pulses intact and equal bilaterally NEURO: A&OX3 Results & Data Vital Signs (Past 12 Hours) Vital Signs Temp Pulse Pulse Resp BP BP Pulse Ox 04/21/19 12:11 36.4 C L 85 20 122/82 96 04/21/19 07:29 80 04/21/19 07:13 36.7 C 91 H 22 125/78 92 04/21/19 03:42 37.3 C 78 19 128/79 95 Laboratory Results 04/21/19 06:39 04/21/19 06:39 Diagnostic Findings XR chest 2V PA/lateral CLINICAL HISTORY: pleural effusion COMPARISON STUDY: No previous studies for comparison. FINDINGS: Emphysema is noted. There is no pneumothorax. A small right pleural effusion with right basilar opacity has mildly increased since prior chest CT and chest radiograph. There is no evidence for pulmonary edema. Cardiomediastinal silhouette is stable. IMPRESSION: 1. Slight increase in a small right pleural effusion with right basilar opacity since prior exam. 2. Emphysema. Electronically signed by: Michael Hughes M.D. 04/21/2019 9:01 AM XR chest 1V portable CLINICAL HISTORY: SOB dyspnea COMPARISON STUDY: 04/14/2019 FINDINGS: Slight increase in pleural reactive change versus atelectasis in the lung bases. Lungs otherwise appear clear. No significant cardiac enlargement. IMPRESSION: Slight increase in bibasilar atelectatic and/or pleural reactive change. Electronically signed by: Gabriel Wooten M.D. 04/19/2019 7:25 AM PG Care Time/CCT Total # of Minutes Spent Total Time Spent with Patient: Total time spent is greater than 50% in coordination of care (as documented) at patient's floor/unit and/or counseling patient:30
[2019-04-21] MEDS: WARFARIN SOD 3 MG TAB PO SCH (16:09)
[2019-04-22] MEDS: CYCLOBENZAPRINE HCL 10 MG TAB PO PRN (01:36)
[2019-04-22 06:51] LABS: INR 2.4 (0.9-1.1); Prothrombin Time 22.7 Seconds (9.0-12.0)
[2019-04-22 07:22] LABS: Albumin Level 2.5 gm/dl (3.4-5.0); BUN Creatinine Ratio 21.2 (10-20); Calcium 8.6 mg/dl (8.5-10.1); Creatinine Clr Calc Pharmacy 69.9 ml/min; Est GFR (African American) 64.6; Est GFR (Non-African American) 55.7; Magnesium 2.2 mg/dl (1.8-2.4); Potassium 4.4 mmol/L (3.5-5.1)
[2019-04-22 07:25] LABS: Albumin Globulin Ratio 0.5 (0.9-2); Bilirubin,Total 0.8 mg/dl (0.2-1); Globulin 4.8 gm/dl (2.5-4.0); Total Protein 7.3 gm/dl (6.4-8.2)
[2019-04-22 07:45] LABS: Basophils # (auto) 0.02 K/uL (0-0.2); Basophils % (auto) 0.2 %; Eosinophils % (auto) 0.8 %; Hematocrit (blood only) 43.6 % (42-52); Hemoglobin 14.7 g/dL (14.0-18.0); Immature Granulocytes # (auto) 0.33 K/uL (0.00-0.02); Immature Granulocytes % (auto) 2.6 %; Lymphocytes # (auto) 3.21 K/uL (1.2-3.4); Mean Corpuscular Hemoglobin 32.2 pg (25-34); Mean Corpuscular Hgb Conc 33.7 g/dL (32-36); Mean Corpuscular Volume 95.6 fL (80-100); Mean Platelet Volume 10.1 fL (7.4-10.4); Monocytes # (auto) 1.26 K/uL (0.11-0.59); Monocytes % (auto) 9.8 %; Neutrophils # (auto) 7.92 K/uL (1.4-6.5); Neutrophils % (auto) 61.6 %; Platelet Count 315 K/uL (130-400); RDW Coefficient of Variation 13.7 % (11.5-14.5); RDW Standard Deviation 48.3 fL (36.4-46.3); Red Blood Count 4.56 M/uL (4.7-6.1); White Blood Count 12.84 K/uL (4.8-10.8)
[2019-04-22] MEDS: INSULIN ASPART 100 UNITS/ML 3 ML PEN SC SCH ×2 (08:18→13:14)
[2019-04-22] MEDS: FLUTICASONE/SALMETEROL (ADVAIR) 500/50 INH 14 PUFF INH SCH (08:20)
[2019-04-22] MEDS: INSULIN HUMAN 70% NPH/30% REGULAR SQ SCH (08:20)
[2019-04-22] MEDS: OXYCODONE HCL 10 MG TABCR (OXYCONTIN) PO SCH (08:21)
[2019-04-22] MEDS: FINASTERIDE 5 MG TAB PO SCH (08:21)
[2019-04-22] MEDS: BENZONATATE 100 MG CAPSULE PO SCH ×2 (08:21→13:14)
[2019-04-22] MEDS: LIDOCAINE 5% 1 PATCH TD SCH (08:21)
[2019-04-22] MEDS: SODIUM CHLORIDE 0.65% NA SOLN 45 ML (OCEAN) SCH (08:21)
[2019-04-22] MEDS: METOPROLOL SUCC 50MG EXT REL TAB PO SCH (08:22)
[2019-04-22] MEDS: PANTOprazole 40 MG TAB PO SCH (08:22)
[2019-04-22] MEDS ORDERED: GUAIFENESIN/CODEINE 100MG/10MG 5ML UDC PO PRN (12:51)
--- NOTE | 2019-04-22 12:51 | Pulmonology Progress Note ---
Date of Service April 22, 2019 Assessment & Plan (1) Pulmonary embolism: Impression: 63-year-old male with obstructive lung disease and new diagnosis of pulmonary embolism. His prior CT scan showed early pulmonary infarct. He had continued chest pain and is now demonstrated a pleural effusion on the right with some consolidation. This may be expansion of the pulmonary infarcts and the sympathetic pleural effusion. My suspicion for lung abscess is quite low. Recommendations: 1. Pleural effusion: This may be causing the patient's chest discomfort. Holding Coumadin and Lovenox given the elevated INR. If his INR decreases down below 1.5 or so, would consider diagnostic and therapeutic ultrasound-guided catheter thoracentesis. Recheck INR in the morning. 2. PE: Continue anticoagulation as outlined in Dr. Vegas's last note. The patient's echocardiogram on April 15 was relatively normal with no evidence of pulmonary hypertension and this is somewhat reassuring. 3. COPD: The patient does not appear overtly bronchospastic currently. Continue inhalers as needed. Will provide a trial of Robitussin-AC as the patient states this is been beneficial in the past 4. Chest pain: Secondary to pulmonary infarcts and the pleural effusion. 5. Consider pain consult given the patient's complaints of back pain although I am unclear they can offer him anything given his need for anticoagulation. We will continue to follow. Feel free to contact us with questions or concerns. Acute cor pulmonale presence: without acute cor pulmonale Chronicity: acute Pulmonary embolism type: unspecified Qualified Code(s): I26 .99 - Other pulmonary embolism without acute cor pulmonale (2) Acute respiratory failure with hypoxia: (3) Chest pain: (4) Pleural effusion: Subjective Patient continues to complain of cough and chest discomfort. He is also complaining of significant back pain. He states he was evaluated and has severe degenerative changes of the lumbar sacral spine but was told by the surgeon he was not a candidate for surgical intervention. He is occasionally coughing and passed. His INR remains elevated. He has not had any significant changes to his medical history or review of systems since I saw him last. Review of Systems Review of Systems: Unchanged from prior Physical Exam Constitutional: WD/WN, vitals as above Neck: trachea midline, no thyromegaly Respiratory: Decreased breath sounds at the right lung base. Few crackles. No wheezing. Cardiovascular: RRR, no murmur, no edema Extremities: + edema Gastrointestinal (Abdomen): normal bowel sounds, soft, nontender, no hepatosplenomegaly Skin: Mild cyanosis of the lower extremities which the patient straits is chronic. This goes along with some pitting edema Results & Data Vital Signs (Past 12 Hours) Vital Signs Temp Pulse Resp BP Pulse Ox 04/22/19 11:20 36.6 C 89 19 136/80 94 04/22/19 07:54 36.8 C 95 H 19 127/81 92 04/22/19 03:55 37.2 C 78 21 124/85 93 Laboratory Results INR 2.4 04/22/19 07:28 04/22/19 06:25 Diagnostic Findings No new films PG Care Time/CCT Total # of Minutes Spent Total Time Spent with Patient: Total time spent is greater than 50% in coordination of care (as documented) at patient's floor/unit and/or counseling patient:
[2019-04-22] MEDS: OXYCODONE/ACETAMINOPHEN 5mg/325mg TAB PO PRN (13:18)
--- NOTE | 2019-04-22 13:46 | Hospitalist Progress Note ---
Date of Service April 22, 2019 Assessment & Plan (1) Pulmonary embolism: Acute on Chronic respiratory failure Bilateral Pulmonary embolism with early pulmonary infarct and right sided pleural effusion Acute Left Lower Extremity Deep Vein Thrombosis Pleuritic Chest Pain -admission CTA 04/13/19 :Extensive bilateral pulmonary emboli involving the majority of the lobar and segmental pulmonary arteries. No evidence for right- sided heart strain. Emphysema. There are 2 subcentimeter indeterminate pulmonary nodules as described above with the largest measuring 6.7 mm. Emphysema. Wedge- shaped peripheral opacities within the right lower lobe and lingula likely represent pulmonary infarcts. -repeat CT 04/20/19 reviewed by inpatient pulmonary service and pulmonary doctor does not appreciate any air-filled cavity/abscess -pain control is another main reason for hospitalization, patient is encouraged to try to take oral pain medication when needed -during this hospital stay patient was initially on IV heparin and then transitioned to coumadin alone with goal INR of 2 to 3 -because patient's INR was subtherapeutic on 04/20/19 and 04/21/19, Lovenox 1 mg/kg was given on with daily dose of coumadin -INR is 2.4 on 04/22/19 and Lovenox was stopped -04/22/19 Patient declined pulmonary service of potential thoracentesis. Patient would prefer to go home today and treat the pleuritic chest discomforts with oral pain medications. Patient denies any worsening of the chest discomforts compared to recent days. He is on nasal cannula oxygen but no elevations of oxygen use in recent days. as per case management, a 2 step test is not needed as patient has oxygen tanks at home and his current oxygen requirements are not more elevated than in the past. Patient denies dizziness or vomiting. Denies other symptoms. Discharge plans were discussed at length -Discharge to Home with home health services Patient should take coumadin (warfarin 3mg) daily with goal INR levels of 2 to 3. The coumadin clinic has been called through [facility] appointment line to schedule patient for INR lab checks Patient may take acetaminophen 325 mg every 6 hours as needed for mild pain or fever for next 5 days. [facility] last had filled oxycodone-acetaminophen on 03/30/19 for 5 day supply. Because patient has pleuritic chest pain, patient can take oxycodone 10 mg twice a day for 4 days as scheduled medication (8 tablet prescription). Patient may take tramadol 50 mg every 6 hours as needed for moderate to severe pain (16 tablet prescription). Patient should avoid Flexeril (Cyclobenzaprine) while on tramadol to avoid potential drug side effects Discharge Medications given as paper prescriptions or sent electronically to [facility] [address] [place], [place] [id number] 04/23/2019 1:30 PM Provider Liv Razo, STARR Department [facility] 04/26/2019 9:00 AM Provider Leticia Walton RN Department [facility] 04/27/2019 11:00 AM Provider Andressa Benjamin DO Department [facility] 04/29/[address] [facility], [address] [place], [place] [id number] (2) Thrombosis of left popliteal vein: -04/13/19 ultrasound of lower extremity: Small focal partially occlusive thrombus of the left popliteal vein is age-indeterminate however appears to be new from 03/08/2019; No sonographic evidence of right-sided deep venous thrombosis. -Anticoagulated by anticoagulation therapy (as described above) (3) COPD (chronic obstructive pulmonary disease): -patient does not appear overtly bronchospastic currently. Continue inhalers as needed. -completed doxycycline course for suspected Bronchitis, completed Prednisone course (4) Chronic systolic heart failure: -continue metoprolol -resume lisinopril, spirolactone, bumex as acute kidney injury resolved Acute Kidney Injury -initially the creatinine returned to baseline but creatinine increased on 04/21/19 -resume lisinopril, spirolactone, bumex as acute kidney injury resolved as of 04/22/19 Enlarged prostate -continue home dose finasteride -Amin removed on 04/21/19 and patient passed Trial of void (5) CAD (coronary artery disease): -Continue metoprolol -Reported allergy to statin -can resume aspirin (6) HTN (hypertension): -blood pressure stable -resume lisinopril, spirolactone, bumex as acute kidney injury resolved as of (7) T2DM (type 2 diabetes mellitus): Type 2 diabetes mellitus with adjunct faculty for medical terminology current use of insulin -resume home dose insulin on discharge Code Status Full Code Discharge Diagnosis: Acute on Chronic respiratory failure, Bilateral Pulmonary embolism with early pulmonary infarct and right sided pleural effusion, Acute Left Lower Extremity Deep Vein Thrombosis, Pleuritic Chest Pain, Chronic systolic heart failure, Hypertension, Acute Kidney Injury, Type 2 diabetes mellitus with adjunct faculty for medical terminology current use of insulin Subjective Patient declined pulmonary service of potential thoracentesis. Patient would prefer to go home today and treat the pleuritic chest discomforts with oral pain medications. Patient denies any worsening of the chest discomforts compared to recent days. He is on nasal cannula oxygen but no elevations of oxygen use in recent days. as per case management, a 2 step test is not needed as patient has oxygen tanks at home and his current oxygen requirements are not more elevated than in the past. Patient denies dizziness or vomiting. Denies other symptoms. Discharge plans were discussed at length Physical Exam Constitutional: WD/WN, vitals as above Eyes: PERRL, conjunctivae normal, anicteric sclerae EOM intact bilaterally ENMT: external ear and nose normal, oropharynx normal Neck: normal visual inspection Respiratory: normal respiratory effort (on nasal cannula oxygen) Cardiovascular: Rate/Rhythm: regular rate and regular rhythm Gastrointestinal (Abdomen): normal bowel sounds, soft, nontender, no hepatosplenomegaly Musculoskeletal: Head/Neck/Chest: normocephalic and head atraumatic Neurologic: PERRL, EOMI, accommodation nl, no face palsy, no dysarthria Psychiatric: A+Ox3, euthymic affect Results & Data Vital Signs (Past 12 Hours) Vital Signs Temp Pulse Resp BP Pulse Ox 04/22/19 11:20 36.6 C 89 19 136/80 94 04/22/19 07:54 36.8 C 95 H 19 127/81 92 04/22/19 03:55 37.2 C 78 21 124/85 93 (1) COPD (chronic obstructive pulmonary disease) COPD type: unspecified COPD Qualified Code(s): J44.9 - Chronic obstructive pulmonary disease, unspecified (2) Pulmonary embolism Acute cor pulmonale presence: without acute cor pulmonale Chronicity: acute Pulmonary embolism type: unspecified Qualified Code(s): I26.99 - Other pulmonary embolism without acute cor pulmonale
--- NOTE | 2019-04-22 13:54 | Discharge Summary ---
Date of Service April 22, 2019 Admission HPI Per Admitting Provider DATE OF ADMISSION: 04/13/2019 CHIEF COMPLAINT: Shortness of breath, hypoxia. HISTORY OF PRESENT ILLNESS: This is a 63-year-old male with past medical history significant for chronic systolic and diastolic CHF, EF of 40-45%, COPD, CAD status post stent, chronic respiratory failure requiring 2 liters oxygen at rest and 4 liters at activities, history of peripheral vascular disease, history of type 2 diabetes, chronic back pain, presents with shortness of breath. The patient was recently in the hospital for CHF, treated with IV diuretics, Aldactone wad added.Also seen by pulmonary. Pulmonary added Juan Antonio, , supposed to follow up with pulmonary for PFTs and also sleep study,.Discharged on 04/11/2019, to home. At home the patient is getting short of breath on exertion, even walking a few steps making short of breath, even at 4 liters of oxygen, his oxygen saturation was only 70%, so he came back to the ER. In the ER, his chest x-ray was okay, but CT chest showed pulmonary embolism. We will wait for the official report, but there seemed to be no heart strain on the CAT scan. Troponin is negative. Currently, he also given IV Lasix in ER. He is micturating okay now. Says at home his urine out put was slowing down. He has had some chest discomfort at left lower rib cage radiating to right flank region. But the pain is improved now. Has chronic back pain. Has cough with brownish phlegm, but was also had during last admission. Denies any headache, no dizziness, no blurred vision, no earache, no runny nose. Appetite is okay. Has edema in lower extremities. Admission Exam Per Admitting Provider PHYSICAL EXAMINATION: GENERAL: The patient is alert and oriented, not in acute distress. VITAL SIGNS: Temperature 37.2, pulse 90, respiratory rate 16, blood pressure 126/94, oxygen 94% on 4 liters. Oxygen 87% when he came in. HEENT: No pallor, no icterus. Pupils equal, round, reactive to light. NECK: No JVD, no neck masses, no carotid bruits. CARDIOVASCULAR: S1, S2 heard, regular rate and rhythm, no murmur, no gallop. RESPIRATORY SYSTEM: Normal AP diameter. No accessory muscle use. Bibasilar diminished breath sounds. No wheezing, no crackles. ABDOMEN: Soft, bowel sounds present, nontender. No distention. CENTRAL NERVOUS SYSTEM: Cranial nerves II-XII grossly nonfocal. EXTREMITIES: Bilateral lower extremity edema present. No erythema seen. Principal Diagnosis Acute on Chronic respiratory failure, Bilateral Pulmonary embolism with early pulmonary infarct and right sided pleural effusion, Acute Left Lower Extremity Deep Vein Thrombosis, Pleuritic Chest Pain, Chronic systolic heart failure, Hypertension, Acute Kidney Injury, Type 2 diabetes mellitus with cruller maker machine current use of insulin Discharge Exam Constitutional WD/WN, vitals as above Eyes PERRL, conjunctivae normal, anicteric sclerae EOM intact bilaterally ENMT external ear and nose normal, oropharynx normal Neck normal visual inspection Respiratory normal respiratory effort (on nasal cannula oxygen) Cardiovascular Rate/Rhythm: regular rate and regular rhythm Gastrointestinal (Abdomen) normal bowel sounds, soft, nontender, no hepatosplenomegaly Musculoskeletal Head/Neck/Chest: normocephalic and head atraumatic Neurologic PERRL, EOMI, accommodation nl, no face palsy, no dysarthria Psychiatric A+Ox3, euthymic affect Discharge Data Allergies Allergy/AdvReac Type Severity Reaction Status Date / Time ceftriaxone Allergy Intermediate HIVES Verified 04/13/19 01:42 piperacillin Allergy Intermediate rash, Verified 04/13/19 01:42 itching, burning through upper body [id number] Reductase Allergy Intermediate rash/ Verified 04/13/19 01:42 Inhibitor heartburn tazobactam Allergy Intermediate rash, Verified 04/13/19 01:42 itching, burning through upper body clopidogrel [From Plavix] Allergy Unknown Verified 04/13/19 08:28 losartan Allergy Unknown Verified 04/13/19 08:28 Iodinated Contrast Media AdvReac Intermediate rash, Verified 04/13/19 01:42 [Iodinated Contrast- Oral itching and IV Dye] morphine AdvReac Intermediate NAUSEA/VOMI Verified 04/13/19 01:42 TING Consultations 04/13/19 05:06 ED Decision to Admit Stat 04/13/19 07:02 Consult Case Management - Discharge Planning Routine 04/14/19 16:04 Consult Pulmonology Routine Ordered Studies 04/13/19 02:21 CT angio chest PE protocol Urgent 04/13/19 11:45 US venous doppler LE BI Routine 04/14/19 09:05 US renal/blad retro comp Routine 04/20/19 10:18 CT chest wo con Routine Hospital Course (1) Pulmonary embolism: Acute on Chronic respiratory failure Bilateral Pulmonary embolism with early pulmonary infarct and right sided pleural effusion Acute Left Lower Extremity Deep Vein Thrombosis Pleuritic Chest Pain -admission CTA 04/13/19 :Extensive bilateral pulmonary emboli involving the majority of the lobar and segmental pulmonary arteries. No evidence for right- sided heart strain. Emphysema. There are 2 subcentimeter indeterminate pulmonary nodules as described above with the largest measuring 6.7 mm. Emphysema. Wedge- shaped peripheral opacities within the right lower lobe and lingula likely represent pulmonary infarcts. -repeat CT 04/20/19 reviewed by inpatient pulmonary service and pulmonary doctor does not appreciate any air-filled cavity/abscess -pain control is another main reason for hospitalization, patient is encouraged to try to take oral pain medication when needed -during this hospital stay patient was initially on IV heparin and then transitioned to coumadin alone with goal INR of 2 to 3 -because patient's INR was subtherapeutic on 04/20/19 and 04/21/19, Lovenox 1 mg/kg was given on with daily dose of coumadin -INR is 2.4 on 04/22/19 and Lovenox was stopped -04/22/19 Patient declined pulmonary service of potential thoracentesis. Patient would prefer to go home today and treat the pleuritic chest discomforts with oral pain medications. Patient denies any worsening of the chest discomforts compared to recent days. He is on nasal cannula oxygen but no elevations of oxygen use in recent days. as per case management, a 2 step test is not needed as patient has oxygen tanks at home and his current oxygen requirements are not more elevated than in the past. Patient denies dizziness or vomiting. Denies other symptoms. Discharge plans were discussed at length -Discharge to Home with home health services Patient should take coumadin (warfarin 3mg) daily with goal INR levels of 2 to 3. The coumadin clinic has been called through [facility] appointment line to schedule patient for INR lab checks Patient may take acetaminophen 325 mg every 6 hours as needed for mild pain or fever for next 5 days. [facility] was checked and patient last had filled oxycodone-acetaminophen on 03/30/19 for 5 day supply. Because patient has pleuritic chest pain, patient can take oxycodone 10 mg twice a day for 4 days as scheduled medication (8 tablet prescription). Patient may take tramadol 50 mg every 6 hours as needed for moderate to severe pain (16 tablet prescription). Patient should avoid Flexeril (Cyclobenzaprine) while on tramadol to avoid potential drug side effects Discharge Medications given as paper prescriptions or sent electronically to [facility] [address] [place] [address] 04/23/2019 1:30 PM Provider Liv Razo, RN Department [facility] 04/26/2019 9:00 AM Provider Leticia Walton RN Department [facility] 04/27/2019 11:00 AM Provider Andressa Benjamin DO Department [facility] 04/29/[address] [facility] Pulmonary Medicine [facility], [address] [place] [address] (2) Thrombosis of left popliteal vein: -04/13/19 ultrasound of lower extremity: Small focal partially occlusive thrombus of the left popliteal vein is age-indeterminate however appears to be new from 03/08/2019; No sonographic evidence of right-sided deep venous thrombosis. -Anticoagulated by anticoagulation therapy (as described above) (3) COPD (chronic obstructive pulmonary disease): -patient does not appear overtly bronchospastic currently. Continue inhalers as needed. -completed doxycycline course for suspected Bronchitis, completed Prednisone course (4) Chronic systolic heart failure: -continue metoprolol -resume lisinopril, spirolactone, bumex as acute kidney injury resolved Acute Kidney Injury -initially the creatinine returned to baseline but creatinine increased on 04/21/19 -resume lisinopril, spirolactone, bumex as acute kidney injury resolved as of 04/22/19 Enlarged prostate -continue home dose finasteride -Amin removed on 04/21/19 and patient passed Trial of void (5) CAD (coronary artery disease): -Continue metoprolol -Reported allergy to statin -can resume aspirin (6) HTN (hypertension): -blood pressure stable -resume lisinopril, spirolactone, bumex as acute kidney injury resolved as of (7) T2DM (type 2 diabetes mellitus): Type 2 diabetes mellitus with fdc current use of insulin -resume home dose insulin on discharge Code Status Full Code Discharge Diagnosis: Acute on Chronic respiratory failure, Bilateral Pulmonary embolism with early pulmonary infarct and right sided pleural effusion, Acute Left Lower Extremity Deep Vein Thrombosis, Pleuritic Chest Pain, Chronic systolic heart failure, Hypertension, Acute Kidney Injury, Type 2 diabetes mellitus with fdc current use of insulin Total Time Total Time Spent Total Time Spent (In Minutes): 40 minutes Total Time Includes: Examination of the Patient, Discharge Planning, Medication Reconciliation and Communication With Other Providers Discharge Plan Discharge Items Patient Disposition: Home - Home Health Services Reason For Visit: SOB, HYPOXIA Discharge Diagnosis: Acute on Chronic respiratory failure, Bilateral Pulmonary embolism with early pulmonary infarct and right sided pleural effusion, Acute Left Lower Extremity Deep Vein Thrombosis, Pleuritic Chest Pain, Chronic systolic heart failure, Hypertension, Acute Kidney Injury, Type 2 diabetes mellitus with cruller maker machine current use of insulin Condition on Discharge: Fair Activity: Resume your previous activity Non-emergency contact: Primary Care Provider and Fur Operator Call non-emergency contact if: you have any medication questions Follow-up/Referrals: Frank Bishop MD [Physician] - 04/29/19 10:00 am (Appointment scheduled for evaluation of pleural effusion with Dr. Bishop) Andressa Benjamin DO [Primary Care Provider] - Diet: Carb Consistent or DM2 and Heart Healthy Addtl Attending Provider Instructions: Discharge to Home with home health services Patient should take coumadin (warfarin 3mg) daily with goal INR levels of 2 to 3. The coumadin clinic has been called through [facility] appointment line to schedule patient for INR lab checks Patient may take acetaminophen 325 mg every 6 hours as needed for mild pain or fever for next 5 days. [facility] was checked and patient last had filled oxycodone-acetaminophen on 03/30/19 for 5 day supply. Because patient has pleuritic chest pain, patient can take oxycodone 10 mg twice a day for 4 days as scheduled medication (8 tablet prescription). Patient may take tramadol 50 mg every 6 hours as needed for moderate to severe pain (16 tablet prescription). Patient should avoid Flexeril (Cyclobenzaprine) while on tramadol to avoid potential drug side effects Discharge Medications given as paper prescriptions or sent electronically to [facility] [address] [place] [address] 04/23/2019 1:30 PM Provider Liv Razo, STARR Department [facility] 04/26/2019 9:00 AM Provider Leticia Walton RN Department [facility] 04/27/2019 11:00 AM Provider Andressa Benjamin DO Department [facility] 04/29/[address] Bishop [facility] Pulmonary Medicine [facility], [address] [place] [address] Pending Studies at Discharge: No Stand-Alone Forms: My [facility] [employer] Medications and DC Order Prescriptions: New warfarin [Coumadin] 3 mg Tablet 3 mg PO DAILY@1600 30 Days Qty: 30 RF: 0 acetaminophen 325 mg tablet 325 mg PO Q6H PRN (Reason: fever or mild pain) 5 Days Qty: 20 RF: 0 oxycodone [OxyContin] 10 mg Tablet,Oral Only,Ext.Rel.12 Hr 10 mg PO BID 4 Days Qty: 8 RF: 0 tramadol 50 mg Tablet 50 mg PO Q6H PRN (Reason: moderate to severe pain) 4 Days Qty: 16 RF: 0 Continued metoprolol succinate 100 mg Tablet Extended Release 24 Hr 100 mg PO QAM RF: 0 aspirin [Aspirin Low Dose] 81 mg Tablet,Delayed Release (Dr/Ec) 81 mg PO QAM RF: 0 Novolin 70/30 U-100 Insulin 100 unit/mL (70-30) suspension 33 unit subcut BID RF: 0 albuterol sulfate 90 mcg/actuation HFA aerosol inhaler 2 puff inhalation Q4H PRN (Reason: Wheezing) RF: 0 metformin 500 mg tablet extended release 24 hr 1,000 mg PO QAM RF: 0 oxycodone-acetaminophen [Percocet] 5-325 mg Tablet 1 tab PO Q4H PRN (Reason: severe pain) Qty: 10 RF: 0 pantoprazole 40 mg tablet,delayed release (DR/EC) 40 mg PO DAILY RF: 0 fluticasone propion-salmeterol 500-50 mcg/dose blister with device 1 inh inhalation BID RF: 0 finasteride 5 mg tablet 5 mg PO DAILY RF: 0 lisinopril 2.5 mg Tablet 2.5 mg PO QAM 30 Days Qty: 30 RF: 1 spironolactone 25 mg Tablet 25 mg PO DAILY 30 Days Qty: 30 RF: 0 Spiriva Respimat 2.5 mcg/actuation mist 2 puffs INH DAILY Qty: 4 RF: 1 bumetanide 1 mg tablet 1 mg PO DAILY 30 Days Qty: 30 RF: 1 Discontinued cyclobenzaprine 10 mg tablet 10 mg PO HS PRN (Reason: Muscle Spasm) RF: 0 Discharge Orders: Discharge Order (Routine); Ordered 04/22/19 Ordered By: Nathan Mix Admission Data Admit Date/Time: 04/13/19 05:45 Attending Provider: Nathan Mix Admit Provider: Jesús Mas Primary Care Provider: Andressa Benjamin Other Providers: Jesús Mas ; Hospice,Family ; Zach Curtis
[2019-04-22] MEDS ORDERED: SPIRONOLACTONE 25 MG TAB PO ONE (14:00)
[2019-04-22] MEDS ORDERED: BUMETANIDE 1 MG TAB PO ONE (14:00)
[2019-04-22] MEDS ORDERED: WARFARIN SOD 3 MG TAB PO SCH (16:00)
== END 2019-04-22 15:51 | disposition home health service (06) | DRG 299 ==
LOC: ED 00:45 → 2S 05:45 → SUATTDRO 05:45 → 2S 06:32